=== PATIENT | female | born 1960 ===

== ENCOUNTER 2024-08-24 15:41 | Emergency (ER) | payer MEDICARE, SELFPAY ==
--- NOTE | ~2024-08-24 | CT_ITS ---
EXAMINATION: CTA chest PE protocol DATE: 08/24/2024 20:34 CDT INDICATION: Elevated d-dimer. TECHNIQUE: Computed tomographic angiography (CTA) of the chest was performed with 100 mL Omnipaque-35 0 intravenous contrast. The dose-length product was 287.93 mGy-cm. Maximum intensity projection 3D-re constructions of the aorta and other arteries were constructed by the technologist on a separate work station. COMPARISON: None. FINDINGS/OBSERVATIONS: PULMONARY ARTERIES: No filling defect is identified within the main or proximal pulmonary artery. The main pulmonary artery is not enlarged. THORACIC AORTA: No aneurysmal dilatation or dissection is present. The great vessels are intact LUNGS: The lungs are clear MEDIASTINUM: No morphologically suspicious or pathologically enlarged lymph nodes are identified with in the mediastinum or bilateral axilla. BONES OF THE CHEST: No acute fracture. No significant degenerative disease. No lytic or blastic lesions. HEART: The heart is enlarged, without pericardial effusion. IMPRESSION: No pulmonary embolus. No thoracic aortic dissection. The lungs are clear. Reviewed, dictated and finalized at location A.
--- NOTE | ~2024-08-24 | XR_ITS ---
CHEST RADIOGRAPH, PA AND LATERAL CLINICAL HISTORY: weakness, chest tightness . COMPARISON: None available TECHNIQUE: PA and lateral views of the chest. FINDINGS The cardiomediastinal silhouette is unremarkable. The lungs are clear. IMPRESSION: No focal infiltrate or effusion. Reviewed, dictated and finalized at location A.
--- NOTE | ~2024-08-24 | CT_ITS ---
History: Headache with facial paresthesias PROCEDURE: CT head without contrast. COMPARISON: None TECHNIQUE: Axial imaging of the head performed from the skull base to the vertex without IV contrast. Sagittal a nd coronal reformations obtained. DLP: 681 mGy-cm FINDINGS: The ventricles are enlarged. The dilatation of the ventricles is proportional to the degree of sulcal prominence, not uncommon in the senescent brain. Decreased attenuation is identified within the periventricular white matter, likely secondary to micr ovascular ischemic disease, far advanced for a patient of this age. There is no mass, mass effect or midline shift. There is no abnormal extra-axial fluid collection or intracranial hemorrhage. Visualized paranasal sinuses are clear. The mastoid air cells are well aerated. No acute displaced fractures within the overlying cranium. Impression: No acute intracranial hemorrhage or suspicious mass effect. 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 Reviewed, dictated and finalized at location A. Impression: No acute intracranial hemorrhage or suspicious mass effect. 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
--- OUTSIDE RECORDS SUMMARY | 2024-08-24 15:44 | XMS_ITS | Encounter Summary ---
Author Organization [facility] Address [address] [place] [address] Phone Care Team Providers Care Financial Aid Officer Name Role Phone Jing Baird Primary Care Provider + Kvng Mendoza MD Unavailable Encounter Details Date Type Department Care Team (Late st Contact Info) Description 11/23/2020 Lab Requisition [facility] Laboratory Services [address] [place] [address] Jing Baird PAC [address] [place] [address] Hypothyroidism, unspecified; Abnormal level of blood mineral; Hypokalemia Social History Tobacco Use Types Packs/Day Years Used Date Smoking Tobacco: Every Day Cigarettes 1 48.8 Started: 11/03/1975 Smokeless Tobacco: Never Alcohol Use Standard Drinks/Week Comments Not Currently 0 (1 standard drink = 0.6 oz pur e alcohol) PHQ-2 Answer Date Recorded Total Score - Questions 1-9 1 07/06 Sexually Active Control Partners Comments Not Currently Male Comments No Sex and Gender Information Value Date Recorded Sex Assigned at Female 10/03/2023 6:07 AM CDT Legal Sex Female 8:03 PM CDT Gender Identity Female 10/03/2023 6:07 AM CDT Sexual Orientation Not on file COVID-19 Exposure Response Date Recorded In the last month, have you been in contact with someone who was confirmed or suspected to have Coronavirus / COVID-19? No / Unsure 11/16/2020 3:47 PM CDT documented as of this encounter Plan of Treatment Not on file documented as of this encounter Goals Goal Patient Goal Type Associated Problems Recent Progress Patient-Stated? Author Patient to report a decrease in intensity and frequency of anxious and depressive symptoms Behavioral Health No Mini Larios, RUBEN Note: 1. Patient to learn and utilize three coping skills. 2. Patient to practice self care. 3. Patient to identify negative thoughts and actively reframe. I would like to feel better then I do today. Behavioral Health Yes Mini Larios, RUBEN documented as of this encounter Procedures Procedure Name Priority Date/Time Associated Diagnosis Comments THYROID SCREEN WITH REFLEX Routine 11/23/2020 10:30 AM CDT Hypothyroidism, unspecified Abnormal level of blood mineral Hypokalemia THYROID SCREEN WITH REFLEX Routine 11/23/2020 10:30 AM CDT Hypothyroidism, unspecified Abnormal level of blood mineral Hypokalemia THYROXINE (T4) FREE Routine 11/23/2020 1 0:30 AM CDT Hypothyroidism, unspecified Abnormal level of blood mineral Hypokalemia MAGNESIUM (MG) Routine 11/23/2020 10:30 AM CDT Hypothyroidism, unspecified Abnormal level of blood mineral Hypokalemia BASIC METABOLIC PANEL W/ CALCIUM TOTAL Routine 11/23/2020 10:30 AM CDT Hypothyroidism, unspecified Abnormal level of blood mineral Hypokalemia documented in this encounter Results * THYROXINE (T4) FREE (11/23/2020 10:30 AM CDT) T4 FREE 1.2 0.9 - 1.7 ng/dL 11/23/2020 12:54 PM CDT [facility] Blood Venipuncture / Unknown 11/23/2020 10:30 AM CDT 11/23/2020 11:03 AM CDT us Jing Baird PAC CHEMISTRY ORDERABLES Fin al Result [email or web address] LAB #[address] [place] [address] * (ABNORMAL) THYROID SCREEN WITH REFLEX (11/23/2020 10:30 AM CDT) TSH 0.114(L) 0.270 - 4.200 mIU/L 11/23/2020 11:35 AM CDT [facility] [[email or web address] Blood Venipuncture / Unknown 11/23/2020 10:30 AM CDT 11/23/2020 11:03 AM CDT us Jing Baird PAC CHEMISTRY ORDERABLES Fin al Result Performing Organization Address City[facility] Co de Phone Number [email or web address] LAB #[address] [place] [address] * MAGNESIUM (MG) (11/23/2020 10:30 AM CDT) MAGNESIUM 1.8 1.8 - 2.5 mg/dL 11/23/2020 11:21 AM CDT [facility] [[email or web address] Blood Venipuncture / Unknown 11/23/2020 10:30 AM CDT 11/23/2020 11:03 AM CDT us Jing Baird PAC CHEMISTRY ORDERABLES Fin al Result [facility] [[email or web address] LAB #[address] [place] [address] * (ABNORMAL) BASIC METABOLIC PANEL W/ CALCIUM TOTAL (11/23/2020 10:30 AM CDT) SODIUM 142 136 - 144 mmol/L 11/23/2020 11:21 AM CDT [facility] POTASSIUM 3.5 3.5 - 5.1 mmol/L 11/23/2020 11:21 AM CDT [facility] CHLORIDE 108 100 - 110 mmol/L 11/23/2020 11:21 AM CDT [facility] CO2, VENOUS 21(L) 22 - 32 mmol/L 11/23/2020 11:21 AM CDT [facility] ANION GAP 16.5 8.0 - 20.0 mmol/L 11/23/2020 11:21 AM CDT [facility] GLUCOSE 205(H) 70 - 99 mg/dL 11/23/2020 11:21 AM CDT [facility] BUN 16 8 - 23 mg/dL 11/23/2020 11:21 AM CDT [facility] CREATININE, BLOOD 0.80 0.60 - 1.10 mg/dL 11/23/2020 11:21 AM CDT [facility] BUN/CREATININE RATIO 20 12 - 20 ratio 11/23/2020 11:21 AM CDT [facility] CALCIUM 9.0 8.9 - 10.3 mg/dL 11/23/2020 11:21 AM CDT [facility] GFR, EST. NONAFRICAN >60 >=60 11/23/2020 11:21 AM CDT [facility] GFR, EST. >60 >=60 11/23/2020 11:21 AM CDT [facility] Comment: Creatinine Clearance is the preferred criteria for selecting drug dose adjustments in renally impaired patients. The GFR is provided as additional pertinent clinical information. GFR is reported in mL/min/1.73 sq m. Blood Venipuncture / Unknown 11/23/2020 10:30 AM CDT 11/23/2020 11:03 AM CDT us Jing Baird PAC CHEMISTRY ORDERABLES Fin al Result [facility] [address] [place] [address] documented in this encounter Visit Diagnoses Diagnosis Hypothyroidism, unspecified Abnormal level of blood mineral Other abnormal blood chemistry Hypokalemia Hypopotassemia documented in this encounter Additional Health Concerns Infection Onset Date Last Indicated Resolved Time COVID - 19 03/24/2023 03/24/2023 03/25/2023 8:22 AM MIXED LIVESTOCK FARMER C. difficile Rule-Out 03/24/2023 03/24/20232022 4:16 PM MIXED LIVESTOCK FARMER COVID - 19 04/27/2023 04/27/2023 04/28/2023 8:53 AM MIXED LIVESTOCK FARMER COVID - 19 01/08/2024 01/08/2024 01/08/2024 1:48 PM CDT COVID - 19 01/13/2024 01/13/2024 01/13/2024 3:44 PM CDT Respiratory Rule-Out 01/13/2024 01/13/2024 024 12:16 AM CDT COVID - 19 02/22/2024 02/22/2024 03/03/2024 12:1 6 AM MIXED LIVESTOCK FARMER COVID - 19 05/17/2024 05/17/2024 05/17/2024 10:4 5 AM MIXED LIVESTOCK FARMER Influenza 05/17/2024 05/17/2024 05/24/2024 12:1 6 AM MIXED LIVESTOCK FARMER COVID - 19 06/11/2024 06/11/2024 06/11/2024 8:06 PM MIXED LIVESTOCK FARMER Assessment Noted Time PHQ-9 Depression Total Score: 1 08/03/19 21 10:00 AM CDT documented as of this encounter Care Teams Financial Aid Officer Relationship Specialty Start Date End Date Jing Baird PAC [address] [facility] [place] [address] PCP - General Physician Plant Technician 12/29/18 07/31/24 Kvng Mendoza MD [address] [phone] Consulting Physician Endocrinology 10/10/21 documented as of this encounter
--- OUTSIDE RECORDS SUMMARY | 2024-08-24 15:44 | XMS_ITS | Encounter Summary ---
Author Organization [facility] Address [address] [place] [address] Phone Care Team Providers Care Fish Hatchery Man Name Role Phone Jing Baird Primary Care Provider + Kvng Mendoza MD Unavailable Reason for Visit * Reason Comments Medication Refill Encounter Details Date Type Department Care Team (Late st Contact Info) Description 02/01/2020 Refill [facility] - Family Medicine [facility] [address] [place] [address] Jing Baird PAC [address] [place] [address] Medication Refill Social History Tobacco Use Types Packs/Day Years Used Date Smoking Tobacco: Every Day Cigarettes Smokeless Tobacco: Never Alcohol Use Standard Drinks/Week Comments Not Currently 0 (1 standard drink = 0.6 oz pur e alcohol) PHQ-2 Answer Date Recorded Total Score - Questions 1-9 3 08/05 Comments No Sex and Gender Information Value [...] have Coronavirus / COVID-19? No / Unsure 01/30/2020 3:32 PM CDT documented as of this encounter Miscellaneous Notes * Telephone Encounter - Sirisha Bell RN - 02/02/2020 9:48 AM CDT Requested Prescriptions Pending Prescriptions Disp Refills tiZANidine (ZANAFLEX) 4 MG Tablet [Pharmacy Med Name: TIZANIDINE HYDROCHLORIDE 4 MG Tablet] 270 Tab0 Sig: TAKE 1 TABLET THREE TIMES DAILY Not Delegated - Analgesics: Muscle Relaxants Failed - 02/01/2020 5:07 PM Failed - This refill cannot be delegated Passed - Valid encounter within last 6 months Past Office Visits Recent Outpatient Visits 2 months ago Type 2 diabetes mellitus with other specified complication, with long-term current useof insulin ([facility]) [facility] Jing Gleason PAC 5 months ago [facility] 6 [facility] Type 2 diabetes mellitus with other specified complication, with long-term current useof insulin ([facility]) [facility] Jing Gleason PAC 7 months ago Type 2 diabetes mellitus with other specified complication, with long-term current useof insulin ([facility]) [facility] Jing Gleason PAC 8 months ago [facility] Upcoming Appointments Future Appointments In 1 week Kvng Mendoza MD [facility] In 3 weeks [facility]ing Baird PAC [facility] AUTOMATIC PRINT DEVELOPER - Recent and Past Visits Recent Visits Date Type Provider Dept 11/30/19 Office Visit Jing Baird PAC [facility] 08/25/19 Office Visit Jing Baird PAC [facility] 07/19/19 Telemedicine Jing Baird PAC [facility] 07/05/19 Telemedicine Jing Baird PAC [facility] 05/18/19 Office Visit Oli Cony, PAC [facility] 05/11/19 Office Visit Oli Cony, PAC [facility] 03/14/19 Office Visit Oli Cony, PAC [facility] 03/02/19 Office Visit Oli Jing Barnes, PAC [facility] 02/01/19 Office Visit Oli Jing Barnes, PAC [facility] 01/26/19 Office Visit Jing Bairde, PAC [facility] Showing recent visits within past 460 days with a meds authorizing provider and meeting all other requirements Future Appointments Date Type Provider Dept 02/28/20 Appointment Oli Jing Barnes PAC [facility] Showing future appointments within next 90 days with a meds authorizing provider and meeting all other requirements busPIRone (BUSPAR) 10 MG Tablet [Pharmacy Med Name: BUSPIRONE HYDROCHLORIDE 10 MG Tablet] 180 Tab 0 Sig: TAKE 1 TABLET TWICE DAILY Not Delegated - Psychiatry: Anxiolytics/Hypnotics Failed - 02/01/2020 5:07 PM Failed - This refill cannot be delegated Passed - Valid encounter within last 6 months Past Office Visits Recent Outpatient Visits 2 months ago Type 2 diabetes mellitus with other specified complication, with long-term current useof insulin ([facility]) [facility] 5 months [facility] Essential [facility] 6 months ago Type 2 diabetes mellitus with other specified complication, with long-term current useof insulin ([facility]) [facility] B[facility] Cony, PAC 7 months ago Type 2 diabetes mellitus with other specified complication, with long-term current useof insulin ([facility]) [facility] B[facility] Cony, PAC 8 months ago Polyarthralgia [facility] Jing Bairde, PAC Upcoming Appointments Future Appointments In 1 week Kvng Mendoza MD [facility] Endocrinology [facility] In 3 weeks Jing Baird, PAC [facility], [facility] AUTOMATIC PRINT DEVELOPER - Recent and Past Visits Recent Visits Date Type Provider Dept 11/30/19 Office Visit Jing Baird, PAC [facility] 08/25/19 Office Visit Jing Baird, PAC [facility] 07/19/19 Telemedicine OliJing, PAC [facility] 07/05/19 Telemedicine OliJing, PAC [facility] 05/18/19 Office Visit Jing Baird, PAC [facility] 05/11/19 Office Visit OliJing, PAC [facility] 03/14/19 Office Visit OliJing, PAC [facility] 03/02/19 Office Visit OliJing, PAC [facility] 02/01/19 Office Visit Oli Jing Barnes, PAC [facility] 01/26/19 Office Visit Jing Baird, PAC [facility] Showing recent visits within past 460 days with a meds authorizing provider and meeting all other requirements Future Appointments Date Type Provider Dept 02/28/20 Appointment OliJing, PAC [facility] Showing future appointments within next 90 days with a meds authorizing provider and meeting all other requirements documented in this encounter Plan of Treatment Not on file documented as of this encounter Goals Goal Patient Goal Type Associated Problems Recent Progress Patient-Stated? Author Patient to report a decrease in intensity and frequency of anxious and depressive symptoms Behavioral Health No Mini Larios LCSW Note: 1. Patient to learn and utilize three coping skills. 2. Patient to practice self care. 3. Patient to identify negative thoughts and actively reframe. I would like to feel better then I do today. Behavioral Health Yes Mini Larios LCSW documented as of this encounter Visit Diagnoses Not on filedocumented in this encounter Additional Health Concerns Infection Onset Date Last Indicated Resolved Time MRSA 07/01/2020 07/01/2020 08/27/2020 6:22 AM CDT COVID - 19 08/26/2020 08/26/2020 08/27/2020 6:22 AM CDT C. difficile Rule-Out 08/26/2020 08/26/20202020 11:25 AM CDT C. difficile Rule-Out 11/11/2020 11/11/20202020 12:16 AM CDT COVID - 19 03/24/2023 03/24/2023 03/25/2023 8:22 AM MOLD COOLER C. difficile Rule-Out 03/24/2023 03/24/20232022 4:16 PM MOLD COOLER COVID - 19 04/27/2023 04/27/2023 04/28/2023 8:53 AM MOLD COOLER COVID - 19 01/08/2024 01/08/2024 01/08/2024 1:48 PM CDT COVID - 19 01/13/2024 01/13/2024 01/13/2024 3:44 PM CDT Respiratory Rule-Out 01/13/2024 01/13/2024 024 12:16 AM CDT COVID - 19 02/22/2024 02/22/2024 03/03/2024 12:1 6 AM MOLD COOLER COVID - 19 05/17/2024 05/17/2024 05/17/2024 10:4 5 AM MOLD COOLER Influenza 05/17/2024 05/17/2024 05/24/2024 12:1 6 AM MOLD COOLER COVID - 19 06/11/2024 06/11/2024 06/11/2024 8:06 PM MOLD COOLER Assessment Noted Time PHQ-9 Depression Total Score: 3 08/25/19 11:40 AM CDT documented as of this encounter Care Teams Fish Hatchery Man Relationship Specialty Start Date End Date Jing Baird PAC [address] [place] [address] PCP - General Physician Pin Game Machine Inspector 12/29/18 07/31/24 Kvng Mendoza MD [address] [address] Consulting Physician Endocrinology 10/10/21 documented as of this encounter
--- OUTSIDE RECORDS SUMMARY | 2024-08-24 15:44 | XMS_ITS | Encounter Summary ---
Author Organization [facility] Address [address] [place] [address] Phone Care Team Providers Care Electronic Engraver Name Role Phone Jing Baird Primary Care Provider + Kvng Mendoza MD Unavailable Reason for Visit * Reason Comments Medication Refill Encounter Details Date Type Department Care Team (Late st Contact Info) Description 02/13/2021 Refill [facility] - Family Medicine [facility] [place] [address] [place] [address] Jing Baird PAC [address] [place] [address] Medication Refill Social History Tobacco Use Types [...] AM CDT Sexual Orientation Not on file documented as of this encounter Plan of [...] Larios, RUBEN documented as of this encounter Visit Diagnoses Not on filedocumented in this encounter Additional Health Concerns Infection Onset Date Last Indicated Resolved Time COVID - 19 03/24/2023 03/24/2023 03/25/2023 8:22 AM MANAGER INTERMEDIATE C. difficile Rule-Out 03/24/2023 03/24/20232022 4:16 PM MANAGER INTERMEDIATE COVID - 19 04/27/2023 04/27/2023 04/28/2023 8:53 AM MANAGER INTERMEDIATE COVID - 19 01/08/2024 01/08/2024 01/08/2024 1:48 PM CDT COVID - 19 01/13/2024 01/13/2024 01/13/2024 3:44 PM CDT Respiratory Rule-Out 01/13/2024 01/13/2024 024 12:16 AM CDT COVID - 19 02/22/2024 02/22/2024 03/03/2024 12:1 6 AM MANAGER INTERMEDIATE COVID - 19 05/17/2024 05/17/2024 05/17/2024 10:4 5 AM MANAGER INTERMEDIATE Influenza 05/17/2024 05/17/2024 05/24/2024 12:1 6 AM MANAGER INTERMEDIATE COVID - 19 06/11/2024 06/11/2024 06/11/2024 8:06 PM MANAGER INTERMEDIATE Assessment Noted Time PHQ-9 Depression Total Score: 1 08/03/19 10:00 AM CDT documented as of this encounter Care Teams Electronic Engraver Relationship Specialty Start Date End Date Jing Baird PAC [address] [place] [address] PCP - General Physician Classroom Instructor 12/29/18 07/31/24 Kvng Mendoza MD [address] [address] Consulting Physician Endocrinology 10/10/21 documented as of this encounter
--- OUTSIDE RECORDS SUMMARY | 2024-08-24 15:44 | XMS_ITS | Encounter Summary ---
Author Organization [facility] Address [address] [place] [address] Phone Care Team Providers Care It Application Architect Name Role Phone Jing Baird Primary Care Provider + Kvng Mendoza MD Unavailable Reason for Visit * Reason Comments Medication Refill Encounter Details Date Type Department Care Team (Late st Contact Info) Description 04/10/2020 Refill [facility] Medical Group - Family Medicine [facility] [address] [place] [address] Jing Baird PAC [address] [place] [address] Medication Refill Social History Tobacco Use Types [...] have Coronavirus / COVID-19? No / Unsure 03/23/2020 2:50 PM MUTUAL FUND ANALYST documented as of this encounter Miscellaneous Notes * Telephone Encounter - Natali Zamudio RN - 04/11/2020 9:03 AM CST Sent to PCP AL FUND ANALYST * Telephone Encounter - Natali Zamudio RN - 04/11/2020 9:02 AM CST Per nursing clinical judgement, provider to review and approve the medication(s) order(s) if appropriate. Famotidine not on current med list, dc'ed 02/10/20, Levothyroxine 08/24/19, Venlafaxine 08/24/19. LastOV 03/26/20, F/U None Natali BETANCOURT Requested Prescriptions Pending Prescriptions Disp Refills famotidine (PEPCID) 40 MG Tablet [Pharmacy Med Name: FAMOTIDINE 40 MG Tablet] 90 Tab Sig: TAKE 1/2 TABLET TWICE DAILY Gastroenterology: Antiulcer - H2 Antagonists Passed - 04/10/2020 7:23 PM Passed - Valid encounter within last 12 months Past Office Visits Recent Outpatient Visits 2 weeks ago Chronic sinusitis, unspecified location [facility] - Jing Gleason PAC 2 months ago Chronic gastroesophageal reflux disease [facility] - Jing Gleason PAC 4 months ago Type 2 diabetes mellitus with other specified complication, with long-term current useof insulin (HCC) [facility] 7 months ago Essential hypertension [facility] - Jing Gleason PAC 8 months ago Type 2 diabetes mellitus with other specified complication, with long-term current useof insulin (HCC) [facility] Upcoming Appointments Future Appointments In 1 week Sima Hensley September, PAC [facility] Medical [facility] month Kvng Mendoza MD [facility] Endocrinology [facility] DIRECTOR LIFE SCIENCES - Recent and Past Visits Recent Visits Date Type Provider Dept 03/26/20 Telemedicine Jing Baird, PAC [facility] 02/10/20 Office Visit ElpidioJing paul, PAC [facility] 11/30/19 Office Visit ElpidioJing paul, PAC [facility] 08/25/19 Office Visit LollyJing reid, PAC [facility] 07/19/19 Telemedicine ElpidioJing paul, PAC [facility] 07/05/19 Telemedicine ElpidioJing paul, PAC [facility] 05/18/19 Office Visit ElpidioJing paul, PAC [facility] 05/11/19 Office Visit ElpidioJing paul, PAC [facility] 03/14/19 Office Visit ElpidiocharlesjeanetteJing, PAC [facility] 03/02/19 Office Visit OliiJng, PAC [facility] Showing recent visits within past 460 days with a meds authorizing provider and meeting all other requirements Future Appointments No visits were found meeting these conditions. Showing future appointments within next 90 days with a meds authorizing provider and meeting all other requirements levothyroxine (SYNTHROID) 125 MCG Tablet [Pharmacy Med Name: LEVOTHYROXINE SODIUM 125 MCG Tablet] 90 Tab 2 Sig: TAKE 1 TABLET EVERY DAY Endocrinology: Hypothyroid Agents Failed - 04/10/2020 7:23 PM Failed - TSH in normal range and within 360 days TSH Date Value Ref Range Status 12/01/2019 0.063 (L) 0.270 - 4.200 mIU/L Final Passed - Valid encounter within last 12 months Past Office Visits Recent Outpatient Visits 2 weeks ago Chronic sinusitis, unspecified location [facility] Jing Gleason PAC 2 months ago [facility] Type 2 diabetes mellitus with other specified complication, with long-term current useof insulin (HCC[facility] Essential hypertension [facility] - Jing Gleasno PAC 8 months ago Type 2 diabetes mellitus with other specified complication, with long-term current useof insulin (HCC) [facility] - Jing Gleason PAC Upcoming Appointments Future Appointments In 1 week Sima Hensley September, LYLY [facility] Gastroenterology - [place], [facility] In 1 month Kvng Mendoza MD [facility] Endocrinology - [facility] DIRECTOR LIFE SCIENCES - Recent and Past Visits Recent Visits Date Type Provider Dept 03/26/20 Telemedicine Jing Baird, PAC [facility] 02/10/20 Office Visit Jing Baird, PAC [facility] 11/30/19 Office Visit Jing Baird, PAC [facility] 08/25/19 Office Visit Jing Baird, PAC [facility] 07/19/19 Telemedicine Jing Baird, PAC [facility] 07/05/19 Telemedicine Jing Baird, PAC [facility] 05/18/19 Office Visit Jing Baird, PAC [facility] 05/11/19 Office Visit Jing Baird, PAC [facility] 03/14/19 Office Visit Jing Baird, PAC [facility] 03/02/19 Office Visit Jing Baird, PAC [facility] Showing recent visits within past 460 days with a meds authorizing provider and meeting all other requirements Future Appointments No visits were found meeting these conditions. Showing future appointments within next 90 days with a meds authorizing provider and meeting all other requirements venlafaxine (EFFEXOR-XR) 150 MG CAPSULE SR 24 HR [Pharmacy Med Name: VENLAFAXINE HCL ER 150 MG Capsule Extended Release 24 Hour] 180 Cap 2 Sig: TAKE 1 CAPSULE TWICE DAILY Not Delegated - Psychiatry: Antidepressants: Other Failed - 04/10/2020 7:23 PM Failed - Last BP in normal range BP Readings from Last 1 Encounters: 02/10/20 148/74 Failed - This refill cannot be delegated Passed - Valid encounter within last 12 months Past Office Visits Recent Outpatient Visits 2 weeks ago Chronic [facility], unspecified [facility] 2 months [facility]ophageal reflux disease [facility] 4 months ago Type 2 diabetes mellitus with other specified complication, with long-term current useof insulin ([facility] 7 months [address] [facility] 8 months ago Type 2 diabetes mellitus with other specified complication, with long-term current useof insulin ([facility] Upcoming Appointments Future Appointments In 1 week Sima Hensley September, LYLY [facility] Gastroenterology [facility] In 1 month Kvng Mendoza MD [facility] Endocrinology [facility] DIRECTOR LIFE SCIENCES - Recent and Past Visits Recent Visits Date Type Provider Dept 03/26/20 Telemedicine Jing Baird, PAC [facility] 02/10/20 Office Visit Jing Baird, PAC [facility] 11/30/19 Office Visit Jing Baird, PAC [facility] 08/25/19 Office Visit Jing Baird, PAC [facility] 07/19/19 Telemedicine Jing Baird, PAC [facility] 07/05/19 Telemedicine Jing Baird, PAC [facility] 05/18/19 Office Visit Jing Baird, PAC [facility] 05/11/19 Office Visit Jing Baird, PAC [facility] 03/14/19 Office Visit Jing Baird, PAC [facility] 03/02/19 Office Visit Jing Baird, PAC [facility] Showing recent visits within past 460 days with a meds authorizing provider and meeting all other requirements Future Appointments No visits were found meeting these conditions. Showing future appointments within next 90 days with a meds authorizing provider and meeting all other requirements AL FUND ANALYST documented in this encounter Plan of Treatment [...] documented as of this encounter Visit Diagnoses Diagnosis Hypothyroidism, unspecified type documented in this encounter Additional Health Concerns Infection Onset Date Last Indicated Resolved Time MRSA 07/01/2020 07/01/2020 08/27/2020 6:22 AM CDT COVID - 19 08/26/2020 08/26/2020 08/27/2020 6:22 AM CDT C. difficile Rule-Out 08/26/2020 08/26/20202020 11:25 AM CDT C. difficile Rule-Out 11/11/2020 11/11/20202020 12:16 AM CDT COVID - 19 03/24/2023 03/24/2023 03/25/2023 8:22 AM MUTUAL FUND ANALYST C. difficile Rule-Out 03/24/2023 03/24/20232022 4:16 PM MUTUAL FUND ANALYST COVID - 19 04/27/2023 04/27/2023 04/28/2023 8:53 AM MUTUAL FUND ANALYST COVID - 19 01/08/2024 01/08/2024 01/08/2024 1:48 PM CDT COVID - 19 01/13/2024 01/13/2024 01/13/2024 3:44 PM CDT Respiratory Rule-Out 01/13/2024 01/13/2024 024 12:16 AM CDT COVID - 19 02/22/2024 02/22/2024 03/03/2024 12:1 6 AM MUTUAL FUND ANALYST COVID - 19 05/17/2024 05/17/2024 05/17/2024 10:4 5 AM MUTUAL FUND ANALYST Influenza 05/17/2024 05/17/2024 05/24/2024 12:1 6 AM MUTUAL FUND ANALYST COVID - 19 06/11/2024 06/11/2024 06/11/2024 8:06 PM MUTUAL FUND ANALYST Assessment Noted Time PHQ-9 Depression Total Score: 3 08/25/19 20 11:40 AM CDT documented as of this encounter Care Teams It Application Architect Relationship Specialty Start Date End Date Jing Baird PAC [address] [place] [address] PCP - General Physician Campaign Marketing Manager 12/29/18 07/31/24 Kvng Mendoza MD [address] [phone] Consulting Physician Endocrinology 10/10/21 documented as of this encounter
--- OUTSIDE RECORDS SUMMARY | 2024-08-24 15:45 | XMS_ITS | Encounter Summary ---
Author Organization [facility] Address [address] [place] [address] Phone Care Team Providers Care Airplane Gas Tank Liner Assembler Name Role Phone Jing Baird Primary Care Provider + Kvng Mendoza MD Unavailable Reason for Visit * Reason Comments Medication Refill Encounter Details Date Type Department Care Team (Late st Contact Info) Description 05/26/2022 Refill [facility] Medical Group - Family Medicine [facility] [address] [place] [address] Jing Baird PAC [address] [place] [address] Medication Refill Social History Tobacco Use Types Packs/Day Years Used Date Smoking Tobacco: Every Day Cigarettes 1 48.8 Started: 11/03/1975 Smokeless Tobacco: Never Alcohol Use Standard Drinks/Week Comments Not Currently 0 (1 standard drink = 0.6 oz pur e alcohol) PHQ-2 Answer Date Recorded Total Score - Questions 1-9 0 10/04 Education Answer Date Recorded What is the highest level of school you have completed or the highest degree you have received? 12th grade 06/19/2021 Sexually Active Control Partners Comments Not Currently Male Comments No Sex and Gender Information Value Date Recorded Sex Assigned at Female 10/03/2023 6:07 AM CDT Legal Sex Female 8:03 PM CDT Gender Identity Female 10/03/2023 6:07 AM CDT Sexual Orientation Not on file documented as of this encounter Miscellaneous Notes * Telephone Encounter - Michelle Liao RN - 05/27/2022 8:32 AM CST Images from the original note were not included. Montelukast Sodium Dispensed Days Supply Quantity Provider Pharmacy MONTELUKAST SOD 10 MG TABLET 04/23/2022 90 [id number] Omeprazole Dispensed Days Supply Quantity Provider Pharmacy OMEPRAZOLE DR 40 MG CAPSULE 04/23/2022 90 90 [id number]... Potassium Chloride Dispensed Days Supply Quantity Provider Pharmacy POTASSIUM CL ER 10 MEQ TABLET 04/23/2022 90 180 Each Jing Baird [facility]/pharmacy #[id number] -G... Simvastatin Dispensed Days Supply Quantity Provider Pharmacy SIMVASTATIN 40 MG TABLET 04/23/2022 90 90 Each Jing Baird [facility]/pharmacy #[id number] - G... Venlafaxine HCl Dispensed Days Supply Quantity Provider Pharmacy VENLAFAXINE HCL ER 150 MG CAP 05/12/2022 90 180 Each Jing Baird [facility]/pharmacy #[id number] -G... VENLAFAXINE HCL ER 150 MG CAP 02/08/2022 90 180 Each Jing Baird [facility]/pharmacy #[id number] -G... tiZANidine HCl Dispensed Days Supply Quantity Provider Pharmacy TIZANIDINE HCL 4 MG TABLET 05/12/2022 90 270 Each Jing Baird [facility]/pharmacy #[id number] - G... TIZANIDINE HCL 4 MG TABLET 02/08/2022 90 270 Each Jing Baird [facility]/pharmacy #[id number] - G... S documented in this encounter Plan of Treatment Not on file documented as of this encounter Goals Goal Patient Goal Type Associated Problems Recent Progress Patient-Stated? Author Patient to report a decrease in intensity and frequency of anxious and depressive symptoms Behavioral Health No Mnii Larios LCSW Note: 1. Patient to learn [...] - 19 03/24/2023 03/24/2023 03/25/2023 8:22 AM CRTTS C. difficile Rule-Out 03/24/2023 03/24/20232022 4:16 PM CRTTS COVID - 19 04/27/2023 04/27/2023 04/28/2023 8:53 AM CRTTS COVID - 19 01/08/2024 01/08/2024 01/08/2024 1:48 PM CDT COVID - 19 01/13/2024 01/13/2024 01/13/2024 3:44 PM CDT Respiratory Rule-Out 01/13/2024 01/13/2024 024 12:16 AM CDT COVID - 19 02/22/2024 02/22/2024 03/03/2024 12:1 6 AM CRTTS COVID - 19 05/17/2024 05/17/2024 05/17/2024 10:4 5 AM CRTTS Influenza 05/17/2024 05/17/2024 05/24/2024 12:1 6 AM CRTTS COVID - 19 06/11/2024 06/11/2024 06/11/2024 8:06 PM CRTTS Assessment Noted Time PHQ-9 Depression Total Score: 1 08/03/19 21 10:00 AM CDT documented as of this encounter Care Teams Airplane Gas Tank Liner Assembler Relationship Specialty Start Date End Date Jing Baird PAC [address] [place] [address] PCP - General Physician Financial Recruiter 12/29/18 07/31/24 Kvng Mendoza MD [address] [address] Consulting Physician Endocrinology 10/10/21 documented as of this encounter
--- OUTSIDE RECORDS SUMMARY | 2024-08-24 15:45 | XMS_ITS | Encounter Summary ---
Author Organization [facility] Address [address] [place] [address] Phone Care Team Providers Care Assistant Store Director Name Role Phone Jing Baird Primary Care Provider + Kvng Mendoza MD Unavailable Encounter Details Date Type Department Care Team (Late st Contact Info) Description 12/23/2023 Lab Requisition [facility] Laboratory Services [address] [place] [address] Jing Baird PAC [address] [place] [address] Urinary tract infection, site not specified Social History Tobacco Use Types Packs/Day Years Used Date Smoking Tobacco: Every Day Cigarettes Smokeless Tobacco: Never Alcohol Use Standard Drinks/Week Comments Not Currently 0 (1 standard drink = 0.6 oz pur e alcohol) [facility] Utilities Answer Date Recorded In the past 12 months has [employer] electric, gas, oil, or water company threatened to shut off services in your home? No 04/27/2023 Social Connection and Isolation Panel [NHANES] A nswer Date Recorded In a typical week, how many times do you talk on the phone with family, friends, or neighbors? Never 04/27/2023 How often do you get together with friends or re latives? Never 04/27/2023 How often do you attend cheondoism or evangelical serv ices? Never 04/27/2023 Do you belong to any clubs o r organizations such as cheondoism groups, unions, fraternal or athletic groups, or school groups? No 04/27/2023 How often do you attend meet ings of the clubs or organizations you belong to? Never 04/27/2023 Are you , , di vorced, , never , or living with a partner? 04/27/2023 AUDIT-C Answer Date Recorded Q1: How often do you have a drink containing alcohol? Never 04/27/2023 Q2: How many drinks containi ng alcohol do you have on a typical day when you are drinking? Patient does not drink Q3: How often do you have si x or more drinks on one occasion? Never 04/27/2023 Overall Financial Resource Strain (CARDIA) Answe r Date Recorded How hard is it for you to pa y for the very basics like food, housing, medical care, and heating? Not very hard 04/27/2023 PHQ-2 Answer Date Recorded Total Score - Questions 1-9 0 02/05 [facility] - Occupational Stress Questionnaire Answer Date Recorded Do you feel stress - tense, restless, nervous, or anxious, or unable to sleep at night because your mind is troubled all the time - these days? Not at all 04/27/2023 Exercise Vital Sign Answer Date Recorde d On average, how many days pe r week do you engage in moderate to strenuous exercise (like a brisk walk)? 0 days 04/27/2023 On average, how many minutes do you engage in exercise at this level? 0 min 04/27/2023 Hunger Vital Sign Answer Date Recorded Within the past 12 months, y ou worried that your food would run out before you got the money to buy more. Never true 04/27/19 24 Within the past 12 months, t he food you bought just didn't last and you didn't have money to get more. Never true 04/27/2023 PRAPARE - Transportation Answer Date Re corded In the past 12 months, has l ack of transportation kept you from medical appointments or from getting medications? Yes 04/07 In the past 12 months, has l ack of transportation kept you from meetings, work, or from getting things needed for daily living? Yes 04/27/2023 Housing Stability Vital Sign Answer Deven e Recorded In the last 12 months, was t here a time when you were not able to pay the mortgage or rent on time? No 04/27/2023 In the last 12 months, how many places have you lived? 1 04/27/2023 In the last 12 months, was t here a time when you did not have a steady place to sleep or slept in a [place] (including now)? No 04/27/2023 Education Answer Date Recorded What is the [...] today. Behavioral Health Yes Mini Larios LCSW Help patient manage hypertension Care Plan [facility]P HYPERTENSION CONCERN (PATIENT ON HIGH BLOOD PRESSURE MEDICATIONS) No Camelia White, NURSING EDUCATOR, OUTBOARD MOTOR ASSEMBLER Help patient manage nicotine dependency Care Plan [facility]CCP NICOTINE DEPENDENCY CONCERN No Camelia White, NURSING EDUCATOR, OUTBOARD MOTOR ASSEMBLER Help patients manage type 2 diabetes Care Plan [facility] TYPE 2 DIABETES CONCERN No Camelia White, NURSING EDUCATOR, OUTBOARD MOTOR ASSEMBLER Help patient manage blood glucose Care Plan [facility] TYPE 2 DIABETES INSULIN - ANALOG PATTERN CONCERN No Camelia White, NURSING EDUCATOR, OUTBOARD MOTOR ASSEMBLER Help patient manage nicotine dependency Care Plan MCCP NICOTINE DEPENDENCY CONCERN No Camelia White, NURSING EDUCATOR, OUTBOARD MOTOR ASSEMBLER documented as of this encounter Procedures Procedure Name Priority Date/Time Associated Diagnosis Comments URINALYSIS REFLEX IF INDICATED BY ABNORMAL RESULTS Routine 12/23/2023 2:00 PM CDT Urinary tract infection, site not specified CULTURE, URINE Routine 12/23/2023 2:00 PM CDT Urinary tract infection, site not specified documented in this encounter Results * CULTURE, URINE (12/23/2023 2:00 PM CDT) [facility] CULTURE RESULTS MIXED GROWTH OF 3 OR MORE ORGANISMS, PROBABLE COLLECTION CONTAMINATION, SUGGEST REPEAT URINE CULTURE. 12/24/2023 8:10 PM CDT [facility] Culture URINE / Unknown No Phlebotomy Charged / Unknown 12/23/2023 2:00 PM CDT 12/23/2023 4:20 PM CDT us Jing Baird PAC MICROBIOLOGY - GENERAL O RDERABLES Final Result Performing Organization Address City/State/[facility] Co de Phone Number [facility] [address] [place] [address], * (ABNORMAL) URINALYSIS REFLEX IF INDICATED BY ABNORMAL RESULTS (12/23/2023 2:00 PM CDT) [facility] SPECIFIC GRAVITY 1.015 1.003 - 1.030 12/23/2023 4:42 PM CDT [facility] URINE PH 6.0 5.0 - 9.0 12/23/2023 4:42 PM CDT [facility] WBC ESTERASE Negative Negative 12/23/2023 4:42 PM CDT [facility] NITRITE Negative Negative 12/23/2023 4:42 PM CDT [facility] PROTEIN, RANDOM URINE 30 mg/dL(A) Negative 12/23/2023 4:42 PM CDT [facility] URINE GLUCOSE, QUAL Negative Negative 12/23/2023 4:42 PM CDT [facility] URINE KETONES Negative Negative 12/23/2023 4:42 PM CDT [facility] UROBILINOGEN Normal Normal mg/dL 12/23/2023 4:42 PM CDT [facility] URINE BLOOD Negative Negative fely/ul 12/23/2023 4:42 PM CDT [facility] URINALYSIS COLOR Yellow 12/23/19 4:42 PM CDT [facility] URINALYSIS CLARITY Slightly Cloudy 12/23/2023 4:42 PM CDT [facility] WBC (Urine) 0-5 Negative, 0-5 /hpf 12/23/2023 4:42 PM CDT [facility] URINE RBC'S 0-2 Negative, 0-2 /hpf 12/23/2023 4:42 PM CDT [facility] EPITHELIAL CELLS Large amount squamous /lpf 12/23/2023 4:42 PM CDT [facility] BACTERIA, URINE Moderate(A) Negative /hpf 12/23/2023 4:42 PM CDT [facility] Urine URINE / Unknown Non-Phlebotomy Collection / Unknown 12/23/2023 2:00 PM CDT 12/23/2023 4:20 PM CDT Narrative [facility] - 12/23/2023 4:42 PM CDT Rare Budding Yeast Present us Jing Baird PAC URINE ORDERABLES Final R esult [facility] [address] [place] [address] documented in this encounter Visit Diagnoses Diagnosis Urinary tract infection, site not specified documented in this encounter Additional Health Concerns Active Problems Noted Date Diagnosed Date MCCP HYPERTENSION CONCERN (P ATIENT ON HIGH BLOOD PRESSURE MEDICATIONS) 04/10/2023 MCCP NICOTINE DEPENDENCY CONCERN 04/10/2023 MCCP TYPE 2 DIABETES CONCERN 04/10/2023 M[facility]P TYPE 2 DIABETES INSULIN - ANALOG PATTERN CO NCERN 04/10/2023 MCCP NICOTINE DEPENDENCY CONCERN 04/10/2023 Infection Onset Date Last Indicated Resolved Time COVID - 19 01/08/2024 01/08/202401/08/2024 1:48 PM CDT COVID - 19 01/13/2024 01/13/2024 01/13/2024 3:44 PM CDT Respiratory Rule-Out 01/13/2024 01/13/2024 024 12:16 AM CDT COVID - 19 02/22/2024 02/22/2024 03/03/2024 12:1 6 AM COFFEE ROASTER HELPER COVID - 19 05/17/2024 05/17/2024 05/17/2024 10:4 5 AM COFFEE ROASTER HELPER Influenza 05/17/2024 05/17/2024 05/24/2024 12:1 6 AM COFFEE ROASTER HELPER COVID - 19 06/11/2024 06/11/2024 06/11/2024 8:06 PM COFFEE ROASTER HELPER Assessment Noted Time PHQ-9 Depression Total Score: 0 02/25/20 23 2:41 PM COFFEE ROASTER HELPER documented as of this encounter Care Teams Assistant Store Director Relationship Specialty Start Date End Date Jing Baird PAC [address] [place] [address] PCP - General Physician Foster Care Therapist 12/29/18 07/31/24 Kvng Mendoza MD [address] [address] Consulting Physician Endocrinology 10/10/21 documented as of this encounter
--- OUTSIDE RECORDS SUMMARY | 2024-08-24 15:45 | XMS_ITS | Encounter Summary ---
Author Organization [facility] Address [address] [place] [address] Phone Care Team Providers Care Pig Caster Name Role Phone Jing Baird Primary Care Provider + Kvng Mendoza MD Unavailable Encounter Details Date Type Department Care Team (Late st Contact Info) Description 07/11/2020 Lab Requisition [facility] Services [address] [place] [address] [place] [address] [place] [address] Bacteremia Social History Tobacco Use Types Packs/Day Years [...] have Coronavirus / COVID-19? No / Unsure 07/06/2020 3:22 AM CDT documented as of this encounter Plan [...] Procedure Name Priority Date/Time Associated Diagnosis Comments VANCOMYCIN TROUGH Routine 07/11/2020 1:5 3 PM CDT Bacteremia documented in this encounter Results * (ABNORMAL) VANCOMYCIN TROUGH (07/11/2020 1:53 PM CDT) Pathologist [facility] [place] VANCOMYCIN, TROUGH 20(H) 5 - 10 mcg/mL 07/11/2020 4:15 PM CDT [facility] Blood Venipuncture / Unknown 07/11/2020 1:53 PM CDT 07/11/2020 4:03 PM CDT Harriet Dixon MD CHEMISTRY ORDERABLES Fin al Result Performing Organization Address City/State/[facility] Co de Phone Number [facility] [address] [place] [address] documented in this encounter Visit Diagnoses Diagnosis Bacteremia documented in this encounter Additional Health Concerns Infection Onset Date Last Indicated Resolved Time MRSA 07/01/2020 07/01/2020 08/27/2020 6:22 AM CDT COVID - 19 08/26/2020 08/26/2020 08/27/2020 6:22 AM CDT C. difficile Rule-Out 08/26/2020 08/26/20202020 11:25 AM CDT C. difficile Rule-Out 11/11/2020 11/11/20202020 12:16 AM CDT COVID - 19 03/24/2023 03/24/2023 03/25/2023 8:22 AM CINNAMON GRINDER C. difficile Rule-Out 03/24/2023 03/24/20232022 4:16 PM CINNAMON GRINDER COVID - 19 04/27/2023 04/27/2023 04/28/2023 8:53 AM CINNAMON GRINDER COVID - 19 01/08/2024 01/08/2024 01/08/2024 1:48 PM CDT COVID - 19 01/13/2024 01/13/2024 01/13/2024 3:44 PM CDT Respiratory Rule-Out 01/13/2024 01/13/2024 024 12:16 AM CDT COVID - 19 02/22/2024 02/22/2024 03/03/2024 12:1 6 AM CINNAMON GRINDER COVID - 19 05/17/2024 05/17/2024 05/17/2024 10:4 5 AM CINNAMON GRINDER Influenza 05/17/2024 05/17/2024 05/24/2024 12:1 6 AM CINNAMON GRINDER COVID - 19 06/11/2024 06/11/2024 06/11/2024 8:06 PM CINNAMON GRINDER Assessment Noted Time PHQ-9 Depression Total Score: 3 08/25/19 20 11:40 AM CDT documented as of this encounter Care Teams Pig Caster Relationship Specialty Start Date End Date Jing Baird PAC [address] [place] [address] PCP - General Physician Lab Nurse 12/29/18 07/31/24 Kvng Mendoza MD [address] [id number] Consulting Physician Endocrinology 10/10/21 documented as of this encounter
--- OUTSIDE RECORDS SUMMARY | 2024-08-24 15:45 | XMS_ITS | Encounter Summary ---
Author Organization [facility] Address [address] [place] [address] Phone Care Team Providers Care Engineering Specialist Technician Name Role Phone Jing Baird PAC Primary Care Provider + Kvng Mendoza MD Unavailable Reason for Visit * Reason Comments Medication Refill Encounter Details Date Type Department Care Team (Late st Contact Info) Description 06/18/2020 Refill [facility] [address] [place] [address] Jing Baird, PAC [address] [place] [address] Medication Refill Social History Tobacco Use Types [...] Telephone Encounter - Natali Zamudio RN - 06/18/2020 2:55 PM CDT Medication failed the protocol, provider to review and approve the medication order if appropriate. Last OV 05/02/20, F/U None, Last Rx Flonase 08/24/19, Furosemide 08/24/19, Atenolol 08/24/19 Natali RN Requested Prescriptions Pending Prescriptions Disp Refills fluticasone (FLONASE) 50 MCG/ACT Suspension [Pharmacy Med Name: FLUTICASONE PROPIONATE 50 MCG/ACT Suspension] 48 g 2 Sig: USE 2 SPRAYS IN EACH NOSTRIL EVERY DAY DIRECTED Ear, Nose, and Throat: Nasal Preparations - Corticosteroids Passed - 06/18/2020 1:10 PM Passed - Valid encounter within last 12 months Past Office Visits Recent Outpatient Visits 1 month ago Chronic sinusitis, unspecified location [facility] Jing Gleason PAC 2 months ago Chronic sinusitis, unspecified location [facility] Jing Gleason PAC 4 months ago Chronic gastroesophageal reflux disease [facility] Jing Gleason PAC 6 months ago Type 2 diabetes mellitus with other specified complication, with long-term current useof insulin (HCC) [facility] Jing Gleason PAC 9 months ago Essential hypertension [facility] Jing Gleason PAC Upcoming Appointments Future Appointments In 3 weeks Kvng Mendoza MD [facility] TRIMMING CUTTER MACHINE - Recent and Past Visits Recent Visits Date Type Provider Dept 05/02/20 Telemedicine Jing aBird PAC [facility] 03/26/20 Telemedicine Jing Baird PAC [facility] 02/10/20 Office Visit Jing Baird PAC [facility] 11/30/19 Office Visit Jing Baird PAC [facility] 08/25/19 Office Visit Jing Baird PAC [facility] 07/19/19 Telemedicine Jing Baird PAC [facility] 07/05/19 Telemedicine Jing Baird PAC [facility] 05/18/19 Office Visit Jing Baird PAC [facility] 05/11/19 Office Visit Jing Baird PAC [facility] Showing recent visits within past 460 days with a meds authorizing provider and meeting all other requirements Future Appointments No visits were found meeting these conditions. Showing future appointments within next 90 days with a meds authorizing provider and meeting all other requirements furosemide (LASIX) 40 MG Tablet [Pharmacy Med Name: FUROSEMIDE 40 MG Tablet] 90 Tablet 2 Sig: TAKE 1 TABLET EVERY DAY Cardiovascular: Diuretics Failed - 06/18/2020 1:10 PM Failed - Last BP in normal range BP Readings from Last 1 Encounters: 02/10/20 148/74 Passed - Valid encounter within last 12 months Past Office Visits Recent Outpatient Visits 1 month ago Chronic sinusitis, unspecified location [facility] Jing Gleason PAC 2 months ago Chronic sinusitis, unspecified location [facility] Jing Gleason PAC 4 months ago Chronic gastroesophageal reflux disease [facility] Jing Gleason PAC 6 months ago Type 2 diabetes mellitus with other specified complication, with long-term current useof insulin (HCC) [facility] Jing Gleason PAC 9 months ago Essential hypertension [facility] Jing Gleason PAC Upcoming Appointments Future Appointments In 3 weeks Kvng Mendoza MD [facility]INE - Recent and Past Visits Recent Visits Date Type Provider Dept 05/02/20 Jing Gonzalez PAC [facility] 03/26/20 Telemedicine Jing Baird PAC [facility] 02/10/20 Office Visit Jing Baird PAC [facility] 11/30/19 Office Visit Jing Baird PAC [facility] 08/25/19 Office Visit Jing Baird PAC [facility] 07/19/19 Telemedicine Jing Baird PAC [facility] 07/05/19 Telemedicine Jing Baird PAC [facility] 05/18/19 Office Visit Jing Baird PAC [facility] 05/11/19 Office Visit Jing Baird, PAC [facility] Showing recent visits within past 460 days with a meds authorizing provider and meeting all other requirements Future Appointments No visits were found meeting these conditions. Showing future appointments within next 90 days with a meds authorizing provider and meeting all other requirements atenolol (TENORMIN) 25 MG Tablet [Pharmacy Med Name: ATENOLOL 25 MG Tablet] 90 Tablet 2 Sig: TAKE 1 TABLET EVERY DAY Cardiovascular: Beta Blockers Failed - 06/18/2020 1:10 PM Failed - Last BP in normal range BP Readings from Last 1 Encounters: 02/10/20 148/74 Passed - Valid encounter within last 12 months Past Office Visits Recent Outpatient Visits 1 month ago Chronic sinusitis, unspecified location [facility] Jing Gleason PAC 2 months ago Chronic sinusitis, unspecified location [facility] Jing Gleason PAC 4 months ago Chronic gastroesophageal reflux disease [facility] Jing Gleason PAC 6 months ago Type 2 diabetes mellitus with other specified complication, with long-term current useof insulin (HCC) [facility] Jing Gleason PAC 9 months ago [facility] Upcoming Appointments Future Appointments In 3 weeks Kvng Mendoza MD [facility] Endocrinology - [place], [facility] TRIMMING CUTTER MACHINE - Recent and Past Visits Recent Visits Date Type Provider Dept 05/02/20 Jing Gonzalez PAC [facility] 03/26/20 Telemedicine Jing Baird PAC [facility] 02/10/20 Office Visit Jing Baird PAC [facility] 11/30/19 Office Visit Jing Baird PAC [facility] 08/25/19 Office Visit Jing Baird, PAC [facility] 07/19/19 Telemedicine Jing Baird PAC [facility] 07/05/19 Telemedicine Jing Baird, PAC [facility] 05/18/19 Office Visit Jing Baird, PAC [facility] 05/11/19 Office Visit Jing Baird, PAC [facility] Showing recent visits within past 460 days with a meds authorizing provider and meeting all other requirements Future Appointments No visits were found meeting these conditions. Showing future appointments within next 90 days with a meds authorizing provider and meeting all other requirements Topiramate 50 MG Tablet [Pharmacy Med Name: TOPIRAMATE 50 MG Tablet] 180 Tablet 2 Sig: TAKE 1 TABLET TWICE DAILY Neurology: Anticonvulsants Passed - 06/18/2020 1:10 PM Passed - Valid encounter within last 12 months Past Office Visits Recent Outpatient Visits 1 month ago Chronic sinusitis, unspecified location [facility] Jing Gleason PAC 2 months ago Chronic sinusitis, unspecified location [facility] Jing Gleason PAC 4 months ago Chronic gastroesophageal reflux disease [facility] Jing Gleason PAC 6 months ago Type 2 diabetes mellitus with other specified complication, with long-term current useof insulin (HCC) [facility] Jing Gleason PAC 9 months ago Essential [facility] Upcoming Appointments Future Appointments In 3 weeks Kvng Mendoza MD [facility] Endocrinology - [place] [facility] TRIMMING CUTTER MACHINE - Recent and Past Visits Recent Visits Date Type Provider Dept 05/02/20 Jing Gonzalez PAC [facility] 03/26/20 Telemedicine Jing Baird PAC [facility] 02/10/20 Office Visit Jing Baird PAC [facility] 11/30/19 Office Visit Jing Baird, PAC [facility] 08/25/19 Office Visit Jing Baird, PAC [facility] 07/19/19 Telemedicine Jing Baird, PAC [facility] 07/05/19 Telemedicine Jing Baird, PAC [facility] 05/18/19 Office Visit Jing Baird, PAC [facility] 05/11/19 Office Visit Jing Baird, PAC [facility] [...] as of this encounter Visit Diagnoses Diagnosis Edema, unspecified type documented in this encounter Additional Health Concerns Infection Onset Date Last Indicated Resolved Time MRSA 07/01/2020 07/01/2020 08/27/2020 6:22 AM CDT COVID - 19 08/26/2020 08/26/2020 08/27/2020 6:22 AM CDT C. difficile Rule-Out 08/26/2020 08/26/20202020 11:25 AM CDT C. difficile Rule-Out 11/11/2020 11/11/20202020 12:16 AM CDT COVID - 19 03/24/2023 03/24/2023 03/25/2023 8:22 AM EDI MANAGER C. difficile Rule-Out 03/24/2023 03/24/20232022 4:16 PM EDI MANAGER COVID - 19 04/27/2023 04/27/2023 04/28/2023 8:53 AM EDI MANAGER COVID - 19 01/08/2024 01/08/2024 01/08/2024 1:48 PM CDT COVID - 19 01/13/2024 01/13/2024 01/13/2024 3:44 PM CDT Respiratory Rule-Out 01/13/2024 01/13/2024 024 12:16 AM CDT COVID - 19 02/22/2024 02/22/2024 03/03/2024 12:1 6 AM EDI MANAGER COVID - 19 05/17/2024 05/17/2024 05/17/2024 10:4 5 AM EDI MANAGER Influenza 05/17/2024 05/17/2024 05/24/2024 12:1 6 AM EDI MANAGER COVID - 19 06/11/2024 06/11/2024 06/11/2024 8:06 PM EDI MANAGER Assessment Noted Time PHQ-9 Depression Total Score: 3 08/25/19 20 11:40 AM CDT documented as of this encounter Care Teams Engineering Specialist Technician Relationship Specialty Start Date End Date Jing Baird PAC [address] [place] [address] PCP - General Physician Property Inspector 12/29/18 07/31/24 Kvng Mendoza MD [address] [phone] Consulting Physician Endocrinology 10/10/21 documented as of this encounter
--- OUTSIDE RECORDS SUMMARY | 2024-08-24 15:45 | XMS_ITS | Encounter Summary ---
Author Organization [facility] Address [address] [place] [address] Phone Care Team Providers Care Environmental Monitoring Technician Name Role Phone Jing Baird Primary Care Provider + Kvng Mendoza MD Unavailable Reason for Visit * Reason Comments Medication Refill Encounter Details Date Type Department Care Team (Late st Contact Info) Description 04/10/2020 Refill [facility] [address] [place] [address] Ciara Sun, PAC [address] [place] [address] Medication Refill Social History Tobacco Use Types [...] COVID-19? No / Unsure 03/23/2020 2:50 PM BELT CLEANER documented as of this encounter Miscellaneous Notes * Telephone Encounter - Natali Zamudio RN - 04/11/2020 10:03 AM CST Sent to PCP CLEANER * Telephone Encounter - Natali Zamudio RN - 04/11/2020 10:02 AM CST Medication failed the protocol, provider to review and approve the medication order if appropriate. Last OV 03/26/20, F/U None, Last Rx 02/02/20 Natali BETANCOURT Requested Prescriptions Pending Prescriptions Disp Refills tiZANidine (ZANAFLEX) 4 MG Tablet [Pharmacy Med Name: TIZANIDINE HYDROCHLORIDE 4 MG Tablet] 270 Tab0 Sig: TAKE 1 TABLET THREE TIMES DAILY Not Delegated - Analgesics: Muscle Relaxants Failed - 04/10/2020 7:23 PM Failed - This refill cannot be delegated Passed - Valid encounter within last 6 months Past Office Visits Recent Outpatient Visits 2 weeks ago Chronic sinusitis, unspecified location [facility] - Jing Gleason, PAC 2 months ago Chronic gastroesophageal reflux disease [facility] Jing Gleason, PAC 4 months ago Type 2 diabetes mellitus with other specified complication, with long-term current useof insulin (HCC) [facility], [facility] 7 months ago [facility] Jing Gleason, PAC 8 months ago Type 2 diabetes mellitus with other specified complication, with long-term current useof insulin (HCC) [facility] Jing Gleason, PAC Upcoming Appointments Future Appointments In 1 week Sima Hensley September, PAC [facility] In 1 month Kvng Mendoza MD [facility] - [place] [facility] 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 - Recent and Past Visits Recent Visits Date Type Provider Dept 03/26/20 Telemedicine Jing Baird, PAC [facility] 02/10/20 Office Visit Jing Baird, PAC [facility] 11/30/19 Office Visit Jing Baird, PAC [facility] 08/25/19 Office Visit Jing Baird, PAC [facility] 07/19/19 Telemedicine Jing Baird, PAC [facility] 07/05/19 Telemedicine Jing Baird, PAC [facility] 05/18/19 Office Visit Jing Baird, PAC [facility] 05/11/19 Office Visit Jing Baird, PAC [facility] 03/14/19 Office Visit Jing Baird, PAC [facility] 03/02/19 Office Visit Jing Baird, PAC [facility] Showing recent visits within past 460 days with a meds authorizing provider and meeting all other requirements Future Appointments No visits were found meeting these conditions. Showing future appointments within next 90 days with a meds authorizing provider and meeting all other requirements CLEANER documented in this encounter Plan of Treatment [...] - 19 03/24/2023 03/24/2023 03/25/2023 8:22 AM BELT CLEANER C. difficile Rule-Out 03/24/2023 03/24/20232022 4:16 PM BELT CLEANER COVID - 19 04/27/2023 04/27/2023 04/28/2023 8:53 AM BELT CLEANER COVID - 19 01/08/2024 01/08/2024 01/08/2024 1:48 PM CDT COVID - 19 01/13/2024 01/13/2024 01/13/2024 3:44 PM CDT Respiratory Rule-Out 01/13/2024 01/13/2024 024 12:16 AM CDT COVID - 19 02/22/2024 02/22/2024 03/03/2024 12:1 6 AM BELT CLEANER COVID - 19 05/17/2024 05/17/2024 05/17/2024 10:4 5 AM BELT CLEANER Influenza 05/17/2024 05/17/2024 05/24/2024 12:1 6 AM BELT CLEANER COVID - 19 06/11/2024 06/11/2024 06/11/2024 8:06 PM BELT CLEANER Assessment Noted Time PHQ-9 Depression Total Score: 3 08/25/19 20 11:40 AM CDT documented as of this encounter Care Teams Environmental Monitoring Technician Relationship Specialty Start Date End Date Jing Baird PAC [address] [place] [address] PCP - General Physician Marking Machine Operator 12/29/18 07/31/24 Kvng Mendoza MD [address] [id number] Consulting Physician Endocrinology 10/10/21 documented as of this encounter
--- OUTSIDE RECORDS SUMMARY | 2024-08-24 15:45 | XMS_ITS | Clinical Summary ---
Author Organization [facility] Address [address] [place] [address] Care Team Providers Care Pickle Processor Name Role Phone Jing Baird Primary Care Provider [phone] Allergies Active Allergy Reactions Criticality Noted Date Comments Ciprofloxacin Anaphylaxis,Swelling High 01/26/2024 Metformin Diarrhea Low 01/26/2024 Penicillins Rash Medium 01/26/2024 Sulfa Anaphylaxis High 01/26/2024 Medications acetaminophen (TYLENOL) 325 mg tablet Take 2 tablets (650 mg total) by mouth every 6 (six) hours as needed 024 Active atenoloL (TENORMIN) 25 mg tablet Take 1 tablet (25 mg total) by mouth daily Active busPIRone (BUSPAR) 10 mg tablet Take 1 tablet (10 mg total) by mouth 2 (two) times a day 024 Active famotidine (PEPCID) 40 mg tablet TAKE 1 TABLET BY MOUTH 2 TIMES DAILY. FOR GASTROESOPHAGEAL REFLUX DISEASE WITH CURRENT SYMPTOMS 024 Active gabapentin (NEURONTIN) 300 mg capsule Take 1 capsule (300 mg total) by mouth 3 (three) times a day 024 Active hydrOXYzine (ATARAX) 25 mg tablet Take 1 tablet (25 mg total) by mouth every 6 (six) hours as needed 024 Active insulin aspart (NovoLOG) 100 unit/mL vial for injection Take before each meal: 71 - 150 +0 UNIT 151 - 175 +1 UNIT 176 - 200 +2 UNITS 201 - 225 +3 UNITS 226 - 250 +4 UNITS 251 - 275 +5 UNITS 276 - 300 +6 UNITS 301 - 325 +7 UNITS 326 - 350 +8 UNITS 351 - 375 +9 UNITS 375 - 400 +10 UNITS > 400 +11 UNITS Active levothyroxine (SYNTHROID) 125 mcg tablet Take 1 tablet (125 mcg total) by mouth daily Active losartan (COZAAR) 25 mg tablet Take 1 tablet (25 mg total) by mouth 2 (two) times a day Active naloxone (NARCAN) 4 mg/actuation spray,non-aerosol Administer 1 spray (4 mg total) into affected nostril(s) as needed Active ondansetron ODT (ZOFRAN-ODT) 4 mg disintegrating tablet Take 1 tablet (4 mg total) by mouth every 8 (eight) hours as needed Active polyethylene glycol (MIRALAX) 17 gram packet Take 1 packet (17 g total) by mouth 2 (two) times a day as needed Active senna-docusate (PERICOLACE) 8.6-50 mg Take 1 tablet by mouth 2 (two) times a day 024 Active simvastatin (ZOCOR) 40 mg tablet Take 1 tablet (40 mg total) by mouth daily 024 Active tiZANidine (ZANAFLEX) 4 mg tablet Take 1 tablet (4 mg total) by mouth 3 (three) times a day Active traZODone (DESYREL) 100 mg tablet Take 1 tablet (100 mg total) by mouth nightly Active venlafaxine XR (EFFEXOR-XR) 150 mg 24 hr capsule Take 1 capsule (150 mg total) by mouth 2 (two) times a day Active ergocalciferol (VITAMIN D) 50,000 unit capsule Take 1.25 mg by mouth once a week 023 Active folic acid (FOLVITE) 1 mg tablet Take 1 tablet (1,000 mcg total) by mouth daily Active QUEtiapine 150 mg tablet Take 1 tablet by mouth every evening Active pantoprazole DR (PROTONIX) 40 mg EC tablet Take 1 tablet (40 mg total) by mouth daily Active dicyclomine (BENTYL) 20 mg tablet TAKE 1 TABLET BY MOUTH EVERY 6 HOURS NEEDED FOR OTHER (ABDOMINAL PAIN) FOR UP TO 10 DAYS. Active topiramate (TOPAMAX) 25 mg tablet TAKE 2 TABLETS BY MOUTH EVERY DAY AT NIGHT Active amLODIPine (NORVASC) 2.5 mg tablet Take 1 tablet (2.5 mg total) by mouth daily Active insulin glargine 100 unit/mL vial for injection Inject 30 Units under the skin nightly Active insulin glargine 100 unit/mL vial for injection Inject 30 Units under the skin nightly Active BD Ultra-Fine Mini Pen Needle 31 gauge x 3/16 needle 4 (four) times a day Active Accu-Chek Debbie Plus test strp strip USE TO TEST BLOOD SUGAR 4 TIMES A DAY Active cholecalciferol (VITAMIN D-3) 2000 unit capsule Take 1 capsule (2,000 Units total) by mouth daily 2024 Active aspirin 81 mg chewable tablet Take 1 tablet (81 mg total) by mouth daily for 14 days 14 tablet 2024 Active oxyCODONE (ROXICODONE) 5 mg immediate release tabletIndications :Pain Take 1 tablet (5 mg total) by mouth every 4 (four) hours as needed for pain 20 tablet Active amLODIPine (NORVASC) 5 mg tabletIndications :hypertension Take 1 tablet (5 mg total) by mouth daily 2024 Disconti nued(Alt ernate therapy) apixaban (ELIQUIS) 2.5 mg tabletIndications :VTE Prophylaxis Take 1 tablet by mouth 2 (two) times a day 2024 Disconti nued(The rapy complete d) ibuprofen (ADVIL,MOTRIN) 800 mg tablet Take 1 tablet (800 mg total) by mouth every 6 (six) hours as needed 2024 Disconti nued(Alt ernate therapy) insulin detemir (LEVEMIR) 100 unit/mL vial for injectionIndicati ons:type 2 diabetes mellitus Inject 40 Units under the skin nightly 024 2024 Disconti nued(Alt ernate therapy) magnesium oxide (MAG-OX) 400 mg (241.3 mg elemental magnesium) tabletIndications :hypomagnesemia Take 1 tablet (400 mg total) by mouth daily 024 2024 Disconti nued(Alt ernate therapy) montelukast (SINGULAIR) 10 mg tabletIndications :Seasonal Allergic Rhinitis Take 1 tablet (10 mg total) by mouth daily 024 2024 Disconti nued(Alt ernate therapy) omeprazole (PriLOSEC) 40 mg capsuleIndication s:Treatment of Non-Bleeding Gastric Disorder Take 1 capsule (40 mg total) by mouth daily 024 2024 Disconti nued(The rapy complete d) potassium chloride ER 20 mEq CR tabletIndications :hypokalemia prevention Take 1 tablet (20 mEq total) by mouth daily 024 2024 Disconti nued(Alt ernate therapy) QUEtiapine (SEROquel) 25 mg tabletIndications :Generalized Anxiety Disorder Take 3 tablets (75 mg total) by mouth nightly 024 2024 Disconti nued(Alt ernate therapy) topiramate (TOPAMAX) 50 mg tabletIndications :Migraine Prevention Per the patient, she only takes as needed for headaches and rarely uses it 023 2024 Disconti nued(Alt ernate therapy) valACYclovir (VALTREX) 1 gram tablet Take 2 pills by oral route at onset of symptoms, then repeat 2 pills in 12 hours 024 2024 Disconti nued(The rapy complete d) traMADoL (ULTRAM) 50 mg tabletIndications :Pain Take 50 mg by mouth every 6 (six) hours as needed for pain. Indications: pain 2024 Disconti nued(The rapy complete d) Active Problems Problem Noted Date Diagnosed Date ABLA (acute blood loss anemia) 08/18/2024 Assessment & Plan (08/19/2024 9:37 AM CDT): - Hgb 12.1 on admission - EBL 150 cc - 08/18: Hgb 9.1 - Transfuse for Hgb <7.0 or symptomatic -stable - Monitor CBC RIVERA (acute kidney injury) 08/18/2024 Assessment & Plan (08/19/2024 9:38 AM CDT): - Baseline Cr approx 0.9-1.0 per chart review - Cr 1.95 on admission - 08/18: Cr improving 1.56 - Renally dose medications, avoid nephrotoxins - Improved - Monitor BMP as indicated Fall, initial encounter 08/17/2024 Assessment & Plan (08/17/2024 9:54 AM CDT): stepping down out of her bathroom and her ankle gave out. She has severe pain to the right ankle Arthritis 08/17/2024 Asthma 08/17/2024 Tobacco dependence syndrome 08/17/2024 HTN (hypertension) 08/17/2024 Assessment & Plan (08/19/2024 9:52 AM CDT): Home med Atenolol 25 mg daily, amlodipine 2.5 mg daily 08/19 resumed amlodipine for elevated blood pressure control Acute on chronic back pain 08/17/2024 Assessment & Plan (08/17/2024 10:26 AM CDT): S/p right extremity injury from fall Chronic pain regimen : Lidocaine patch, Ibuprofen 800 Q6 hrs prn, Tramadol 50 mg prn, dicyclomine 20 mg Acute pain multimodal pain management while hosp APAP 1 gram Q6h Oxycodone 5 mg Q4hr Bowel regimen Senna and miralax Vitamin deficiency 08/17/2024 Assessment & Plan (08/19/2024 9:53 AM CDT): Home folic acid Add Vitamin D3 Migraine headache 08/17/2024 Assessment & Plan (08/19/2024 9:53 AM CDT): Home Topiramate 50 mg per pt she takes prn though prescribed for daily dosing. Hold during admission 08/19 no compliant of headache or migraine to necessitate dosing at this time. Discharge planning issues 08/17/2024 Assessment & Plan (08/19/2024 9:46 AM CDT): 08/16 admitted pending OR, PT/OT 08/18 POD1, PT/OT, monitor labs and blood glucose 08/19 Patient is medically stable for discharge, SW/CM updated. Discharge pending facility acceptance Treatment plan note completed [x] Closed fracture of shaft of right tibia 08/17/19 Assessment & Plan (08/19/2024 9:40 AM CDT): # R periprosthetic tibia fx # R proximal Fibula fx - ortho c/s > splinted in ED - 08/17/24: ORIF, TOMÁS R sariah-implant distal tibia fx [Terrell, Ortho Trauma] - NWB RLE - Maintain splint, suture/staple removal at follow up with Ortho Trauma - PT/OT, pain control Discharge on ASA bid x 14 days Diabetes 06/15/2024 Assessment & Plan (08/19/2024 9:45 AM CDT): Home Lantus 30 units daily + slide SSI POCT Glucose monitor Consistent carb diet - 08/18: patient reports not eating all of breakfast because she is worried about her blood glucose. Continue to trend BG and increase lantus to 25 units nightly. - 08/19 not well controlled at baseline, most recent A1C 9.1, plan increase Lantus to home dose of 30 units. Will need to follow up with Endocrine out patient for continue management. 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 08/19 Resume Pantoprazole Class 1 obesity due to exces s calories with serious comorbidity and body mass index (BMI) of 30.0 to 30.9 in adult 05/13/2019 Anxiety 05/11/2019 Hyperlipidemia 02/07/2019 Acquired hypothyroidism 12/30/2018 Depression 12/30/2018 Assessment & Plan (08/17/2024 10:23 AM CDT): Home Buspar, Venlafaxine 150 mg daily, Quetiapine 150 mg daily, Hydroxyzine 25 mg prn Encounters Date Type Department Care Team Description 08/19/2024 Documentation [facility] Orthopaedic Surgery [address] [place] [address] 6th [place] [address] [place] [address] Chantale Austin RN 08/17/2024 12:21 PM CDT Anesthesia Event [facility] Operating Room [address] [place] [address] Jann Durbin MD PhD Achilly, Nathan Patrick, MD 08/17/2024 12:20 PM CDT - 08/17/2024 6:55 PM CDT Surgery [facility] Operating Room [address] [place] [address] Geovanny Tejada MD OPEN REDUCTION INTERNAL FIXATION - TIBIA 08/17/2024 Orders Only [facility] Orthopaedic Surgery [address] [place] [address] 6th [place] [address] [place] [address] Geovanny Tejada MD Closed fracture of shaft of right tibia, unspecified fracture morphology, initial encounter (Primary Dx) 08/16/2024 11:27 PM CDT - 08/20/2024 11:28 AM CDT Hospital Encounter [facility] 1 [facility] [place] [address] Don Dunn MD Entriken, Catherine Anne, MD Fall, initial encounter (Primary Dx); Closed fracture of shaft of right tibia, unspecified fracture morphology, initial encounter Discharge Disposition: Discharge to [facility] 08/16/2024 10:46 PM CDT Hospital Encounter [facility] 08/16/2024 5:02 PM CDT - 08/16/2024 10:44 PM CDT Emergency [facility] Emergency Department [address] [place] [address] Neymar Hui MD Closed fracture of distal end of right tibia, unspecified fracture morphology, initial encounter (Primary Dx) Discharge Disposition: Discharge to a short term hospital for IP 06/22/2024 Telephone [facility] Home Care Services [address] [place] [address] [address] [place] [id number] Gaby Mcbride 06/21/2024 Home Care Visit [address] [address] [address] [place] [address] Lola Meza, PT PT VIRTUAL NON OASIS DISCHARGE 06/20/2024 Telephone [facility] Home [facility] Services [address] [place] [address] [address] [place] [address] Gaby Mcbride 06/14/2024 Home Care Visit [address] [place] [address] Lola Meza, PT CARE CONFERENCE 06/13/2024 Home Care Visit [address] [place] [address] Neelam Delgado, PT PT OASIS TRANSFER W/OUT DC 06/13/2024 Telephone [facility] Home Care Services [address] [place] [address] [address] [place] [address] Gaby Mcbride 06/13/2024 Home Care Visit [address] [place] [address] Lola Meza, PT CASE COMMUNICATION 06/11/2024 Home Care Visit [address] [place] [address] Maribell Valenzuela, RN NURSE MED RECON FOR THERAPY 06/10/2024 Home Care Visit [address] [place] [address] Daisha Norman RN NURSE MED RECON FOR THERAPY 06/09/2024 Home Care Visit [address] [place] [address] Daisha Norman RN NURSE MED RECON FOR THERAPY 06/08/2024 12:00 PM GAS DISPATCHER Home Care Visit [address] [place] [address] Val Coles, PT PT OASIS START OF CARE 06/08/2024 Plan of Care Documentation [address] [place] [address] 06/06/2024 Travel from Last 3 Months Medical History Medical History Date Comments Diabetes mellitus (HCC) Asthma Hypertension Anxiety Social History Tobacco Use Types Packs/Day Years Used Date Smoking Tobacco: Every Day Cigarettes 1 40 Tobacco Cessation:Ready to Q uit: Not Asked; Counseling Given: Not Answered OASIS D0700: Social Isolation Answer Da te Recorded Frequency of experiencing loneliness or isolatio n Sometimes 06/08/2024 OASIS A1250: Transportation Answer Date Recorded Lack of Transportation (Medical) No 06/08/2024 Lack of Transportation (Non-Medical) No 06/08/2024 Patient Unable or Declines to Respond No 06/08/2024 OASIS B1300: Health Literacy Answer Deven e Recorded Frequency of needing help to read materials from doctor or pharmacy Sometimes 06/08/2024 AUDIT-C Answer Date Recorded Q1: How often do you have a drink containing alcohol? Never 08/17/2024 Q2: How many drinks containi ng alcohol do you have on a typical day when you are drinking? Patient does not drink Q3: How often do you have si x or more drinks on one occasion? Never 08/17/2024 PHQ-2 Answer Date Recorded PHQ-2 Total Score (If total score is 3 or more points, staff should administer the PHQ-9) 1 01/26/2024 PHQ-9 Answer Date Recorded PHQ-9 Total Score 10 01/26/2024 Personal Safety Answer Date Recorded Have you ever been in or are you currently in a harmful physical or emotional relationship or is someone making you feel afraid or unsafe? Denies 08/17/2024 Comments No Sex and Gender Information Value Date Recorded Sex Assigned at Not on file Legal Sex Female 2:39 PM GAS DISPATCHER Gender Identity Not on file Sexual Orientation Not on file Obstetrics History Last Filed Vital Signs Vital Sign Reading Time Taken Comments Blood Pressure 146/66 08/20/2024 7:27 AM CDT Pulse 73 08/20/2024 7:27 AM CDT Temperature 36.9 C (98.4 F) 08/20/2024 7:27 AM CDT Respiratory Rate 20 08/20/2024 7:27 AM CDT Oxygen Saturation 98% 08/20/2024 7:27 AM CDT Inhaled Oxygen Concentration - - Weight 87.4 kg (192 lb 11.2 oz) 08/17/2024 5:05 AM CDT Height 175.3 cm (5' 9 ) 08/17/2024 5:05 AM CDT Body Mass Index 28.46 08/17/2024 5:05 AM CDT Plan of Treatment Health Maintenance Due Date Last Done Comments Albumin Creatinine Ratio, Urine 1958 Breast Cancer Screening-Mammogram 1958 Colon Cancer Screening-Colonoscopy 1958 Hepatitis C Screening 1958 Osteoporosis Screening-Bone Density Scan 1958 Dilated Eye Exam 1958 Foot Exam 1958 DTaP/Tdap/Td Vaccine (1 - Tdap) 1969 Hepatitis B Screening 1976 Pneumococcal vaccine 65+ (1 of 2 - PCV) 1977 Lung Cancer Screening 2008 Zoster Vaccine (1 of 2) 2008 Well Visit 65+ 2023 Influenza Vaccine (Season Ended) 2024 Depression Screening 01/25/2025 01/26/2024, 01/26/20 24 Hemoglobin A1C 02/17/2025 08/17/2024, 08/04, 10/04/2023 Lipid Panel 08/17/2025 08/17/2024, 07/19/2024 eGFR 08/19/2025 08/19/2024, 08/04, 08/17/2024 Fall Risk Assessment 08/20/2025 08/20/2024 Medical Devices Implanted Type Area Tube Mounter Device Identifier Shelf Expiration Date Model / Serial / Lot Synthes Lcp 12mm [id number] .7mm 10 Hole Collar 1/3 Tubular Plate Bone 241.401 - [id number] Implanted:Qty: 1 on 08/17/2024 by Wlimer Villavicencio MD at [facility] Plate Right: Tibia Synthes 241.401 / / Synthes Lcp Combi 132mm 8 Hole 4 Lock Tibia Distal Posterior T Plate Bone 02.112.208 - [id number] Implanted:Qty: 1 on 08/17/2024 by Wilmer Villavicencio MD at [facility] Plate Right: Tibia Synthes 02.112.208 / / Synthes Screw Bone Cortical St Full Thread Lcp 3.5x24mm Ss 204.824 - [id number] Implanted:Qty: 1 on 08/17/2024 by Wilmer Villavicencio MD at [facility] Screw Right: Tibia Synthes 204.824 / / Synthes 3.5mm 2.9mm 36mm Self Tap Lock Stardrive Conical Head T15 Full 212.115 - [id number] Implanted:Qty: 1 on 08/17/2024 by Geovanny Tejada MD at [facility] Screw Right: Tibia Synthes 212.115 / / Synthes 3.5mm 2.9mm 42mm Self Tap Lock Stardrive Conical Head Full Thread 212.118 - [id number] Implanted:Qty: 1 on 08/17/2024 by Geovanny Tejada MD at [facility] Screw Right: Tibia Synthes 212.118 / / Synthes 3.5mm 2.9mm 38mm Self Tap Lock [employer]rive Conical Head T15 Full 212.116 - [id number] Implanted:Qty: 1 on 08/17/2024 by Geovanny Tejada MD at [facility] Screw Right: Tibia Synthes 212.116 / / Synthes 3.5mm 6mm 20mm 2.5mm Self Tap Small Hexagonal Socket Low Profile 204.820 - S0 - [id number] Implanted:Qty: 1 on 08/17/2024 by Geovanny Tejada MD at [facility] Screw Right: Tibia Synthes 204.820 / 0 / Synthes 3.5mm 6mm 36mm 2.5mm Self Tap Small Hexagonal Socket Low Profile 204.836 - [id number] Implanted:Qty: 1 on 08/17/2024 by Geovanny Tejada MD at [facility] Screw Right: Leg Synthes 204.836 / / Synthes 3.5mm 6mm 45mm 2.5mm Self Tap Small Hexagonal Socket Low Profile 204.845 - [id number] Implanted:Qty: 1 on 08/17/2024 by Wilmer Villavicencio MD at [facility] Screw Right: Tibia Synthes 204.845 / / Synthes 3.5mm 6mm 22mm 2.5mm Self Tap Small Hexagonal Socket Low Profile 204.822 - [id number] Implanted:Qty: 3 on 08/17/2024 by Wilmer Villavicencio MD at [facility] Screw Right: Tibia Synthes 204.822 / / Synthes 3.5mm 6mm 46mm 2.5mm Self Tap Small Hexagonal Socket Low Profile 204.846 - [id number] Implanted:Qty: 1 on 08/17/2024 by Wilmer Villavicencio MD at [facility] Screw Right: Tibia Synthes 204.846 / / Synthes 3.5mm 6mm 40mm 2.5mm Self Tap Small Hexagonal Socket Low Profile 204.840 - [id number] Implanted:Qty: 1 on 08/17/2024 by Wilmer Villavicencio MD at [facility] Screw Right: Tibia Synthes 204.840 / / Synthes 3.5mm 6mm 40mm 2.5mm Self Tap Small Hexagonal Socket Low Profile 204.840 - [id number] Implanted:Qty: 1 on 08/17/2024 by Wilmer Villavicencio MD at [facility] Screw Right: Tibia Synthes 204.840 / / Explanted Type Area Tube Mounter Device Identifier Shelf Expiration Date Model / Serial / Lot [employer] K Wire Fix Trocar Point Smooth Sgl End Ss [id number] - [id number] Explanted:Qty: 2 on 08/17/2024 at [facility] Other - see comments Right: Tibia [employer] [id number] / / Description:Provisional fixa tion Synthes 4mm 6mm 40mm Small Hexagonal Socket Cancellous Full Thread Screw 206.040 - [id number] Explanted:Qty: 1 on 08/17/2024 by Wilmer Villavicencio MD at [facility] Screw Right: Tibia Synthes 206.040 / / Procedures Procedure Name Priority Date/Time Associated Diagnosis Comments POCT GLUCOSE DEVICE Routine 08/20/2024 8 :07 AM CDT POCT GLUCOSE DEVICE Routine 08/20/2024 1 2:12 AM CDT CBC WITHOUT DIFFERENTIAL Routine 08/19/2024 10:30 PM CDT PHOSPHORUS Routine 08/19/2024 10:30 PM CDT POCT GLUCOSE DEVICE Routine 08/19/2024 8 :26 PM CDT POCT GLUCOSE DEVICE Routine 08/19/2024 4 :48 PM CDT POCT GLUCOSE DEVICE Routine 08/19/2024 1 1:47 AM CDT POCT GLUCOSE DEVICE Routine 08/19/2024 7 :20 AM CDT EGFR Routine 08/19/2024 12:54 AM CDT CBC WITHOUT DIFFERENTIAL Routine 08/19/2024 12:54 AM CDT BASIC METABOLIC PANEL Routine 08/19/2024 12:54 AM CDT MAGNESIUM Routine 08/19/2024 12:54 AM CDT PHOSPHORUS Routine 08/19/2024 12:54 AM CDT POCT GLUCOSE DEVICE Routine 08/19/2024 1 2:19 AM CDT POCT GLUCOSE DEVICE Routine 08/18/2024 8 :53 PM CDT POCT GLUCOSE DEVICE Routine 08/18/2024 5 :03 PM CDT POCT GLUCOSE DEVICE Routine 08/18/2024 1 2:50 PM CDT POCT GLUCOSE DEVICE Routine 08/18/2024 7 :48 AM CDT POCT GLUCOSE DEVICE Routine 08/18/2024 4 :01 AM CDT POCT GLUCOSE DEVICE Routine 08/17/2024 1 1:54 PM CDT LIPID PANEL Routine 08/17/2024 8:16 PM CDT EGFR Routine 08/17/2024 8:16 PM CDT HEMOGLOBIN A1C Routine 08/17/2024 8:16 PM CDT PHOSPHORUS Routine 08/17/2024 8:16 PM CDT MAGNESIUM Routine 08/17/2024 8:16 PM CDT BASIC METABOLIC PANEL Routine 08/17/2024 8:16 PM CDT CBC WITHOUT DIFFERENTIAL Routine 08/17/2024 8:16 PM CDT POCT GLUCOSE DEVICE Routine 08/17/2024 7 :50 PM CDT POCT GLUCOSE DEVICE Routine 08/17/2024 5 :08 PM CDT POCT GLUCOSE DEVICE Routine 08/17/2024 4 :13 PM CDT HEMOGLOBIN AND HEMATOCRIT STAT 08/17/2024 4:11 PM CDT POCT GLUCOSE DEVICE Routine 08/17/2024 3 :43 PM CDT FL FLUOROSCOPY < 1 HOUR IP Routine 08/17/2024 3:25 PM CDT POC BLOOD GAS AND CHEMISTRIES, VENOUS Routine 08/17/2024 1:35 PM CDT MS AN PROCEDURE PLACEHOLDER Routine 08/17/2024 1:21 PM CDT MS AN ELECTIVE ENDOTRACHEAL AIRWAY Routine 08/17/2024 1:21 PM CDT MS AN PROCEDURE PLACEHOLDER Routine 08/17/2024 1:20 PM CDT POCT GLUCOSE DEVICE Routine 08/17/2024 1 :16 PM CDT OPEN REDUCTION INTERNAL FIXATION - ANKLE 08/17/2024 12:23 PM CDT Closed fracture of shaft of right tibia, unspecified fracture morphology, initial encounter OPEN REDUCTION INTERNAL FIXATION FOOT FRACTURE/HARDWARE REMOVAL/EXCHANGE 08/17/2024 12:23 PM CDT Closed fracture of shaft of right tibia, unspecified fracture morphology, initial encounter OPEN REDUCTION INTERNAL FIXATION - TIBIA 08/17/2024 12:23 PM CDT Closed fracture of shaft of right tibia, unspecified fracture morphology, initial encounter MS AN PROCEDURE PLACEHOLDER Routine 08/17/2024 11:19 AM CDT MS AN PROCEDURE PLACEHOLDER Routine 08/17/2024 11:18 AM CDT POCT GLUCOSE DEVICE Routine 08/17/2024 1 0:44 AM CDT URINALYSIS, MICROSCOPIC ONLY STAT 08/17/2024 10:14 AM CDT URINALYSIS AND REFLEX TO MICROSCOPIC AND CULTURE STAT 08/17/2024 10:14 AM CDT POCT GLUCOSE DEVICE Routine 08/17/2024 7 :54 AM CDT ECG 12-LEAD STAT 08/17/2024 5:05 AM CDT POCT GLUCOSE DEVICE Routine 08/17/2024 4 :05 AM CDT XR PELVIS 1 OR 2 VIEWS ED Urgent/IP Urgent 08/17/2024 2:53 AM CDT XR CHEST 1 VIEW ED 08/17/2024 2:[address] ANKLE RIGHT WO CONTRAST ED Urgent/IP Urgent 08/17/2024 2:46 AM CDT ECG 12-LEAD Routine 08/17/2024 2:30 AM CDT POCT GLUCOSE DEVICE Routine 08/17/2024 1 :28 AM CDT XR KNEE RIGHT 4 OR MORE VIEWS ED Urgent/IP Urgent 08/17/2024 1:12 AM CDT XR TIBIA FIBULA RIGHT2 VIEWS ED Urgent/IP Urgent 08/17/2024 1:12 AM CDT XR FOOT RIGHT 3 OR MORE VIEWS ED Urgent/IP Urgent 08/17/2024 1:12 AM CDT HEMOGLOBIN A1C STAT 08/17/2024 12:29 AM CDT EGFR STAT 08/17/2024 12:29 AM CDT DIFFERENTIAL AUTO STAT 08/17/2024 12: 29 AM CDT TYPE AND SCREEN STAT 08/17/2024 12:29 AM CDT APTT STAT 08/17/2024 12:29 AM CDT PROTIME-INR STAT 08/17/2024 12:29 AM CDT CBC WITH AUTO DIFFERENTIAL STAT 08/17/2024 12:29 AM CDT COMPREHENSIVE METABOLIC PANEL STAT 08/17/2024 12:29 AM CDT XR ANKLE RIGHT 3 OR MORE VIEWS ED 08/16/2024 5:30 PM CDT from Last 3 Months Results * (ABNORMAL) POCT glucose (08/20/2024 8:07 AM CDT) Glucose, POC 237(H) 70 - 199 mg/dL Comment:Glu2: RN/ Notified Glucose comment 1 Glu2: SERAFIN/ Notified [facility] Blood 08/20/2024 8:07 AM CDT 08/20/2024 8:07 AM CDT us Janie Welch MD LAB POCT ORDERABLES - DEVICE Final Result Performing Organization Address [facility] de Phone Number [facility] Department [place] [address] * (ABNORMAL) POCT glucose (08/20/2024 12:12 AM CDT) Glucose, POC 268(H) 70 - 199 mg/dL Comment:Glu2: SERAFIN/ Notified Glucose comment 1 Glu2: SERAFIN/ Notified [facility] Blood 08/20/2024 12:1 2 AM CDT 08/20/2024 12:12 AM CDT us Janie Welch MD LAB POCT ORDERABLES - DEVICE Final Result Performing Organization Address [facility] Co de Phone Number [facility] Department [place] [address] * (ABNORMAL) CBC without differential (08/19/2024 10:30 PM CDT) Pathologist [facility] WBC 13.27(H) 3.80 - 9.90 K/cumm Hgb 9.3(L) 11.9 - 15.5 g/dL [facility] Hct 28.6(L) 35.6 - 45.5 % [facility] Plt 243 150 - 400 K/cumm [facility] MPV 12.0 9.1 - 12.3 fL [facility] RBC 3.15(L) 3.90 - 5.20 M/cumm [facility] MCV 90.8 81.3 - 96.4 fL [facility] MCH 29.5 27.1 - 33.3 pg [facility] MCHC 32.5 32.3 - 35.7 g/dL [facility] RDW CV 14.3 11.1 - 14.9 % [facility] RDW SD 46.3 35.7 - 48.1 fL [facility] NRBC abs 0.00 0.00 - 0.01 K/cumm [facility] Blood 08/19/2024 10:3 0 PM CDT 08/19/2024 11:27 PM CDT Flavia Diaz NP LAB BLOOD ORDERABLES Lucero l Result Performing Organization Address City/[facility]/ZIP Co de Phone Number [facility] Department [place] [address] * Phosphorus (08/19/2024 10:30 PM CDT) Pathologist [facility] Phosphorus, pl 2.6 2.3 - 4.5 mg/dL Blood 08/19/2024 10:3 0 PM CDT 08/19/2024 11:27 PM CDT Flavia Diaz LEATHER SOFTENER LAB BLOOD ORDERABLES Lucero l Result [facility] [place] [address] * (ABNORMAL) POCT glucose (08/19/2024 8:26 PM CDT) Glucose, POC 218(H) 70 - 199 mg/dL Comment:Glu2: RN/MD Notified Glucose comment 1 Glu2: RN/MD Notified [facility] Blood 08/19/2024 8:26 PM CDT 08/19/2024 8:26 PM CDT us Janie Welch MD LAB POCT ORDERABLES - DEVICE Final Result Performing Organization Address [facility] Co de Phone Number [facility] [place] [address] * (ABNORMAL) POCT glucose (08/19/2024 4:48 PM CDT) Glucose, POC 213(H) 70 - 199 mg/dL Blood 08/19/2024 4:48 PM CDT 08/19/2024 4:48 PM CDT us Janie Welch MD LAB POCT ORDERABLES - DEVICE Final Result Performing Organization Address City/[facility]/ZIP Co de Phone Number [facility] Department [place] [address] * (ABNORMAL) POCT glucose (08/19/2024 11:47 AM CDT) Glucose, POC 238(H) 70 - 199 mg/dL Blood 08/19/2024 11:4 7 AM CDT 08/19/2024 11:47 AM CDT us Janie Welch MD LAB POCT ORDERABLES - DEVICE Final Result Performing Organization Address City/[facility]/ZIP Co de Phone Number [facility] Department [place] [address] * POCT glucose (08/19/2024 7:20 AM CDT) Glucose, POC 143 70 - 199 mg/dL Blood 08/19/2024 7:20 AM CDT 08/19/2024 7:20 AM CDT Janie Welch MD LAB POCT ORDERABLES - DEVICE [place] [address] * eGFR (08/19/2024 12:54 AM CDT) eGFR 71 >=60 mL/min/1. 73 m2 Comment: Interpretive Data Reference Interval Normal >/= 90 mL/min/1.73m2 Mildly decreased* 60 - 89 mL/min/1.73m2 Mildly to moderately decreased 45 - 59 mL/min/1.73m2 Moderately to severely decreased 30 - 44 mL/min/1.73m2 Severely decreased 15 - 29 mL/min/1.73m2 Kidney Failure < 15 mL/min/1.73m2 *Relative to young adult level Estimated glomerular filtration rate is determined by the 2020 CKD-EPI equation recommended by the National Kidney Foundation (A Unifying Approach to GFR Estimation: Recommendations of the NKF-ASK Task Force on Reassessing the Inclusion of Race in Diagnosing Kidney Disease, JASN 2020). The CKD-EPI equation should not be used for patients with unstable renal function and has not been validated in children and those over 70. Current interpretive data was last reviewed 2021. Blood 08/19/2024 12:5 4 AM CDT 08/19/2024 1:40 AM CDT us Flavia Diaz NP LAB BLOOD ORDERABLES Lucero l Result [facility] [place] [address] * (ABNORMAL) CBC without differential (08/19/2024 12:54 AM CDT) WBC 13.25(H) 3.80 - 9.90 K/cumm Hgb 9.2(L) 11.9 - 15.5 g/dL [facility] Hct 29.0(L) 35.6 - 45.5 % [facility] Plt 215 150 - 400 K/cumm [facility] MPV 12.4(H) 9.1 - 12.3 fL [facility] RBC 3.18(L) 3.90 - 5.20 M/cumm [facility] MCV 91.2 81.3 - 96.4 fL [facility] MCH 28.9 27.1 - 33.3 pg [facility] MCHC 31.7(L) 32.3 - 35.7 g/dL [facility] RDW CV 13.9 11.1 - 14.9 % [facility] RDW SD 46.3 35.7 - 48.1 fL [facility] NRBC abs 0.00 0.00 - 0.01 K/cumm [facility] Blood 08/19/2024 12:5 4 AM CDT 08/19/2024 1:40 AM CDT Flavia Diaz NP LAB BLOOD ORDERABLES Lucero l Result Performing Organization Address City/[facility]/ZIP Co de Phone Number [facility] Department [place] [address] * (ABNORMAL) Phosphorus (08/19/2024 12:54 AM CDT) Pathologist [facility] Phosphorus, pl 2.0(L) 2.3 - 4.5 mg/dL Blood 08/19/2024 12:5 4 AM CDT 08/19/2024 1:40 AM CDT Flavia Diaz LEATHER SOFTENER LAB BLOOD ORDERABLES Lucero l Result [facility] Department [place] [address] * Magnesium (08/19/2024 12:54 AM CDT) Pathologist [facility] Magnesium 1.9 1.4 - 2.5 mg/dL Blood 08/19/2024 12:5 4 AM CDT 08/19/2024 1:40 AM CDT Flavia Diaz NP LAB BLOOD ORDERABLES Lucero l Result [facility] Department [place] [address] * (ABNORMAL) Basic metabolic panel (08/19/2024 12:54 AM CDT) [facility] Sodium 138 135 - 145 mmol/L Potassium, pl 3.6 3.3 - 4.9 mmol/L [facility] Chloride 102 97 - 110 mmol/L [facility] CO2 26 22 - 32 mmol/L [facility] Anion gap 10 2 - 15 mmol/L [facility] BUN 18 6 - 25 mg/dL [facility] Creatinine 0.90 0.60 - 1.10 mg/dL [facility] Glucose 249(H) 70 - 199 mg/dL [facility] Comment: Interpretive Data Fasting glucose >/= 126 mg/dl is diagnostic for diabetes. Fasting is defined as no caloric intake for at least 8 hours. Fasting glucose between 100 mg/dl to 125 mg/dl is diagnostic of prediabetes. In a patient with classic symptoms of hyperglycemia or hyperglycemic crisis, a random glucose >/= 200 mg/dl is diagnostic for diabetes. In the absence of unequivocal hyperglycemia, results should be confirmed by repeat testing. The classification and Diagnosis of Diabetes Diabetes Care 2021; 46: S19-S40. Current interpretive data was last revised 2022. Calcium 8.8 8.5 - 10.3 mg/dL [facility] Blood 08/19/2024 12:5 4 AM CDT 08/19/2024 1:40 AM CDT Flavia Diaz LEATHER SOFTENER LAB BLOOD ORDERABLES Lucreo l Result Performing Organization Address City/[facility]/ZIP Co de Phone Number [facility] [place] [address] * (ABNORMAL) POCT glucose (08/19/2024 12:19 AM CDT) Glucose, POC 262(H) 70 - 199 mg/dL Blood 08/19/2024 12:1 9 AM CDT 08/19/2024 12:19 AM CDT Janie Welch MD LAB POCT ORDERABLES - DEVICE Final Result Performing Organization Address [facility] Co de Phone Number [facility] [place] [address] * (ABNORMAL) POCT glucose (08/18/2024 8:53 PM CDT) Glucose, POC 363(H) 70 - 199 mg/dL Blood 08/18/2024 8:53 PM CDT 08/18/2024 8:53 PM CDT Janie Welch MD LAB POCT ORDERABLES - DEVICE Final Result Performing Organization Address City/[facility] Co de Phone Number [facility] Department [place] [address] * (ABNORMAL) POCT glucose (08/18/2024 5:03 PM CDT) Glucose, POC 240(H) 70 - 199 mg/dL Comment:Glu2: RN/MD Notified Glucose comment 1 Glu2: RN/MD Notified [facility] Blood 08/18/2024 5:03 PM CDT 08/18/2024 5:03 PM CDT aJnie Welch MD LAB POCT ORDERABLES - DEVICE Final Result Performing Organization Address [facility] Co de Phone Number [facility] [place] [address] * (ABNORMAL) POCT glucose (08/18/2024 12:50 PM CDT) Glucose, POC 209(H) 70 - 199 mg/dL Blood 08/18/2024 12:5 0 PM CDT 08/18/2024 12:50 PM CDT Janie Welch MD LAB POCT ORDERABLES - DEVICE Final Result Performing Organization Address [facility] Co de Phone Number [facility] [place] [address] * POCT glucose (08/18/2024 7:48 AM CDT) Glucose, POC 196 70 - 199 mg/dL Blood 08/18/2024 7:48 AM CDT 08/18/2024 7:48 AM CDT Janie Welch MD LAB POCT ORDERABLES - DEVICE Final Result Performing Organization Address [facility] Co de Phone Number [facility] [place] [address] * (ABNORMAL) POCT glucose (08/18/2024 4:01 AM CDT) Glucose, POC 216(H) 70 - 199 mg/dL Comment:Glu2: RN/MD Notified Glucose comment 1 Glu2: RN/MD Notified [facility] Blood 08/18/2024 4:01 AM CDT 08/18/2024 4:01 AM CDT us Janie Welch MD LAB POCT ORDERABLES - DEVICE Final Result Performing Organization Address [facility] Co de Phone Number [facility] [place] [address] * (ABNORMAL) POCT glucose (08/17/2024 11:54 PM CDT) [facility] Glucose, POC 251(H) 70 - 199 mg/dL Comment:Glu2: RN/MD Notified Glucose comment 1 Glu2: RN/MD Notified [facility] Blood 08/17/2024 11:5 4 PM CDT 08/17/2024 11:54 PM CDT Janie Welch MD LAB POCT ORDERABLES - DEVICE Final Result Performing Organization Address [facility] Co de Phone Number [facility] [place] [address] * (ABNORMAL) eGFR (08/17/2024 8:16 PM CDT) [facility] eGFR 36(L) >=60 mL/min/1. 73 m2 Comment: Interpretive Data Reference Interval Normal >/= 90 mL/min/1.73m2 Mildly decreased* 60 - 89 mL/min/1.73m2 Mildly to moderately decreased 45 - 59 mL/min/1.73m2 Moderately to severely decreased 30 - 44 mL/min/1.73m2 Severely decreased 15 - 29 mL/min/1.73m2 Kidney Failure < 15 mL/min/1.73m2 *Relative to young adult level Estimated glomerular filtration rate is determined by the 2020 CKD-EPI equation recommended by the National Kidney Foundation (A Unifying Approach to GFR Estimation: Recommendations of the NKF-ASK Task Force on Reassessing the Inclusion of Race in Diagnosing Kidney Disease, JASN 2020). The CKD-EPI equation should not be used for patients with unstable renal function and has not been validated in children and those over 70. Current interpretive data was last reviewed 2021. Blood 08/17/2024 8:16 PM CDT 08/17/2024 9:30 PM CDT Janie Welch MD LAB BLOOD ORDERABLES Final Result Performing Organization Address [facility]/ZIP Co de Phone Number [facility] Department [place] [address] * (ABNORMAL) CBC without differential (08/17/2024 8:16 PM CDT) Pathologist [facility] WBC 16.16(H) 3.80 - 9.90 K/cumm Hgb 9.1(L) 11.9 - 15.5 g/dL [facility] Hct 27.7(L) 35.6 - 45.5 % [facility] Plt 244 150 - 400 K/cumm [facility] MPV 11.7 9.1 - 12.3 fL [facility] RBC 3.04(L) 3.90 - 5.20 M/cumm [facility] MCV 91.1 81.3 - 96.4 fL [facility] MCH 29.9 27.1 - 33.3 pg [facility] MCHC 32.9 32.3 - 35.7 g/dL [facility] RDW CV 13.7 11.1 - 14.9 % [facility] RDW SD 45.5 35.7 - 48.1 fL [facility] NRBC abs 0.00 0.00 - 0.01 K/cumm [facility] Blood 08/17/2024 8:16 PM CDT 08/17/2024 8:51 PM CDT Janie Welch MD LAB BLOOD ORDERABLES Final Result [facility] Department [place] [address] * (ABNORMAL) Phosphorus (08/17/2024 8:16 PM CDT) Phosphorus, pl 4.6(H) 2.3 - 4.5 mg/dL Blood 08/17/2024 8:16 PM CDT 08/17/2024 9:30 PM CDT Janie Welch MD LAB BLOOD ORDERABLES Final Result Performing Organization Address City/[facility] Co de Phone Number [facility] Department [place] [address] * Magnesium (08/17/2024 8:16 PM CDT) [facility] Magnesium 1.9 1.4 - 2.5 mg/dL Blood 08/17/2024 8:16 PM CDT 08/17/2024 9:30 PM CDT Janie Welch MD LAB BLOOD ORDERABLES Final Result Performing Organization Address [facility] Phone Number [facility] [place] [address] * (ABNORMAL) Hemoglobin A1c (08/17/2024 8:16 PM CDT) [facility] Hgb A1C 9.2(H) 4.0 - 5.6 % Estimated Average Glucose 217 mg/dL [facility] Comment: The ADA recommends reporting an estimated Average Glucose (eAG) with all Hemoglobin A1c results using the equation derived from a study of 507 normal and diabetic adults. Minority populations were underrepresented and children were not included. (Diabetes Care 2020; 43(S1): S66-S76). The eAG is not equivalent to a fasting glucose. Blood 08/17/2024 8:16 PM CDT 08/17/2024 9:30 PM CDT Karlee Waller NP LAB BLOOD ORDERABLES Final Result Performing Organization Address [facility] Co de Phone Number [facility] [place] [address] * Lipid panel (08/17/2024 8:16 PM CDT) Cholesterol 139 30 - 199 mg/dL Comment: Interpretive Data Ages < or = 19 years Acceptable: <170 mg/dL Borderline high: 170-199 mg/dL High: >or= 200 mg/dL Ages > or = 20 years Desirable: <200 mg/dL Borderline high: 200-239 mg/dL High: >or= 240 mg/dL Literature References: 1. Expert Panel on Integrated Guidelines for Cardiovascular Health and Risk Reduction in Children and Adolescents. Pediatrics 2011;128:S213 2. NCEP Expert Panel. Circulation 2004;110:227 Current Interpretive Data was last revised on 2017. Triglycerides 115 <=149 mg/dL [facility] Comment: Interpretive Data Ages < or = 9 years Acceptable: <75 mg/dL Borderline high: 75-99 mg/dL High: >or= 100 mg/dL Ages 10 to 20 years Acceptable: <90 mg/dL Borderline high: 90-129 mg/dL High: >or= 130 mg/dL Ages > or = 20 years Desirable: <150 mg/dL Borderline high: 150-199 mg/dL High: 200-499 mg/dL Very high: >or= 499 mg/dL Literature References: 1. Expert Panel on Integrated Guidelines for Cardiovascular Health and Risk Reduction in Children and Adolescents. Pediatrics 2011;128:S213 2. NCEP Expert Panel. Circulation 2004;110:227 Current Interpretive Data was last revised on 2017. HDL 54 >=40 mg/dL [facility] Comment: Interpretive Data Ages < or = 19 years Acceptable: >45 mg/dL Borderline low: 40-45 mg/dL Low: <40 mg/dL Ages > or = 20 years Desirable: >or= 60 mg/dL Low: <40 mg/dL Literature References: 1. Expert Panel on Integrated Guidelines for Cardiovascular Health and Risk Reduction in Children and Adolescents. Pediatrics 2011;128:S213 2. NCEP Expert Panel. Circulation 2004;110:227 Current Interpretive Data was last revised on 2017. LDL, calculated 64 <=129 mg/dL [facility] Comment: Interpretive Data Ages < or = 19 years Acceptable: <110 mg/dL Borderline high: 110-129 mg/dL High: >or= 130 mg/dL Ages > or = 20 years Optimal: <100 mg/dL Near optimal: 100-129 mg/dL Borderline high: 130-159 mg/dL High: >160 mg/dL Calculated using the Josh LDL-C estimating equation. This equation was implemented on 2023. Prior to this date LDL-C was estimated using the Friedewald equation. Literature References: 1. Expert Panel on Integrated Guidelines for Cardiovascular Health and Risk Reduction in Children and Adolescents. Pediatrics 2011;128:S213 2. NCEP Expert Panel. Circulation 2004;110:227 3. Josh Holcomb et al. TERRIE Cardiol. 2020 August 04;5(5):540-548. doi: 10.1001/[email or web address].2020.0013 Current Interpretive Data was last revised on 2023. Non-HDL Cholesterol 85 mg/dL [facility] Comment: Interpretive Data Ages < or = 19 years Acceptable: <120 mg/dL Borderline high: 120-144 mg/dL High: >145 mg/dL Ages > or = 20 years When triglycerides are >200 mg/dL, Non-HDL cholesterol is a secondary target of therapy with treatment goals that are 30 mg/dL greater than the LDL cholesterol target. Literature References: 1. Expert Panel on Integrated Guidelines for Cardiovascular Health and Risk Reduction in Children and Adolescents. Pediatrics 2011;128:S213 2. NCEP Expert Panel. Circulation 2004;110:227 Current Interpretive Data was last revised on 2017. Chol/HDL ratio 3 [facility] Blood 08/17/2024 8:16 PM CDT 08/17/2024 9:30 PM CDT Janie Welch MD LAB BLOOD ORDERABLES Final Result [facility] Department of Laboratories [place], [place] [id number] * (ABNORMAL) Basic metabolic panel (08/17/2024 8:16 PM CDT) Sodium 137 135 - 145 mmol/L Potassium, pl 3.8 3.3 - 4.9 mmol/L [facility] Chloride 104 97 - 110 mmol/L [facility] CO2 22 22 - 32 mmol/L [facility] Anion gap 11 2 - 15 mmol/L [facility] BUN 29(H) 6 - 25 mg/dL [facility] Creatinine 1.56(H) 0.60 - 1.10 mg/dL [facility] Glucose 259(H) 70 - 199 mg/dL [facility] Comment: Interpretive Data Fasting glucose >/= 126 mg/dl is diagnostic for diabetes. Fasting is defined as no caloric intake for at least 8 hours. Fasting glucose between 100 mg/dl to 125 mg/dl is diagnostic of prediabetes. In a patient with classic symptoms of hyperglycemia or hyperglycemic crisis, a random glucose >/= 200 mg/dl is diagnostic for diabetes. In the absence of unequivocal hyperglycemia, results should be confirmed by repeat testing. The classification and Diagnosis of Diabetes Diabetes Care 2021; 46: S19-S40. Current interpretive data was last revised 2022. Calcium 8.9 8.5 - 10.3 mg/dL [facility] Blood 08/17/2024 8:16 PM CDT 08/17/2024 9:30 PM CDT Janie Welch MD LAB BLOOD ORDERABLES Final Result [facility] [place] [address] * (ABNORMAL) POCT glucose (08/17/2024 7:50 PM CDT) Glucose, POC 256(H) 70 - 199 mg/dL Blood 08/17/2024 7:50 PM CDT 08/17/2024 7:50 PM CDT Janie Welch MD LAB POCT ORDERABLES - DEVICE Final Result [facility] [place] [address] * POCT glucose (08/17/2024 5:08 PM CDT) Glucose, POC 192 70 - 199 mg/dL Blood 08/17/2024 5:08 PM CDT 08/17/2024 5:08 PM CDT Janie Welch MD LAB POCT ORDERABLES - DEVICE Final Result Performing Organization Address [facility] Co de Phone Number [facility] [place] [address] * POCT glucose (08/17/2024 4:13 PM CDT) Glucose, POC 193 70 - 199 mg/dL Blood 08/17/2024 4:13 PM CDT 08/17/2024 4:13 PM CDT Janie Welch MD LAB POCT ORDERABLES - DEVICE Final Result Performing Organization Address [facility] de Phone Number [facility] [place] [address] * (ABNORMAL) Hemoglobin and hematocrit (08/17/2024 4:11 PM CDT) Hgb 9.1(L) 11.9 - 15.5 g/dL Comment:Hemoglobin delta due to surgical procedure. Hct 28.6(L) 35.6 - 45.5 % [facility] Blood 08/17/2024 4:11 PM CDT 08/17/2024 4:40 PM CDT Jann Durbin MD PhD LAB BLOOD ORDERABLES F inal Result Performing Organization Address [facility] Co de Phone Number [place], [place] [phone] * (ABNORMAL) POCT glucose (08/17/2024 3:43 PM CDT) Glucose, POC 208(H) 70 - 199 mg/dL Blood 08/17/2024 3:43 PM CDT 08/17/2024 3:43 PM CDT us Janie Welch MD LAB POCT ORDERABLES - DEVICE Final Result [facility] Department [place] [address] * FL Fluoroscopy < 1 Hour (08/17/2024 3:25 PM CDT) Narrative [id number] - 08/17/2024 3:26 PM CDT The images from this study are not interpreted by Radiology. Please refer to the physician's procedure / OR operative note. us Geovanny Tejada MD IMG FLUOROSCOPY PROCEDURES Final Result Performing Organization Address City/[facility]/ZIP Co de Phone Number [email or web address] * (ABNORMAL) POC Blood Gas and Chemistries, Venous - (08/17/2024 1:35 PM CDT) pH, Rossy POC 7.26(L) 7.32 - 7.43 pCO2, rossy POC 56(H) 40 - 50 mmHg [facility] pO2, rossy POC 29 mmHg [facility] Na, POC 140 135 - 145 mmol/L [facility] K POC 3.7 3.3 - 4.9 mmol/L [facility] Comment: Interpretive Data Not all point of care methods assess for hemolysis. Confirm with instrument and retest K+ if not consistent with clinical signs and symptoms. Current Interpretive Data was last revised on 2023. Cl, POC 107 97 - 110 mmol/L [facility] Ionized Ca, POC 5.25(H) 4.50 - 5.10 mg/dL [facility] Glucose, POC 155 70 - 199 mg/dL [facility] Lactate, POC 2.5(H) 0.7 - 2.0 mmol/L [facility] O2 Sat, Rossy POC (Justin) 33 % [facility] Base excess, POC -2.4 mmol/L [facility] HCO3, Rossy POC 25 20 - 30 mmol/L [facility] Hct, POC 30.0(L) 36.3 - 45.3 % [facility] Total Hb, POC 10.0(L) 11.9 - 15.5 g/dL [facility] Blood 08/17/2024 1:35 PM CDT 08/17/2024 1:35 PM CDT Janie Welch MD LAB POCT ORDERABLES - DEVICE Final Result [facility] Department [place] [address] * MS AN ELECTIVE ENDOTRACHEAL AIRWAY, MS AN PROCEDURE PLACEHOLDER (08/17/2024 1:21 PM CDT) Narrative Mishel Montejo CRNA - 08/17/2024 1:21 PM CDT Mishel Montejo CRNA 08/17/2024 1:21 PM Airway Patient location: OR Urgency: elective Date/time: 08/17/2024 12:36 AM Indications for airway management: anesthesia Difficult airway: no Staff: Supervising provider: Jann Durbin MD PhD Placed by: BLADE GROOVER: Mishel Montejo CRNA Emergent airway documentation: Risks and benefits discussed: yes Consent obtained: yes Consent given by: patient Airway prep: Preoxygenated: yes Patient position: sniffing Mask difficulty assessment: 0 - not attempted Spontaneous ventilation during airway: absent Sedation level during airway: GA Final airway details: Final airway type: endotracheal airway Tube type: ETT ETT size: 7.0 mm Cuffed: yes Technique used for successful ETT placement: video laryngoscopy Devices/Methods used in placement: stylet Insertion site: oral Blade type: Makayla Video blade type: Geiger Blade size: 3 Cormack-Lehane (video): grade I - full view of glottis Initial cuff pressure: 29 cm H2O Cuff inflated with: air ETT to lips: 22 cm Placement verified by: auscultation and CO2 detection Airway secured with: silk tape Number of attempts: 1no us Jann Durbin MD PhD ANESTHESIA ORDERABLES Final Result * MS AN PROCEDURE PLACEHOLDER (08/17/2024 1:20 PM CDT) Narrative Mishel Montejo CRNA - 08/17/2024 1:20 PM CDT Mishel Montejo CRNA 08/17/2024 1:20 PM Peripheral IV Catheter Staff: Supervising provider: Jann Durbin MD PhD Placed by: BLADE GROOVER: Mishel Montejo CRNA Preprocedure prep: Prep solution: chlorhexadine PPE: gloves and provider hat/mask PIV line: Laterality: left Site: forearm Catheter size: 20 g Technique: direct visualization Procedure details: occlusive dressing applied and good blood return Number of attempts: 1 Assessment: Events: patient tolerated procedure well with no complications us Jann Durbin MD PhD ANESTHESIA ORDERABLES Final Result * POCT glucose (08/17/2024 1:16 PM CDT) Glucose, POC 126 70 - 199 mg/dL Blood 08/17/2024 1:16 PM CDT 08/17/2024 1:16 PM CDT us Janie Welch MD LAB POCT ORDERABLES - DEVICE Final Result [facility] Department [place] [address] * MS AN PROCEDURE PLACEHOLDER (08/17/2024 11:19 AM CDT) Narrative Franko Carranza MD - 08/17/2024 11:19 AM CDT Franko Carranza MD 08/17/2024 1:35 PM Peripheral Block Patient location during procedure: pre-op holding Reason for block: post-op pain management per surgeon request Ultrasound image in chart or stored: yes Block type: single shot Laterality: right Block type: saphenous nerve block - subsartorial approach Staff: Supervising provider: Franko Carranza MD Placed by: Fellow: Saundra Infante MD Procedure prep: Preprocedure checklist: patient identified, procedure contraindications assessed, site marked, procedure consent, surgical consent, IV checked, risks, benefits and alternatives discussed, monitors and equipment checked and timeout performed Patient position: supine Procedure performed while patient: sedate with meaningful contact Monitoring: ECG, oximetry and blood pressure Supplemental O2: nasal cannula Prep solution: chlorhexidine/alcohol PPE: provider hat/mask, sterile gloves and sterile probe cover and gel Peripheral nerve block: Technique: ultrasound guided Needle type: insulated and short-bevel Needle gauge: 22 G Needle length: 80 mm Injection assessment: injection made incrementally with constant monitoring, local visualized surrounding nerve on ultrasound, negative aspiration for heme, no paresthesias noted, normal resistance to injection and see flowsheet for medication details Assessment: Block success: full evaluation pending Events: patient tolerated procedure well with no complications Jann Durbin MD PhD ANESTHESIA ORDERABLES Final Result * MS AN PROCEDURE PLACEHOLDER (08/17/2024 11:18 AM CDT) Franko Sanchez MD - 08/17/2024 11:18 AM CDT Franko Carranza MD 08/17/2024 1:35 PM Peripheral Block Patient location during procedure: pre-op holding Reason for block: post-op pain management per surgeon request Ultrasound image in chart or stored: yes Block type: single shot Laterality: right Block type: sciatic nerve block - popliteal Staff: Supervising provider: Franko Carranza MD Placed by: Fellow: Saundra Infante MD Procedure prep: Preprocedure checklist: patient identified, procedure contraindications assessed, site marked, procedure consent, surgical consent, IV checked, risks, benefits and alternatives discussed, monitors and equipment checked and timeout performed Patient position: supine Procedure performed while patient: sedate with meaningful contact Monitoring: ECG, oximetry and blood pressure Supplemental O2: nasal cannula Prep solution: chlorhexidine/alcohol PPE: provider hat/mask, sterile gloves and sterile probe cover and gel Peripheral nerve block: Technique: ultrasound guided Needle type: insulated and short-bevel Needle gauge: 22 G Needle length: 80 mm Injection assessment: injection made incrementally with constant monitoring, local visualized surrounding nerve on ultrasound, negative aspiration for heme, no paresthesias noted, normal resistance to injection and see flowsheet for medication details Assessment: Block success: full evaluation pending Events: patient tolerated procedure well with no complications us Jann Durbin MD PhD ANESTHESIA ORDERABLES Final Result * POCT glucose (08/17/2024 10:44 AM CDT) Glucose, POC 153 70 - 199 mg/dL Blood 08/17/2024 10:4 4 AM CDT 08/17/2024 10:44 AM CDT Janie Welch MD LAB POCT ORDERABLES - DEVICE Final Result [facility] Department [place] [address] * (ABNORMAL) Urinalysis reflex to microscopic and culture Urine, clean voided (08/17/2024 10:14 AM CDT) Color, ur Yellow Yellow Clarity, ur Cloudy(A) Clear [facility] Specific gravity, ur 1.022 1.003 - 1.030 [facility] pH, urine 5.5 [facility] Comment: Interpretive Data U rine pH is affected by diet, medications, systemic acid-base disturbances, and renal tubular function. pH may affect urinary stone formation. For example, urine pH below 6.0 may help reduce the tendency for calcium phosphate stones and pH greater than 6.0 may reduce the tendency for uric acid stone formation. Source: [facility] Current Interpretive Data was last revised on 2017 Protein, ur ql 1+(A) Negative [facility] Glucose, ur ql 3+(A) Negative [facility] Ketones, ur Negative Negative [facility] Bilirubin, ur Negative Negative [facility] Blood, ur Negative Negative [facility] Urobilinogen, ur <2.0 <2.0 mg/dL [facility] Nitrite, ur Negative Negative [facility] Leukocyte esterase, ur 2+(A) Negative [facility] UA reflex comment Reflex to microscopic UA will be performed. [facility] Urine, clean voided 08/17/2024 10:14 AM CDT 08/17/2024 10:51 AM CDT Janie Welch MD LAB MICROBIOLOGY - GE NERAL ORDERABLES Final Result Performing Organization Address [facility] Co de Phone Number [facility] [place] [address] * (ABNORMAL) Urinalysis, microscopic only (08/17/2024 10:14 AM CDT) Pathologist [facility] WBC, ur 6-10(A) 0 - 5 /HPF RBC, ur 3-5(A) 0 - 2 /HPF [facility] Epithelial cells, squamous, ur 1-5 0 - 5 /HPF [facility] Bacteria, ur Trace(A) [facility] Mucous, ur Present(A) [facility] Hyaline casts, ur 6-10 0 - 10 /LPF [facility] Culture Reflex Comment Reflex conditions for urine culture (WBC >10) not met. [facility] Urine, clean voided 08/17/2024 10:14 AM CDT 08/17/2024 10:51 AM CDT Janie Welch MD LAB URINE ORDERABLES Final Result Performing Organization Address [facility] Co de Phone Number [facility] [place] [address] * POCT glucose (08/17/2024 7:54 AM CDT) Pathologist [facility] Glucose, POC 176 70 - 199 mg/dL Blood 08/17/2024 7:54 AM CDT 08/17/2024 7:54 AM CDT Janie Welch MD LAB POCT ORDERABLES - DEVICE Final Result Performing Organization Address [facility] Co de Phone Number [facility] [place] [address] * ECG 12 lead (08/17/2024 5:05 AM CDT) Pathologist [facility] Ventricular Rate EKG/Min 88 BPM [facility] Atrial Rate 88 BPM [facility] MS-Interval (MSEC) 122 ms [facility] QRS-Interval (MSEC) 82 ms [facility] QT-Interval (MSEC) 388 ms [facility] QTc 469 ms [facility] P [place] -8 degrees [facility] R [place] 20 degrees [facility] T [place] 67 degrees [facility] Diagnosis Normal sinus rhythm Nonspecific ST and T wave abnormality Abnormal ECG No previous ECGs available Confirmed by FAY WEISS M.D ([id number]) on 08/17/2024 11:13:20 AM [facility] 08/17/2024 5:05 AM CDT 08/17/2024 11:13 AM CDT Janie Welch MD ECG ORDERABLES Final Result [facility] * POCT glucose (08/17/2024 4:05 AM CDT) [facility] Glucose, POC 191 70 - 199 mg/dL Blood 08/17/2024 4:0 5 AM CDT 08/17/2024 4:05 AM CDT Janie Welch MD LAB POCT ORDERABLES - DEVICE Final Result [facility] Department [place] [address] * XR Pelvis 1 or 2 Views (08/17/2024 2:53 AM CDT) Anatomical Region Laterality Modality Body, Pelvis N/A Computed Radiogr aphy 08/17/2024 3:07 AM CDT Impressions 08/17/2024 11:54 AM CDT No acute traumatic finding within the chest or pelvis. Dictated by: Olimpia Tao MD, PhD The radiology attending physician has personally reviewed this study, and had reviewed and/or edited this written report and agrees with it. Electronically signed by: Rory Quevedo M.D. Narrative 08/17/2024 11:54 AM CDT EXAMINATION: XR CHEST 1 VIEW, XR PELVIS 1 OR 2 VIEWS HISTORY: 64-year-old status post fall CHEST: Cardiomediastinal silhouette is normal. No consolidation, pleural effusion, or pneumothorax. PELVIS: Joint spaces are normal. Alignment is intact. No acute fracture or dislocation in the pelvis. Procedure Note Rory Quevedo MD - 08/17/2024 EXAMINATION: XR CHEST 1 VIEW, XR PELVIS 1 OR 2 VIEWS HISTORY: 64-year-old status post fall CHEST: Cardiomediastinal silhouette is normal. No consolidation, pleural effusion, or pneumothorax. PELVIS: Joint spaces are normal. Alignment is intact. No acute fracture or dislocation in the pelvis. IMPRESSION: No acute traumatic finding within the chest or pelvis. Dictated by: Olimpia Tao MD, PhD The radiology attending physician has personally reviewed this study, and had reviewed and/or edited this written report and agrees with it. Electronically signed by: Rory Quevedo M.D. Taylor Rivas MD IMG XR PROCEDURES [facility] Result * XR Chest 1 View (08/17/2024 2:53 AM CDT) Anatomical Region Laterality Modality Body, Chest N/A Computed Radiogr aphy 08/17/2024 3:07 AM CDT Impressions 08/17/2024 11:54 AM CDT No acute traumatic finding within the chest or pelvis. Dictated by: Olimpia Tao MD, PhD The radiology attending physician has personally reviewed this study, and had reviewed and/or edited this written report and agrees with it. Electronically signed by: Rory Quevedo M.D. Narrative 08/17/2024 11:54 AM CDT EXAMINATION: XR CHEST 1 VIEW, XR PELVIS 1 OR 2 VIEWS HISTORY: 64-year-old status post fall CHEST: Cardiomediastinal silhouette is normal. No consolidation, pleural effusion, or pneumothorax. PELVIS: Joint spaces are normal. Alignment is intact. No acute fracture or dislocation in the pelvis. Procedure Note Rory Quevedo MD - 08/17/2024 EXAMINATION: XR CHEST 1 VIEW, XR PELVIS 1 OR 2 VIEWS HISTORY: 64-year-old status post fall CHEST: Cardiomediastinal silhouette is normal. No consolidation, pleural effusion, or pneumothorax. PELVIS: Joint spaces are normal. Alignment is intact. No acute fracture or dislocation in the pelvis. IMPRESSION: No acute traumatic finding within the chest or pelvis. Dictated by: Olimpia Tao MD, PhD The radiology attending physician has personally reviewed this study, and had reviewed and/or edited this written report and agrees with it. Electronically signed by: Rory Quevedo M.D. us Taylor Rivas MD IMG XR PROCEDURES [facility] Result * CT Ankle Right WO Contrast (08/17/2024 2:46 AM CDT) Anatomical Region Laterality Modality Ankle Right Computed Tomogra phy 08/17/2024 3:07 AM CDT Impressions 08/17/2024 6:29 AM CDT 1. There is interval reduction of the distal tibial comminuted fracture improved in alignment compared to 08/17/2024 at 12:58 AM. The previously placed intramedullary anita and screws are unchanged in position. 2. Chronic distal fibular fracture is internally fixated and healed in near-anatomic alignment. Dictated by: Vicky Fernandes MD The radiology attending physician has personally reviewed this study, and had reviewed and/or edited this written report and agrees with it. Electronically signed by: Santosh Sawyer M.D. Narrative 08/17/2024 6:29 AM CDT EXAMINATION: CT ANKLE RIGHT WO CONTRAST HISTORY: ANKLE FRACTURE STATUS POST SPLINTING TECHNIQUE: Transaxial computed tomographic images of the right ankle were obtained without contrast COMPARISON: Same day prior radiographs FINDINGS: Internal fixation hardware is noted within the distal tibia and fibula as well as medial and lateral malleoli. The distal fibular chronic fracture is healed in near anatomic alignment. There is remodeling along the anterior aspect of distal fibula. The fixation plate and screws are in unchanged position compared to 08/16/2024. There is a anteroposteriorly oriented screw not going through the plate. The intramedullary anita is noted within the distal tibia with one screw. 2 screws are again noted within the medial malleolus one of which mildly bent. Mildly displaced the comminuted distal tibial fracture surrounding the anita with improved alignment compared to 08/17/2024 at 12:58 AM. There remains a small residual subcentimeter gap between the 2 largest fragments. Some smaller fragments within the medial distal tibia is corticated. No drainable hematoma within soft tissue. Mildly prominent vessel along the lateral malleolus. Procedure Note Santosh Sawyer MD - 08/17/2024 EXAMINATION: CT ANKLE RIGHT WO CONTRAST HISTORY: ANKLE FRACTURE STATUS POST SPLINTING TECHNIQUE: Transaxial computed tomographic images of the right ankle were obtained without contrast COMPARISON: Same day prior radiographs FINDINGS: Internal fixation hardware is noted within the distal tibia and fibula as well as medial and lateral malleoli. The distal fibular chronic fracture is healed in near anatomic alignment. There is remodeling along the anterior aspect of distal fibula. The fixation plate and screws are in unchanged position compared to 08/16/2024. There is a anteroposteriorly oriented screw not going through the plate. The intramedullary anita is noted within the distal tibia with one screw. 2 screws are again noted within the medial malleolus one of which mildly bent. Mildly displaced the comminuted distal tibial fracture surrounding the anita with improved alignment compared to 08/17/2024 at 12:58 AM. There remains a small residual subcentimeter gap between the 2 largest fragments. Some smaller fragments within the medial distal tibia is corticated. No drainable hematoma within soft tissue. Mildly prominent vessel along the lateral malleolus. IMPRESSION: 1. There is interval reduction of the distal tibial comminuted fracture improved in alignment compared to 08/17/2024 at 12:58 AM. The previously placed intramedullary anita and screws are unchanged in position. 2. Chronic distal fibular fracture is internally fixated and healed in near-anatomic alignment. Dictated by: Vicky Fernandes MD The radiology attending physician has personally reviewed this study, and had reviewed and/or edited this written report and agrees with it. Electronically signed by: Santosh L. [place] Velde, M.D. us Taylor Jacque Rivas MD IMG CT PROCEDURES [facility] Result * ECG 12-LEAD (08/17/2024 2:30 AM CDT) Narrative [facility] - 08/17/2024 2:30 AM CDT Don Dunn MD 08/17/2024 2:30 AM ECG 12 lead Date/Time: 08/17/2024 2:30 AM Performed by: Don Dunn MD Authorized by: Taylor Rivas MD Rate: ECG rate: 92 ECG rate assessment: normal Rhythm: Rhythm: sinus rhythm Ectopy: Ectopy: none QRS: QRS axis: Normal QRS intervals: Normal Conduction: Conduction: normal ST segments: ST segments: Non-specific T waves: T waves: non-specific Previous ECG: Previous ECG: Unavailable Interpretation: Interpretation: non-specific Recommended Follow-up: Recommended follow up: further workup in the ED Taylor Rivas MD ECG ORDERABLES Final Result Performing Organization Address [facility] Co de Phone Number [facility] * (ABNORMAL) POCT glucose (08/17/2024 1:28 AM CDT) Glucose, POC 230(H) 70 - 199 mg/dL Blood 08/17/2024 1:28 AM CDT 08/17/2024 1:28 AM CDT Don Dunn MD LAB POCT ORDERABLES - [place]DE[place] CE Final Result Performing Organization Address [facility] Co de Phone Number [facility] Department [place] [address] * XR Knee Right 4 or More Views (08/17/2024 1:12 AM CDT) Anatomical Region Laterality Modality Lower Extremities, Knee Right Computed Radiography 08/17/2024 1:30 AM CDT Impressions 08/17/2024 11:54 AM CDT Periprosthetic fracture of the right proximal tibia associated with soft tissue swelling. Dictated by: Olimpia Tao MD, PhD The radiology attending physician has personally reviewed this study, and had reviewed and/or edited this written report and agrees with it. Electronically signed by: Rory Quevedo M.D. Narrative 08/17/2024 11:54 AM CDT EXAMINATION: XR FOOT RIGHT 3 OR MORE VIEWS, XR TIBIA FIBULA RIGHT2 VIEWS, XR KNEE RIGHT 4 OR MORE VIEWS HISTORY: 64-year-old status post fall FINDINGS: RIGHT FOOT: Diffuse osteopenia. Partially visualized internal fixation and reduction for the management of remote right tibia and fibula fractures. No acute fracture or dislocation is present within the right foot. RIGHT TIB/FIB: Post surgical changes following internal fixation and reduction of remote right tibia and fibula fractures. Periprosthetic fracture through the proximal right tibia associated with soft tissue swelling. RIGHT KNEE: Patellofemoral compartment predominant osteoarthritis. Small right knee effusion. No acute fracture within the right knee Procedure Note Rory Quevedo MD - 08/17/2024 EXAMINATION: XR FOOT RIGHT 3 OR MORE VIEWS, XR TIBIA FIBULA RIGHT2 VIEWS, XR KNEE RIGHT 4 OR MORE VIEWS HISTORY: 64-year-old status post fall FINDINGS: RIGHT FOOT: Diffuse osteopenia. Partially visualized internal fixation and reduction for the management of remote right tibia and fibula fractures. No acute fracture or dislocation is present within the right foot. RIGHT TIB/FIB: Post surgical changes following internal fixation and reduction of remote right tibia and fibula fractures. Periprosthetic fracture through the proximal right tibia associated with soft tissue swelling. RIGHT KNEE: Patellofemoral compartment predominant osteoarthritis. Small right knee effusion. No acute fracture within the right knee IMPRESSION: Periprosthetic fracture of the right proximal tibia associated with soft tissue swelling. Dictated by: Olimpia Tao MD, PhD The radiology attending physician has personally reviewed this study, and had reviewed and/or edited this written report and agrees with it. Electronically signed by: Rory Quevedo M.D. us Taylor Rivas MD IMG XR PROCEDURES [facility] Result * XR Tibia Fibula Right 2 Views (08/17/2024 1:12 AM CDT) Anatomical Region Laterality Modality Lower Extremities, Lower Leg Right Com puted Radiography 08/17/2024 1:30 AM CDT Impressions 08/17/2024 11:54 AM CDT Periprosthetic fracture of the right proximal tibia associated with soft tissue swelling. Dictated by: Olimpia Tao MD, PhD The radiology attending physician has personally reviewed this study, and had reviewed and/or edited this written report and agrees with it. Electronically signed by: Rory Quevedo M.D. Narrative 08/17/2024 11:54 AM CDT EXAMINATION: XR FOOT RIGHT 3 OR MORE VIEWS, XR TIBIA FIBULA RIGHT2 VIEWS, XR KNEE RIGHT 4 OR MORE VIEWS HISTORY: 64-year-old status post fall FINDINGS: RIGHT FOOT: Diffuse osteopenia. Partially visualized internal fixation and reduction for the management of remote right tibia and fibula fractures. No acute fracture or dislocation is present within the right foot. RIGHT TIB/FIB: Post surgical changes following internal fixation and reduction of remote right tibia and fibula fractures. Periprosthetic fracture through the proximal right tibia associated with soft tissue swelling. RIGHT KNEE: Patellofemoral compartment predominant osteoarthritis. Small right knee effusion. No acute fracture within the right knee Procedure Note Rory Quevedo MD - 08/17/2024 EXAMINATION: XR FOOT RIGHT 3 OR MORE VIEWS, XR TIBIA FIBULA RIGHT2 VIEWS, XR KNEE RIGHT 4 OR MORE VIEWS HISTORY: 64-year-old status post fall FINDINGS: RIGHT FOOT: Diffuse osteopenia. Partially visualized internal fixation and reduction for the management of remote right tibia and fibula fractures. No acute fracture or dislocation is present within the right foot. RIGHT TIB/FIB: Post surgical changes following internal fixation and reduction of remote right tibia and fibula fractures. Periprosthetic fracture through the proximal right tibia associated with soft tissue swelling. RIGHT KNEE: Patellofemoral compartment predominant osteoarthritis. Small right knee effusion. No acute fracture within the right knee IMPRESSION: Periprosthetic fracture of the right proximal tibia associated with soft tissue swelling. Dictated by: Olimpia Tao MD, PhD The radiology attending physician has personally reviewed this study, and had reviewed and/or edited this written report and agrees with it. Electronically signed by: Rory Quevedo M.D. us Taylor Rivas MD IMG XR PROCEDURES [facility] Result * XR Foot Right 3 or More Views (08/17/2024 1:12 AM CDT) Anatomical Region Laterality Modality Lower Extremities, Foot Right Computed Radiography 08/17/2024 1:30 AM CDT Impressions 08/17/2024 11:54 AM CDT Periprosthetic fracture of the right proximal tibia associated with soft tissue swelling. Dictated by: Olimpia Tao MD, PhD The radiology attending physician has personally reviewed this study, and had reviewed and/or edited this written report and agrees with it. Electronically signed by: Rory Quevedo M.D. Narrative 08/17/2024 11:54 AM CDT EXAMINATION: XR FOOT RIGHT 3 OR MORE VIEWS, XR TIBIA FIBULA RIGHT2 VIEWS, XR KNEE RIGHT 4 OR MORE VIEWS HISTORY: 64-year-old status post fall FINDINGS: RIGHT FOOT: Diffuse osteopenia. Partially visualized internal fixation and reduction for the management of remote right tibia and fibula fractures. No acute fracture or dislocation is present within the right foot. RIGHT TIB/FIB: Post surgical changes following internal fixation and reduction of remote right tibia and fibula fractures. Periprosthetic fracture through the proximal right tibia associated with soft tissue swelling. RIGHT KNEE: Patellofemoral compartment predominant osteoarthritis. Small right knee effusion. No acute fracture within the right knee Procedure Note Rory Quevedo MD - 08/17/2024 EXAMINATION: XR FOOT RIGHT 3 OR MORE VIEWS, XR TIBIA FIBULA RIGHT2 VIEWS, XR KNEE RIGHT 4 OR MORE VIEWS HISTORY: 64-year-old status post fall FINDINGS: RIGHT FOOT: Diffuse osteopenia. Partially visualized internal fixation and reduction for the management of remote right tibia and fibula fractures. No acute fracture or dislocation is present within the right foot. RIGHT TIB/FIB: Post surgical changes following internal fixation and reduction of remote right tibia and fibula fractures. Periprosthetic fracture through the proximal right tibia associated with soft tissue swelling. RIGHT KNEE: Patellofemoral compartment predominant osteoarthritis. Small right knee effusion. No acute fracture within the right knee IMPRESSION: Periprosthetic fracture of the right proximal tibia associated with soft tissue swelling. Dictated by: Olimpia Tao MD, PhD The radiology attending physician has personally reviewed this study, and had reviewed and/or edited this written report and agrees with it. Electronically signed by: Rory Quevedo M.D. us Taylor Rivas MD IMG XR PROCEDURES [facility] Result * (ABNORMAL) eGFR (08/17/2024 12:29 AM CDT) eGFR 28(L) >=60 mL/min/1. 73 m2 Comment: Interpretive Data Reference Interval Normal >/= 90 mL/min/1.73m2 Mildly decreased* 60 - 89 mL/min/1.73m2 Mildly to moderately decreased 45 - 59 mL/min/1.73m2 Moderately to severely decreased 30 - 44 mL/min/1.73m2 Severely decreased 15 - 29 mL/min/1.73m2 Kidney Failure < 15 mL/min/1.73m2 *Relative to young adult level Estimated glomerular filtration rate is determined by the 2020 CKD-EPI equation recommended by the [employer] (A Unifying Approach to GFR Estimation: Recommendations of the NKF-ASK Task Force on Reassessing the Inclusion of Race in Diagnosing Kidney Disease, YANNSRosmery 2020). The CKD-EPI equation should not be used for patients with unstable renal function and has not been validated in children and those over 70. Current interpretive data was last reviewed 2021. Blood 08/17/2024 12:2 9 AM CDT 08/17/2024 12:50 AM CDT us Taylor Rivas MD LAB BLOOD ORDERABLES F inal Result [facility] Department [place] [address] * (ABNORMAL) Differential, auto (08/17/2024 12:29 AM CDT) Neutrophil abs 10.69(H) 1.50 - 6.50 K/cumm Imm gran abs 0.13(H) 0.00 - 0.10 K/cumm [facility] Lymphocyte abs 4.33(H) 0.80 - 3.30 K/cumm [facility] Monocyte abs 1.62(H) 0.20 - 0.80 K/cumm [facility] Eosinophil abs 0.25 0.00 - 0.50 K/cumm [facility] Basophil abs 0.09 0.00 - 0.10 K/cumm [facility] Neutrophil pct 62.4 % [facility] Comment: Interpretive Data Percent cell count reference ranges are not reported, since discordance with absolute values may lead to misinterpretation of CBC data. Current Interpretive Data was last revised on 2017. Imm gran pct 0.8 % [facility] Comment: Interpretive Data Percent cell count reference ranges are not reported, since discordance with absolute values may lead to misinterpretation of CBC data. Current Interpretive Data was last revised on 2017. Lymphocyte pct 25.3 % [facility] Comment: Interpretive Data Percent cell count reference ranges are not reported, since discordance with absolute values may lead to misinterpretation of CBC data. Current Interpretive Data was last revised on 2017. Monocyte pct 9.5 % [facility] Comment: Interpretive Data Percent cell count reference ranges are not reported, since discordance with absolute values may lead to misinterpretation of CBC data. Current Interpretive Data was last revised on 2017. Eosinophil pct 1.5 % [facility] Comment: Interpretive Data Percent cell count reference ranges are not reported, since discordance with absolute values may lead to misinterpretation of CBC data. Current Interpretive Data was last revised on 2017. Basophil pct 0.5 % [facility] Comment: Interpretive Data Percent cell count reference ranges are not reported, since discordance with absolute values may lead to misinterpretation of CBC data. Current Interpretive Data was last revised on 2017. Blood 08/17/2024 12:2 9 AM CDT 08/17/2024 12:50 AM CDT us Taylor Rivas MD LAB BLOOD ORDERABLES F inal Result [facility] Department [place] [address] * (ABNORMAL) CBC with auto differential (08/17/2024 12:29 AM CDT) [facility] WBC 17.11(H) 3.80 - 9.90 K/cumm Hgb 12.1 11.9 - 15.5 g/dL [facility] Hct 36.7 35.6 - 45.5 % [facility] Plt 319 150 - 400 K/cumm [facility] MPV 11.5 9.1 - 12.3 fL [facility] RBC 4.05 3.90 - 5.20 M/cumm [facility] MCV 90.6 81.3 - 96.4 fL [facility] MCH 29.9 27.1 - 33.3 pg [facility] MCHC 33.0 32.3 - 35.7 g/dL [facility] RDW CV 13.7 11.1 - 14.9 % [facility] RDW SD 44.9 35.7 - 48.1 fL [facility] NRBC abs 0.00 0.00 - 0.01 K/cumm [facility] Blood 08/17/2024 12:2 9 AM CDT 08/17/2024 12:50 AM CDT us Taylor Rivas MD LAB BLOOD ORDERABLES F inal Result [facility] Department [place] [address] * (ABNORMAL) aPTT (08/17/2024 12:29 AM CDT) [facility] aPTT 23(L) 28 - 38 sec Comment: Interpretive Data Heparin therapeutic range: 66.0 - 100.0 seconds. Range based on correlation with therapeutic heparin activity range of 0.3 - 0.7 Units/mL. Current interpretive data was last revised on 2022. Blood 08/17/2024 12:2 9 AM CDT 08/17/2024 12:46 AM CDT Taylor Rivas MD LAB BLOOD ORDERABLES F inal Result Performing Organization Address [facility] Co de Phone Number [facility] Department [place] [address] * Protime-INR (08/17/2024 12:29 AM CDT) PT 10.2 9.7 - 13.0 sec INR 0.95 0.90 - 1.20 [facility] Comment: Interpretive data Oral anticoagulant therapeutic ranges: Venous thromboembolism prophylaxis or treatment: 2.0-3.0 CARDIOLOGY Standard range: 2.0-3.0 High-intensity range: 2.5-3.5 Refer to indication-specific guidelines for appropriate target ranges for prosthetic heart valve replacement. Current interpretive data was last revised on 2019. Blood 08/17/2024 12:2 9 AM CDT 08/17/2024 12:46 AM CDT Taylor Rivas MD LAB BLOOD ORDERABLES F inal Result Performing Organization Address [facility] de Phone Number [facility] Department [place] [address] * Type and screen (08/17/2024 12:29 AM CDT) Pathologist [facility] Yelena, indirect Negative ABO Rh A Negative [facility] Blood 08/17/2024 12:2 9 AM CDT 08/17/2024 12:42 AM CDT Narrative [facility] - 08/17/2024 1:36 AM CDT Has the patient had Daratumumab or Isatuximab in the past 6 months?->Unknown Taylor Rivas MD LAB BLOOD BANK TEST OR DERABLES Final Result Performing Organization Address [facility] Co de Phone Number [facility] Department [place] [address] * (ABNORMAL) Hemoglobin A1c (08/17/2024 12:29 AM CDT) [facility] Hgb A1C 10.1(H) 4.0 - 5.6 % Estimated Average Glucose 243 mg/dL [facility] Comment: The ADA recommends reporting an estimated Average Glucose (eAG) with all Hemoglobin A1c results using the equation derived from a study of 507 normal and diabetic adults. Minority populations were underrepresented and children were not included. (Diabetes Care 2020; 43(S1): S66-S76). The eAG is not equivalent to a fasting glucose. Blood 08/17/2024 12:2 9 AM CDT 08/17/2024 12:53 AM CDT Narrative [facility] - 08/17/2024 6:26 PM CDT Reflex Janie Welch MD LAB BLOOD ORDERABLES Final Result [facility] Department [place] [address] * (ABNORMAL) Comprehensive metabolic panel (08/17/2024 12:29 AM CDT) [facility] Sodium 140 135 - 145 mmol/L Potassium, pl 4.6 3.3 - 4.9 mmol/L [facility] Comment:Hemolyzed; Potassium value may be falsely elevated by as much as 0.6-1.0 mmol/L. Suggest redraw and reanalysis. Chloride 103 97 - 110 mmol/L [facility] CO2 23 22 - 32 mmol/L [facility] Anion gap 14 2 - 15 mmol/L [facility] BUN 26(H) 6 - 25 mg/dL [facility] Creatinine 1.95(H) 0.60 - 1.10 mg/dL [facility] Glucose 222(H) 70 - 199 mg/dL [facility] Comment: Interpretive Data Fasting glucose >/= 126 mg/dl is diagnostic for diabetes. Fasting is defined as no caloric intake for at least 8 hours. Fasting glucose between 100 mg/dl to 125 mg/dl is diagnostic of prediabetes. In a patient with classic symptoms of hyperglycemia or hyperglycemic crisis, a random glucose >/= 200 mg/dl is diagnostic for diabetes. In the absence of unequivocal hyperglycemia, results should be confirmed by repeat testing. The classification and Diagnosis of Diabetes Diabetes Care 2021; 46: S19-S40. Current interpretive data was last revised 2022. Calcium 10.0 8.5 - 10.3 mg/dL [facility] Bilirubin, total 0.3 0.1 - 1.2 mg/dL [facility] Protein, pl 8.0 6.5 - 8.5 g/dL [facility] Albumin 4.4 3.5 - 5.0 g/dL [facility] Alk phos 134(H) 40 - 130 Units/L [facility] ALT 13 7 - 45 Units/L [facility] AST 37 10 - 45 Units/L [facility] Comment:Hemolyzed; result ma y be falsely elevated Blood 08/17/2024 12:2 9 AM CDT 08/17/2024 12:50 AM CDT us Taylor Rivas MD LAB BLOOD ORDERABLES F inal Result [facility] Department [place] [address] * XR Ankle Right 3 or More Views (08/16/2024 5:30 PM CDT) Anatomical Region Laterality Modality Lower Extremities, Ankle Right Compute d Radiography 08/16/2024 6:54 PM CDT Narrative 08/16/2024 7:11 PM CDT EXAM DESCRIPTION: XR ANKLE RIGHT 3 OR MORE VIEWS REASON FOR STUDY: accidental fall Pt reported right leg pain with deformity to her right ankle after steping and her leg giving out. Pt reports a right leg fx 1 year ago. TECHNIQUE: 3 radiographic view(s) of the right ankle . COMPARISON: None FINDINGS: Evaluation is limited without comparison exams. Status post open reduction and internal fixation of distal fibula, medial malleolus fractures with intramedullary nailing. Displaced fracture of the distal tibia is presumably acute. Soft tissue swelling of the ankle is noted. Plantar calcaneal spur and Achilles enthesophyte. IMPRESSION: No prior studies are available for comparison at time of this dictation. Status post open reduction and internal fixation of distal fibular and tibia fractures. There is an acute appearing displaced fracture of the distal tibia. Correlation with prior imaging is recommended. THIS IS AN ELECTRONICALLY VERIFIED FINAL REPORT 08/16/2024 7:11 PM - Electronically signed by Henrik Henriquez M.D. MM: MM Report ID: [id number] Reading Location: [place] [address] Procedure Note Henrik Henriquez MD - 08/16/2024 EXAM DESCRIPTION: XR ANKLE RIGHT 3 OR MORE VIEWS REASON FOR STUDY: accidental fall Pt reported right leg pain with deformity to her right ankle after stepingand her leg giving out. Pt reports a right leg fx 1 year ago. TECHNIQUE: 3 radiographic view(s) of the right ankle . COMPARISON: None FINDINGS: Evaluation is limited without comparison exams. Status post open reduction and internal fixation of distal fibula, medial malleolus fractures with intramedullary nailing. Displaced fracture ofthe distal tibia is presumably acute. Soft tissue swelling of the ankle isnoted. Plantar calcaneal spur and Achilles enthesophyte. IMPRESSION: No prior studies are available for comparison at time of this dictation. Status post open reduction and internal fixation of distal fibular andtibia fractures. There is an acute appearing displaced fracture of the distal tibia. Correlation with prior imaging is recommended. THIS IS AN ELECTRONICALLY VERIFIED FINAL REPORT 08/16/2024 7:11 PM - Electronically signed by Henrik Henriquez M.D. MM: MM Report ID: [id number] Reading Location: [place] [address] Neymar Hui MD IMG XR PROCEDURES Final Resu lt from Last 3 Months Insurance Advance Directives For more information, please contact: [phone] * Full Code (Latest Code Status on File) Date Activated Date Inactivated Comments 08/17/2024 4:53 AM 08/20/2024 3:33 PM Care Teams Pickle Processor Relationship Specialty Start Date End Date Jing Baird PA [address] [place] [address] PCP - General Shovel Engineer 08/17/24
--- OUTSIDE RECORDS SUMMARY | 2024-08-24 15:45 | XMS_ITS | Encounter Summary ---
Author Organization [facility] Address [address] [place] [address] Phone Care Team Providers Care Surveillance Analyst Name Role Phone Jing Baird Primary Care Provider + Kvng Mendoza MD Unavailable Encounter Details Date Type Department Care Team (Late st Contact Info) Description 07/11/2020 Home Health Resumpti on of Care Planning [facility] [address] [place] [address] Social History Tobacco Use Types Packs/Day Years [...] - 19 03/24/2023 03/24/2023 03/25/2023 8:22 AM LOAD DISPATCHER LOCAL C. difficile Rule-Out 03/24/2023 03/24/20232022 4:16 PM LOAD DISPATCHER LOCAL COVID - 19 04/27/2023 04/27/2023 04/28/2023 8:53 AM LOAD DISPATCHER LOCAL COVID - 19 01/08/2024 01/08/2024 01/08/2024 1:48 PM CDT COVID - 19 01/13/2024 01/13/2024 01/13/2024 3:44 PM CDT Respiratory Rule-Out 01/13/2024 01/13/2024 024 12:16 AM CDT COVID - 19 02/22/2024 02/22/2024 03/03/2024 12:1 6 AM LOAD DISPATCHER LOCAL COVID - 19 05/17/2024 05/17/2024 05/17/2024 10:4 5 AM LOAD DISPATCHER LOCAL Influenza 05/17/2024 05/17/2024 05/24/2024 12:1 6 AM LOAD DISPATCHER LOCAL COVID - 19 06/11/2024 06/11/2024 06/11/2024 8:06 PM LOAD DISPATCHER LOCAL Assessment Noted Time PHQ-9 Depression Total Score: 3 08/25/19 20 11:40 AM CDT documented as of this encounter Care Teams Surveillance Analyst Relationship Specialty Start Date End Date Jing Baird PAC [address] [place] [address] PCP - General Physician Braided Rug Maker 12/29/18 07/31/24 Kvng Mendoza MD [address] [id number] Consulting Physician Endocrinology 10/10/21 documented as of this encounter
--- OUTSIDE RECORDS SUMMARY | 2024-08-24 15:45 | XMS_ITS | Encounter Summary ---
Author Organization [facility] Address [address] [place] [address] Phone Care Team Providers Care Records Analysis Manager Name Role Phone Jing Baird Primary Care Provider + Kvng Mendoza MD Unavailable Reason for Visit * Reason Comments Medication Refill Encounter Details Date Type Department Care Team (Late st Contact Info) Description 06/18/2020 Refill [facility] - Family [facility] [address] [place] [address] Ciara Sun, PAC [address] [place] [address] Medication Refill Social History Tobacco Use Types [...] Encounter - Natali Zamudio RN - 06/18/2020 3:00 PM CDT Medication failed the protocol, provider to review and approve the medication order if appropriate. Last OV 05/02/20, F/U None, Last Rx Tizanidine 02/02/20, Buspar 02/02/20 Natali RN Requested Prescriptions Pending Prescriptions Disp Refills tiZANidine (ZANAFLEX) 4 MG Tablet [Pharmacy Med Name: TIZANIDINE HYDROCHLORIDE 4 MG Tablet] 270 Tablet 0 Sig: TAKE 1 TABLET THREE TIMES DAILY Not Delegated - Analgesics: Muscle Relaxants Failed - 06/18/2020 2:59 PM Failed - This refill cannot be delegated Passed - Valid encounter within last 6 months Past Office Visits Recent Outpatient Visits 1 month ago Chronic sinusitis, unspecified location [facility] Jing Gleason PAC 2 months ago Chronic sinusitis, unspecified location [facility] Jing Gleason PAC 4 months ago Chronic gastroesophageal reflux disease [facility] Jing Gleason PAC 6 months ago Type 2 diabetes mellitus with other specified complication, with long-term current useof insulin (HCC) [facility] Jing Gleason PAC 9 months [facility]ointments Future Appointments In 3 weeks Kvng Mendoza MD [facility] Endocrinology [facility] BULLDOZER MECHANIC - Recent and Past Visits Recent Visits Date Type Provider Dept 05/02/20 Telemedicine Jing Baird PAC [facility] 03/26/20 Telemedicine Jing Baird PAC [facility] 02/10/20 Office Visit Jing Baird PAC [facility] 11/30/19 Office Visit Jing Baird PAC [facility] 08/25/19 Office Visit Jing Baird PAC [facility] 07/19/19 Telemedicine Jing Baird PAC [facility] 07/05/19 Telemedicine Jing Baird PAC [facility] 05/18/19 Office Visit Jing Baird PAC [facility] 05/11/19 Office Visit Jing Baird PAC [facility] Showing recent visits within past 460 days with a meds authorizing provider and meeting all other requirements Future Appointments No visits were found meeting these conditions. Showing future appointments within next 90 days with a meds authorizing provider and meeting all other requirements busPIRone (BUSPAR) 10 MG Tablet [Pharmacy Med Name: BUSPIRONE HYDROCHLORIDE 10 MG Tablet] 180 Tablet 0 Sig: TAKE 1 TABLET TWICE DAILY Not Delegated - Psychiatry: Anxiolytics/Hypnotics Failed - 06/18/2020 2:59 PM Failed - This refill cannot be delegated Passed - Valid encounter within last 6 months Past Office Visits Recent Outpatient Visits 1 month ago Chronic sinusitis, unspecified location [facility] Jing Gleason PAC 2 months ago Chronic sinusitis, unspecified location [facility] Jing Gleason PAC 4 months ago Chronic gastroesophageal reflux disease [facility] Jing Gleason PAC 6 months ago Type 2 diabetes mellitus with other specified complication, with long-term current useof insulin (HCC) [facility] Jing Gleason PAC 9 months [facility] Upcoming Appointments Future Appointments In 3 weeks Kvng Mendoza MD [facility] BULLDO[facility]ER MECHANIC - Recent and Past Visits Recent Visits Date Type Provider Dept 05/02/20 Jing Gonzalez PAC [facility] 03/26/20 Telemedicine Jing Baird PAC [facility] 02/10/20 Office Visit Jing Baird PAC [facility] 11/30/19 Office Visit Jing Baird PAC [facility] 08/25/19 Office Visit Jing Baird PAC [facility] 07/19/19 Telemedicine Jing Baird, PAC [facility] 07/05/19 Telemedicine Jing Baird, PAC [facility] 05/18/19 Office Visit Jing Baird, PAC [facility] 05/11/19 Office Visit Jing Baird, PAC [facility] Showing recent visits within past 460 days [...] - 19 03/24/2023 03/24/2023 03/25/2023 8:22 AM RUSH SEATER C. difficile Rule-Out 03/24/2023 03/24/20232022 4:16 PM RUSH SEATER COVID - 19 04/27/2023 04/27/2023 04/28/2023 8:53 AM RUSH SEATER COVID - 19 01/08/2024 01/08/2024 01/08/2024 1:48 PM CDT COVID - 19 01/13/2024 01/13/2024 01/13/2024 3:44 PM CDT Respiratory Rule-Out 01/13/2024 01/13/2024 024 12:16 AM CDT COVID - 19 02/22/2024 02/22/2024 03/03/2024 12:1 6 AM RUSH SEATER COVID - 19 05/17/2024 05/17/2024 05/17/2024 10:4 5 AM RUSH SEATER Influenza 05/17/2024 05/17/2024 05/24/2024 12:1 6 AM RUSH SEATER COVID - 19 06/11/2024 06/11/2024 06/11/2024 8:06 PM RUSH SEATER Assessment Noted Time PHQ-9 Depression Total Score: 3 08/25/19 20 11:40 AM CDT documented as of this encounter Care Teams Records Analysis Manager Relationship Specialty Start Date End Date Jing Baird PAC [address] [place] [address] PCP - General Physician Compliance Quality Performance Analyst 12/29/18 07/31/24 Kvng Mendoza MD [address] [phone] Consulting Physician Endocrinology 10/10/21 documented as of this encounter
--- OUTSIDE RECORDS SUMMARY | 2024-08-24 15:45 | XMS_ITS | Encounter Summary ---
Author Organization [facility] Address [address] [place] [address] Phone Care Team Providers Care Mineral Technologist Name Role Phone Jing Baird Primary Care Provider + Kvng Mendoza MD Unavailable Reason for Visit * Reason Onset Date Comments Advice Only 03/25/2022 Encounter Details Date Type Department Care Team (Late st Contact Info) Description 03/25/2022 Telephone [facility] [address] [place] [address] Jing Baird, PAC [address] [place] [address] Advice Only Social History Tobacco Use Types Packs/Day Years [...] encounter Miscellaneous Notes * Telephone Encounter - Miranda Antonio RN - 03/26/2022 8:20 AM JIG WORKER Attempted to return patients call, unable to leave message due to full voicemail. WORKER WORKER * Telephone Encounter - Dora Andrews RN - 03/25/2022 3:05 PM CST Patient calling requesting a callback from Dr. Becerra office today. Rn attempted to warm transfer call to the office twice. No answer. Please contact patient today at Thanks. WORKER documented in this encounter Plan of Treatment [...] - 19 03/24/2023 03/24/2023 03/25/2023 8:22 AM JIG WORKER C. difficile Rule-Out 03/24/2023 03/24/20232022 4:16 PM JIG WORKER COVID - 19 04/27/2023 04/27/2023 04/28/2023 8:53 AM JIG WORKER COVID - 19 01/08/2024 01/08/2024 01/08/2024 1:48 PM CDT COVID - 19 01/13/2024 01/13/2024 01/13/2024 3:44 PM CDT Respiratory Rule-Out 01/13/2024 01/13/2024 024 12:16 AM CDT COVID - 19 02/22/2024 02/22/2024 03/03/2024 12:1 6 AM JIG WORKER COVID - 19 05/17/2024 05/17/2024 05/17/2024 10:4 5 AM JIG WORKER Influenza 05/17/2024 05/17/2024 05/24/2024 12:1 6 AM JIG WORKER COVID - 19 06/11/2024 06/11/2024 06/11/2024 8:06 PM JIG WORKER Assessment Noted Time PHQ-9 Depression Total Score: 1 08/03/19 21 10:00 AM CDT documented as of this encounter Care Teams Mineral Technologist Relationship Specialty Start Date End Date Jing Baird PAC [address] [place] [address] PCP - General Physician Ferry Terminal Supervisor 12/29/18 07/31/24 Kvng Mendoza MD [address] [address] Consulting Physician Endocrinology 10/10/21 documented as of this encounter
--- OUTSIDE RECORDS SUMMARY | 2024-08-24 15:45 | XMS_ITS | Encounter Summary ---
Author Organization [facility] Address [address] [place] [place] [address] Phone Care Team Providers Care Mine Promotor Name Role Phone Jing Baird Primary Care Provider + Kvng Mendoza MD Unavailable Reason for Visit * Reason Comments Medication Refill Encounter Details Date Type Department Care Team (Late st Contact Info) Description 12/01/2023 Refill [facility] - Family Medicine [facility] [address] [place] [address] Jing Baird PAC [address] [place] [address] Medication Refill Social History Tobacco Use Types Packs/Day Years Used Date Smoking Tobacco: Every Day Cigarettes Smokeless Tobacco: Never Alcohol Use Standard Drinks/Week Comments Not Currently 0 (1 standard drink = 0.6 oz pur e alcohol) [facility] Utilities Answer Date Recorded In the past 12 months has [employer], gas, oil, or water company threatened to shut off services in your home? No 04/27/2023 Social Connection and Isolation Panel [NHANES] A nswer Date Recorded In a typical week, how many times do you talk on the phone with family, friends, or neighbors? Never 04/27/2023 How often do you get together with friends or re latives? Never 04/27/2023 How often do you attend alevism or taoism serv ices? Never 04/27/2023 Do you belong to any clubs o r organizations such as alevism groups, unions, fraternal or athletic groups, or [...] Total Score - Questions 1-9 0 02/05 [facility] [place] of Occupat ional Health - Occupational Stress Questionnaire Answer Date Recorded [...] place to sleep or slept in a nursing home (including now)? No 04/27/2023 Education Answer Date [...] Telephone Encounter - Michelle Liao RN - 12/01/2023 12:03 PM CDT Images from the original note were not included. Montelukast Sodium Dispensed Days Supply Quantity Provider Pharmacy MONTELUKAST SODIUM 10 MG TABS 11/30/2023 90 90 Tablet Jing Baird [facility]/pharmacy #[id number] - G... MONTELUKAST SOD 10 MG TABLET 08/18/2023 90 90 Each Jing Baird [facility]/pharmacy #[id number] - G... documented in this encounter Plan of Treatment Not on file documented as of this encounter Goals Goal Patient Goal Type Associated Problems Recent Progress Patient-Stated? Author Patient to report a decrease in intensity and frequency of anxious and depressive symptoms Behavioral Health No Mini Larios, ENVIRONMENTAL SCIENCE PROFESSOR Note: 1. Patient to learn and utilize three coping skills. 2. Patient to practice self care. 3. Patient to identify negative thoughts and actively reframe. I would like to feel better then I do today. Behavioral Health Yes Mini Larios M, ENVIRONMENTAL SCIENCE PROFESSOR Help patient manage hypertension Care Plan [facility] HYPERTENSION CONCERN (PATIENT ON HIGH BLOOD PRESSURE MEDICATIONS) No Camelia White, REINSTATEMENT CLERK, CORPORATE STRATEGY ASSOCIATE Help patient manage nicotine dependency Care Plan [facility] NICOTINE DEPENDENCY CONCERN No Camelia White M, REINSTATEMENT CLERK, CORPORATE STRATEGY ASSOCIATE Help patients manage type 2 diabetes Care Plan [facility] TYPE 2 DIABETES CONCERN No Camelia White, REINSTATEMENT CLERK, CORPORATE STRATEGY ASSOCIATE Help patient manage blood glucose Care Plan [facility] TYPE 2 DIABETES INSULIN - ANALOG PATTERN CONCERN No Camelia White, REINSTATEMENT CLERK, CORPORATE STRATEGY ASSOCIATE Help patient manage nicotine dependency Care Plan [facility] NICOTINE DEPENDENCY CONCERN No Camelia White, REINSTATEMENT CLERK, CORPORATE STRATEGY ASSOCIATE documented as of this encounter Visit Diagnoses Not on filedocumented in this encounter Additional Health Concerns Active Problems Noted Date Diagnosed Date [facility] (P ATIENT ON HIGH BLOOD PRESSURE MEDICATIONS) 04/10/2023 [facility] NICOTINE DEPENDENCY CONCERN 04/10/2023 [facility] TYPE 2 DIABETES CONCERN 04/10/2023 [facility] TYPE 2 DIABETES INSULIN - ANALOG PATTERN CO NCERN 04/10/2023 [facility] NICOTINE DEPENDENCY CONCERN 04/10/2023 Infection Onset Date Last Indicated Resolved Time COVID - 19 01/08/2024 01/08/2024 01/08/2024 1:48 PM CDT COVID - 19 01/13/2024 01/13/2024 01/13/2024 3:44 PM CDT Respiratory Rule-Out 01/13/2024 01/13/2024 024 12:16 AM CDT COVID - 19 02/22/2024 02/22/2024 03/03/2024 12:1 6 AM UNARMED SECURITY OFFICER COVID - 19 05/17/2024 05/17/2024 05/17/2024 10:4 5 AM UNARMED SECURITY OFFICER Influenza 05/17/2024 05/17/2024 05/24/2024 12:1 6 AM UNARMED SECURITY OFFICER COVID - 19 06/11/2024 06/11/2024 06/11/2024 8:06 PM UNARMED SECURITY OFFICER Assessment Noted Time PHQ-9 Depression Total Score: 0 02/25/20 23 2:41 PM UNARMED SECURITY OFFICER documented as of this encounter Care Teams Mine Promotor Relationship Specialty Start Date End Date Jing Baird PAC [address] [place] [address] PCP - General Physician Bindery Assistant 12/29/18 07/31/24 Kvng Mendoza MD #[address] [phone] Consulting Physician Endocrinology 10/10/21 documented as of this encounter
--- OUTSIDE RECORDS SUMMARY | 2024-08-24 15:45 | XMS_ITS | Encounter Summary ---
Author Organization [facility] Address [address] [place] [place] [address] Phone Care Team Providers Care Inspector And Adjuster Golf Club Head Name Role Phone Jing Baird Primary Care Provider + Kvng Mendoza MD Unavailable Reason for Visit * Reason Comments Medication Refill Encounter Details Date Type Department Care Team (Late st Contact Info) Description 05/15/2022 Refill [facility] Medical [facility] - Family Medicine [facility] [address] [place] [address] Jing Baird PAC [address] [place] [address] Medication Refill Social History Tobacco Use Types [...] Telephone Encounter - Michelle Liao RN - 05/15/2022 4:08 PM CST Images from the original note were not included. Montelukast Sodium Dispensed Days Supply Quantity Provider Pharmacy MONTELUKAST SOD 10 MG TABLET 04/23/2022 90 90 Each Jing Baird, [facility]/pharmacy #[id number] - G... Omeprazole Dispensed Days Supply Quantity Provider Pharmacy OMEPRAZOLE DR 40 MG CAPSULE 04/23/2022 90 90 Each Jing Baird, [facility]/pharmacy #[id number] - G... Potassium Chloride Dispensed Days Supply Quantity Provider Pharmacy POTASSIUM CL ER 10 MEQ TABLET 04/23/2022 90 180 Each Jing Baird, [facility]/pharmacy #[id number] -G... Simvastatin Dispensed Days Supply Quantity Provider Pharmacy SIMVASTATIN 40 MG TABLET 04/23/2022 90 90 Each Jing Baird, [facility]/pharmacy #[id number] - G... ERNMAKER PLASTER documented in this encounter Plan of Treatment [...] - 19 03/24/2023 03/24/2023 03/25/2023 8:22 AM PATTERNMAKER PLASTER C. difficile Rule-Out 03/24/2023 03/24/20232022 4:16 PM PATTERNMAKER PLASTER COVID - 19 04/27/2023 04/27/2023 04/28/2023 8:53 AM PATTERNMAKER PLASTER COVID - 19 01/08/2024 01/08/2024 01/08/2024 1:48 PM CDT COVID - 19 01/13/2024 01/13/2024 01/13/2024 3:44 PM CDT Respiratory Rule-Out 01/13/2024 01/13/2024 024 12:16 AM CDT COVID - 19 02/22/2024 02/22/2024 03/03/2024 12:1 6 AM PATTERNMAKER PLASTER COVID - 19 05/17/2024 05/17/2024 05/17/2024 10:4 5 AM PATTERNMAKER PLASTER Influenza 05/17/2024 05/17/2024 05/24/2024 12:1 6 AM PATTERNMAKER PLASTER COVID - 19 06/11/2024 06/11/2024 06/11/2024 8:06 PM PATTERNMAKER PLASTER Assessment Noted Time PHQ-9 Depression Total Score: 1 08/03/19 21 10:00 AM CDT documented as of this encounter Care Teams Inspector And Adjuster Golf Club Head Relationship Specialty Start Date End Date Jing Baird PAC [address] [place] [address] PCP - General Physician Journeyman Wireman 12/29/18 07/31/24 Kvng Mendoza MD [address] [phone] Consulting Physician Endocrinology 10/10/21 documented as of this encounter
--- OUTSIDE RECORDS SUMMARY | 2024-08-24 15:46 | XMS_ITS | Encounter Summary ---
Author Organization [facility] Address [address] [place] [address] Phone Care Team Providers Care Furnace Checker Name Role Phone Jing Baird Primary Care Provider + Kvng Mendoza MD Unavailable Reason for Visit * Reason Comments Medication Refill Encounter Details Date Type Department Care Team (Late st Contact Info) Description 09/05/2020 Refill [facility] Medical Group - Family [facility] [address] [place] [address] Jing Baird PAC [address] [place] [address] Medication Refill Social History Tobacco Use Types Packs/Day Years Used Date Smoking Tobacco: Every Day Cigarettes Smokeless Tobacco: Never Alcohol Use Standard Drinks/Week Comments Not Currently 0 (1 standard drink = 0.6 oz pur e alcohol) PHQ-2 Answer Date Recorded Total Score - Questions 1-9 1 07/06 Comments No Sex and Gender Information Value [...] have Coronavirus / COVID-19? No / Unsure 09/05/2020 2:52 PM CDT documented as of this encounter Miscellaneous Notes * Telephone Encounter - Michelle Liao RN - 09/06/2020 3:38 PM CDT ergocalciferol (VITAMIN D) 67600 UNIT Capsule 12 Capsule 3 06/19/2020 Sig - Route: Take 1 Capsule by mouth once a week. - Oral Patient taking differently: Take 1 Capsule by mouth Every Thursday. Sent to pharmacy as: Vitamin D (Ergocalciferol) 1.25 MG (92761 UT) Oral Capsule (VITAMIN D) Class: E Prescribe E-Prescribing Status: Receipt confirmed by pharmacy (06/19/2020 ??3:11 PM CDT) ergocalciferol (VITAMIN D) 41794 UNIT Capsule [[id number]] 10 Status: Active Ordering user: Nai Almaguer APN, CNP 06/19/201510 Authorized by: Nai Almaguer APN, CNP Frequency: Weekly 06/19/20 - Until Discontinued Released by: Nai Almaguer APN, CNP 06/19/[address] Last fill came from [facility] documented in this encounter Plan of Treatment [...] Infection Onset Date Last Indicated Resolved Time C. difficile Rule-Out 11/11/2020 11/11/20202020 12:16 AM CDT COVID - 19 03/24/2023 03/24/2023 03/25/2023 8:22 AM SLEEVE BASTER C. difficile Rule-Out 03/24/2023 03/24/20232022 4:16 PM SLEEVE BASTER COVID - 19 04/27/2023 04/27/2023 04/28/2023 8:53 AM SLEEVE BASTER COVID - 19 01/08/2024 01/08/2024 01/08/2024 1:48 PM CDT COVID - 19 01/13/2024 01/13/2024 01/13/2024 3:44 PM CDT Respiratory Rule-Out 01/13/2024 01/13/2024 024 12:16 AM CDT COVID - 19 02/22/2024 02/22/2024 03/03/2024 12:1 6 AM SLEEVE BASTER COVID - 19 05/17/2024 05/17/2024 05/17/2024 10:4 5 AM SLEEVE BASTER Influenza 05/17/2024 05/17/2024 05/24/2024 12:1 6 AM SLEEVE BASTER COVID - 19 06/11/2024 06/11/2024 06/11/2024 8:06 PM SLEEVE BASTER Assessment Noted Time PHQ-9 Depression Total Score: 1 08/03/19 21 10:00 AM CDT documented as of this encounter Care Teams Furnace Checker Relationship Specialty Start Date End Date Jing Baird PAC [address] [place] [address] PCP - General Physician Police Investigator 12/29/18 07/31/24 Kvng Mednoza MD [address] [address] Consulting Physician Endocrinology 10/10/21 documented as of this encounter
--- OUTSIDE RECORDS SUMMARY | 2024-08-24 15:46 | XMS_ITS | Encounter Summary ---
Author Organization [facility] Address [address] [place] [address] [place] [address] Phone Care Team Providers Care Linen Room Attendant Name Role Phone Jing Baird Primary Care Provider + Kvng Mendoza MD Unavailable Reason for Visit * Reason Comments Medication Refill Encounter Details Date Type Department Care Team (Late st Contact Info) Description 03/05/2023 [facility]ill [facility] [address]2 [place] [address] Kvng Mendoza MD #[address] [address] Medication Refill Social History Tobacco Use Types Packs/Day Years Used Date Smoking Tobacco: Former Cigarettes 1 47.1 0 11/03/1975 - 11/28/2022 Smokeless Tobacco: Never Alcohol Use Standard Drinks/Week Comments Not Currently 0 (1 standard drink = 0.6 oz pur e alcohol) PHQ-2 Answer Date Recorded Total Score - Questions 1-9 0 02/05 Education Answer Date Recorded What is the [...] Exposure Response Date Recorded In the last 10 days, have yo u been in contact with someone who was confirmed or suspected to have Coronavirus/COVID-19? No / Unsure 02/03/2023 2:51 PM CDT documented as of this encounter Miscellaneous Notes * Telephone Encounter - Miranda Antonio RN - 03/05/2023 8:29 AM MODELING TEACHER Requested Prescriptions Pending Prescriptions Disp Refills ??? Alcohol Swabs ([facility] Alcohol Prep Pads) 70 % Pads [Pharmacy Med Name: Alcohol Prep Pads] 0 Sig: USE 1 PAD FOUR TIMES DAILY (BULK) Message sent to schedule follow up. LING TEACHER documented in this encounter Plan of Treatment [...] - 19 03/24/2023 03/24/2023 03/25/2023 8:22 AM MODELING TEACHER C. difficile Rule-Out 03/24/2023 03/24/20232022 4:16 PM MODELING TEACHER COVID - 19 04/27/2023 04/27/2023 04/28/2023 8:53 AM MODELING TEACHER COVID - 19 01/08/2024 01/08/2024 01/08/2024 1:48 PM CDT COVID - 19 01/13/2024 01/13/2024 01/13/2024 3:44 PM CDT Respiratory Rule-Out 01/13/2024 01/13/2024 024 12:16 AM CDT COVID - 19 02/22/2024 02/22/2024 03/03/2024 12:1 6 AM MODELING TEACHER COVID - 19 05/17/2024 05/17/2024 05/17/2024 10:4 5 AM MODELING TEACHER Influenza 05/17/2024 05/17/2024 05/24/2024 12:1 6 AM MODELING TEACHER COVID - 19 06/11/2024 06/11/2024 06/11/2024 8:06 PM MODELING TEACHER Assessment Noted Time PHQ-9 Depression Total Score: 0 02/25/20 2:41 PM MODELING TEACHER documented as of this encounter Care Teams Linen Room Attendant Relationship Specialty Start Date End Date Jing Baird PAC [address] [place] [address] PCP - General Physician Casing In Line Feeder 12/29/18 07/31/24 Kvng Mendoza MD #[address] [phone] Consulting Physician Endocrinology 10/10/21 documented as of this encounter
--- OUTSIDE RECORDS SUMMARY | 2024-08-24 15:46 | XMS_ITS | Encounter Summary ---
Author Organization [facility] Address [address] [place] [address] Phone Care Team Providers Care Tanker Truck Driver Name Role Phone Jing Baird Primary Care Provider + Kvng Mendoza MD Unavailable Encounter Details Date Type Department Care Team (Late st Contact Info) Description 09/17/2020 Lab Requisition [facility] [address] [place] [address] Jing Baird PAC [address] [place] [address] Anemia, unspecified Social History Tobacco Use Types Packs/Day Years [...] have Coronavirus / COVID-19? No / Unsure 09/10/2020 3:14 PM CDT documented as of this encounter [...] Procedure Name Priority Date/Time Associated Diagnosis Comments CBC WITH AUTO DIFFERENTIAL Routine 09/17/2020 1:55 PM CDT Anemia, unspecified CMP (COMPREHENSIVE METABOLIC PANEL) Routine 09/17/2020 1:55 PM CDT Anemia, unspecified COMPLETE BLOOD COUNT (CBC) WITH DIFF Routine 09/17/2020 1:55 PM CDT Anemia, unspecified documented in this encounter Results * (ABNORMAL) CBC WITH AUTO DIFFERENTIAL (09/17/2020 1:55 PM CDT) WBC 11.11 4.00 - 12.00 10(3)/mcL 09/17/2020 2:20 PM CDT [facility] RBC 4.53 3.80 - 5.30 10(6)/mcL 09/17/2020 2:20 PM CDT [facility] HEMOGLOBIN (HGB) 14.0 12.0 - 15.8 g/dL 09/17/2020 2:20 PM CDT [facility] HEMATOCRIT (HCT) 44.2 36.0 - 47.0 % 09/17/2020 2:20 PM CDT [facility] MCV 97.6(H) 82.0 - 96.0 fL 09/17/2020 2:20 PM CDT [facility] MCH 30.9 26.0 - 34.0 pg 09/17/2020 2:20 PM CDT [facility] MCHC 31.7 31.0 - 36.0 g/dL 09/17/2020 2:20 PM CDT [facility] PLATELET COUNT 200 140 - 440 10(3)/[facility] 09/17/2020 2:20 PM CDT [facility] RDW 12.8 11.8 - 15.5 % 09/17/2020 2:20 PM CDT [facility] MPV 11.9 9.7 - 12.4 fL 09/17/2020 2:20 PM CDT [facility] NEUTROPHILS 50.4 47.0 - 73.0 % 09/17/2020 2:20 PM CDT [facility] LYMPHOCYTES 34.3 18.0 - 42.0 % 09/17/2020 2:20 PM CDT [facility] MONOCYTES 9.5 4.0 - 12.0 % 09/17/2020 2:20 PM CDT [facility] EOSINOPHILS 5.1(H) 0.0 - 5.0 % 09/17/2020 2:20 PM CDT [facility] BASOPHILS 0.7 0.0 - 1.0 % 09/17/2020 2:20 PM CDT [facility] ABSOLUTE NEUTROPHILS 5.59 1.60 - 7.70 10(3)/[facility] 09/17/2020 2:20 PM CDT [facility] ABSOLUTE LYMPHOCYTES 3.81(H) 1.30 - 3.20 10(3)/[facility] 09/17/2020 2:20 PM CDT [facility] ABSOLUTE MONOCYTES 1.06(H) 0.20 - 1.00 10(3)/[facility] 09/17/2020 2:20 PM CDT [facility] ABSOLUTE EOSINOPHIL 0.57(H) 0.00 - 0.40 10(3)/[facility] 09/17/2020 2:20 PM CDT [facility] ABSOLUTE BASOPHILS 0.08 0.00 - 0.10 10(3)/mcL 09/17/2020 2:20 PM CDT [facility] NRBC PER 100 WBC 0 09/18/19 2:20 PM CDT [facility] Blood Venipuncture / Unknown 09/17/2020 1:55 PM CDT 09/17/2020 2:17 PM CDT us Jing Baird PAC HEMATOLOGY ORDERABLES Fi nal Result [facility] [address] [place] [address] * (ABNORMAL) CMP (COMPREHENSIVE METABOLIC PANEL) (09/17/2020 1:55 PM CDT) SODIUM 141 136 - 144 mmol/L 09/17/2020 4:01 PM CDT [facility] POTASSIUM 3.8 3.5 - 5.1 mmol/L 09/17/2020 4:01 PM CDT [facility] CHLORIDE 107 100 - 110 mmol/L 09/17/2020 4:01 PM CDT [facility] CO2, VENOUS 21(L) 22 - 32 mmol/L 09/17/2020 4:01 PM CDT [facility] ANION GAP 16.8 8.0 - 20.0 mmol/L 09/17/2020 4:01 PM CDT [facility] GLUCOSE 156(H) 70 - 99 mg/dL 09/17/2020 4:01 PM CDT [facility] BUN 16 8 - 23 mg/dL 09/17/2020 4:01 PM CDT [facility] CREATININE, BLOOD 0.85 0.60 - 1.10 mg/dL 09/17/2020 4:01 PM CDT [facility] BUN/CREATININE RATIO 19 12 - 20 ratio 09/17/2020 4:01 PM CDT [facility] TOTAL PROTEIN 7.0 6.0 - 8.3 g/dL 09/17/2020 4:01 PM CDT [facility] ALBUMIN 4.1 3.5 - 5.2 g/dL 09/17/2020 4:01 PM CDT [facility] Comment: The colormetric methods used for the determination of Albumin may lead to falsely elevated test results in patients suffering from renal failure or insufficiency due to interference with other proteins. A/G RATIO 1.4 1.0 - 2.0 09/17/2020 4:01 PM CDT [facility] CALCIUM 9.2 8.9 - 10.3 mg/dL 09/17/2020 4:01 PM CDT [facility] T BILI 0.3 <=1.2 mg/dL 09/17/2020 4:01 PM CDT [facility] SGOT (AST) 17 <=32 U/L 09/17/2020 4:01 PM CDT [facility] SGPT (ALT) 11 <=41 U/L 09/17/2020 4:01 PM CDT [facility] ALKALINE PHOSPHATASE 111(H) 35 - 105 U/L 09/17/2020 4:01 PM CDT [facility] GFR, EST. NONAFRICAN >60 >=60 09/17/2020 4:01 PM CDT [facility] GFR, EST. >60 >=60 021 4:01 PM CDT [facility] Comment: Creatinine Clearance is the preferred criteria for selecting drug dose adjustments in renally impaired patients. The GFR is provided as additional pertinent clinical information. GFR is reported in mL/min/1.73 sq m. Blood Venipuncture / Unknown 09/17/2020 1:55 PM CDT 09/17/2020 2:17 PM CDT us Jing Baird PAC CHEMISTRY ORDERABLES Fin al Result [facility] [address] [place] [address] documented in this encounter Visit Diagnoses Diagnosis Anemia, unspecified documented in this encounter Additional Health Concerns Infection Onset Date Last Indicated Resolved Time C. difficile Rule-Out 11/11/2020 11/11/20202020 12:16 AM CDT COVID - 19 03/24/2023 03/24/2023 03/25/2023 8:22 AM HEATING MECHANIC C. difficile Rule-Out 03/24/2023 03/24/20232022 4:16 PM HEATING MECHANIC COVID - 19 04/27/2023 04/27/2023 04/28/2023 8:53 AM HEATING MECHANIC COVID - 19 01/08/2024 01/08/2024 01/08/2024 1:48 PM CDT COVID - 19 01/13/2024 01/13/2024 01/13/2024 3:44 PM CDT Respiratory Rule-Out 01/13/2024 01/13/2024 024 12:16 AM CDT COVID - 19 02/22/2024 02/22/2024 03/03/2024 12:1 6 AM HEATING MECHANIC COVID - 19 05/17/2024 05/17/2024 05/17/2024 10:4 5 AM HEATING MECHANIC Influenza 05/17/2024 05/17/2024 05/24/2024 12:1 6 AM HEATING MECHANIC COVID - 19 06/11/2024 06/11/2024 06/11/2024 8:06 PM HEATING MECHANIC Assessment Noted Time PHQ-9 Depression Total Score: 1 08/03/19 21 10:00 AM CDT documented as of this encounter Care Teams Tanker Truck Driver Relationship Specialty Start Date End Date Jing Baird PAC [address] [place] [address] PCP - General Physician Molding Supervisor 12/29/18 07/31/24 Kvng Mendoza MD #[address] [phone] Consulting Physician Endocrinology 10/10/21 documented as of this encounter
--- OUTSIDE RECORDS SUMMARY | 2024-08-24 15:46 | XMS_ITS | Encounter Summary ---
Author Organization [facility] Address [address] [place] [address] Phone Care Team Providers Care Cover Marker Name Role Phone Jing Baird Primary Care Provider + Kvng Mendoza MD Unavailable Reason for Visit * Reason Comments Medication Refill Encounter Details Date Type Department Care Team (Late st Contact Info) Description 02/22/2024 Refill [facility] - Family Medicine [facility] [address] [place] [id number] Camelia White, PRICER, RIPENING ROOM OPERATOR [address] [place] [address] Medication Refill Social History Tobacco Use Types Packs/Day Years Used Date Smoking Tobacco: Every Day Cigarettes Smokeless Tobacco: Never Alcohol Use Standard Drinks/Week Comments Not Currently 0 (1 standard drink = 0.6 oz pur e alcohol) [facility] Utilities Answer Date Recorded In the past 12 months has [employer], gas, oil, or water company threatened to shut off services in your home? No 04/27/2023 Social Connection and Isolation Panel [NHANES] A nswer Date Recorded In a typical week, how many times do you talk on the phone with family, friends, or neighbors? Never 04/27/2023 How often do you get together with friends or re latives? Never 04/27/2023 How often do you attend evangelical or yarsani serv ices? Never 04/27/2023 Do you belong to any clubs o r organizations such as evangelical groups, unions, fraternal or athletic groups, or [...] Recorded Total Score - Questions 1-9 0 10/0 12/2023 [facility] of Occupat ional Health - Occupational Stress [...] place to sleep or slept in a snf (including now)? No 04/27/2023 Education Answer Date [...] Telephone Encounter - Michelle Liao RN - 02/23/2024 8:30 AM CST Images from the original note were not included. Folic Acid Dispensed Days Supply Quantity Provider Pharmacy FOLIC ACID 1 MG TABLET 02/05/2024 90 90 Each Camelia White APRN, RIPENING ROOM OPERATOR [id number] [place]... FOLIC ACID 1 MG TABLET 11/30/2023 90 90 Each Jing Baird, PAC [id number]... ILITY CLAIMS REPRESENTATIVE documented in this encounter Plan of Treatment Not on file documented as of this encounter Goals Goal Patient Goal Type Associated Problems Recent Progress Patient-Stated? Author Patient to report a decrease in intensity and frequency of anxious and depressive symptoms Behavioral Health No Mini Larios, CHANGE OVER Note: 1. Patient to learn and utilize three coping skills. 2. Patient to practice self care. 3. Patient to identify negative thoughts and actively reframe. I would like to feel better then I do today. Behavioral Health Yes Mini Larios M, CHANGE OVER Help patient manage hypertension Care Plan [facility] HYPERTENSION CONCERN (PATIENT ON HIGH BLOOD PRESSURE MEDICATIONS) No Camelia White M, PRICER, RIPENING ROOM OPERATOR Help patient manage nicotine dependency Care Plan [facility] NICOTINE DEPENDENCY CONCERN No Camelia White M, PRICER, RIPENING ROOM OPERATOR Help patients manage type 2 diabetes Care Plan [facility] TYPE 2 DIABETES CONCERN No Camelia White, PRICER, RIPENING ROOM OPERATOR Help patient manage blood glucose Care Plan [facility] TYPE 2 DIABETES INSULIN - ANALOG PATTERN CONCERN No Camelia White M, PRICER, RIPENING ROOM OPERATOR Help patient manage nicotine dependency Care Plan [facility] NICOTINE DEPENDENCY CONCERN No Camelia White M, PRICER, RIPENING ROOM OPERATOR documented as of this encounter Visit Diagnoses Not on filedocumented in this encounter Additional Health Concerns Active Problems Noted Date Diagnosed Date [facility] HYPERTENSION CONCERN (P ATIENT ON HIGH BLOOD PRESSURE MEDICATIONS) 04/10/2023 [facility] NICOTINE DEPENDENCY CONCERN 04/10/2023 [facility] TYPE 2 DIABETES CONCERN 04[facility]20[facility] 2 DIABETES INSULIN - ANALOG PATTERN CO NCERN 04/10/2023 [facility] NICOTINE DEPENDENCY CONCERN 04/10/2023 Infection Onset Date Last Indicated Resolved Time COVID - 19 02/22/2024 02/22/2024 03/03/2024 12:1 6 AM LIABILITY CLAIMS REPRESENTATIVE COVID - 19 05/17/2024 05/17/2024 05/17/2024 10:4 5 AM LIABILITY CLAIMS REPRESENTATIVE Influenza 05/17/2024 05/17/2024 05/24/2024 12:1 6 AM LIABILITY CLAIMS REPRESENTATIVE COVID - 19 06/11/2024 06/11/2024 06/11/2024 8:06 PM LIABILITY CLAIMS REPRESENTATIVE Assessment Noted Time PHQ-9 Depression Total Score: 0 01/13/20 24 3:15 PM CDT documented as of this encounter Care Teams Cover Marker Relationship Specialty Start Date End Date Jing Baird PAC [address] [place] [address] PCP - General Physician Clinical Support Manager 12/29/18 07/31/24 Kvng Mendoza MD [address] [phone] Consulting Physician Endocrinology 10/10/21 documented as of this encounter
--- OUTSIDE RECORDS SUMMARY | 2024-08-24 15:46 | XMS_ITS | Encounter Summary ---
Author Organization [facility] Address [address] [place] [address] Phone Care Team Providers Care Coffee Shop Aide Name Role Phone Jing Baird Primary Care Provider + Kvng Mendoza MD Unavailable Reason for Visit * Reason Comments Medication Refill Encounter Details Date Type Department Care Team (Late st Contact Info) Description 07/03/2023 Refill [facility] Medical Group - Family Medicine [facility] [address] [place] [address] Jing Baird PAC [address] [place] [address] Medication Refill Social History Tobacco Use Types Packs/Day Years Used Date Smoking Tobacco: Former Cigarettes 1 47.1 0 11/03/1975 - 11/28/2022 Smokeless Tobacco: Never Alcohol Use Standard Drinks/Week Comments Not Currently 0 (1 standard drink = 0.6 oz pur e alcohol) [facility] Utilities Answer Date Recorded In the past 12 months has e electric, gas, oil, or water company threatened [...] Never 04/27/2023 How often do you attend rastafarian or congregational serv ices? Never 04/27/2023 Do you belong to any clubs o r organizations such as rastafarian groups, unions, fraternal or athletic groups, or [...] Total Score - Questions 1-9 0 02/05 [facility] of Occupat ional [facility] - Occupational Stress Questionnaire Answer Date Recorded [...] Telephone Encounter - Michelle Liao RN - 07/03/2023 4:44 PM CDT Images from the original note were not included. Name from pharmacy: [facility] STARTING MONTH BOX Will file in chart as: [facility] Tartrate, Starter, 0.5 MG X 11 & 1 MG X 42 Tablet Therapy Pack The original prescription was discontinued on 12/25/2022 by Jing Baird PAC for the following reason: Dose adjustment. Patient should contact office regarding this request. documented in this encounter Plan of Treatment Not on file documented as of this encounter Goals Goal Patient Goal Type Associated Problems Recent Progress Patient-Stated? Author Patient to report a decrease in intensity and frequency of anxious and depressive symptoms Behavioral Health No Mini Larios, SOCIAL PROBLEMS SPECIALIST Note: 1. Patient to learn and utilize three coping skills. 2. Patient to practice self care. 3. Patient to identify negative thoughts and actively reframe. I would like to feel better then I do today. Behavioral Health Yes Mini Larios M, SOCIAL PROBLEMS SPECIALIST Help patient manage hypertension Care Plan [facility] HYPERTENSION CONCERN (PATIENT ON HIGH BLOOD PRESSURE MEDICATIONS) No Camelia White, SUPERVISOR PIPELINE, HOSE TURNER Help patient manage nicotine dependency Care Plan [facility] NICOTINE DEPENDENCY CONCERN No Camelia White, SUPERVISOR PIPELINE, HOSE TURNER Help patients manage type 2 diabetes Care Plan [facility] TYPE 2 DIABETES CONCERN No Camelia White, SUPERVISOR PIPELINE, HOSE TURNER Help patient manage blood glucose Care Plan [facility] TYPE 2 DIABETES INSULIN - ANALOG PATTERN CONCERN No Camelia White, SUPERVISOR PIPELINE, HOSE TURNER Help patient manage nicotine dependency Care Plan [facility] NICOTINE DEPENDENCY CONCERN No Camelia White, SUPERVISOR PIPELINE, HOSE TURNER documented as of this encounter Visit Diagnoses Diagnosis Encounter for smoking cessation counseling Counseling on substance use and abuse documented in this encounter Additional Health Concerns Active Problems Noted Date Diagnosed Date [facility] HYPERTENSION CONCERN (P ATIENT ON HIGH BLOOD PRESSURE MEDICATIONS) 04/10/2023 [facility] NICOTINE DEPENDENCY CONCERN 04/10/2023 [facility] TYPE 2 DIABETES CONCERN 04/10/2023 [facility] TYPE 2 DIABETES INSULIN - ANALOG PATTERN CO NCERN 04/10/2023 [facility] NICOTINE DEPENDENCY CONCERN 04/10/2023 Infection Onset Date Last Indicated Resolved Time COVID - 19 01/08/2024 01/08/2024 01/08/2024 1:48 PM CDT COVID - 19 01/13/2024 01/13/2024 01/13/2024 3:44 PM CDT Respiratory Rule-Out 01/13/2024 01/13/2024 024 12:16 AM CDT COVID - 19 02/22/2024 02/22/2024 03/03/2024 12:1 6 AM PROJECT SCIENTIST COVID - 19 05/17/2024 05/17/2024 05/17/2024 10:4 5 AM PROJECT SCIENTIST Influenza 05/17/2024 05/17/2024 05/24/2024 12:1 6 AM PROJECT SCIENTIST COVID - 19 06/11/2024 06/11/2024 06/11/2024 8:06 PM PROJECT SCIENTIST Assessment Noted Time PHQ-9 Depression Total Score: 0 02/25/20 23 2:41 PM PROJECT SCIENTIST documented as of this encounter Care Teams Coffee Shop Aide Relationship Specialty Start Date End Date Jing Baird PAC [address] [place] [address] PCP - General Physician Cleaning Porter 12/29/18 07/31/24 Kvng Mendoza MD [address] [phone] Consulting Physician Endocrinology 10/10/21 documented as of this encounter
--- OUTSIDE RECORDS SUMMARY | 2024-08-24 15:46 | XMS_ITS | Encounter Summary ---
Author Organization [facility] Address [address] [place] [address] Phone Care Team Providers Care Med Asst Name Role Phone Jing Baird Primary Care Provider + Kvng Mendoza MD Unavailable Encounter Details Date Type Department Care Team (Late st Contact Info) Description 07/19/2024 Lab Requisition [facility] [address] [place] [address] Jing Baird PAC [address] [place] [address] Essential (primary) hypertension Social History Tobacco Use Types Packs/Day Years Used Date Smoking Tobacco: Every Day Cigarettes Smokeless Tobacco: Never Alcohol Use Standard Drinks/Week Comments Not Currently 0 (1 standard drink = 0.6 oz pur e alcohol) [facility] Utilities Answer Date Recorded In the past 12 months has [employer], gas, oil, or water company threatened to shut off services in your home? No 06/12/2024 Social Connection and Isolation Panel [NHANES] A nswer Date Recorded In a typical week, how many times do you talk on the phone with family, friends, or neighbors? Patient declined 05/12/2024 How often do you get togethe r with friends or relatives? Patient declined 05/12/2024 How often do you attend yazidi or evangelical serv ices? Patient declined 05/12/2024 Do you belong to any clubs o r organizations such as yazidi groups, unions, fraternal or athletic groups, or school groups? Patient declined 05/12/2024 How often do you attend meet ings of the clubs or organizations you belong to? Patient declined 05/12/2024 Are you , , di vorced, , never , or living with a partner? Patient declined 05/12/2024 AUDIT-C Answer Date Recorded Q1: How often do you have a drink containing alc ohol? Patient declined 05/12/2024 Q2: How many drinks containi ng alcohol do you have on a typical day when you are drinking? Patient declined 05/12/2024 Q3: How often do you have si x or more drinks on one occasion? Patient declined 05/12/2024 Overall Financial Resource Strain (CARDIA) Answe r Date Recorded How hard is it for you to pa y for the very basics like food, housing, medical care, and heating? Patient declined 05/12/2024 PHQ-2 Answer Date Recorded Total Score - Questions 1-9 0 10/0 12/2023 [facility] of Occupat ional Health - Occupational Stress Questionnaire Answer Date Recorded Do you feel stress - tense, restless, nervous, or anxious, or unable to sleep at night because your mind is troubled all the time - these days? Patient declined 05/12/2024 Exercise Vital Sign Answer Date Recorde d On average, how many days pe r week do you engage in moderate to strenuous exercise (like a brisk walk)? Patient declined On average, how many minutes do you engage in exercise at this level? Patient declined 05/12/2024 Hunger Vital Sign Answer Date Recorded Within the past 12 months, y ou worried that your food would run out before you got the money to buy more. Never true 06/13/19 25 Within the past 12 months, t he food you bought just didn't last and you didn't have money to get more. Never true 06/12/2024 PRAPARE - Transportation Answer Date Re corded In the past 12 months, has l ack of transportation kept you from medical appointments or from getting medications? No 12/2024 In the past 12 months, has l ack of transportation kept you from meetings, work, or from getting things needed for daily living? No 06/12/2024 Housing Stability Vital Sign Answer Deven e [...] place to sleep or slept in a senior living (including now)? No 04/27/2023 Housing Stability Vital Sign Answer Deven e Recorded In the last 12 months, was t here a time when you were not able to pay the mortgage or rent on time? No 06/12/2024 In the past 12 months, how m any times have you moved where you were living? 0 06/12/2024 At any time in the [facility], were you homeless or living in a senior living (including now)? No 06/12/2024 Education Answer Date Recorded What is the [...] depressive symptoms Behavioral Health No Mini Larios, PEARL GLUE OPERATOR Note: 1. Patient to learn and utilize three coping skills. 2. Patient to practice self care. 3. Patient to identify negative thoughts and actively reframe. I would like to feel better then I do today. Behavioral Health Yes Mini Larios, PEARL GLUE OPERATOR Help patient manage hypertension Care Plan [facility] HYPERTENSION CONCERN (PATIENT ON HIGH BLOOD PRESSURE MEDICATIONS) No Camelia White, FOOD ANALYST, ADMISSIONS SUPERVISOR Help patient manage nicotine dependency Care Plan [facility] NICOTINE DEPENDENCY CONCERN No Camelia White FOOD ANALYST, ADMISSIONS SUPERVISOR Help patients manage type 2 diabetes Care Plan [facility] TYPE 2 DIABETES CONCERN No Camelia White FOOD ANALYST, ADMISSIONS SUPERVISOR Help patient manage blood glucose Care Plan [facility] TYPE 2 DIABETES INSULIN - ANALOG PATTERN CONCERN No Camelia White, FOOD ANALYST, ADMISSIONS SUPERVISOR Help patient manage nicotine dependency Care Plan [facility] NICOTINE DEPENDENCY CONCERN No Camelia White, FOOD ANALYST, ADMISSIONS SUPERVISOR documented as of this encounter Procedures Procedure Name Priority Date/Time Associated Diagnosis Comments IRON,TRANSFERN,CALC.T IBC,%SAT Routine 07/19/2024 2:32 PM CDT Essential (primary) hypertension CBC WITH AUTO DIFFERENTIAL Routine 07/19/2024 2:32 PM CDT Essential (primary) hypertension THYROID STIMULATING HORMONE (TSH) Routine 07/19/2024 2:32 PM CDT Essential (primary) hypertension MAGNESIUM (MG) Routine 07/19/2024 2:32 PM CDT Essential (primary) hypertension LIPID PANEL Routine 07/19/2024 2:32 PM CDT Essential (primary) hypertension FERRITIN Routine 07/19/2024 2:32 PM CDT Essential (primary) hypertension CMP (COMPREHENSIVE METABOLIC PANEL) Routine 07/19/2024 2:32 PM CDT Essential (primary) hypertension COMPLETE BLOOD COUNT (CBC) WITH DIFF Routine 07/19/2024 2:32 PM CDT Essential (primary) hypertension documented in this encounter Results * (ABNORMAL) CBC WITH AUTO DIFFERENTIAL (07/19/2024 2:32 PM CDT) [facility] WBC 13.60(H) 4.00 - 12.00 10(3)/mcL 07/19/2024 3:20 PM CDT [facility] RBC 3.92 3.80 - 5.30 10(6)/mcL 07/19/2024 3:20 PM CDT [facility] HEMOGLOBIN (HGB) 11.7(L) 12.0 - 15.8 g/dL 07/19/2024 3:20 PM CDT [facility] HEMATOCRIT (HCT) 36.5 36.0 - 47.0 % 07/19/2024 3:20 PM CDT [facility] MCV 93.1 82.0 - 96.0 fL 07/19/2024 3:20 PM CDT [facility] MCH 29.8 26.0 - 34.0 pg 07/19/2024 3:20 PM CDT [facility] MCHC 32.1 31.0 - 36.0 g/dL 07/19/2024 3:20 PM CDT [facility] PLATELET COUNT 260 140 - 440 10(3)/mcL 07/19/2024 3:20 PM CDT [facility] RDW 13.1 11.8 - 15.5 % 07/19/2024 3:20 PM CDT [facility] MPV 12.0 9.7 - 12.4 fL 07/19/2024 3:20 PM CDT [facility] NEUTROPHILS 70.0 47.0 - 73.0 % 07/19/2024 3:20 PM CDT [facility] LYMPHOCYTES 17.6(L) 18.0 - 42.0 % 07/19/2024 3:20 PM CDT [facility] MONOCYTES 6.7 4.0 - 12.0 % 07/19/2024 3:20 PM CDT [facility] EOSINOPHILS 5.3(H) 0.0 - 5.0 % 07/19/2024 3:20 PM CDT [facility] BASOPHILS 0.4 0.0 - 1.0 % 07/19/2024 3:20 PM CDT [facility] ABSOLUTE NEUTROPHILS 9.51(H) 1.60 - 7.70 10(3)/mcL 07/19/2024 3:20 PM CDT [facility] ABSOLUTE LYMPHOCYTES 2.40 1.30 - 3.20 10(3)/mcL 07/19/2024 3:20 PM CDT [facility] ABSOLUTE MONOCYTES 0.91 0.20 - 1.00 10(3)/mcL 07/19/2024 3:20 PM CDT [facility] ABSOLUTE EOSINOPHIL 0.72(H) 0.00 - 0.40 10(3)/mcL 07/19/2024 3:20 PM CDT [facility] ABSOLUTE BASOPHILS 0.06 0.00 - 0.10 10(3)/mcL 07/19/2024 3:20 PM CDT [facility] NRBC PER 100 WBC 0 07/20/19 3:20 PM CDT [facility] Blood No Phlebotomy Charged / Unknown 07/19/2024 2:32 PM CDT 07/19/2024 3:18 PM CDT Jing Baird PAC HEMATOLOGY ORDERABLES Fi nal Result Performing Organization Address City/[facility]/ZIP Co de Phone Number [facility] [address] [place] [address] * FERRITIN (07/19/2024 2:32 PM CDT) Pathologist [facility] FERRITIN 36 5 - 204 ng/mL 07/19/2024 4:17 PM CDT [facility] Blood No Phlebotomy Charged / Unknown 07/19/2024 2:32 PM CDT 07/19/2024 3:18 PM CDT Jing Baird PAC CHEMISTRY ORDERABLES Fin al Result [facility] [address] [place] [address] * IRON,TRANSFERN,CALC.TIBC,%SAT (07/19/2024 2:32 PM CDT) IRON 92 25 - 156 mcg/dL 07/19/2024 4:00 PM CDT [facility] TRANSFERRIN 257 173 - 360 mg/dL 07/19/2024 4:00 PM CDT [facility] TIBC, CALCULATED 321 265 - 497 mcg/dL 07/19/2024 4:00 PM CDT [facility] % SATURATION * 29 15 - 62 % 07/19/2024 4:00 PM CDT [facility] Blood No Phlebotomy Charged / Unknown 07/19/2024 2:32 PM CDT 07/19/2024 3:18 PM CDT Jing Baird PAC CHEMISTRY ORDERABLES Fin al Result Performing Organization Address City/[facility]/ZIP Co de Phone Number [facility] [address] [place] [address] * MAGNESIUM (MG) (07/19/2024 2:32 PM CDT) MAGNESIUM 1.8 1.6 - 2.6 mg/dL 07/19/2024 4:43 PM CDT [facility] Blood No Phlebotomy Charged / Unknown 07/19/2024 2:32 PM CDT 07/19/2024 3:18 PM CDT us Jing Baird PAC CHEMISTRY ORDERABLES Fin al Result Performing Organization Address City/[facility]/ZIP Co de Phone Number [facility] [address] [place] [address] * THYROID STIMULATING HORMONE (TSH) (07/19/2024 2:32 PM CDT) TSH 0.387 0.300 - 5.000 mIU/L 07/19/2024 4:17 PM CDT [facility] Blood No Phlebotomy Charged / Unknown 07/19/2024 2:32 PM CDT 07/19/2024 3:18 PM CDT Jing Baird PAC CHEMISTRY ORDERABLES Fin al Result Performing Organization Address City/[facility] Co de Phone Number [facility] [address] [place] [address] * (ABNORMAL) LIPID PANEL (07/19/2024 2:32 PM CDT) CHOLESTEROL 190 <200 mg/dL 07/19/2024 4:43 PM CDT [facility] TRIGLYCERIDES 153(H) <150 mg/dL 07/19/2024 4:43 PM CDT [facility] HDL CHOLESTEROL 57 >40 mg/dL 4:43 PM CDT [facility] LDL 102 <130 mg/dL 07/19/2024 4:43 PM CDT [facility] VLDL 31 10 - 50 mg/dL 07/19/2024 4:43 PM CDT [facility] CHOL/HDL RATIO 3.3 0.0 - 4.4 07/19/2024 4:43 PM CDT [facility] NON-HDL CHOLESTEROL 133(H) <130 mg/dL 07/19/2024 4:43 PM CDT [facility] Blood No Phlebotomy Charged / Unknown 07/19/2024 2:32 PM CDT 07/19/2024 3:18 PM CDT us Jing Baird PAC CHEMISTRY ORDERABLES Fin al Result Performing Organization Address City/[facility]/ZIP Co de Phone Number [facility] [address] [place] [address] * (ABNORMAL) CMP (COMPREHENSIVE METABOLIC PANEL) (07/19/2024 2:32 PM CDT) SODIUM 137 136 - 145 mmol/L 07/19/2024 4:43 PM CDT [facility] POTASSIUM 4.1 3.5 - 5.1 mmol/L 07/19/2024 4:43 PM CDT [facility] CHLORIDE 105 98 - 107 mmol/L 07/19/2024 4:43 PM CDT [facility] CO2, VENOUS 23 22 - 30 mmol/L 07/19/2024 4:43 PM CDT [facility] ANION GAP 13.1 <18.0 mmol/L 07/19/2024 4:43 PM CDT [facility] GLUCOSE 466(HH) 70 - 99 mg/dL 07/19/2024 4:43 PM CDT [facility] BUN 21(H) 10 - 20 mg/dL 07/19/2024 4:43 PM CDT [facility] CREATININE, BLOOD 1.29(H) 0.60 - 1.00 mg/dL 07/19/2024 4:43 PM CDT [facility] BUN/CREATININE RATIO 16 12 - 20 ratio 07/19/2024 4:43 PM CDT [facility] TOTAL PROTEIN 7.1 6.0 - 8.0 g/dL 07/19/2024 4:43 PM CDT [facility] ALBUMIN 3.8 3.5 - 5.0 g/dL 07/19/2024 4:43 PM CDT [facility] A/G RATIO 1.2 1.0 - 2.2 07/19/2024 4:43 PM CDT [facility] CALCIUM 9.4 8.7 - 10.5 mg/dL 07/19/2024 4:43 PM CDT [facility] T BILI 0.3 0.2 - 1.2 mg/dL 07/19/2024 4:43 PM CDT [facility] SGOT (AST) 18 <43 U/L 07/19/2024 4:43 PM CDT [facility] SGPT (ALT) 10 <56 U/L 07/19/2024 4:43 PM CDT [facility] ALKALINE PHOSPHATASE 103 40 - 150 U/L 07/19/2024 4:43 PM CDT [facility] GFR, ESTIMATED 46(L) >=60 07/19/2024 4:43 PM CDT [facility] Comment: Creatinine Clearance is the preferred criteria for selecting drug dose adjustments in renally impaired patients. The GFR is provided as additional pertinent clinical information. GFR is reported in mL/min/1.73 sq m. Calculation based on the Chronic Kidney Disease Epidemiology Collaboration (CKD- EPI) equation refit without adjustment for race. GFR, EST. 50(L) >=60 025 4:43 PM CDT [facility] GFR, EST. NONAFRICAN 41(L) >=60 07/19/2024 4:43 PM CDT [facility] Blood No Phlebotomy Charged / Unknown 07/19/2024 2:32 PM CDT 07/19/2024 3:18 PM CDT Jing Baird PAC CHEMISTRY ORDERABLES Fin al Result [facility] [address] [place] [address] documented in this encounter Visit Diagnoses Diagnosis Essential (primary) hypertension Unspecified essential hypertension documented in this encounter Additional Health Concerns Active Problems Noted Date Diagnosed Date [facility] HYPERTENSION CONCERN (P ATIENT ON HIGH BLOOD PRESSURE MEDICATIONS) 04/10/2023 [facility] NICOTINE DEPENDENCY CONCERN 04/10/2023 [facility] TYPE 2 DIABETES CONCERN 04/10/2023 [facility] TYPE 2 DIABETES INSULIN - ANALOG PATTERN CO NCERN 04/10/2023 [facility] NICOTINE DEPENDENCY CONCERN 04/10/2023 Assessment Noted Time PHQ-9 Depression Total Score: 0 01/13/20 24 3:15 PM CDT documented as of this encounter Care Teams Med Asst Relationship Specialty Start Date End Date Jing Baird PAC [address] [place] [address] PCP - General Physician Livestock Broker 12/29/18 07/31/24 Kvng Mendoza MD #2 [facility] [address] [address] Consulting Physician Endocrinology 10/10/21 documented as of this encounter
--- OUTSIDE RECORDS SUMMARY | 2024-08-24 15:46 | XMS_ITS | Encounter Summary ---
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 Never 08/17/2024 10:37 AM Cydney Beth RN Q2: How many drinks containing alcohol do you have on a typical day when you are drinking? Patient does not drink 08/17/2024 10:37 AM Cydney Beth RN Q3: How often do you have six or more drinks on one occasion? Never 08/17/2024 10:37 AM Cydney Beth RN documented as of this encounter Plan of Treatment Not on file documented as of this encounter Visit Diagnoses Not on filedocumented in this encounter Care Teams Extension Service Specialist Relationship Specialty Start Date End Date No, Physician PCP - General 08/16/24 08/16/24 documented as of this encounter
--- OUTSIDE RECORDS SUMMARY | 2024-08-24 15:46 | XMS_ITS | Encounter Summary ---
Author Organization [facility] Address [address] [place] [place] [address] Phone Care Team Providers Care Shooter Helper Name Role Phone Jing Baird Primary Care Provider + Kvng Mendoza MD Unavailable Reason for Visit * Reason Comments Medication Refill Encounter Details Date Type Department Care Team (Late st Contact Info) Description 07/18/2023 Refill [facility] Medical Group - Family Medicine [facility] [address] [place] [address] Jing Baird PAC [address] [place] [address] Medication Refill Social History Tobacco Use Types Packs/Day Years Used Date Smoking Tobacco: Former Cigarettes 1 47.1 0 11/03/1975 - 11/28/2022 Smokeless Tobacco: Never Alcohol Use Standard Drinks/Week Comments Not Currently 0 (1 standard drink = 0.6 oz pur e alcohol) [facility] Utilities Answer Date Recorded In the [...] Never 04/27/2023 How often do you attend anglican or latter-day serv ices? Never 04/27/2023 Do you belong to any clubs o r organizations such as anglican groups, unions, fraternal or athletic groups, or [...] Total Score - Questions 1-9 0 02/05 [facility] - Occupational Stress Questionnaire Answer Date Recorded [...] place to sleep or slept in a half-way (including now)? No 04/27/2023 Education Answer Date [...] encounter Miscellaneous Notes * Telephone Encounter - Sameera Casarez RN - 07/18/2023 2:46 PM CDT Medication(s) refilled and signed per [facility] Chronic Medication Refill Standing Order for Pediatricand Adult Patients. Requested Prescriptions Pending Prescriptions Disp Refills omeprazole (PriLOSEC) 40 MG CAPSULE DELAYED RELEASE [Pharmacy Med Name: OMEPRAZOLE DR 40 MG CAPSULE] 90 Capsule 1 Sig: Take 1 Capsule by mouth daily. Indications: Gastroesophageal Reflux Disease with Current Symptoms Proton Pump Inhibitors Protocol Passed - 07/18/2023 10:23 AM Passed - Visit with relevant provider in past 12 months or upcoming 90 days Recent Visits Date Type Provider Dept 05/01/23 Telemedicine Jing Baird, LYLY [facility] 04/10/23 Telemedicine Camelia White APRN, RUBBER PRESS TENDER [facility] 02/24/23 Office Visit Jing Baird, PAC [facility] 02/03/23 Office Visit Nai Almaguer APRN, RAC[facility] Showing recent visits within past 365 days and meeting all other requirements Future Appointments No visits were found meeting these conditions. Showing future appointments within next 90 days and meeting all other requirements documented in this encounter Plan of Treatment Not on file documented as of this encounter Goals Goal Patient Goal Type Associated Problems Recent Progress Patient-Stated? Author Patient to report a decrease in intensity and frequency of anxious and depressive symptoms Behavioral Health No Mini Larios, FARM OPERATIONS TECHNICAL DIRECTOR Note: 1. Patient to learn and utilize three coping skills. 2. Patient to practice self care. 3. Patient to identify negative thoughts and actively reframe. I would like to feel better then I do today. Behavioral Health Yes Mini Larios, FARM OPERATIONS TECHNICAL DIRECTOR Help patient manage hypertension Care Plan [facility] HYPERTENSION CONCERN (PATIENT ON HIGH BLOOD PRESSURE MEDICATIONS) No Camelia White APRN, RUBBER PRESS TENDER Help patient manage nicotine dependency Care Plan [facility] NICOTINE DEPENDENCY CONCERN No Camelia White, BREAD RACKER, RUBBER PRESS TENDER Help patients manage type 2 diabetes Care Plan [facility] TYPE 2 DIABETES CONCERN No Camelia White, BREAD RACKER, RUBBER PRESS TENDER Help patient manage blood glucose Care Plan [facility] TYPE 2 DIABETES INSULIN - ANALOG PATTERN CONCERN No Camelia White, BREAD RACKER, RUBBER PRESS TENDER Help patient manage nicotine dependency Care Plan [facility] NICOTINE DEPENDENCY CONCERN No Camelia White, BREAD RACKER, RUBBER PRESS TENDER documented as of this encounter Visit Diagnoses [...] 01/13/2024 3:44 PM CDT Respiratory Rule-Out 01/13/2024 01/13/20242 024 12:16 AM CDT COVID - 02/22/2024 02/22/2024 03/03/2024 12:1 6 AM PROFESSIONAL FIGHTER COVID - 19 05/17/2024 05/17/2024 05/17/2024 10:4 5 AM PROFESSIONAL FIGHTER Influenza 05/17/2024 05/17/2024 05/24/2024 12:1 6 AM PROFESSIONAL FIGHTER COVID - 19 06/11/2024 06/11/2024 06/11/2024 8:06 PM PROFESSIONAL FIGHTER Assessment Noted Time PHQ-9 Depression Total Score: 0 02/25/20 2:41 PM PROFESSIONAL FIGHTER documented as of this encounter Care Teams Shooter Helper Relationship Specialty Start Date End Date Jing Baird PAC [address] [place] [address] PCP - General Physician Fur Dry Cleaner 12/29/18 07/31/24 Kvng Mendoza MD [address] [address] Consulting Physician Endocrinology 10/10/21 documented as of this encounter
--- OUTSIDE RECORDS SUMMARY | 2024-08-24 15:46 | XMS_ITS | Encounter Summary ---
Author Organization [facility] Address [address] [place] [address] Phone Care Team Providers Care Cloud Systems Architect Name Role Phone Jing Baird Primary Care Provider + Kvng Mendoza MD Unavailable Reason for Visit * Reason Comments Medication Refill Encounter Details Date Type Department Care Team (Late st Contact Info) Description 08/22/2020 Refill [facility] Medical Group - Family [facility] [address] [place] [address] Jing Baird PAC [address] [place] [address] Medication Refill Social History Tobacco Use Types [...] have Coronavirus / COVID-19? No / Unsure 08/02/2020 9:26 AM CDT documented as of this encounter Miscellaneous Notes * Telephone Encounter - Michelle Liao RN - 08/23/2020 10:45 AM CDT Allergy warning Per nursing clinical judgement, provider to review and approve the medication(s) order(s) if appropriate. Requested Prescriptions Pending Prescriptions Disp Refills celecoxib (CeleBREX) 200 MG Capsule [Pharmacy Med Name: CELECOXIB 200 MG Capsule] 90 Capsule Sig: TAKE 1 CAPSULE EVERY DAY [facility]: COX2 Inhibitors Passed - 08/22/2020 7:52 PM Passed - Valid encounter within last 6 months Past Office Visits Recent Outpatient Visits 3 weeks ago Type 2 diabetes mellitus with other specified complication, with long-term current use of insulin (HCC) [facility] Jing Gleason PAC 3 months ago Chronic sinusitis, unspecified location [facility] Jing Gleason, PAC 5 months ago Chronic sinusitis, unspecified location [facility] - Jing Gleason, PAC 6 months ago Chronic gastroesophageal reflux disease [facility] - Jing Gleason, PAC 8 months ago Type 2 diabetes mellitus with other specified complication, with long-term current useof insulin (HCC) [facility] - [facility] Quijano, PAC Upcoming Appointments Future Appointments Today Diana Dawson RN [facility] In 4 days Diana Dawson RN [facility] In 1 week Diana Dawson RN [facility] AGENCY SERVICE COORDINATOR - Recent and Past Visits Recent Visits Date Type Provider Dept 08/02/20 Office Visit Jing Baird PAC [facility] 05/02/20 Telemedicine Jing Baird PAC [facility] 03/26/20 Telemedicine Jing Baird PAC [facility] 02/10/20 Office Visit Jing Baird PAC [facility] 11/30/19 Office Visit Jing Baird, PAC [facility] 08/25/19 Office Visit Jing Baird, PAC [facility] 07/19/19 Telemedicine Jing Baird, PAC [facility] 07/05/19 Telemedicine Jing Baird, PAC [facility] Showing recent visits within past 460 days [...] - 19 03/24/2023 03/24/2023 03/25/2023 8:22 AM CARDIOLOGY NURSE C. difficile Rule-Out 03/24/2023 03/24/20232022 4:16 PM CARDIOLOGY NURSE COVID - 19 04/27/2023 04/27/2023 04/28/2023 8:53 AM CARDIOLOGY NURSE COVID - 19 01/08/2024 01/08/2024 01/08/2024 1:48 PM CDT COVID - 19 01/13/2024 01/13/2024 01/13/2024 3:44 PM CDT Respiratory Rule-Out 01/13/2024 01/13/2024 024 12:16 AM CDT COVID - 19 02/22/2024 02/22/2024 03/03/2024 12:1 6 AM CARDIOLOGY NURSE COVID - 19 05/17/2024 05/17/2024 05/17/2024 10:4 5 AM CARDIOLOGY NURSE Influenza 05/17/2024 05/17/2024 05/24/2024 12:1 6 AM CARDIOLOGY NURSE COVID - 19 06/11/2024 06/11/2024 06/11/2024 8:06 PM CARDIOLOGY NURSE Assessment Noted Time PHQ-9 Depression Total Score: 1 08/03/19 21 10:00 AM CDT documented as of this encounter Care Teams Cloud Systems Architect Relationship Specialty Start Date End Date Jing Baird PAC [address] [place] [address] PCP - General Physician Tire And Lube Technician 12/29/18 07/31/24 Kvng Mendoza MD [address] [address] Consulting Physician Endocrinology 10/10/21 documented as of this encounter
--- OUTSIDE RECORDS SUMMARY | 2024-08-24 15:46 | XMS_ITS | Referral Summary ---
Author Organization [facility] Address [address] [place] [address] Care Team Providers Care Electrical Engineer Name Role Phone Jing Baird Primary Care Provider [phone] Encounters Date Type Department Care Team Description 08/16/2024 11:27 PM CDT - 08/20/2024 11:28 AM CDT Hospital Encounter [address] [address] Don Dunn MD Entriken, Catherine Anne, MD Fall, initial encounter (Primary Dx); Closed fracture of shaft of right tibia, unspecified fracture morphology, initial encounter Discharge Disposition: Discharge to [facility] 08/19/2024 Documentation [facility] Orthopaedic Surgery [facility] Advanced Medicine 6th [place] [address] [place] [address] Chantale Austin RN 08/17/2024 Orders Only [facility] Orthopaedic Surgery [address] [place] [address] Advanced Medicine 6th [place] [address] [place] [address] Geovanny Tejada MD Closed fracture of shaft of right tibia, unspecified fracture morphology, initial encounter (Primary Dx) 08/17/2024 12:21 PM CDT Anesthesia Event [facility] Operating Room [address] [place] [address] Jann Durbin MD PhD Achilly, Nathan Patrick, MD 08/17/2024 12:20 PM CDT - 08/17/2024 6:55 PM CDT Surgery [facility] Operating [facility] [place] [address] Geovanny Tejada MD OPEN REDUCTION INTERNAL FIXATION - TIBIA 08/16/2024 10:46 PM CDT Hospital Encounter [facility] 08/16/2024 5:02 PM CDT - 08/16/2024 10:44 PM CDT Emergency [facility] Emergency Department [address] [place] [address] Neymar Hui MD Closed fracture of distal end of right tibia, unspecified fracture morphology, initial encounter (Primary Dx) Discharge Disposition: Discharge to a short term hospital for IP 06/22/2024 Telephone [facility] Home Care Services [address] [place] [address] Gaby Mcbride 06/21/2024 Home Care Visit [address] [address] [address] [place] [address] Lola Meza, PT PT VIRTUAL NON OASIS DISCHARGE 06/20/2024 Telephone [facility] Home Care Services [address] [place] [address] [address] [place] [address] Gaby Mcbride 06/14/2024 Home Care Visit [address] [address] [place] [address] Lola Meza, PT CARE CONFERENCE 06/13/2024 Home Care Visit [address] [address] [place] [address] Neelam Delgado, PT PT OASIS TRANSFER W/OUT DC 06/13/2024 Telephone [facility] Care Services [address] [place] [address] [address] [place] [address] Gaby Mcbride 06/13/2024 Home Care Visit [address] [address] [place] [address] Lola Meza, PT CASE COMMUNICATION 06/11/2024 Home Care Visit [address] [place] [address] Maribell Valenzuela, RN NURSE MED RECON FOR THERAPY 06/10/2024 Home Care Visit [address] [place] [address] Daisha Norman RN NURSE MED RECON FOR THERAPY 06/09/2024 Home Care Visit [address] [place] [address] Daisha Norman RN NURSE MED RECON FOR THERAPY 06/08/2024 Plan of Care Documentation [address] [place] [address] 06/08/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 [address] [place] [address] Val Coles, PT PT OASIS START OF CARE 06/06/2024 Travel from Last 3 Months Allergies Active Allergy Reactions Criticality Noted Date Comments Ciprofloxacin Anaphylaxis,Swelling High 01/26/2024 Metformin Diarrhea Low 01/26/2024 Penicillins Rash Medium 01/26/2024 Sulfa Anaphylaxis High 01/26/2024 Medications acetaminophen (TYLENOL) 325 mg tablet Take 2 tablets (650 mg total) by mouth every 6 (six) hours as needed Active atenoloL (TENORMIN) 25 mg tablet Take 1 tablet (25 mg total) by mouth daily Active busPIRone (BUSPAR) 10 mg tablet Take 1 tablet (10 mg total) by mouth 2 (two) times a day Active famotidine (PEPCID) 40 mg tablet TAKE 1 TABLET BY MOUTH 2 TIMES DAILY. FOR GASTROESOPHAGEAL REFLUX DISEASE WITH CURRENT SYMPTOMS Active gabapentin (NEURONTIN) 300 mg capsule Take 1 capsule (300 mg total) by mouth 3 (three) times a day Active hydrOXYzine (ATARAX) 25 mg tablet Take 1 tablet (25 mg total) by mouth every 6 (six) hours as needed Active insulin aspart (NovoLOG) 100 unit/mL vial [...] mouth 2 (two) times a day Active simvastatin (ZOCOR) 40 mg tablet Take 1 tablet (40 mg total) by mouth daily Active tiZANidine (ZANAFLEX) 4 mg tablet Take [...] 1.25 mg by mouth once a week 11/16/2 023 Active folic acid (FOLVITE) 1 mg tablet Take 1 tablet (1,000 mcg total) by mouth daily 025 Active QUEtiapine 150 mg tablet Take 1 tablet by mouth every evening [address] (PROTONIX) 40 mg EC tablet Take 1 tablet (40 mg total) by mouth daily Active dicyclomine (BENTYL) 20 mg tablet TAKE 1 TABLET BY MOUTH EVERY 6 HOURS NEEDED FOR OTHER (ABDOMINAL PAIN) FOR UP TO 10 DAYS. 025 Active topiramate (TOPAMAX) 25 mg tablet TAKE 2 TABLETS BY MOUTH EVERY DAY AT NIGHT Active amLODIPine (NORVASC) 2.5 mg tablet Take 1 tablet (2.5 mg total) by mouth daily 025 Active insulin glargine 100 unit/mL vial for injection Inject 30 Units under the skin nightly Active insulin glargine 100 unit/mL vial for injection Inject 30 Units under the skin nightly 025 Active BD Ultra-Fine Mini Pen Needle 31 gauge x 3/16 needle 4 (four) times a day Active Accu-Chek Debbie Plus test strp strip USE TO TEST BLOOD SUGAR 4 TIMES A DAY Active cholecalciferol (VITAMIN D-3) 2000 unit capsule Take 1 capsule (2,000 Units total) by mouth daily 025 2024 Active aspirin 81 mg chewable tablet Take 1 tablet (81 mg total) by mouth daily for 14 days 14 tablet 025 2024 Active oxyCODONE (ROXICODONE) 5 mg immediate release tabletIndications :Pain Take 1 tablet (5 mg total) by mouth every 4 (four) hours as needed for pain 20 tablet Active amLODIPine (NORVASC) 5 mg tabletIndications :hypertension Take 1 tablet (5 mg total) by mouth daily 024 2024 Disconti nued(Alt ernate therapy) apixaban (ELIQUIS) [...] Inject 40 Units under the skin nightly 2024 Disconti nued(Alt ernate therapy) magnesium oxide (MAG-OX) 400 mg (241.3 mg elemental magnesium) tabletIndications :hypomagnesemia Take 1 tablet (400 mg total) by mouth daily 2024 Disconti nued(Alt ernate therapy) montelukast (SINGULAIR) 10 mg tabletIndications :Seasonal Allergic Rhinitis Take 1 tablet (10 mg total) by mouth daily 024 2024 Disconti nued(Alt ernate therapy) omeprazole (PriLOSEC) 40 mg capsuleIndication s:Treatment of Non-Bleeding Gastric Disorder Take 1 capsule (40 mg total) by mouth daily 2024 Disconti nued(The rapy complete d) potassium [...] needed for headaches and rarely uses it 2024 Disconti nued(Alt ernate therapy) valACYclovir (VALTREX) 1 gram tablet Take 2 pills by oral route at onset of symptoms, then repeat 2 pills in 12 hours 01/26/2 024 05/14/ 2025 Disconti nued(The rapy complete d) traMADoL (ULTRAM) [...] 150 mg daily, Hydroxyzine 25 mg prn Social History Tobacco Use Types Packs/Day Years [...] on file 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 241.401 / / Synthes Lcp Combi 132mm 8 Hole 4 Lock Tibia Distal Posterior T Plate Bone - [id number] Implanted:Qty: 1 on 08/17/2024 by Wilmer Villavicencio MD at [facility] Plate Right: Tibia Synthes / / Left of the [employer] Screw Bone Cortical St Full Thread Lcp 3.5x24mm Ss 204.824 - [id number] Implanted:Qty: 1 on 08/17/2024 by Wilmer Villavicencio MD at [facility] Screw Right: Tibia Synthes 204.824 / / Synthes 3.5mm 2.9mm 36mm Self Tap Lock Stardrive Conical Head T15 Full 212.115 - [id number] Implanted:Qty: 1 on 08/17/2024 by Geovanny Tejada MD at [facility] Screw Right: Tibia Synthes 212.115 / / Synthes 3.5mm 2.9mm 42mm Self Tap Lock [employer] Conical Head Full Thread 212.118 - [id number] Implanted:Qty: 1 on 08/17/2024 by Geovanny Tejada MD at [facility] Screw Right: Tibia Synthes 212.118 / / Synthes 3.5mm 2.9mm 38mm Self Tap Lock [employer] Conical Head T15 Full 212.116 - [id number] Implanted:Qty: 1 on 08/17/2024 by Geovanny Tejada MD at [facility] Screw Right: Tibia Synthes 212.116 / / Synthes 3.5mm 6mm 20mm 2.5mm Self Tap Small Hexagonal Socket Low Profile 204.820 - S0 - [id number] Implanted:Qty: 1 on 08/17/2024 by Geovanny Tejada MD at [facility] Screw Right: Tibia Synthes 204.820 / 0 / Synthes 3.5mm 6mm 36mm 2.5mm Self Tap Small Hexagonal Socket Low Profile 204.836 - [id number] Implanted:Qty: 1 on 08/17/2024 by Geovanny Tejada MD at [facility] Screw Right: Leg Synthes 204.836 / / Synthes 3.5mm 6mm 45mm 2.5mm Self Tap Small Hexagonal Socket Low Profile 204.845 - [id number] Implanted:Qty: 1 on 08/17/2024 by Wilmer Villavicencio MD at [facility] Screw Right: Tibia Synthes 204.845 / / Synthes 3.5mm 6mm 22mm 2.5mm Self Tap Small Hexagonal Socket Low Profile 204.822 - [id number] Implanted:Qty: 3 on 08/17/2024 by Wilmer Villavicencio MD at [facility] Screw Right: Tibia Synthes 204.822 / / Synthes 3.5mm 6mm 46mm 2.5mm Self Tap Small Hexagonal Socket Low Profile 204.846 - [id number] Implanted:Qty: 1 on 08/17/2024 by Wilmer Villavicencio MD at [facility] Screw Right: Tibia Synthes 204.846 / / Synthes 3.5mm 6mm 40mm 2.5mm Self Tap Small Hexagonal Socket Low Profile 204.840 - [id number] Implanted:Qty: 1 on 08/17/2024 by Wilmer Villavicencio MD at [facility] Screw Right: Tibia Synthes 204.840 / / Synthes 3.5mm 6mm 40mm 2.5mm Self Tap Small Hexagonal Socket Low Profile 204.840 - [id number] Implanted:Qty: 1 on 08/17/2024 by Wilmer Villavicencio MD at [facility] Screw Right: Tibia Synthes 204.840 / / Explanted Type Area Abattoir Supervisor Device Identifier Shelf Expiration Date Model / Serial / Lot [employer] K Wire Fix [place] Smooth Sgl End Ss [id number] - [id number] Explanted:Qty: 2 on 08/17/2024 at [facility] Other - see comments Right: Tibia [employer] [id number] NS / / Description:Provisional fixa tion Synthes 4mm 6mm 40mm Small Hexagonal Socket Cancellous Full Thread Screw 206.040 - [id number] Explanted:Qty: 1 on 08/17/2024 by Wilmer Villavicencio MD at [facility] Screw Right: Tibia Synthes 206.040 / / [...] CHEMISTRIES, VENOUS Routine 08/17/2024 1:35 PM CDT [place] AN PROCEDURE PLACEHOLDER Routine 08/17/2024 1:21 PM CDT NJ AN ELECTIVE ENDOTRACHEAL AIRWAY Routine 08/17/2024 1:21 PM CDT NJ AN PROCEDURE PLACEHOLDER Routine 08/17/2024 1:20 PM [...] right tibia, unspecified fracture morphology, initial encounter [place] AN PROCEDURE PLACEHOLDER Routine 08/17/2024 11:19 AM CDT NJ AN PROCEDURE PLACEHOLDER Routine 08/17/2024 11:18 AM [...] (ABNORMAL) POCT glucose (08/20/2024 8:07 AM CDT) [facility] Glucose, POC 237(H) 70 - 199 mg/dL Comment:Glu2: RN/MD Notified Glucose comment 1 Glu2: RN/MD Notified [facility] Blood 08/20/2024 8:07 AM CDT 08/20/2024 8:07 AM CDT Janie Welch MD LAB POCT ORDERABLES - DEVICE Final Result Performing Organization Address [facility] Co de Phone Number [facility] [place] [address] * (ABNORMAL) POCT glucose (08/20/2024 12:12 AM CDT) [facility] Glucose, POC 268(H) 70 - 199 mg/dL Comment:Glu2: RN/MD Notified Glucose comment 1 Glu2: RN/MD Notified [facility] Blood 08/20/2024 12:1 2 AM CDT 08/20/2024 12:12 AM CDT Janie Welch MD LAB POCT ORDERABLES - DEVICE Final Result Performing Organization Address [facility] Co de Phone Number [facility] [place] [address] * (ABNORMAL) CBC without differential (08/19/2024 10:30 PM CDT) [facility] WBC 13.27(H) 3.80 - 9.90 K/cumm Hgb 9.3(L) 11.9 - 15.5 g/dL [facility] Hct 28.6(L) 35.6 - 45.5 % [facility] Plt 243 150 - 400 K/cumm [facility] MPV 12.0 9.1 - 12.3 fL [facility] RBC 3.15(L) 3.90 - 5.20 M/cumm [facility] MCV 90.8 81.3 - 96.4 fL [facility] MCH 29.5 27.1 - 33.3 pg [facility] MCHC 32.5 32.3 - 35.7 g/dL [facility] RDW CV 14.3 11.1 - 14.9 % [facility] RDW SD 46.3 35.7 - 48.1 fL [facility] NRBC abs 0.00 0.00 - 0.01 K/cumm [facility] Blood 08/19/2024 10:3 0 PM CDT 08/19/2024 11:27 PM CDT Flavia Diaz ASSISTANCE SPECIALIST LAB BLOOD ORDERABLES Lucero l Result Performing Organization Address [facility] de Phone Number [facility] [place] [address] * Phosphorus (08/19/2024 10:30 PM CDT) Phosphorus, pl 2.6 2.3 - 4.5 mg/dL Blood 08/19/2024 10:3 0 PM CDT 08/19/2024 11:27 PM CDT Flavia Diaz ASSISTANCE SPECIALIST LAB BLOOD ORDERABLES Lucero l Result Performing Organization Address [facility] de Phone Number [facility] [place] [address] * (ABNORMAL) POCT glucose (08/19/2024 8:26 PM CDT) Glucose, POC 218(H) 70 - 199 mg/dL Comment:Glu2: RN/MD Notified Glucose comment 1 Glu2: RN/MD Notified [facility] Blood 08/19/2024 8:26 PM CDT 08/19/2024 8:26 PM CDT Janie Welch MD LAB POCT ORDERABLES - DEVICE Final Result Performing Organization Address [facility] Co de Phone Number [facility] [place] [address] * (ABNORMAL) POCT glucose (08/19/2024 4:48 PM CDT) Glucose, POC 213(H) 70 - 199 mg/dL Blood 08/19/2024 4:48 PM CDT 08/19/2024 4:48 PM CDT us Janie Welch MD LAB POCT ORDERABLES - DEVICE Final Result Performing Organization Address [facility] Co de Phone Number [facility] [place] [address] * (ABNORMAL) POCT glucose (08/19/2024 11:47 AM CDT) Glucose, POC 238(H) 70 - 199 mg/dL Blood 08/19/2024 11:4 7 AM CDT 08/19/2024 11:47 AM CDT us Janie Welch MD LAB POCT ORDERABLES - DEVICE Final Result Performing Organization Address [facility] Co de Phone Number [facility] [place] [address] * POCT glucose (08/19/2024 7:20 AM CDT) Glucose, POC 143 70 - 199 mg/dL Blood 08/19/2024 7:20 AM CDT 08/19/2024 7:20 AM CDT Janie Welch MD LAB POCT ORDERABLES - DEVICE Final Result Performing Organization Address [facility] Co de Phone Number [facility] Department [place] [address] * eGFR (08/19/2024 12:54 AM CDT) eGFR [...] Flavia Diaz NP LAB BLOOD ORDERABLES Lucero patel Result [facility] Department [place] [address] * (ABNORMAL) CBC without differential (08/19/2024 12:54 AM CDT) WBC 13.25(H) 3.80 - 9.90 K/cumm Hgb 9.2(L) 11.9 - 15.5 g/dL [facility] Hct 29.0(L) 35.6 - 45.5 % [facility] Plt 215 150 - 400 K/cumm [facility] MPV 12.4(H) 9.1 - 12.3 fL [facility] RBC 3.18(L) 3.90 - 5.20 M/cumm [facility] MCV 91.2 81.3 - 96.4 fL [facility] MCH 28.9 27.1 - 33.3 pg [facility] MCHC 31.7(L) 32.3 - 35.7 g/dL [facility] RDW CV 13.9 11.1 - 14.9 % [facility] RDW SD 46.3 35.7 - 48.1 fL [facility] NRBC abs 0.00 0.00 - 0.01 K/cumm [facility] Blood 08/19/2024 12:5 4 AM CDT 08/19/2024 1:40 AM CDT Flavia Diaz ASSISTANCE SPECIALIST LAB BLOOD ORDERABLES Lucero l Result Performing Organization Address City/[facility] Co de Phone Number [facility] [place] [address] * (ABNORMAL) Phosphorus (08/19/2024 12:54 AM CDT) Pathologist [facility] Phosphorus, pl 2.0(L) 2.3 - 4.5 mg/dL Blood 08/19/2024 12:5 4 AM CDT 08/19/2024 1:40 AM CDT Flavia Diaz ASSISTANCE SPECIALIST LAB BLOOD ORDERABLES Lucero l Result Performing Organization Address [facility] Co de Phone Number [facility] [place] [address] * Magnesium (08/19/2024 12:54 AM CDT) [facility] Magnesium 1.9 1.4 - 2.5 mg/dL Blood 08/19/2024 12:5 4 AM CDT 08/19/2024 1:40 AM CDT Flavia Diaz ASSISTANCE SPECIALIST LAB BLOOD ORDERABLES Lucero l Result Performing Organization Address [facility] Co de Phone Number [facility] [place] [address] * (ABNORMAL) Basic metabolic panel (08/19/2024 12:54 AM CDT) Pathologist [facility] Sodium 138 135 - 145 mmol/L Potassium, pl 3.6 3.3 - 4.9 mmol/L [facility] Chloride 102 97 - 110 mmol/L [facility] CO2 26 22 - 32 mmol/L [facility] Anion gap 10 2 - 15 mmol/L [facility] BUN 18 6 - 25 mg/dL [facility] Creatinine 0.90 0.60 - 1.10 mg/dL [facility] Glucose 249(H) 70 - 199 mg/dL [facility] Comment: Interpretive Data Fasting glucose >/= 126 [...] 2022. Calcium 8.8 8.5 - 10.3 mg/dL [facility] Blood 08/19/2024 12:5 4 AM CDT 08/19/2024 1:40 AM CDT Flavia Diaz NP LAB BLOOD ORDERABLES Lucero l Result Performing Organization Address City/[facility]/ZIP Co de Phone Number [facility] Department [place] [address] * (ABNORMAL) POCT glucose (08/19/2024 12:19 AM CDT) Glucose, POC 262(H) 70 - 199 mg/dL Blood 08/19/2024 12:1 9 AM CDT 08/19/2024 12:19 AM CDT Janie Welch MD LAB POCT ORDERABLES - DEVICE Final Result [facility] [place] [address] * (ABNORMAL) POCT glucose (08/18/2024 8:53 PM CDT) Glucose, POC 363(H) 70 - 199 mg/dL Blood 08/18/2024 8:53 PM CDT 08/18/2024 8:53 PM CDT us Janie Welch MD LAB POCT ORDERABLES - DEVICE Final Result Performing Organization Address [facility] Co de Phone Number [facility] Department [place] [address] * (ABNORMAL) POCT glucose (08/18/2024 5:03 PM CDT) Glucose, POC 240(H) 70 - 199 mg/dL Comment:Glu2: RN/MD Notified Glucose comment 1 Glu2: RN/MD Notified [facility] Blood 08/18/2024 5:03 PM CDT 08/18/2024 5:03 PM CDT Janie Welch MD LAB POCT ORDERABLES - DEVICE Final Result Performing Organization Address [facility] Co de Phone Number [facility] Department [place] [address] * (ABNORMAL) POCT glucose (08/18/2024 12:50 PM CDT) Glucose, POC 209(H) 70 - 199 mg/dL Blood 08/18/2024 12:5 0 PM CDT 08/18/2024 12:50 PM CDT Janie Welch MD LAB POCT ORDERABLES - DEVICE Final Result Performing Organization Address City/[facility] de Phone Number [facility] [place] [address] * POCT glucose (08/18/2024 7:48 AM CDT) Glucose, POC 196 70 - 199 mg/dL Blood 08/18/2024 7:48 AM CDT 08/18/2024 7:48 AM CDT Janie Welch MD LAB POCT ORDERABLES - DEVICE Final Result Performing Organization Address [facility] de Phone Number [facility] [place] [address] * (ABNORMAL) POCT glucose (08/18/2024 4:01 AM CDT) [facility] Glucose, POC 216(H) 70 - 199 mg/dL Comment:Glu2: RN/MD Notified Glucose comment 1 Glu2: RN/MD Notified [facility] Blood 08/18/2024 4:01 AM CDT 08/18/2024 4:01 AM CDT Janie Welch MD LAB POCT ORDERABLES - DEVICE Final Result Performing Organization Address [facility] de Phone Number [facility] [place] [address] * (ABNORMAL) POCT glucose (08/17/2024 11:54 PM CDT) [facility] Glucose, POC 251(H) 70 - 199 mg/dL Comment:Glu2: RN/MD Notified Glucose comment 1 Glu2: RN/MD Notified [facility] Blood 08/17/2024 11:5 4 PM CDT 08/17/2024 11:54 PM CDT Janie Welch MD LAB POCT ORDERABLES - DEVICE Final Result Performing Organization Address [facility] de Phone Number [facility] [place] [address] * (ABNORMAL) eGFR (08/17/2024 8:16 PM CDT) [facility] eGFR 36(L) >=60 mL/min/1. 73 m2 [...] Welch MD LAB BLOOD ORDERABLES Final Result [facility] Department [place] [address] * (ABNORMAL) CBC without differential (08/17/2024 8:16 PM CDT) WBC 16.16(H) 3.80 - 9.90 K/cumm Hgb 9.1(L) 11.9 - 15.5 g/dL [facility] Hct 27.7(L) 35.6 - 45.5 % [facility] Plt 244 150 - 400 K/cumm [facility] MPV 11.7 9.1 - 12.3 fL [facility] RBC 3.04(L) 3.90 - 5.20 M/cumm [facility] MCV 91.1 81.3 - 96.4 fL [facility] MCH 29.9 27.1 - 33.3 pg [facility] MCHC 32.9 32.3 - 35.7 g/dL [facility] RDW CV 13.7 11.1 - 14.9 % [facility] RDW SD 45.5 35.7 - 48.1 fL [facility] NRBC abs 0.00 0.00 - 0.01 K/cumm [facility] Blood 08/17/2024 8:16 PM CDT 08/17/2024 8:51 PM CDT Janie Welch MD LAB BLOOD ORDERABLES Final Result Performing Organization Address City/[facility] Co de Phone Number [facility] [place] [address] * (ABNORMAL) Phosphorus (08/17/2024 8:16 PM CDT) Pathologist [facility] Phosphorus, pl 4.6(H) 2.3 - 4.5 mg/dL Blood 08/17/2024 8:16 PM CDT 08/17/2024 9:30 PM CDT Janie Welch MD LAB BLOOD ORDERABLES Final Result Performing Organization Address [facility] [place] [address] * Magnesium (08/17/2024 8:16 PM CDT) Magnesium 1.9 1.4 - 2.5 mg/dL Blood 08/17/2024 8:16 PM CDT 08/17/2024 9:30 PM CDT aJnie Welch MD LAB BLOOD ORDERABLES Final Result Performing Organization Address [facility] [place] [address] * (ABNORMAL) Hemoglobin A1c (08/17/2024 8:16 PM CDT) Hgb A1C 9.2(H) 4.0 - 5.6 % Estimated Average Glucose 217 mg/dL [facility] Comment: The ADA recommends reporting an estimated Average Glucose (eAG) with all Hemoglobin A1c results using the equation derived from a study of 507 normal and diabetic adults. Minority populations were underrepresented and children were not included. (Diabetes Care 2020; 43(S1): S66-S76). The eAG is not equivalent to a fasting glucose. Blood 08/17/2024 8:16 PM CDT 08/17/2024 9:30 PM CDT us Karlee Waller NP LAB BLOOD ORDERABLES Final Result [facility] Department [place] [address] * Lipid panel (08/17/2024 8:16 PM CDT) [...] revised on 2017. Triglycerides 115 <=149 mg/dL [facility] Comment: Interpretive Data Ages < or [...] revised on 2017. HDL 54 >=40 mg/dL [facility] Comment: Interpretive Data Ages < or = [...] on 2017. LDL, calculated 64 <=129 mg/dL [facility] Comment: Interpretive Data Ages < or [...] revised on 2023. Non-HDL Cholesterol 85 mg/dL [facility] Comment: Interpretive Data Ages < or = [...] last revised on 2017. Chol/HDL ratio 3 [facility] Blood 08/17/2024 8:16 PM CDT 08/17/2024 9:30 PM CDT Janie Welch MD LAB BLOOD ORDERABLES Final Result Performing Organization Address City/[facility]/ZIP Co de Phone Number [facility] Department [place] [address] * (ABNORMAL) Basic metabolic panel (08/17/2024 8:16 PM CDT) [facility] Sodium 137 135 - 145 mmol/L Potassium, pl 3.8 3.3 - 4.9 mmol/L [facility] Chloride 104 97 - 110 mmol/L [facility] CO2 22 22 - 32 mmol/L [facility] Anion gap 11 2 - 15 mmol/L [facility] BUN 29(H) 6 - 25 mg/dL [facility] Creatinine 1.56(H) 0.60 - 1.10 mg/dL [facility] Glucose 259(H) 70 - 199 mg/dL [facility] Comment: Interpretive Data Fasting glucose >/= 126 [...] classification and Diagnosis of Diabetes Diabetes Care 202; 46: S19-S40. Current interpretive data was last revised 2022. Calcium 8.9 8.5 - 10.3 mg/dL [facility] Blood 08/17/2024 8:16 PM CDT 08/17/2024 9:30 PM CDT Janie Welch MD LAB BLOOD ORDERABLES Final Result Performing Organization Address City/[facility]/ZIP Co de Phone Number [facility] Department [place] [address] * (ABNORMAL) POCT glucose (08/17/2024 7:50 PM CDT) Glucose, POC 256(H) 70 - 199 mg/dL Blood 08/17/2024 7:50 PM CDT 08/17/2024 7:50 PM CDT us Janie Welch MD LAB POCT ORDERABLES - DEVICE Final Result Performing Organization Address City/[facility] [place] [address] * POCT glucose (08/17/2024 5:08 PM CDT) [facility] Signature Glucose, POC 192 70 - 199 mg/dL Blood 08/17/2024 5:08 PM CDT 08/17/2024 5:08 PM CDT Janie Welch MD LAB POCT ORDERABLES - DEVICE Final Result Performing Organization Address City/[facility] [place] [address] * POCT glucose (08/17/2024 4:13 PM CDT) [facility] Signature Glucose, POC 193 70 - 199 mg/dL Blood 08/17/2024 4:13 PM CDT 08/17/2024 4:13 PM CDT us Janie Welch MD LAB POCT ORDERABLES - DEVICE Final Result Performing Organization Address [facility] Co de Phone Number [facility] [place] [address] * (ABNORMAL) Hemoglobin and hematocrit (08/17/2024 4:11 PM CDT) Hgb 9.1(L) 11.9 - 15.5 g/dL Comment:Hemoglobin delta due to surgical procedure. Hct 28.6(L) 35.6 - 45.5 % [facility] Blood 08/17/2024 4:11 PM CDT 08/17/2024 4:40 PM CDT us Jann Durbin MD PhD LAB BLOOD ORDERABLES F inal Result Performing Organization Address [facility] Co de Phone Number [facility] Department [place] [address] * (ABNORMAL) POCT glucose (08/17/2024 3:43 PM CDT) Glucose, POC 208(H) 70 - 199 mg/dL Blood 08/17/2024 3:43 PM CDT 08/17/2024 3:43 PM CDT us Janie Welch MD LAB POCT ORDERABLES - DEVICE Final Result Performing Organization Address [facility] de Phone Number [facility] Department [place] [address] * [place] Fluoroscopy < 1 Hour (08/17/2024 3:25 PM CDT) Narrative [facility] - 08/17/2024 3:26 PM CDT The images from this study are not interpreted by Radiology. Please refer to the physician's procedure / OR operative note. us Geovanny Tejada MD IMG FLUOROSCOPY PROCEDURES Final Result Performing Organization Address [facility] Co de Phone Number [email or web address] * (ABNORMAL) POC Blood Gas and Chemistries, Venous - (08/17/2024 1:35 PM CDT) pH, Rossy POC 7.26(L) 7.32 - 7.43 pCO2, rossy POC 56(H) 40 - 50 mmHg [facility] pO2, rossy POC 29 mmHg [facility] Na, POC 140 135 - 145 mmol/L [facility] K POC 3.7 3.3 - 4.9 mmol/L [facility] Comment: Interpretive Data Not all point of care methods assess for hemolysis. Confirm with instrument and retest K+ if not consistent with clinical signs and symptoms. Current Interpretive Data was last revised on 2023. Cl, POC 107 97 - 110 mmol/L [facility] Ionized Ca, POC 5.25(H) 4.50 - 5.10 mg/dL [facility] Glucose, POC 155 70 - 199 mg/dL [facility] Lactate, POC 2.5(H) 0.7 - 2.0 mmol/L [facility] O2 Sat, Rossy POC (Justin) 33 % [facility] Base excess, POC -2.4 mmol/L [facility] HCO3, Rossy POC 25 20 - 30 mmol/L [facility] Hct, POC 30.0(L) 36.3 - 45.3 % [facility] Total Hb, POC 10.0(L) 11.9 - 15.5 g/dL [facility] Blood 08/17/2024 1:35 PM CDT 08/17/2024 1:35 PM CDT Janie Welch MD LAB POCT ORDERABLES - DEVICE Final Result [facility] Department [place] [address] * [place] AN ELECTIVE ENDOTRACHEAL AIRWAY, [place] AN PROCEDURE PLACEHOLDER (08/17/2024 1:21 PM CDT) Narrative Mishel Montejo CRNA - 08/17/2024 1:21 PM CDT Mishel Montejo CRNA 08/17/2024 1:21 PM Airway Patient location: OR Urgency: elective Date/time: 08/17/2024 12:36 AM Indications for airway management: anesthesia Difficult airway: no Staff: Supervising provider: Jann Durbin MD PhD Placed by: AD TRAFFICKER: Mishel Montejo CRNA Emergent airway documentation: Risks [...] MD PhD ANESTHESIA ORDERABLES Final Result * [place] AN PROCEDURE PLACEHOLDER (08/17/2024 1:20 PM CDT) Narrative Mishel Montejo CRNA - 08/17/2024 1:20 PM CDT Mishel Montejo CRNA 08/17/2024 1:20 PM Peripheral IV Catheter Staff: Supervising provider: Jann Durbin MD PhD Placed by: AD TRAFFICKER: Mishel Montejo CRNA Preprocedure prep: Prep solution: [...] LAB POCT ORDERABLES - DEVICE Final Result [facility] Department [place] [address] * [place] AN PROCEDURE PLACEHOLDER (08/17/2024 11:19 AM CDT) Frakno Sanchez MD - 08/17/2024 11:19 AM CDT Franko [...] MD PhD ANESTHESIA ORDERABLES Final Result * [place] AN PROCEDURE PLACEHOLDER (08/17/2024 11:18 AM CDT) [...] 4 AM CDT 08/17/2024 10:44 AM CDT us Janie Welch MD LAB POCT ORDERABLES - DEVICE Final Result [facility] Department [place] [address] * (ABNORMAL) Urinalysis reflex to microscopic and culture Urine, clean voided (08/17/2024 10:14 AM CDT) Color, ur Yellow Yellow Clarity, ur Cloudy(A) Clear [facility] Specific gravity, ur 1.022 1.003 - 1.030 [facility] pH, urine 5.5 [facility] Comment: Interpretive Data U rine pH is affected by diet, medications, systemic acid-base disturbances, and renal tubular function. pH may affect urinary stone formation. For example, urine pH below 6.0 may help reduce the tendency for calcium phosphate stones and pH greater than 6.0 may reduce the tendency for uric acid stone formation. Source: [facility] Current Interpretive Data was last revised on 2017 Protein, ur ql 1+(A) Negative [facility] Glucose, ur ql 3+(A) Negative [facility] Ketones, ur Negative Negative [facility] Bilirubin, ur Negative Negative [facility] Blood, ur Negative Negative [facility] Urobilinogen, ur <2.0 <2.0 mg/dL [facility] Nitrite, ur Negative Negative [facility] Leukocyte esterase, ur 2+(A) Negative [facility] UA reflex comment Reflex to microscopic UA will be performed. [facility] Urine, clean voided 08/17/2024 10:14 AM CDT 08/17/2024 10:51 AM CDT Janie Welch MD LAB MICROBIOLOGY - [facility] ORDERABLES Final Result Performing Organization Address City/[facility] Co de Phone Number [facility] Department [place] [address] * (ABNORMAL) Urinalysis, microscopic only (08/17/2024 10:14 AM CDT) WBC, ur 6-10(A) 0 - 5 /HPF RBC, ur 3-5(A) 0 - 2 /HPF [facility] Epithelial cells, squamous, ur 1-5 0 - 5 /HPF [facility] Bacteria, ur Trace(A) [facility] Mucous, ur Present(A) [facility] Hyaline casts, ur 6-10 0 - 10 /LPF [facility] Culture Reflex Comment Reflex conditions for urine culture (WBC >10) not met. [facility] Urine, clean voided 08/17/2024 10:14 AM CDT 08/17/2024 10:51 AM CDT Janie Welch MD LAB URINE ORDERABLES Final Result Performing Organization Address [facility]/State/[facility] Co de Phone Number [facility] Department [place] [address] * POCT glucose (08/17/2024 7:54 AM CDT) Glucose, POC 176 70 - 199 mg/dL Blood 08/17/2024 7:54 AM CDT 08/17/2024 7:54 AM CDT Janie Welch MD LAB POCT ORDERABLES - DEVICE Final Result Performing Organization Address [facility] Co de Phone Number [facility] [place] [address] * ECG 12 lead (08/17/2024 5:05 AM CDT) [facility] Ventricular Rate EKG/Min 88 BPM [facility] Atrial Rate 88 BPM [facility] [place]-Interval (MSEC) 122 ms [facility] QRS-Interval (MSEC) 82 ms [facility] QT-Interval (MSEC) 388 ms [facility] QTc 469 ms [facility] P [place] -8 degrees [facility] R [place] 20 degrees [facility] T [place] 67 degrees [facility] Diagnosis Normal sinus rhythm Nonspecific ST and T wave abnormality Abnormal ECG No previous ECGs available Confirmed by FAY WEISS M.D ([id number]) on 08/17/2024 11:13:20 AM [facility] 08/17/2024 5:05 AM CDT 08/17/2024 11:13 AM CDT Janie Welch MD ECG ORDERABLES Final Result Performing Organization Address City/[facility] Co de Phone Number [facility] * POCT glucose (08/17/2024 4:05 AM CDT) Glucose, POC 191 70 - 199 mg/dL Blood 08/17/2024 4:05 AM CDT 08/17/2024 4:05 AM CDT Janie Welch MD LAB POCT ORDERABLES - DEVICE Final Result [facility] Department [place] [address] * XR Pelvis 1 or 2 Views [...] and agrees with it. Electronically signed by: Rroy Quevedo M.D. Taylor Rivas MD IMG XR [...] it. Electronically signed by: Santosh Sawyer M.D. us Taylor Rivas MD IMG CT PROCEDURES Lucero l Result * ECG 12-LEAD (08/17/2024 2:30 AM CDT) Narrative [facility] - 08/17/2024 2:30 AM CDT Don Dunn [...] follow up: further workup in the ED us Taylor Rivas MD ECG ORDERABLES Final Result [facility] * (ABNORMAL) POCT glucose (08/17/2024 1:28 AM CDT) Glucose, POC 230(H) 70 - 199 mg/dL Blood 08/17/2024 1:2 8 AM CDT 08/17/2024 1:28 AM CDT Don Dunn MD LAB POCT ORDERABLES - VALDEMAR CE Final Result [facility] Department [place] [address] * XR Knee Right 4 or More [...] Inclusion of Race in Diagnosing Kidney Disease, BOZENA 2020). The CKD-EPI equation should not be used for patients with unstable renal function and has not been validated in children and those over 70. Current interpretive data was last reviewed 2021. Blood 08/17/2024 12:2 9 AM CDT 08/17/2024 12:50 AM CDT us Taylor Rivas MD LAB BLOOD ORDERABLES F inal Result [facility] Department [place] [address] * (ABNORMAL) Differential, auto (08/17/2024 12:29 AM CDT) Neutrophil abs 10.69(H) 1.50 - 6.50 K/cumm Imm gran abs 0.13(H) 0.00 - 0.10 K/cumm [facility] Lymphocyte abs 4.33(H) 0.80 - 3.30 K/cumm [facility] Monocyte abs 1.62(H) 0.20 - 0.80 K/cumm [facility] Eosinophil abs 0.25 0.00 - 0.50 K/cumm [facility] Basophil abs 0.09 0.00 - 0.10 K/cumm [facility] Neutrophil pct 62.4 % [facility] Comment: Interpretive Data Percent cell count reference ranges are not reported, since discordance with absolute values may lead to misinterpretation of CBC data. Current Interpretive Data was last revised on 2017. Imm gran pct 0.8 % [facility] Comment: Interpretive Data Percent cell count reference ranges are not reported, since discordance with absolute values may lead to misinterpretation of CBC data. Current Interpretive Data was last revised on 2017. Lymphocyte pct 25.3 % [facility] Comment: Interpretive Data Percent cell count reference ranges are not reported, since discordance with absolute values may lead to misinterpretation of CBC data. Current Interpretive Data was last revised on 2017. Monocyte pct 9.5 % [facility] Comment: Interpretive Data Percent cell count reference ranges are not reported, since discordance with absolute values may lead to misinterpretation of CBC data. Current Interpretive Data was last revised on 2017. Eosinophil pct 1.5 % [facility] Comment: Interpretive Data Percent cell count reference ranges are not reported, since discordance with absolute values may lead to misinterpretation of CBC data. Current Interpretive Data was last revised on 2017. Basophil pct 0.5 % [facility] Comment: Interpretive Data Percent cell count reference ranges are not reported, since discordance with absolute values may lead to misinterpretation of CBC data. Current Interpretive Data was last revised on 2017. Blood 08/17/2024 12:2 9 AM CDT 08/17/2024 12:50 AM CDT us Taylor Rivas MD LAB BLOOD ORDERABLES F inal Result [facility] Department [place] [address] * (ABNORMAL) CBC with auto differential (08/17/2024 12:29 AM CDT) WBC 17.11(H) 3.80 - 9.90 K/cumm Hgb 12.1 11.9 - 15.5 g/dL [facility] Hct 36.7 35.6 - 45.5 % [facility] Plt 319 150 - 400 K/cumm [facility] MPV 11.5 9.1 - 12.3 fL [facility] RBC 4.05 3.90 - 5.20 M/cumm [facility] MCV 90.6 81.3 - 96.4 fL [facility] MCH 29.9 27.1 - 33.3 pg [facility] MCHC 33.0 32.3 - 35.7 g/dL [facility] RDW CV 13.7 11.1 - 14.9 % [facility] RDW SD 44.9 35.7 - 48.1 fL [facility] NRBC abs 0.00 0.00 - 0.01 K/cumm [facility] Blood 08/17/2024 12:2 9 AM CDT 08/17/2024 12:50 AM CDT Taylor Rivas MD LAB BLOOD ORDERABLES F inal Result Performing Organization Address [facility] de Phone Number [facility] [place] [address] * (ABNORMAL) aPTT (08/17/2024 12:29 AM CDT) aPTT 23(L) 28 - 38 sec Comment: Interpretive Data Heparin therapeutic range: 66.0 - 100.0 seconds. Range based on correlation with therapeutic heparin activity range of 0.3 - 0.7 Units/mL. Current interpretive data was last revised on 2022. Blood 08/17/2024 12:2 9 AM CDT 08/17/2024 12:46 AM CDT Taylor Rivas MD LAB BLOOD ORDERABLES F inal Result Performing Organization Address [facility] de Phone Number [facility] Department [place] [address] * Protime-INR (08/17/2024 12:29 AM CDT) PT 10.2 9.7 - 13.0 sec INR 0.95 0.90 - 1.20 [facility] Comment: Interpretive data Oral anticoagulant therapeutic ranges: Venous thromboembolism prophylaxis or treatment: 2.0-3.0 CARDIOLOGY Standard range: 2.0-3.0 High-intensity range: 2.5-3.5 Refer to indication-specific guidelines for appropriate target ranges for prosthetic heart valve replacement. Current interpretive data was last revised on 2019. Blood 08/17/2024 12:2 9 AM CDT 08/17/2024 12:46 AM CDT Taylor Rivas MD LAB BLOOD ORDERABLES F inal Result Performing Organization Address [facility]/[place] [address] * Type and screen (08/17/2024 12:29 AM CDT) Yelena, indirect Negative ABO Rh A Negative [facility] Blood 08/17/2024 12:2 9 AM CDT 08/17/2024 12:42 AM CDT Narrative [facility] - 08/17/2024 1:36 AM CDT Has the patient had Daratumumab or Isatuximab in the past 6 months?->Unknown Taylor Rivas MD LAB BLOOD BANK TEST OR DERABLES Final Result Performing Organization Address [facility] [place] [address] * (ABNORMAL) Hemoglobin A1c (08/17/2024 12:29 AM CDT) Pathologist [facility] Hgb A1C 10.1(H) 4.0 - 5.6 % Estimated Average Glucose 243 mg/dL [facility] Comment: The ADA recommends reporting an estimated Average Glucose (eAG) with all Hemoglobin A1c results using the equation derived from a study of 507 normal and diabetic adults. Minority populations were underrepresented and children were not included. (Diabetes Care 2020; 43(S1): S66-S76). The eAG is not equivalent to a fasting glucose. Blood 08/17/2024 12:2 9 AM CDT 08/17/2024 12:53 AM CDT Narrative [facility] - 08/17/2024 6:26 PM CDT Reflex Janie Welch MD LAB BLOOD ORDERABLES Final Result Performing Organization Address [facility] [place] [address] * (ABNORMAL) Comprehensive metabolic panel (08/17/2024 12:29 AM CDT) Sodium 140 135 - 145 mmol/L Potassium, pl 4.6 3.3 - 4.9 mmol/L [facility] Comment:Hemolyzed; Potassium value may be falsely elevated by as much as 0.6-1.0 mmol/L. Suggest redraw and reanalysis. Chloride 103 97 - 110 mmol/L [facility] CO2 23 22 - 32 mmol/L [facility] Anion gap 14 2 - 15 mmol/L [facility] BUN 26(H) 6 - 25 mg/dL [facility] Creatinine 1.95(H) 0.60 - 1.10 mg/dL [facility] Glucose 222(H) 70 - 199 mg/dL [facility] Comment: Interpretive Data Fasting glucose >/= 126 [...] 2022. Calcium 10.0 8.5 - 10.3 mg/dL [facility] Bilirubin, total 0.3 0.1 - 1.2 mg/dL [facility] Protein, pl 8.0 6.5 - 8.5 g/dL [facility] Albumin 4.4 3.5 - 5.0 g/dL [facility] Alk phos 134(H) 40 - 130 Units/L [facility] ALT 13 7 - 45 Units/L [facility] AST 37 10 - 45 Units/L [facility] Comment:Hemolyzed; result ma y be falsely elevated Blood 08/17/2024 12:2 9 AM CDT 08/17/2024 12:50 AM CDT Taylor Rivas MD LAB BLOOD ORDERABLES F inal Result [facility] Department [place] [address] * XR Ankle Right 3 or More [...] Henrik Henriquez M.D. MM: MM Report ID: [id number] Reading Location: [id number] Procedure Note Henrik Henriquez MD - 08/16/2024 [...] Henrik Henriquez M.D. MM: MM Report ID: [id number] Reading Location: [place] [address] Neymar Hui MD IMG XR PROCEDURES Final Resu lt from Last 3 Months Insurance [employer] MEDICARE ADVANTAGE [employer] MEDICARE ADVANTAGE Advance Directives For more information, please contact: [phone] * Full Code (Latest Code Status on File) Date Activated Date Inactivated Comments 08/17/2024 4:53 AM 08/20/2024 3:33 PM Care Teams Electrical Engineer Relationship Specialty Start Date End Date Jing Baird PA [address] [place] [address] PCP - General Concrete Bucket Unloader 08/17/24
--- OUTSIDE RECORDS SUMMARY | 2024-08-24 15:46 | XMS_ITS | Encounter Summary ---
Author Organization [facility] Address [address] [place] [address] Phone Care Team Providers Care Health Underwriter Name Role Phone Jing Baird Primary Care Provider + Kvng Mendoza MD Unavailable Reason for Visit * Reason Comments Medication Refill Encounter Details Date Type Department Care Team (Late st Contact Info) Description 06/17/[address] [facility] Medical Group - Family Medicine [facility] [address] [place] [address] Jing Baird PAC [address] [place] [address] Medication Refill Social History Tobacco Use Types Packs/Day Years Used Date Smoking Tobacco: Former Cigarettes 1 47.1 0 11/03/1975 - 11/28/2022 Smokeless Tobacco: Never Alcohol Use Standard Drinks/Week Comments Not Currently 0 (1 standard drink = 0.6 oz pur e alcohol) [facility] Utilities Answer Date Recorded In the [...] Never 04/27/2023 How often do you attend quaker or faith serv ices? Never 04/27/2023 Do you belong to any clubs o r organizations such as quaker groups, unions, fraternal or athletic groups, or [...] Total Score - Questions 1-9 0 02/05 [facility] Occupat ional [facility] - Occupational Stress Questionnaire Answer [...] place to sleep or slept in a intermediate (including now)? No 04/27/2023 Education Answer Date [...] Telephone Encounter - Michelle Liao RN - 06/18/2023 8:03 AM CDT Rx Medication failed the protocol, provider to review and approve the medication order if appropriate. Requested Prescriptions Pending Prescriptions Disp Refills ondansetron (ZOFRAN) 4 MG Tablet [Pharmacy Med Name: ONDANSETRON HCL 4 MG TABLET] 10 Tablet 0 Sig: TAKE 1 TABLET BY MOUTH EVERY 8 HOURS NEEDED FOR NAUSEA- FIRST LINE UP TO 15 DAYS Not Delegated - 5-HT3 Antagonists Protocol Failed - 06/17/2023 12:15 PM Failed - This refill cannot be delegated Failed - Active on medication list Passed - Visit with relevant provider in past 12 months or upcoming 90 days Recent Visits Date Type Provider Dept 05/01/23 Telemedicine Jing Baird, PAC [facility] 04/10/23 Telemedicine Camelia White, NATURAL GAS SHOTHOLE DRILLER, EXPORT SPECIALIST [facility] 02/24/23 Office Visit Jing Bairde, LYLY [facility] 02/03/23 Office Visit Nai Almaguer APRN, CNP [facility] 06/19/22 Office Visit Oli Jing Barnes, LYLY [facility] Showing recent visits within past 365 days [...] do today. Behavioral Health Yes Mini Larios, PROFESSOR OF BIOSTATISTICS Help patient manage hypertension Care Plan [facility] HYPERTENSION CONCERN (PATIENT ON HIGH BLOOD PRESSURE MEDICATIONS) No Camelia White, NATURAL GAS SHOTHOLE DRILLER, EXPORT SPECIALIST Help patient manage nicotine dependency Care Plan M[facility]P NICOTINE DEPENDENCY CONCERN No Camelia White, NATURAL GAS SHOTHOLE DRILLER, EXPORT SPECIALIST Help patients manage type 2 diabetes Care Plan MCCP TYPE 2 DIABETES CONCERN No Camelia White, NATURAL GAS SHOTHOLE DRILLER, EXPORT SPECIALIST Help patient manage blood glucose Care Plan MCCP TYPE 2 DIABETES INSULIN - ANALOG PATTERN CONCERN No Camelia White, NATURAL GAS SHOTHOLE DRILLER, EXPORT SPECIALIST Help patient manage nicotine dependency Care Plan MCCP NICOTINE DEPENDENCY CONCERN No Camelia White, NATURAL GAS SHOTHOLE DRILLER, EXPORT SPECIALIST documented as of this encounter Visit Diagnoses [...] 19 02/22/2024 02/22/2024 03/03/2024 12:1 6 AM BUNCHER HAND COVID - 19 05/17/2024 05/17/2024 05/17/2024 10:4 5 AM BUNCHER HAND Influenza 05/17/2024 05/17/2024 05/24/2024 12:1 6 AM BUNCHER HAND COVID - 19 06/11/2024 06/11/2024 06/11/2024 8:06 PM BUNCHER HAND Assessment Noted Time PHQ-9 Depression Total Score: 0 02/25/20 2:41 PM BUNCHER HAND documented as of this encounter Care Teams Health Underwriter Relationship Specialty Start Date End Date Jing Baird PAC [address] [place] [address] PCP - General Physician Rubber Cutter And Shape Carver 12/29/18 07/31/24 Kvng Mendzoa MD [address] [address] Consulting Physician Endocrinology 10/10/21 documented as of this encounter
--- OUTSIDE RECORDS SUMMARY | 2024-08-24 15:46 | XMS_ITS | Encounter Summary ---
Author Organization [facility] Address [address] [place] [address] Phone Care Team Providers Care Tire Fixer Name Role Phone Jing Baird Primary Care Provider + Kvng Mendoza MD Unavailable Encounter Details Date Type Department Care Team (Late st Contact Info) Description 05/05/2023 Lab Requisition [facility] [address] [place] [address] Jing Baird PAC [address] [place] [address] Type 2 diabetes mellitus with hyperglycemia (HCC) Social History Tobacco Use Types Packs/Day Years Used Date Smoking Tobacco: Former Cigarettes 1 47.1 0 11/03/1975 - 11/28/2022 Smokeless Tobacco: Never Alcohol Use Standard Drinks/Week Comments Not Currently 0 (1 standard drink = 0.6 oz pur e alcohol) [facility] Utilities Answer Date Recorded In the past 12 months has th e electric, gas, oil, or water company [...] Never 04/27/2023 How often do you attend hindu or oriental orthodox serv ices? Never 04/27/2023 Do you belong to any clubs o r organizations such as hindu groups, unions, fraternal or athletic groups, or [...] Total Score - Questions 1-9 0 02/05 [facility] of Occupat ional Health - Occupational Stress [...] place to sleep or slept in a care home (including now)? No 04/27/2023 Education Answer [...] do today. Behavioral Health Yes Mini Larios, DEVOPS SOLUTIONS ARCHITECT Help patient manage hypertension Care Plan MCCP HYPERTENSION CONCERN (PATIENT ON HIGH BLOOD PRESSURE MEDICATIONS) No Camelia White, SENIOR PRODUCT DESIGNER, KILN BURNER HELPER Help patient manage nicotine dependency Care Plan MCCP NICOTINE DEPENDENCY CONCERN No Camelia White, SENIOR PRODUCT DESIGNER, KILN BURNER HELPER Help patients manage type 2 diabetes Care Plan MCCP TYPE 2 DIABETES CONCERN No Camelia White, SENIOR PRODUCT DESIGNER, KILN BURNER HELPER Help patient manage blood glucose Care Plan MCCP TYPE 2 DIABETES INSULIN - ANALOG PATTERN CONCERN No Camelia White, SENIOR PRODUCT DESIGNER, KILN BURNER HELPER Help patient manage nicotine dependency Care Plan MCCP NICOTINE DEPENDENCY CONCERN No Camelia White, SENIOR PRODUCT DESIGNER, KILN BURNER HELPER documented as of this encounter Procedures Procedure Name Priority Date/Time Associated Diagnosis Comments CBC WITH AUTO DIFFERENTIAL Routine 05/05/2023 4:20 PM PATIENT BILLER Type 2 diabetes mellitus with hyperglycemia (HCC) COMPLETE BLOOD COUNT (CBC) WITH DIFF Routine 05/05/2023 4:20 PM PATIENT BILLER Type 2 diabetes mellitus with hyperglycemia (HCC) BASIC METABOLIC PANEL W/ CALCIUM TOTAL Routine 05/05/2023 4:20 PM PATIENT BILLER Type 2 diabetes mellitus with hyperglycemia (HCC) documented in this encounter Results * (ABNORMAL) CBC WITH AUTO DIFFERENTIAL (05/05/2023 4:20 PM PATIENT BILLER) WBC 12.61(H) 4.00 - 12.00 10(3)/mcL 05/05/2023 5:34 PM PATIENT BILLER [facility] RBC 4.28 3.80 - 5.30 10(6)/mcL 05/05/2023 5:34 PM PATIENT BILLER [facility] HEMOGLOBIN (HGB) 14.1 12.0 - 15.8 g/dL 05/05/2023 5:34 PM PATIENT BILLER [facility] HEMATOCRIT (HCT) 44.1 36.0 - 47.0 % 05/05/2023 5:34 PM PATIENT BILLER [facility] MCV 103.0(H) 82.0 - 96.0 fL 05/05/2023 5:34 PM PATIENT BILLER [facility] MCH 32.9 26.0 - 34.0 pg 05/05/2023 5:34 PM PATIENT BILLER [facility] MCHC 32.0 31.0 - 36.0 g/dL 05/05/2023 5:34 PM PATIENT BILLER [facility] PLATELET COUNT 267 140 - 440 10(3)/mcL 05/05/2023 5:34 PM [facility] RDW 13.2 11.8 - 15.5 % 05/05/2023 5:34 PM [facility] MPV 12.5(H) 9.7 - 12.4 fL 05/05/2023 5:34 PM PATIENT BILLER [facility] NEUTROPHILS 49.1 47.0 - 73.0 % 05/05/2023 5:34 PM PATIENT BILLER [facility] LYMPHOCYTES 36.9 18.0 - 42.0 % 05/05/2023 5:34 PM PATIENT BILLER [facility] MONOCYTES 8.4 4.0 - 12.0 % 05/05/2023 5:34 PM PATIENT BILLER [facility] EOSINOPHILS 5.0 0.0 - 5.0 % 05/05/2023 5:34 PM PATIENT BILLER [facility] BASOPHILS 0.6 0.0 - 1.0 % 05/05/2023 5:34 PM [facility] ABSOLUTE NEUTROPHILS 6.19 1.60 - 7.70 10(3)/mcL 05/05/2023 5:34 PM [facility] ABSOLUTE LYMPHOCYTES 4.65(H) 1.30 - 3.20 10(3)/[facility] 05/05/2023 5:34 PM PATIENT BILLER [facility] ABSOLUTE MONOCYTES 1.06(H) 0.20 - 1.00 10(3)/[facility] 05/05/2023 5:34 PM [facility] ABSOLUTE EOSINOPHIL 0.63(H) 0.00 - 0.40 10(3)/mcL 05/05/2023 5:34 PM [facility] ABSOLUTE BASOPHILS 0.08 0.00 - 0.10 10(3)/[facility] 05/05/2023 5:34 PM [facility] NRBC PER 100 WBC 0 05/05/19 5:34 PM [facility] Blood No Phlebotomy Charged / Unknown 05/05/2023 4:20 PM PATIENT BILLER 05/05/2023 5:30 PM PATIENT BILLER us Jing Baird PAC HEMATOLOGY ORDERABLES Fi nal Result [facility] [address] [place] [address] * (ABNORMAL) BASIC METABOLIC PANEL W/ CALCIUM TOTAL (05/05/2023 4:20 PM PATIENT BILLER) SODIUM 140 136 - 145 mmol/L 05/05/2023 5:53 PM [facility] POTASSIUM 4.1 3.5 - 5.1 mmol/L 05/05/2023 5:53 PM [facility] CHLORIDE 106 98 - 107 mmol/L 05/05/2023 5:53 PM [facility] CO2, VENOUS 23 22 - 30 mmol/L 05/05/2023 5:53 PM [facility] ANION GAP 15.1 <18.0 mmol/L 05/05/2023 5:53 PM [facility] GLUCOSE 181(H) 70 - 99 mg/dL 05/05/2023 5:53 PM [facility] BUN 21(H) 10 - 20 mg/dL 05/05/2023 5:53 PM [facility] CREATININE, BLOOD 1.34(H) 0.60 - 1.00 mg/dL 05/05/2023 5:53 PM [facility] BUN/CREATININE RATIO 16 12 - 20 ratio 05/05/2023 5:53 PM [facility] CALCIUM 9.3 8.7 - 10.5 mg/dL 05/05/2023 5:53 PM [facility] GFR, ESTIMATED 44(L) >=60 05/05/2023 5:53 PM [facility] Comment: Creatinine Clearance is the preferred criteria for selecting drug dose adjustments in renally impaired patients. The GFR is provided as additional pertinent clinical information. GFR is reported in mL/min/1.73 sq m. Calculation based on the Chronic Kidney Disease Epidemiology Collaboration (CKD- EPI) equation refit without adjustment for race. GFR, EST. 48(L) >=60 024 5:53 PM [facility] GFR, EST. NONAFRICAN 40(L) >=60 05/05/2023 5:53 PM PATIENT BILLER [facility] Blood No Phlebotomy Charged / Unknown 05/05/2023 4:20 PM PATIENT BILLER 05/05/2023 5:30 PM PATIENT BILLER us Jing Baird PAC CHEMISTRY ORDERABLES Fin al Result [facility] [address] [place] [address] documented in this encounter Visit Diagnoses Diagnosis Type 2 diabetes mellitus with hyperglycemia (HCC) Type II or unspecified type diabetes mellitus without mention of complication, not stated as uncontrolled documented in this encounter Additional Health Concerns [...] 19 02/22/2024 02/22/2024 03/03/2024 12:1 6 AM PATIENT BILLER COVID - 19 05/17/2024 05/17/2024 05/17/2024 10:4 5 AM PATIENT BILLER Influenza 05/17/2024 05/17/2024 05/24/2024 12:1 6 AM PATIENT BILLER COVID - 19 06/11/2024 06/11/2024 06/11/2024 8:06 PM PATIENT BILLER Assessment Noted Time PHQ-9 Depression Total Score: 0 02/25/20 23 2:41 PM PATIENT BILLER documented as of this encounter Care Teams Tire Fixer Relationship Specialty Start Date End Date Jing Baird, PAC [address] [place] [address] PCP - General Physician Magazine Designer 12/29/18 07/31/24 Kvng Mendoza MD [address] [address] Consulting Physician Endocrinology 10/10/21 documented as of this encounter
--- OUTSIDE RECORDS SUMMARY | 2024-08-24 15:46 | XMS_ITS | Encounter Summary ---
Author Organization [facility] Address [address] [place] [address] Phone Care Team Providers Care Group Chief Operator Name Role Phone Jing Baird Primary Care Provider + Kvng Mendoza MD Unavailable Reason for Visit * Reason Comments Medication Refill Encounter Details Date Type Department Care Team (Late st Contact Info) Description 07/31/2020 Refill [facility] Medical Group - Family [facility] [address] [place] [address] Jing Baird PAC [address] [place] [address] Medication Refill Social History Tobacco Use Types [...] - 19 03/24/2023 03/24/2023 03/25/2023 8:22 AM CHIP UNLOADER C. difficile Rule-Out 03/24/2023 03/24/20232022 4:16 PM CHIP UNLOADER COVID - 19 04/27/2023 04/27/2023 04/28/2023 8:53 AM CHIP UNLOADER COVID - 19 01/08/2024 01/08/2024 01/08/2024 1:48 PM CDT COVID - 19 01/13/2024 01/13/2024 01/13/2024 3:44 PM CDT Respiratory Rule-Out 01/13/2024 01/13/2024 024 12:16 AM CDT COVID - 19 02/22/2024 02/22/2024 03/03/2024 12:1 6 AM CHIP UNLOADER COVID - 19 05/17/2024 05/17/2024 05/17/2024 10:4 5 AM CHIP UNLOADER Influenza 05/17/2024 05/17/2024 05/24/2024 12:1 6 AM CHIP UNLOADER COVID - 19 06/11/2024 06/11/2024 06/11/2024 8:06 PM CHIP UNLOADER Assessment Noted Time PHQ-9 Depression Total Score: 3 08/25/19 20 11:40 AM CDT documented as of this encounter Care Teams Group Chief Operator Relationship Specialty Start Date End Date Jign Baidr PAC [address] [place] [address] PCP - General Physician Corporate Technical Recruiter 12/29/18 07/31/24 Kvng Mendoza MD [address] [address] Consulting Physician Endocrinology 10/10/21 documented as of this encounter
--- OUTSIDE RECORDS SUMMARY | 2024-08-24 15:46 | XMS_ITS | Encounter Summary ---
Author Organization [facility] Address [address] [address] Phone Care Team Providers Care Accounting Support Specialist Name Role Phone Jing Baird Primary Care Provider + Kvng Mendoza MD Unavailable Reason for Visit * Reason Comments Medication Refill Encounter Details Date Type Department Care Team (Late st Contact Info) Description 07/31/2024 Refill [facility] Medical Group - Family Medicine [facility] [address] [place] [address] Jing Baird PAC [address] [place] [address] Medication Refill Social History Tobacco Use Types Packs/Day Years Used Date Smoking Tobacco: Every Day Cigarettes Smokeless Tobacco: Never Alcohol Use Standard Drinks/Week Comments Not Currently 0 (1 standard drink = 0.6 oz pur e alcohol) [facility] Utilities Answer Date Recorded In the past 12 months has [employer], gas, oil, or water [employer] threatened to shut off services in your home? No 06/12/2024 Social Connection and Isolation Panel [NHANES] A nswer Date Recorded In a typical week, how many times do you talk on the phone with family, friends, or neighbors? Patient declined 05/12/2024 How often do you get togethe r with friends or relatives? Patient declined 05/12/2024 How often do you attend orthodox or advent serv ices? Patient declined 05/12/2024 Do you belong to any clubs o r organizations such as orthodox groups, unions, fraternal or athletic groups, or [...] Score - Questions 1-9 0 10/0 12/2023 [facility] of Occupat ional Health - Occupational Stress [...] place to sleep or slept in a assisted (including now)? No 04/27/2023 Housing Stability Vital Sign Answer Deven e Recorded In the last 12 months, was t here a time when you were not able to pay the mortgage or rent on time? No 06/12/2024 In the past 12 months, how m any times have you moved where you were living? 0 06/12/2024 At any time in the past 12 m [facility], were you homeless or living in a assisted (including now)? No 06/12/2024 Education Answer Date [...] do today. Behavioral Health Yes Mini Larios, SAFETY AND HEALTH MANAGER Help patient manage hypertension Care Plan MCCP HYPERTENSION CONCERN (PATIENT ON HIGH BLOOD PRESSURE MEDICATIONS) No Camelia White, SHIPPING INSPECTOR, EYE PHYSICIAN Help patient manage nicotine dependency Care Plan MCCP NICOTINE DEPENDENCY CONCERN No Camelia White, SHIPPING INSPECTOR, EYE PHYSICIAN Help patients manage type 2 diabetes Care Plan MCCP TYPE 2 DIABETES CONCERN No Camelia White, SHIPPING INSPECTOR, EYE PHYSICIAN Help patient manage blood glucose Care Plan MCCP TYPE 2 DIABETES INSULIN - ANALOG PATTERN CONCERN No Camelia White, SHIPPING INSPECTOR, EYE PHYSICIAN Help patient manage nicotine dependency Care Plan MCCP NICOTINE DEPENDENCY CONCERN No Camelia White, SHIPPING INSPECTOR, EYE PHYSICIAN documented as of this encounter Visit Diagnoses Not on filedocumented in this encounter Additional Health Concerns Active Problems Noted Date Diagnosed Date [facility] HYPERTENSION CONCERN (P ATIENT ON HIGH BLOOD PRESSURE MEDICATIONS) 04/10/2023 MCCP NICOTINE DEPENDENCY CONCERN 04/10/2023 [facility] TYPE 2 DIABETES CONCERN 04/10/2023 [facility] TYPE 2 DIABETES INSULIN - ANALOG PATTERN CO NCERN 04/10/2023 [facility] NICOTINE DEPENDENCY CONCERN 04/10/2023 Assessment Noted Time PHQ-9 Depression Total Score: 0 01/13/20 24 3:15 PM CDT documented as of this encounter Care Teams Accounting Support Specialist Relationship Specialty Start Date End Date Jing Baird PAC [address] [place] [address] PCP - General Physician Aeronautical Design Engineer 12/29/18 07/31/24 Kvng Mendoza MD [address] [address] Consulting Physician Endocrinology 10/10/21 documented as of this encounter
--- OUTSIDE RECORDS SUMMARY | 2024-08-24 15:46 | XMS_ITS | Encounter Summary ---
Author Organization [facility] Address [address] [place] [address] Phone Care Team Providers Care Admissions Manager Rn Name Role Phone Jing Baird Primary Care Provider + Kvng Mendoza MD Unavailable Reason for Visit * Reason Comments Medication Refill Encounter Details Date Type Department Care Team (Late st Contact Info) Description 10/03/2022 Refill [facility] Medical Group - Family Medicine [facility] [address] [place] [address] Jing Baird PAC [address] [place] [address] Medication Refill Social History Tobacco Use Types [...] encounter Miscellaneous Notes * Telephone Encounter - Minda Shultz, RN - 10/03/2022 8:36 AM CDT PDMP for all 08/22/22 30 day supply. Pharmacy requested 11 refills? Medication failed the protocol, provider to review and approve the medication order if appropriate. Requested Prescriptions Pending Prescriptions Disp Refills gabapentin (NEURONTIN) 300 MG Capsule [Pharmacy Med Name: gabapentin 300 mg capsule] 360 Capsule Sig: TAKE ONE CAPSULE BY MOUTH THREE TIMES DAILY @ 9AM-1PM-5PM Not Delegated - Anticonvulsants Excluding Benzodiazepines Protocol Failed - 10/03/2022 6:50 AM Failed - This refill cannot be delegated Passed - Visit with relevant provider in past 12 months or upcoming 90 days Recent Visits Date Type Provider Dept 06/19/22 Office Visit Jing Baird PAC [facility] 12/19/21 Office Visit Jing Baird PAC [facility] 10/15/21 Office Visit Jing Baird [facility] Showing recent visits within past 365 days and meeting all other requirements Future Appointments No visits were found meeting these conditions. Showing future appointments within next 90 days and meeting all other requirements busPIRone (BUSPAR) 10 MG Tablet [Pharmacy Med Name: buspirone 10 mg tablet] 180 Tablet Sig: TAKE ONE TABLET BY MOUTH TWICE DAILY @ 9AM & 5PM Buspirone (6 Month Refill Only) Protocol Failed - 10/03/2022 6:50 AM Failed - Has an encounter in the past 6 months with a depression or anxiety visit diagnosis Passed - Visit with relevant provider in past 6 months or upcoming 90 days Recent Visits Date Type Provider Dept 06/19/22 Office Visit Jing Baird PAC [facility] Showing recent visits within past 182 days and meeting all other requirements Future Appointments No visits were found meeting these conditions. Showing future appointments within next 90 days and meeting all other requirements Passed - Patient has established therapy with Buspirone for at least 6 months celecoxib (CeleBREX) 200 MG Capsule [Pharmacy Med Name: celecoxib 200 mg capsule] 90 Capsule Sig: TAKE ONE CAPSULE BY MOUTH DAILY AT 9AM NSAIDs Protocol Passed - 10/03/2022 6:50 AM Passed - Normal serum creatinine in past 12 months CREATININE - POCT Date Value Ref Range Status 11/01/2020 1.0 0.6 - 1.3 mg/dL Final CREATININE, BLOOD Date Value Ref Range Status 06/19/2022 0.73 0.60 - 1.10 mg/dL Final Passed - Visit with relevant provider in past 12 months or upcoming 90 days Recent Visits Date Type Provider Dept 06/19/22 Office Visit Jing Baird PAC [facility] 12/19/21 Office Visit Jing Baird PAC [facility] 10/15/21 Office Visit Jing Baird PAC [facility] Showing recent visits within past 365 days and meeting all other requirements Future Appointments No visits were found meeting these conditions. Showing future appointments within next 90 days and meeting all other requirements Passed - No matching NSAID med order in past 45 days No matching medication orders between 08/19/2022 8:36 AM and 10/03/2022 8:36 AM Passed - AST less than 55 or ALT less than 90 in past 12 months SGOT (AST) Date Value Ref Range Status 06/19/2022 17 <=32 U/L Final SGPT (ALT) Date Value Ref Range Status 06/19/2022 13 <=41 U/L Final Passed - HGB greater than 10 or HCT greater than 30 in past 12 months HEMOGLOBIN (HGB) Date Value Ref Range Status 06/19/2022 14.0 12.0 - 15.8 g/dL Final HEMATOCRIT (HCT) Date Value Ref Range Status 06/19/2022 43.3 36.0 - 47.0 % Final levothyroxine (SYNTHROID) 125 MCG Tablet [Pharmacy Med Name: levothyroxine 125 mcg tablet] 90 Tablet Sig: TAKE ONE TABLET BY MOUTH DAILY AT 7AM Thyroid Hormones Protocol Passed - 10/03/2022 6:50 AM Passed - Visit with relevant provider in past 12 months or upcoming 90 days Recent Visits Date Type Provider Dept 06/19/22 Office Visit Jing Baird PAC [facility] 12/19/21 Office Visit Jing Baird, PAC [facility] 10/15/21 Office Visit Jing Baird, PAC [facility] Showing recent visits within past 365 days and meeting all other requirements Future Appointments No visits were found meeting these conditions. Showing future appointments within next 90 days and meeting all other requirements Passed - Normal TSH in past 12 months TSH Date Value Ref Range Status 06/19/2022 0.371 0.270 - 4.200 mIU/L Final documented in this encounter Plan of Treatment [...] - 19 03/24/2023 03/24/2023 03/25/2023 8:22 AM VISUAL DESIGN LEAD C. difficile Rule-Out 03/24/2023 03/24/20232022 4:16 PM VISUAL DESIGN LEAD COVID - 19 04/27/2023 04/27/2023 04/28/2023 8:53 AM VISUAL DESIGN LEAD COVID - 19 01/08/2024 01/08/2024 01/08/2024 1:48 PM CDT COVID - 19 01/13/2024 01/13/2024 01/13/2024 3:44 PM CDT Respiratory Rule-Out 01/13/2024 01/13/2024 024 12:16 AM CDT COVID - 19 02/22/2024 02/22/2024 03/03/2024 12:1 6 AM VISUAL DESIGN LEAD COVID - 19 05/17/2024 05/17/2024 05/17/2024 10:4 5 AM VISUAL DESIGN LEAD Influenza 05/17/2024 05/17/2024 05/24/2024 12:1 6 AM VISUAL DESIGN LEAD COVID - 19 06/11/2024 06/11/2024 06/11/2024 8:06 PM VISUAL DESIGN LEAD Assessment Noted Time PHQ-9 Depression Total Score: 1 08/03/19 21 10:00 AM CDT documented as of this encounter Care Teams Admissions Manager Rn Relationship Specialty Start Date End Date Jing Baird PAC [address] [place] [address] PCP - General Physician Graduate Recruiter 12/29/18 07/31/24 Kvng Mendoza MD [address] [address] Consulting Physician Endocrinology 10/10/21 documented as of this encounter
--- OUTSIDE RECORDS SUMMARY | 2024-08-24 15:46 | XMS_ITS | Encounter Summary ---
Author Organization [facility] Address [address] [place] [address] Phone Care Team Providers Care Grief Counsellor Name Role Phone Jing Baird Primary Care Provider + Kvng Mendoza MD Unavailable Reason for Visit * Reason Comments Medication Refill Encounter Details Date Type Department Care Team (Late st Contact Info) Description 01/29/2023 [facility]ill [facility] [address] [place] [address] Jing Baird PAC [address] [place] [address] Medication Refill Social History Tobacco Use Types [...] suspected to have Coronavirus/COVID-19? No / Unsure 01/09/2023 12:38 PM CDT documented as of this encounter [...] - 19 03/24/2023 03/24/2023 03/25/2023 8:22 AM RN OBSERVATION C. difficile Rule-Out 03/24/2023 03/24/20232022 4:16 PM RN OBSERVATION COVID - 19 04/27/2023 04/27/2023 04/28/2023 8:53 AM RN OBSERVATION COVID - 19 01/08/2024 01/08/2024 01/08/2024 1:48 PM CDT COVID - 19 01/13/2024 01/13/2024 01/13/2024 3:44 PM CDT Respiratory Rule-Out 01/13/2024 01/13/2024 024 12:16 AM CDT COVID - 19 02/22/2024 02/22/2024 03/03/2024 12:1 6 AM RN OBSERVATION COVID - 19 05/17/2024 05/17/2024 05/17/2024 10:4 5 AM RN OBSERVATION Influenza 05/17/2024 05/17/2024 05/24/2024 12:1 6 AM RN OBSERVATION COVID - 19 06/11/2024 06/11/2024 06/11/2024 8:06 PM RN OBSERVATION Assessment Noted Time PHQ-9 Depression Total Score: 1 08/03/19 21 10:00 AM CDT documented as of this encounter Care Teams Grief Counsellor Relationship Specialty Start Date End Date Jing Baird PAC [address] [place] [address] PCP - General Physician Political Cartoonist 12/29/18 07/31/24 Kvng Mendoza MD [address] [phone] Consulting Physician Endocrinology 10/10/21 documented as of this encounter
--- OUTSIDE RECORDS SUMMARY | 2024-08-24 15:46 | XMS_ITS | Encounter Summary ---
Author Organization [facility] Address [address] [place] [address] Phone Care Team Providers Care Furniture Repair Technician Name Role Phone Jing Baird Primary Care Provider + Kvng Mendoza MD Unavailable Reason for Visit * Reason Comments Medication Refill Encounter Details Date Type Department Care Team (Late st Contact Info) Description 07/18/2023 Refill [facility] - [facility]ocrinology [facility] [address] [place] [address] Kvng Mendoza MD [address] [phone] Medication Refill Social History Tobacco Use Types Packs/Day Years Used Date Smoking Tobacco: Former Cigarettes 1 47.1 0 11/03/1975 - 11/28/2022 Smokeless Tobacco: Never Alcohol Use Standard Drinks/Week Comments Not Currently 0 (1 standard drink = 0.6 oz pur e alcohol) [facility] Utilities Answer Date Recorded In the past [...] Never 04/27/2023 How often do you attend holiness or jain serv ices? Never 04/27/2023 Do you belong to any clubs o r organizations such as holiness groups, unions, fraternal or athletic groups, or [...] Total Score - Questions 1-9 0 02/05 [facility] of Occupat ional [facility] - Occupational Stress Questionnaire Answer [...] place to sleep or slept in a residential (including now)? No 04/27/2023 Education Answer Date [...] Telephone Encounter - Miranda Antonio RN - 07/20/2023 8:46 AM CDT Medication(s) refilled and signed per [facility] Chronic Medication Refill Standing Order for Pediatric and Adult Patients. documented in this encounter Plan of Treatment [...] HIGH BLOOD PRESSURE MEDICATIONS) No Camelia White, POLICE ACADEMY INSTRUCTOR, INVERFORM MACHINE OPERATOR Help patient manage nicotine dependency Care Plan [facility] NICOTINE DEPENDENCY CONCERN No Camelia White, POLICE ACADEMY INSTRUCTOR, INVERFORM MACHINE OPERATOR Help patients manage type 2 diabetes Care Plan [facility] TYPE 2 DIABETES CONCERN No Camelia White, POLICE ACADEMY INSTRUCTOR, INVERFORM MACHINE OPERATOR Help patient manage blood glucose Care Plan [facility] TYPE 2 DIABETES INSULIN - ANALOG PATTERN CONCERN No Camelia White, POLICE ACADEMY INSTRUCTOR, INVERFORM MACHINE OPERATOR Help patient manage nicotine dependency Care Plan [facility] [place]PENDENCY [place]CERN No Camelia White, POLICE ACADEMY INSTRUCTOR, INVERFORM MACHINE OPERATOR documented as of this encounter Visit Diagnoses Not on filedocumented in this encounter Additional Health Concerns Active Problems Noted Date Diagnosed Date [facility] HYPERTENSION CONCERN (P ATIENT ON HIGH BLOOD PRESSURE MEDICATIONS) 04/10/2023 [facility] NICOTINE DEPENDENCY CONCERN 04/10/2023 [facility] TYPE 2 DIABETES CONCERN 04/10/2023 [facility] TYPE 2 DIABETES INSULIN - ANALOG PATTERN CO NCERN 04/10/2023 [facility] NICOTINE DEPENDENCY CONCERN 04/10/2023 Infection Onset Date Last Indicated Resolved Time COVID - 19 01/08/2024 01/08/2024 01/08/2024 1:48 PM CDT COVID - 19 01/13/2024 01/13/2024 01/13/2024 3:44 PM CDT Respiratory Rule-Out 01/13/2024 01/13/2024 024 12:16 AM CDT COVID - 19 02/22/2024 02/22/2024 03/03/2024 12:1 6 AM OXIDIZED FINISH PLATER COVID - 19 05/17/2024 05/17/2024 05/17/2024 10:4 5 AM OXIDIZED FINISH PLATER Influenza 05/17/2024 05/17/2024 05/24/2024 12:1 6 AM OXIDIZED FINISH PLATER COVID - 19 06/11/2024 06/11/2024 06/11/2024 8:06 PM OXIDIZED FINISH PLATER Assessment Noted Time PHQ-9 Depression Total Score: 0 02/25/20 23 2:41 PM OXIDIZED FINISH PLATER documented as of this encounter Care Teams Furniture Repair Technician Relationship Specialty Start Date End Date Jing Baird PAC [address] [place] [address] PCP - General Physician Splicer Helper 12/29/18 07/31/24 Kvng Mendoza MD [address] [phone] Consulting Physician Endocrinology 10/10/21 documented as of this encounter
--- OUTSIDE RECORDS SUMMARY | 2024-08-24 15:46 | XMS_ITS | Encounter Summary ---
Author Organization [facility] Address [address] [place] [address] Phone Care Team Providers Care Steaming Machine Operator Name Role Phone Jing Baird Primary Care Provider + Kvng Mendoza MD Unavailable Reason for Visit * Reason Comments Medication Refill Encounter Details Date Type Department Care Team (Late st Contact Info) Description 02/10/2024 Refill [facility] [address] [place] [id number] Jing Baird PAC [address] [place] [address] Medication Refill Social History Tobacco Use Types Packs/Day Years Used Date Smoking Tobacco: Every Day Cigarettes Smokeless Tobacco: Never Alcohol Use Standard Drinks/Week Comments Not Currently 0 (1 standard drink = 0.6 oz pur e alcohol) [facility] Utilities Answer Date Recorded In the past 12 months has [employer], gas, oil, or water company threatened to shut off services in your home? No 04/27/2023 Social Connection and Isolation Panel [NHANES] A nswer Date Recorded In a typical week, how many times do you talk on the phone with family, friends, or neighbors? Never 04/27/2023 How often do you get together with friends or re latives? Never 04/27/2023 How often do you attend roman catholic or pentecostalism serv ices? Never 04/27/2023 Do you belong to any clubs o r organizations such as roman catholic groups, unions, fraternal or athletic groups, or [...] Score - Questions 1-9 0 10/0 12/2023 [facility] of Occupat ional [facility] - Occupational Stress Questionnaire Answer Date Recorded [...] to sleep or slept in a senior care (including now)? No 04/27/2023 Education Answer Date [...] encounter Miscellaneous Notes * Telephone Encounter - Connie Cagle RN - 02/10/2024 4:00 PM EMPLOYEE BENEFITS SPECIALIST The original prescription was reordered on 02/10/2024 by Jing Baird PAC. Renewing this prescription may not be appropriate. OYEE BENEFITS SPECIALIST documented in this encounter Plan of Treatment [...] HIGH BLOOD PRESSURE MEDICATIONS) No Camelia White, GENERAL SCIENCE TEACHER, ACCOUNT MANAGER FOREST SERVICE Help patient manage nicotine dependency Care Plan [facility] NICOTINE DEPENDENCY CONCERN No Camelia White, GENERAL SCIENCE TEACHER, ACCOUNT MANAGER FOREST SERVICE Help patients manage type 2 diabetes Care Plan [facility] TYPE 2 DIABETES CONCERN No Camelia White, GENERAL SCIENCE TEACHER, ACCOUNT MANAGER FOREST SERVICE Help patient manage blood glucose Care Plan [facility] TYPE 2 DIABETES INSULIN - ANALOG PATTERN CONCERN No Camelia White, GENERAL SCIENCE TEACHER, ACCOUNT MANAGER FOREST SERVICE Help patient manage nicotine dependency Care Plan [facility] NICOTINE DEPENDENCY CONCERN No Camelia White, GENERAL SCIENCE TEACHER, ACCOUNT MANAGER FOREST SERVICE documented as of this encounter Visit Diagnoses Not on filedocumented in this encounter Additional Health Concerns Active Problems Noted Date Diagnosed Date [facility] HYPERTENSION CONCERN (P ATIENT ON HIGH BLOOD PRESSURE MEDICATIONS) 04/10/2023 [facility] NICOTINE DEPENDENCY CONCERN 04/10/2023 [facility] TYPE 2 DIABETES CONCERN 04/10/2023 [facility] TYPE 2 DIABETES INSULIN - ANALOG PATTERN CO NCERN 04/10/2023 [facility] NICOTINE DEPENDENCY CONCERN 04/10/2023 Infection Onset Date Last Indicated Resolved Time COVID - 19 02/22/2024 02/22/2024 03/03/2024 12:1 6 AM EMPLOYEE BENEFITS SPECIALIST COVID - 19 05/17/2024 05/17/2024 05/17/2024 10:4 5 AM EMPLOYEE BENEFITS SPECIALIST Influenza 05/17/2024 05/17/2024 05/24/2024 12:1 6 AM EMPLOYEE BENEFITS SPECIALIST COVID - 19 06/11/2024 06/11/2024 06/11/2024 8:06 PM EMPLOYEE BENEFITS SPECIALIST Assessment Noted Time PHQ-9 Depression Total Score: 0 01/13/20 24 3:15 PM CDT documented as of this encounter Care Teams Steaming Machine Operator Relationship Specialty Start Date End Date Jing Baird PAC [address] [place] [address] PCP - General Physician Special Forces Engineer Sergeant 12/29/18 07/31/24 Kvng Mendoza MD [address] [phone] Consulting Physician Endocrinology 10/10/21 documented as of this encounter
--- OUTSIDE RECORDS SUMMARY | 2024-08-24 15:46 | XMS_ITS | Encounter Summary ---
Author Organization [facility] Address [address] [place] [address] Phone Care Team Providers Care Finance Executive Name Role Phone Jing Baird Primary Care Provider + Kvng Mendoza MD Unavailable Reason for Visit * Reason Comments Medication Refill Encounter Details Date Type Department Care Team (Late st Contact Info) Description 06/15/2023 Refill [facility] - Family Medicine [facility] [address] [place] [address] Jing Baird PAC [address] [place] [address] Medication Refill Social History Tobacco Use Types Packs/Day Years Used Date Smoking Tobacco: Former Cigarettes 1 47.1 0 11/03/1975 - 11/28/2022 Smokeless Tobacco: Never Alcohol Use Standard Drinks/Week Comments Not Currently 0 (1 standard drink = 0.6 oz pur e alcohol) [facility] Utilities Answer Date Recorded In the [...] Never 04/27/2023 How often do you attend taoism or muslim serv ices? Never 04/27/2023 Do you belong to any clubs o r organizations such as taoism groups, unions, fraternal or athletic groups, or [...] Total Score - Questions 1-9 0 02/05 [facility] of Occupat ional [facility] - Occupational Stress Questionnaire Answer Date [...] Telephone Encounter - Michelle Liao RN - 06/16/2023 9:04 AM CDT Medication(s) refilled and signed per [facility] Chronic Medication Refill Standing Order for Pediatricand Adult Patients. Requested Prescriptions Pending Prescriptions Disp Refills montelukast (SINGULAIR) 10 MG Tablet [Pharmacy Med Name: MONTELUKAST SOD 10 MG TABLET] 90 Tablet 1 Sig: TAKE 1 TABLET BY MOUTH EVERY DAY Leukotriene Inhibitors Protocol Passed - 06/15/2023 6:47 PM Passed - Visit with relevant provider in past 12 months or upcoming 90 days Recent Visits Date Type Provider Dept 05/01/23 Telemedicine Jing Baird PAC [facility] [place] 04/10/23 Telemedicine Camelia White APRN, INTERNET SYSTEMS ADMINISTRATOR [facility] [place] 02/24/23 Office Visit Jing Baird PAC [facility] [place] 02/03/23 Office Visit Nai Almaguer APRN, INTERNET SYSTEMS ADMINISTRATOR [facility] [place] 06/19/22 Office Visit Jing Baird PAC [facility] [place] Showing recent visits within past 365 days and meeting all other requirements Future Appointments No visits were found meeting these conditions. Showing future appointments within next 90 days and meeting all other requirements Refused Prescriptions Disp Refills Varenicline Tartrate, Starter, 0.5 MG X 11 & 1 MG X 42 Tablet Therapy Pack [Pharmacy Med Name: VARENICLINE STARTING MONTH BOX] 53 Each 0 Sig: TAKE DIRECTED PER PACKAGE Not Delegated - Smoking Deterrents Protocol Failed - 06/15/2023 6:47 PM Failed - This refill cannot be delegated Failed - Active on medication list Passed - Visit with relevant provider in past 6 months or upcoming 90 days Recent Visits Date Type Provider Dept 05/01/23 Telemedicine Jing Baird PAC [facility] [place] 04/10/23 Telemedicine Camelia White APRN, CNP [facility] 02/24/23 Office Visit Jing Baird PAC [facility] 02/03/23 Office Visit Nai Almaguer APRN, [facility] Showing recent visits within past 182 days and meeting all other requirements Future Appointments No visits were found meeting these conditions. Showing future appointments within next 90 days and meeting all other requirements * Telephone Encounter - Michelle Liao RN - 06/16/2023 9:02 AM CDT Images from the original note were not included. Name from pharmacy: VARENICLINE STARTING MONTH BOX Will file in chart as: Varenicline Tartrate, Starter, 0.5 MG X 11 & 1 MG X 42 Tablet Therapy Pack The original prescription was discontinued on 12/25/2022 by Jing Baird PAC for the following reason: Dose adjustment. documented in this encounter Plan of Treatment Not on file documented as of this encounter Goals Goal Patient Goal Type Associated Problems Recent Progress Patient-Stated? Author Patient to report a decrease in intensity and frequency of anxious and depressive symptoms Behavioral Health No Mini Larios, ACCOUNT PROCESSOR Note: 1. Patient to learn and utilize three coping skills. 2. Patient to practice self care. 3. Patient to identify negative thoughts and actively reframe. I would like to feel better then I do today. Behavioral Health Yes Mini Larios, ACCOUNT PROCESSOR Help patient manage hypertension Care Plan [facility] HYPERTENSION CONCERN (PATIENT ON HIGH BLOOD PRESSURE MEDICATIONS) No Camelia White, SOLAR PANEL INSTALLATION SUPERVISOR, INTERNET SYSTEMS ADMINISTRATOR Help patient manage nicotine dependency Care Plan [facility] NICOTINE DEPENDENCY CONCERN No Camelia White, SOLAR PANEL INSTALLATION SUPERVISOR, INTERNET SYSTEMS ADMINISTRATOR Help patients manage type 2 diabetes Care Plan [facility] TYPE 2 DIABETES CONCERN No Camelia White, SOLAR PANEL INSTALLATION SUPERVISOR, INTERNET SYSTEMS ADMINISTRATOR Help patient manage blood glucose Care Plan [facility] TYPE 2 DIABETES INSULIN - ANALOG PATTERN CONCERN No Camelia White, SOLAR PANEL INSTALLATION SUPERVISOR, INTERNET SYSTEMS ADMINISTRATOR Help patient manage nicotine dependency Care Plan [facility] NICOTINE DEPENDENCY CONCERN No Camelia White, SOLAR PANEL INSTALLATION SUPERVISOR, INTERNET SYSTEMS ADMINISTRATOR documented as of this encounter Visit Diagnoses Diagnosis Encounter for smoking cessation counseling Counseling on substance use and abuse documented in this encounter Additional Health Concerns Active Problems Noted Date Diagnosed Date [facility] HYPERTENSION CONCERN (P ATIENT ON HIGH BLOOD PRESSURE MEDICATIONS) 04/10/2023 [facility] NICOTINE DEPENDENCY CONCERN 04/10/2023 [facility] TYPE 2 DIABETES CONCERN 04/10/2023 [facility] TYPE 2 DIABETES INSULIN - ANALOG PATTERN CO NCERN 04/10/2023 [facility] NICOTINE DEPENDENCY CONCERN 04/10/2023 Infection Onset Date Last Indicated Resolved Time COVID - 19 01/08/2024 01/08/2024 01/08/2024 1:48 PM CDT COVID - 19 01/13/2024 01/13/2024 01/13/2024 3:44 PM CDT Respiratory Rule-Out 01/13/2024 01/13/2024 024 12:16 AM CDT COVID - 19 02/22/2024 02/22/2024 03/03/2024 12:1 6 AM CLIENT LIAISON COVID - 19 05/17/2024 05/17/2024 05/17/2024 10:4 5 AM CLIENT LIAISON Influenza 05/17/2024 05/17/2024 05/24/2024 12:1 6 AM CLIENT LIAISON COVID - 19 06/11/2024 06/11/2024 06/11/2024 8:06 PM CLIENT LIAISON Assessment Noted Time PHQ-9 Depression Total Score: 0 02/25/20 23 2:41 PM CLIENT LIAISON documented as of this encounter Care Teams Finance Executive Relationship Specialty Start Date End Date Jing Baird PAC [address] [place] [address] PCP - General Physician Calender Roll Press Operator 12/29/18 07/31/24 Kvng Mendoza MD [address] [phone] Consulting Physician Endocrinology 10/10/21 documented as of this encounter
--- OUTSIDE RECORDS SUMMARY | 2024-08-24 15:46 | XMS_ITS | Clinical Summary ---
Author Organization [facility] Address [facility] [place] [address] Care Team Providers Care Chief Business Officer Name Role Phone Jing Baird Primary Care Provider [phone] Source Comments [facility],non-owned Affiliates and Associated Physician Practices is amultiple site organization consisting of ambulatory clinics and hospital sitesin [place], [place], [place] and [place]. This disclosure is being madepursuant to the Care Everywhere program and may not contain all information available regarding this patient. Last updated 17.[facility] [employer] Allergies Active Allergy Reactions Criticality Noted Date Comments Metformin Unknown 10/04/2023 Penicillins Unknown 10/04/2023 Sulfamethoxazole W-Trimethoprim Unknown 09/06 Medications * Be aware that medications may not be up to date on this document. Alwaysverify current medications with the patient. atenolol (Tenormin) 25 MG tablet Take 1 (one) tablet by mouth once daily 4 Active busPIRone (Buspar) 10 MG tablet Take 1 (one) tablet by mouth 2 times daily 4 Active vitamin D, ergocalciferol , (Drisdol) 1.25 MG (51193 UT) capsule TAKE 1 CAPSULE BY MOUTH EVERY THURSDAY AT 9AM 3 Active famotidine (Pepcid) 40 MG tablet Take 1 (one) tablet by mouth 2 times daily 4 Active gabapentin (Neurontin) 300 MG capsule Take 1 (one) capsule by mouth 3 times daily 4 Active blood glucose (Accu-Chek Debbie Plus) test strip Test four times daily 4 Active hydrOXYzine HCl (Atarax) 25 MG tablet Take 1 (one) tablet by mouth every 6 hours as needed (anxiety) 4 Active insulin aspart (NovoLOG) vial Take before each meal: 71 - 150 +0 UNIT 151 - 175 +1 UNIT 176 - 200 +2 UNITS 201 - 225 +3 UNITS 226 - 250 +4 UNITS 251 - 275 +5 UNITS 276 - 300 +6 UNITS 301 - 325 +7 UNITS 326 - 350 +8 UNITS 351 - 375 +9 UNITS 375 - 400 +10 UNITS > 400 +11 UNITS 4 Active insulin detemir (Levemir) vial Inject 40 (forty) Units subcutaneously at bedtime 4 Active losartan (Cozaar) 25 MG tablet Take 1 (one) tablet by mouth once daily 4 Active levothyroxine (Synthroid) 125 MCG tablet Take 1 (one) tablet by mouth once daily 4 Active Magnesium Oxide -Mg Supplement 400 (240 Mg) MG Take 1 (one) tablet by mouth once daily 4 Active montelukast (Singulair) 10 MG tablet Take 1 (one) tablet by mouth once daily 4 Active naloxone HCl (Narcan) 4 MG/0.1ML nasal spray [place] 1 (one) spray into the nose as needed 4 Active omeprazole (PriLOSEC) 40 MG capsule Take 1 (one) capsule by mouth once daily 4 Active ondansetron (Zofran) 4 MG tablet TAKE 1 TABLET BY MOUTH EVERY 8 HOURS NEEDED FOR NAUSEA- FIRST LINE UP TO 15 DAYS 4 Active polyethylene glycol 3350 (Miralax) 17 g packet Take 17 (seventeen) g by mouth 2 times daily as needed 4 Active simvastatin (Zocor) 40 MG tablet Take 1 (one) tablet by mouth once daily 4 Active tiZANidine (Zanaflex) 4 MG tablet Take 1 (one) tablet by mouth 3 times daily 4 Active traZODone (Desyrel) 100 MG tablet Take 1 (one) tablet by mouth every evening 4 Active topiramate (Topamax) 50 MG tablet Per the patient, she only takes as needed for headaches and rarely uses it 3 Active triamcinolone acetonide (Kenalog) 0.1 % cream Application Site: apply 2 times daily to area on back 4 Active valACYclovir (Valtrex) 1 GM tablet Take 2 pills by oral route at onset of symptoms, then repeat 2 pills in 12 hours 4 Active venlafaxine XR 24hr (Effexor XR) 150 MG capsule Take 1 (one) capsule by mouth 2 times daily 4 Active oxyCODONE CR 12hr (OxyCONTIN) 10 MG tabletIndicati ons:Closed fracture of right tibial plateau, initial encounter Take 1 (one) tablet by mouth 2 times daily 10 tablet 4 Active Additional Information Patient not taking.Reported on 12/16/2023 oxyCODONE, immediate release, (Roxicodone) 5 MG tabletIndicati ons:Closed fracture of right tibial plateau, initial encounter Take 1 (one) tablet by mouth every 4 hours as needed 12 tablet 4 Active Additional Information Patient not taking.Reported on 12/16/2023 acetaminophen (Tylenol) 325 MG tablet Take 2 (two) tablets by mouth every 6 hours as needed Maximum allowable Acetaminophen amount = 4 Grams (4000 mg) / 24 hours. 4 Active apixaban (Eliquis) 2.5 MG tablet Take 1 (one) tablet by mouth 2 times daily 60 tablet 1 4 Active Additional Information Patient not taking.Reported on 12/16/2023 QUEtiapine (SEROquel) 25 MG tablet Take 3 (three) tablets by mouth at bedtime 4 Active amLODIPine (Norvasc) 5 MG tablet Take 1 (one) tablet by mouth once daily 4 Active senna-docusate (Senokot-S) 8.6-50 MG tablet Take 1 (one) tablet by mouth 2 times daily 4 Active potassium chloride ER (Klor-Con M) 20 MEQ tablet Take 1 (one) tablet by mouth daily with breakfast 4 Active oxyCODONE-acet aminophen (Percocet) 5-325 MG tabletIndicati ons:Closed fracture of right tibial plateau with routine healing, subsequent encounter Take 1 (one) tablet by mouth every 8 hours as needed for Pain 30 tablet 4 Active ibuprofen (Motrin) 800 MG tablet TAKE 1 TABLET BY MOUTH EVERY 6 HOURS NEEDED FOR PAIN 90 tablet 1 4 Active Active Problems Problem Noted Date Diagnosed Date Injury of head, initial encounter 10/03/2023 Fall, initial encounter 10/03/2023 Closed fracture of right tibial plateau, initial encounter 10/03/2023 Social History Tobacco Use Types Packs/Day Years Used Date Smoking Tobacco: Never Smokeless Tobacco: Never Tobacco Cessation:Counseling Given: Not Answered Alcohol Use Standard Drinks/Week Comments Never 0 (1 standard drink = 0.6 oz pur e alcohol) AUDIT-C Answer Date Recorded Q1: How often do you have a drink containing alc ohol? Patient declined 10/03/2023 Q2: How many drinks containi ng alcohol do you have on a typical day when you are drinking? Patient declined 10/03/2023 Q3: How often do you have si x or more drinks on one occasion? Patient declined 10/03/2023 Overall Financial Resource Strain (CARDIA) Answe r Date Recorded How hard is it for you to pa y for the very basics like food, housing, medical care, and heating? Not hard at all 10/03/2023 PHQ-2 Answer Date Recorded Patient Health Questionnaire-2 Score 0 12/16/2023 [facility] - Occupational Stress Questionnaire Answer Date Recorded Do you feel stress - tense, restless, nervous, or anxious, or unable to sleep at night because your mind is troubled all the time - these days? Not at all 10/03/2023 Hunger Vital Sign Answer Date Recorded Within the past 12 months, y ou worried that your food would run out before you got the money to buy more. Never true 10/03/19 24 Within the past 12 months, t he food you bought just didn't last and you didn't have money to get more. Never true 10/03/2023 PRAPARE - Transportation Answer Date Re corded In the past 12 months, has l ack of transportation kept you from medical appointments or from getting medications? No 09/05 In the past 12 months, has l ack of transportation kept you from meetings, work, or from getting things needed for daily living? No 10/03/2023 Housing Stability Vital Sign Answer Deven e Recorded In the last 12 months, was t here a time when you were not able to pay the mortgage or rent on time? No 10/03/2023 In the last 12 months, how many places have you lived? 1 10/03/2023 In the last 12 months, was t here a time when you did not have a steady place to sleep or slept in a fpc (including now)? No 10/03/2023 Comments No Sex and Gender Information Value Date Recorded Sex Assigned at Not on file Legal Sex Female 2:31 PM CDT Gender Identity Not on file Sexual Orientation Not on file Last Filed Vital Signs Vital Sign Reading Time Taken Comments Blood Pressure 149/63 10/22/2023 4:34 PM CDT Pulse 76 10/22/2023 4:35 PM CDT Temperature 36.9 C (98.4 F) 10/22/2023 4:35 PM CDT Respiratory Rate 18 10/22/2023 4:34 PM CDT Oxygen Saturation 90% 10/22/2023 4:35 PM CDT Inhaled Oxygen Concentration - - Weight 131.5 kg (290 lb) 12/16/2023 10:18 AM CDT Height 175.3 cm (5' 9 ) 11/11/2023 11:03 AM CDT Body Mass Index 42.83 11/11/2023 11:03 AM CDT Plan of Treatment Health Maintenance Due Date Last Done Comments BONE DENSITY TESTING 1960 COLOGUARD (AGES 45-75) - COLON CA SCREENING 1958 COLON MONITORING 1958 COLONOSCOPY - COLON CA SCREENING 1958 CT COLONOGRAPHY - COLON CA SCREENING 1960 Colorectal Cancer Screening 1958 FIT - COLON CA SCREENING 1958 FLEX SIG - COLON CA SCREENING 1958 MAMMOGRAM 1958 DTAP/TDAP/TD VACCINES (1 - Tdap) 1977 PNEUMOCOCCAL VACCINE 50+ (1 of 2 - PCV) 1977 ZOSTER VACCINE (1 of 2) 2008 Respiratory Syncytial Virus (RSV) Vaccine Pt: or over 60 yrs (1 - Risk 60-74 years 1-dose series) 2018 COVID-19 VACCINE ( season) 2023 DEPRESSION SCREENING 04/06/2024 12/16/2023 MEDICARE AWV CALENDAR YEAR 2024 INFLUENZA VACCINE (Season Ended) 2024 SCREENING FOR DIABETES 10/21/2026 , 10/22/2023, 10/22/2023, Additional history exists HEPATITIS C SCREENING Completed 02/24/2023 HEPATITIS B VACCINE Aged Out No longe r eligible based on patient's age to complete this topic HIB VACCINE Aged Out No longer eligi ble based on patient's age to complete this topic HPV VACCINE Aged Out No longer eligi ble based on patient's age to complete this topic MENINGOCOCCAL (Group B) VACCINE SHARED DECISION-MAKING Aged Out No longer eligible based on patient's age to complete this topic MENINGOCOCCAL GROUPS A/C/Y/W VACCINE Aged Out No longer eligible based on patient's age to complete this topic Medical Devices Implanted Type Area Meter Shop Supervisor Device Identifier Shelf Expiration Date Model / Serial / Lot 10mm/345mm Tibial Nail- Advanced Implanted:Qty: 1 on 10/11/2023 by Kingston Billy MD at [facility] Right: Leg [employer] Trauma 03/05/2033 [id number] / / [id number] 5.0mm Locking Screw For Im Nail Implanted:Qty: 1 on 10/11/2023 by Kingston Billy MD at [facility] Right: Leg [employer] Trauma 04.045.044S / / 5.0mm Locking Screws For Im Nails Implanted:Qty: 1 on 10/11/2023 by Kingston Billy MD at [facility] Right: Leg [employer] Trauma 04.045.068S / / 5.0mm Locking Screw For Im Nails Implanted:Qty: 1 on 10/11/2023 by Kingston Billy MD at [facility] Right: Leg [employer] Trauma 04.045.060S / / Screw 3.5mm 6mm 44mm 2.5mm Ft Slf-Tap Implanted:Qty: 1 on 10/11/2023 by Kingston Billy MD at [facility] Right: Leg [employer] Usa 204.844 / / Screw 3.5mm 6mm 70mm Ft Seamus Slf-Tap Sm Implanted:Qty: 1 on 10/11/2023 by Kingston Billy MD at [facility] Right: Leg [employer]sa 204.870 / / Screw 3.5mm 6mm 75mm Slf-Tap Sm Hex Sckt Implanted:Qty: 1 on 10/11/2023 by Kingston Billy MD at [facility] Right: Leg [employer]sa 204.875 / / 5mm Locking Screw For Im Nails Implanted:Qty: 1 on 10/11/2023 by Kingston Billy MD at [facility] Right: Leg 04.045.036S / / Plate 8 Hl Lopro Cut To Lgth 76mm Lcp Implanted:Qty: 1 on 10/11/2023 by Kingston Billy MD at [facility] Right: Leg [employer]sa 247.372 / / Screw 2.7mm 5mm 12mm T8 Slf-Tap Cortx Ss Implanted:Qty: 2 on 10/11/2023 by Kingston Billy MD at [facility] Right: Leg [employer]sa 202.872 / / Screw 2.7mm 5mm 10mm T8 Cortx Slf-Tap Implanted:Qty: 2 on 10/11/2023 by Kingston Billy MD at [facility] Right: Leg [employer] Usa 202.870 / / Explanted Type Area Meter Shop Supervisor Device Identifier Shelf Expiration Date Model / Serial / Lot Clamp Extfix Jtx 10.5mm Bar To Bar Mr Sf - Sna Explanted:Qty: 3 on 10/04/2023 at [facility] Right: Leg [employer] [id number] / NA / NA Slv Prtc 12mm Suprapatellar Strl Explanted:Qty: 1 on 10/11/2023 by Kingston Billy MD at [facility] Right: Leg [employer]sa 03.010.437S / / Tibial Nail-Advanced 10mm 360mm Explanted:Qty: 1 on 10/11/2023 at [facility] Right: Leg 04.043.240S / / Pin Hlf 17.5cm 5mm Jtx Ss 30mm Extfix - Sna Implanted:Qty: 2 on 10/04/2023 by Julio Coronel MD at [facility] Explanted:Qty: 2 on 10/11/2023 by Kingston Billy MD at [facility] Right: Leg [employer] [id number] / NA / NA Pin Hlf 255mm 5mm Jtx Lng Ss 35mm Extfix - Sna Implanted:Qty: 2 on 10/04/2023 by Julio Coronel MD at [facility] Explanted:Qty: 2 on 10/11/2023 by Kingston Billy MD at [facility] Right: Leg [employer] [id number] / NA / NA Pin Hlf 225mm 5mm Jtx Lng Orth Ss 40mm - Sna Implanted:Qty: 1 on 10/04/2023 by Julio Coronel MD at [facility] Explanted:Qty: 1 on 10/11/2023 by Kingston Billy MD at [facility] Right: Leg [employer] [id number] / NA / NA Wire K 1.6mm 150mm Troc Pnt Ss Fx Explanted:Qty: 1 on 10/11/2023 by Kingston Billy MD at [facility] Right: Leg [employer]sa 292.16 / / Screw 2.7mm 5mm 10mm T8 Cortx Slf-Tap Explanted:Qty: 3 on 10/11/2023 by Kingston Billy MD at [facility] Right: Leg [employer] Usa 202.870 / / Procedures Procedure Name Priority Date/Time Associated Diagnosis Comments BASIC METABOLIC PANEL (CALCIUM TOTAL) Routine 10/22/2023 1:35 AM CDT from Last 3 Months or Most Recently Relevant to Health Maintenance Results * (ABNORMAL) BASIC METABOLIC PANEL (CALCIUM TOTAL) (10/22/2023 1:35 AM CDT) BUN 17 7 - 26 mg/dL 10/22/2023 3:17 AM CDT [facility] Creatinine 0.86 0.56 - 0.96 mg/dL 10/22/2023 3:17 AM CDT [facility] Sodium 138 136 - 145 mmol/L 10/22/2023 3:17 AM [facility] Potassium 4.3 3.5 - 4.5 mmol/L 10/22/2023 3:17 AM [facility] Chloride 104 98 - 107 mmol/L 10/22/2023 3:17 AM [facility] CO2 22 22 - 29 mmol/L 10/22/2023 3:17 AM [facility] Glucose 127(H) 70 - 115 mg/dL 10/22/2023 3:17 AM [facility] Calcium 8.8 8.4 - 10.2 mg/dL 10/22/2023 3:17 AM [facility] Anion Gap 12 6 - 16 10/22/2023 3:17 AM [facility] BUN/Creatinine Ratio 20 7 - 23 10/22/2023 3:17 AM [facility] Osmolality Calculated 289 275 - 295 mOsm/kg 10/22/2023 3:17 AM [facility] eGFR by CKD-EPI 75(L) >=90 mL/min/1.7 3 m2 10/22/2023 3:17 AM [facility] Blood BLOOD SPECIMEN / Unknown Lab Venipuncture / Unknown 10/22/2023 1:35 AM CDT 10/22/2023 2:45 AM CDT Edith Chase MD LAB - CHEMISTRY ORDERABLES Lucero patel Result Performing Organization Address [facility]/State/ZIP Co de Phone Number [facility] [address] [place] [address], [facility] [phone] from Last 3 Months or Most Recently Relevant to Health Maintenance Insurance [facility] [place] [address] [facility] MANAGED MEDICARE ADV Advance Directives * Full Code (Latest Code Status on File) Date Activated Date Inactivated Comments 10/03/2023 5:17 PM 10/22/2023 7:36 PM Care Teams Chief Business Officer Relationship Specialty Start Date End Date Jing Baird PA [address] [place] [address] PCP - General Physician Software Development Project Manager 10/05/23
--- OUTSIDE RECORDS SUMMARY | 2024-08-24 15:46 | XMS_ITS | Encounter Summary ---
Author Organization [facility] Address [address] [place] [address] Phone Care Team Providers Care Clinical Resource Director Name Role Phone Jing Baird Primary Care Provider + Kvng Mendoza MD Unavailable Reason for Visit * Reason Comments Medication Refill Encounter Details Date Type Department Care Team (Late st Contact Info) Description 09/14/2020 Refill [facility] [address] [place] [address] Nai Almaguer APRN, WEIGHT YARDAGE CHECKER [address] [address] Medication Refill Social History Tobacco [...] Telephone Encounter - Michelle Liao RN - 09/17/2020 9:18 AM CDT Medication failed the protocol, provider to review and approve the medication order if appropriate. Requested Prescriptions Pending Prescriptions Disp Refills busPIRone (BUSPAR) 10 MG Tablet [Pharmacy Med Name: BUSPIRONE HYDROCHLORIDE 10 MG Tablet] 180 Tablet 1 Sig: TAKE 1 TABLET TWICE DAILY Buspirone (6 Month Refill Only) Protocol Failed - 09/14/2020 8:29 PM Failed - Has an encounter in the past 6 months with a depression or anxiety visit diagnosis Passed - Visit with relevant provider in past 6 months or upcoming 90 days Recent Visits Date Type Provider Dept 09/10/20 Office Visit Jing Baird PAC [facility] 08/02/20 Office Visit Jing Baird PAC [facility] 05/02/20 Telemedicine Jing Baird PAC [facility] 03/26/20 Telemedicine Jing Baird PAC [facility] Showing recent visits within past 182 days and meeting all other requirements Future Appointments No visits were found meeting these conditions. Showing future appointments within next 90 days and meeting all other requirements Passed - Patient has established therapy with Buspirone for at least 6 months [facility] Not Delegated - Psychiatry: Anxiolytics/Hypnotics Failed - 09/14/2020 8:29 PM Failed - This refill cannot be delegated Passed - Valid encounter within last 6 months Past Office Visits Recent Outpatient Visits 1 week ago Neuropathy [facility] Medical [facility] - Family [facility] - Jing Gleason PAC 1 month ago Type 2 diabetes mellitus with other specified complication, with long-term current use of insulin (HCC) [facility] Medical [facility] Family [facility] - Jing Gleason PAC 4 months ago Chronic sinusitis, unspecified location [facility] - Jing Gleason PAC 5 months ago [facility] 7 months [facility] Chronic gastroesophageal reflux disease [facility] - Jing Gleason PAC Upcoming Appointments Future Appointments Today Diana Dawson RN [facility] In 4 days Diana Dawson RN [facility] In 1 week Diana Dawson RN [facility] In 1 week Mishel Kent, STACKER STRAIGHTENER [facility] 1 week Diana Dawson RN [facility] In 2 weeks Diana Dawson RN [facility] In 2 weeks Diana Dawson RN [facility] 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 Recent Visits Date Type Provider Dept 09/10/20 Office Visit Jing Baird, PAC [facility] 08/02/20 Office Visit Jing Baird, PAC [facility] 05/02/20 Telemedicine Jing Baird, PAC [facility] 03/26/20 Telemedicine Jing Baird, PAC [facility] 02/10/20 Office Visit Jing Baird, PAC [facility] 11/30/19 Office Visit Jing Baird, PAC [facility] 08/25/19 Office Visit Jing Baird, PAC [facility] 07/19/19 Telemedicine Jing Baird, PAC [facility] 07/05/19 Telemedicine Jing Baird, PAC [facility] Showing recent visits within past 460 days with a meds authorizing provider and meeting all other requirements Future Appointments No visits were found meeting these conditions. Showing future appointments within next 90 days with a meds authorizing provider and meeting all other requirements tiZANidine (ZANAFLEX) 4 MG Tablet [Pharmacy Med Name: TIZANIDINE HYDROCHLORIDE 4 MG Tablet] 270 Tablet 1 Sig: TAKE 1 TABLET THREE TIMES DAILY [facility] Not Delegated - Analgesics: Muscle Relaxants Failed - 09/14/2020 8:29 PM Failed - This refill cannot be delegated Passed - Valid encounter within last 6 months Past Office Visits Recent Outpatient Visits 1 week [facility] 1 month ago Type 2 diabetes mellitus with other specified complication, with long-term current use of insulin (HCC) [facility] 4 months [facility], [facility] 5 [facility]es[facility] Upcoming Appointments Future Appointments Today Diana Dawson RN [facility] In 4 days Diana Dawson RN [facility] 1 week Diana Dawson RN [facility] In 1 week Mishel Kent MSW [facility] 1 week Diana Dawson RN [facility] 2 weeks Diana Dawson RN [facility] In 2 weeks Diana Dawson RN [facility] 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 difficile Rule-Out 03/24/2023 03/24/20232022 4:16 PM INDUSTRIAL PSYCHOLOGY PROFESSOR COVID - 19 04/27/2023 04/27/2023 04/28/2023 8:53 AM INDUSTRIAL PSYCHOLOGY PROFESSOR COVID - 19 01/08/2024 01/08/2024 01/08/2024 1:48 PM CDT COVID - 19 01/13/2024 01/13/2024 01/13/2024 3:44 PM CDT Respiratory Rule-Out 01/13/2024 01/13/2024 024 12:16 AM CDT COVID - 19 02/22/2024 02/22/2024 03/03/2024 12:1 6 AM INDUSTRIAL PSYCHOLOGY PROFESSOR COVID - 19 05/17/2024 05/17/2024 05/17/2024 10:4 5 AM INDUSTRIAL PSYCHOLOGY PROFESSOR Influenza 05/17/2024 05/17/2024 05/24/2024 12:1 6 AM INDUSTRIAL PSYCHOLOGY PROFESSOR COVID - 19 06/11/2024 06/11/2024 06/11/2024 8:06 PM INDUSTRIAL PSYCHOLOGY PROFESSOR Assessment Noted Time PHQ-9 Depression Total Score: 1 08/03/19 21 10:00 AM CDT documented as of this encounter Care Teams Clinical Resource Director Relationship Specialty Start Date End Date Jing Baird PAC [address] [place] [address] PCP - General Physician Die Barber 12/29/18 07/31/24 [facility] [facility] [address] [address] Consulting Physician Endocrinology 10/10/21 documented as of this encounter
--- OUTSIDE RECORDS SUMMARY | 2024-08-24 15:46 | XMS_ITS | Clinical Summary ---
Author Organization [facility] Address [address] [place] [address] Phone Care Team Providers Care Hazardous Substances Engineer Name Role Phone Kvng Mendoza MD Unavailable Allergies Active Allergy Reactions Criticality Noted Date Comments Cifenline Rash 09/25/2023 Ciprofloxacin Anaphylaxis,Swelling High 01/26/2024 Metformin Diarrhea,Other (see Comments) Low 03/28/2019 Causes severe stomach cramps Other-Environmental Allergen (Not Found In Search) Anaphylaxis High 11/01/2020 Jalapenos Penicillins Unknown,Rash Medium 12/29/2018 Sulfa Antibiotics Unknown,Anaphylaxis High 9 Medications Misc. Devices MiscIndications:Fr equent falls,Spinal stenosis, unspecified spinal region,Dizziness Supply and instructions: 1 Each 2020 Active OneTouch Delica Lancets 33G Misc 1 Lancet by Does not apply route 3 times daily. Test blood glucose 3x daily. E11.9 Insulin dependent 300 Lancet 3 2021 Active Alcohol Swabs (Advocate Alcohol Prep Pads) 70 % Pads USE 1 PAD FOUR TIMES DAILY (BULK) 1240 Each 2022 Active Insulin Aspart (NovoLOG) 100 UNIT/ML Solution Take before each meal: 71 - 150 +0 UNIT 151 - 175 +1 UNIT 176 - 200 +2 UNITS 201 - 225 +3 UNITS 226 - 250 +4 UNITS 251 - 275 +5 UNITS 276 - 300 +6 UNITS 301 - 325 +7 UNITS 326 - 350 +8 UNITS 351 - 375 +9 UNITS 375 - 400 +10 UNITS > 400 +11 UNITS 10 mL 2 2023 Active Insulin Syringes, Disposable, U-100 0.5 ML MiscIndications:Ty pe 2 diabetes mellitus with hyperglycemia, with long-term current use of insulin (HCC) Syringes for levemir insulin, 40 Units nightly for Type 2 diabetes mellitus with hyperglycemia, with long-term use of insulin E11.65, Z79.4 100 Each 1 2023 Active traZODone (DESYREL) 100 MG Tablet Take 1 Tablet by mouth every evening. 90 Tablet 1 2023 Active naloxone HCl (Narcan) 4 MG/0.1ML Liquid 1 [place] by Nasal route as needed for Opioid Reversal. Administer in one nostril for symptoms of overdose (severe sleepiness, breathing problems, not responsive). Call 911. May repeat 1 spray in alternate nostril in 2-3 minutes if needed. 2 Each 2023 Active busPIRone (BUSPAR) 10 MG TabletIndications: Anxiety Disorder TAKE 1 TABLET BY MOUTH 2 TIMES DAILY. INDICATIONS: ANXIETY DISORDER 180 Tablet 1 2023 Active famotidine (PEPCID) 40 MG Tablet TAKE 1 TABLET BY MOUTH 2 TIMES DAILY. FOR GASTROESOPHAGEAL REFLUX DISEASE WITH CURRENT SYMPTOMS 180 Tablet 1 2023 Active magnesium oxide (MAG-OX) 400 (240 Mg) MG TabletIndications: Hypomagnesemia TAKE 1 TABLET BY MOUTH DAILY. INDICATIONS: DISORDER WITH LOW MAGNESIUM LEVELS 90 Tablet 1 2023 Active levothyroxine (SYNTHROID) 125 MCG TabletIndications: Hypothyroidism Take 1 Tablet by mouth daily. Indications: Underactive Thyroid 90 Tablet 1 2023 Active venlafaxine (EFFEXOR-XR) 150 MG CAPSULE SR 24 HRIndications:Muna r Depressive Disorder Take 1 Capsule by mouth in the morning and at bedtime. Indications: Major Depressive Disorder 180 Capsule 1 2023 Active Continuous Glucose Sensor (Dexcom G6 Sensor) Misc USE 1 SENSOR WEEKLY DIRECTED 2023 Active Continuous Glucose Fireworks Assembly Supervisor (Dexcom G6 Fireworks Assembly Supervisor) Device EVERY DAY 2023 Active simvastatin (ZOCOR) 40 MG TabletIndications: Hyperlipidemia TAKE 1 TABLET BY MOUTH DAILY. INDICATIONS: HIGH AMOUNT OF FATS IN THE BLOOD 90 Tablet 1 2023 Active QUEtiapine Fumarate 150 MG TabletIndications: Depression, unspecified depression type,Anxiety TAKE 1 TABLET BY MOUTH EVERY DAY IN THE EVENING 90 Tablet 1 2023 Active montelukast (SINGULAIR) 10 MG Tablet TAKE 1 TABLET BY MOUTH EVERY DAY 90 Tablet 1 2023 Active tiZANidine (ZANAFLEX) 4 MG TabletIndications: Muscle Spasticity TAKE 1 TABLET BY MOUTH 3 TIMES DAILY. 9AM, 1PM, & 5PM INDICATIONS: MUSCLE SPASTICITY 270 Tablet 2023 Active potassium chloride CR (KLORCON) 10 MEQ Tablet Controlled ReleaseIndications :Hypokalemia Take 1 Tablet by mouth 2 times daily. 180 Tablet 1 2023 Active levalbuterol (XOPENEX HFA) 45 MCG/ACT AerosolIndications :wheeze, cough take 2 Puffs by inhalation every 4 hours as needed for Wheezing or Cough. Indications: wheeze, cough 45 g 3 2023 Active Glucose Blood (Accu-Chek Debbie Plus) StripIndications:T ype 2 diabetes mellitus with hyperglycemia, with long-term current use of insulin (HCC) Test four times daily 400 Strip 3 2023 Active triamcinolone (KENALOG) 0.1 % Cream Application Site: apply 2 times daily to area on back 45 g 2023 Active ergocalciferol (VITAMIN D) 59760 UNIT CapsuleIndications :Vitamin D Deficiency Take 1 Capsule by mouth once a week. Indications: Vitamin D Deficiency 12 Capsule 2023 Active losartan (COZAAR) 25 MG TabletIndications: Hypertension, unspecified type TAKE 1 TABLET BY MOUTH TWICE A DAY 180 Tablet 1 2024 Active sucralfate (CARAFATE) 1 GM Tablet TAKE 1 TABLET BY MOUTH 3 TIMES A DAY 1 HOUR PRIOR TO MEALS AND AT BEDTIME 360 Tablet 2024 Active Insulin Lispro, 1 Unit Dial, 100 UNIT/ML Solution Pen-injector 5 Units by Subcutaneous route 3 times daily (before meals). 15 mL 2 2024 Active ondansetron (ZOFRAN-ODT) 4 MG TABLET DISPERSIBLE Take 1 Tablet by mouth every 6 hours as needed for Nausea - 1st line. 10 Tablet 2024 Active polyethylene glycol (GLYCOLAX, MIRALAX) 17 g PackIndications:Co nstipation Take 1 Packet by mouth 2 times daily as needed for Constipation - 1st line. Dissolve in 4-8 oz of liquid. Indications: Constipation 90 Packet 2024 Active gabapentin (NEURONTIN) 100 MG Capsule Take 1 Capsule by mouth 3 times daily. 90 Capsule 2 2024 Active pantoprazole (PROTONIX) 40 MG Tablet Delayed ResponseIndication s:Symptomatic Gastroesophageal Reflux Disease (Inactive) TAKE 1 TABLET BY MOUTH DAILY. INDICATIONS: GASTROESOPHAGEAL REFLUX DISEASE WITH CURRENT SYMPTOMS 90 Tablet 1 2024 Active atenolol (TENORMIN) 25 MG Tablet Take 1 Tablet by mouth daily. 2023 Active hydrOXYzine (ATARAX) 25 MG Tablet Take 1 Tablet by mouth. 2023 Active ibuprofen (MOTRIN) 800 MG Tablet Take 800 mg by mouth every 6 hours as needed. 2023 Active lidocaine (LIDODERM) 5 % Patch 99 2024 Active traMADol (ULTRAM) 50 MG Tablet Take 50 mg by mouth. Active amLODIPine (NORVASC) 2.5 MG TabletIndications: Hypertension, unspecified type Take 1 Tablet by mouth daily. 90 Tablet 2024 Active folic acid (FOLVITE) 1 MG Tablet TAKE 1 TABLET BY MOUTH EVERY DAY 90 Tablet 2024 Active Insulin Pen Needle (Pen [place]) 32G X 5 MM Misc 1 Pen Needle by Does not apply route 4 times daily. 400 Each 2024 Active topiramate (TOPAMAX) 25 MG TabletIndications: Frequent headaches Take 2 Tablets by mouth nightly. 180 Tablet 2024 Active insulin glargine (Lantus) 100 UNIT/ML SolutionIndication s:Type 2 Diabetes Mellitus 30 Units by Subcutaneous route nightly. Indications: Type 2 Diabetes 10 mL 2024 Active Insulin Pen Needle (Pen [place]) 32G X 5 MM Misc 1 Pen Needle by Does not apply route 4 times daily. 400 Each 07/27 Discontinued( Reorder) folic acid (FOLVITE) 1 MG Tablet TAKE 1 TABLET BY MOUTH EVERY DAY 90 Tablet 07/26 Discontinued topiramate (TOPAMAX) 25 MG TabletIndications: Frequent headaches Start 1 tablet by oral route at bedtime, after 1 week increase to 2 tablets at bedtime 60 Tablet 2 07/28 Discontinued insulin detemir (Levemir) 100 UNIT/ML SolutionIndication s:Type 2 Diabetes Mellitus 30 Units by Subcutaneous route nightly. Indications: Type 2 Diabetes 30 mL 07/27 Discontinued( Reorder) dicyclomine (BENTYL) 20 MG Tablet Take 1 Tablet by mouth every 6 hours as needed for Other (abd pain) for up to 10 days. 30 Tablet 07/29 insulin detemir (Levemir) 100 UNIT/ML SolutionIndication s:Type 2 Diabetes Mellitus 30 Units by Subcutaneous route nightly. Indications: Type 2 Diabetes 30 mL 07/28 Discontinued( Reorder) Active Problems Problem Noted Date Diagnosed Date DM (diabetes mellitus), type 2 06/15/2024 Hyperglycemia 06/12/2024 Tibial fracture 05/17/2024 Influenza A 05/17/2024 Hypotension 05/12/2024 Closed fracture of proximal tibia 05/12/2024 Closed fracture of distal tibia 05/12/2024 Generalized weakness 04/28/2023 Rib pain on right side 04/28/2023 Fall 04/28/2023 Hypertensive urgency 04/28/2023 Acute kidney injury 03/25/2023 Dehydration 03/25/2023 Leukocytosis 03/25/2023 Cellulitis of right breast 08/28/2020 MRSA (methicillin resistant staph aureus) cultur e positive 07/10/2020 Bacteremia 07/06/2020 GERD (gastroesophageal reflux disease) Hypokalemia 07/01/2020 Hypophosphatemia 07/01/2020 Hypomagnesemia 07/01/2020 Acute cystitis 07/01/2020 Abscess of scapular region 07/01/2020 Cellulitis of scapular region 07/01/2020 Diabetic ketoacidosis withou t coma associated with type 2 diabetes mellitus 07/01/2020 Sepsis 07/01/2020 Class 1 obesity due to exces s calories with serious comorbidity and body mass index (BMI) of 30.0 to 30.9 in adult 05/13/2019 Spinal stenosis 05/11/2019 Anxiety 05/11/2019 High blood pressure 02/07/2019 Hyperlipidemia 02/07/2019 Tobacco use 02/07/2019 Overweight 02/07/2019 Noncompliance 02/07/2019 Type 2 diabetes mellitus wit h hyperglycemia, with long-term current use of insulin 12/30/2018 Hypothyroidism 12/30/2018 History of fracture of right ankle 12/30/2018 Chronic, continuous use of opioids 12/30/2018 Depression 12/30/2018 PTSD (post-traumatic stress disorder) 12/30/2018 Acquired hypothyroidism Arthritis Asthma Chronic pain disorder Fibromyalgia Hyperlipemia Hypertension Tobacco dependence syndrome Insomnia Resolved Problems Problem Noted Date Diagnosed Date Resolved Date Diarrhea 03/25/2023 03/26/2023 Rectal abscess 11/01/2020 11/03/2020 Hypoglycemia 02/07/2019 03/26/2023 Encounters Date Type Department Care Team Description 08/17/2024 Home Care Visit [address] [address] Miranda Wall OT OT - DISCHARGE SUMMARY 08/15/2024 1:30 PM CDT Home Care Visit [address] [address] Sheela Briggs RN SN - OASIS DISCHARGE 08/08/2024 1:00 PM CDT Home Care Visit [address] [address] Sheela Briggs, RN SN - PRIORITY VISIT 08/01/2024 2:00 PM CDT Home Care Visit [address] [address] Sheela Briggs, RN SN - PRIORITY VISIT 08/01/2024 12:00 PM CDT Home Care Visit [address] [address] Sharlene Sykes, Student PT - DISCIPLINE DISCHARGE 07/31/2024 Refill [facility] - Family [facility] [address] [place] [address] Jing Baird, PAC Medication Refill 07/28/2024 [facility] [place] [address] Jing Bairde, PAC Medication Refill 07/27/2024 12:00 PM CDT Home Care Visit [address] [address] Aide Alonzo, RAMBO OT - DISCIPLINE DISCHARGE 07/27/2024 10:00 AM CDT Home Care Visit [address] [address] Gila Watson, MINDY PT - HOME VISIT 07/27/2024 [facility] [place] [address] Jing Baird, PAC Medication Refill 07/27/2024 Home Care Visit [address] [address] Aide Alonzo, RAMBO CASE COMMUNICATION 07/27/2024 Travel 07/27/2024 [facility] [place] [address] Sol Bairda Marie, PAC Medication Refill 07/26/2024 [facility] [place] [address] Oli Cony, PAC 07/26/[facility] [address] [place] [address] Kvng Mendoza MD Medication Refill 07/25/2024 3:00 PM CDT Home Care Visit [address] [address] Sheela Briggs, RN SN - PRIORITY VISIT 07/25/2024 1:30 PM CDT Home Care Visit [address] [address] Aide Alonzo OTA OT - HOME VISIT 07/25/2024 11:00 AM CDT Home Care Visit [address] [address] Gila Watson, PAVER OPERATOR PT - HOME VISIT 07/25/2024 [facility] [place] [address] Camelia White APRN, PHOTOSTAT OPERATOR HELPER Medication Refill 07/25/2024 [facility] [place] [address] Jing Baird, PAC Medication Refill 07/25/2024 Travel 07/21/2024 2:00 PM CDT Home Care Visit [address] [address] Gila Watson, PAVER OPERATOR PT - HOME VISIT 07/19/2024 7:31 PM CDT - 07/19/2024 10:55 PM CDT Emergency [facility] Emergency [address] [place] [address] Manjeet Estes MD Epigastric abdominal pain Discharge Disposition: Discharged to home or Selfcare 07/19/2024 6:45 PM CDT Urgent Care Visit [facility] [address] [place] [phone] Franko Ochoa, PAC Abdominal pain, unspecified abdominal location (Primary Dx); Rib pain Discharge Disposition: Discharged to home or Selfcare 07/19/2024 1:00 PM CDT Home Care Visit [address] [address] Martha Garcia, PAVER OPERATOR PT - HOME VISIT 07/19/2024 11:00 AM CDT Home Care Visit [address] [address] Kendra Evans, RN SN - LAB 07/19/2024 [facility] [place] [phone] Jing Baird, PAC Results 07/19/[address] [address] Vilma Clark, RN Labs Only 07/19/2024 Lab Requisition [facility] [address] [place] [phone] Jing Baird, PAC Essential (primary) hypertension 07/19/2024 Home Care Visit [address] [address] Sheela Briggs, RN CARE CONFERENCE 07/19/2024 Home Care Visit [address] [address] Sheela Briggs, RN CASE COMMUNICATION 07/18/2024 2:00 PM CDT Home Care Visit [address] [address] Aide Alonzo OTA OT - HOME VISIT 07/18/2024 12:30 PM CDT Home Care Visit [address] [address] Mishel Kent, WIRING MECHANIC WIRING MECHANIC - INITIAL EVALUATION 07/18/2024 Travel 07/14/2024 10:00 AM CDT Home Care Visit [address] [address] Miranda Wall OT OT - INITIAL EVALUATION 07/14/2024 10:00 AM CDT Home Care Visit [address] [address] Martha Garcia, PAVER OPERATOR PT - HOME VISIT 07/14/2024 Travel 07/13/2024 2:00 PM CDT Home Care Visit [address] [address] Naomi Ch, PT PT - INITIAL EVALUATION 07/13/2024 1:30 PM CDT Home Care Visit [address] [address] Sheela Briggs, RN SN - OASIS START OF CARE 07/13/2024 Plan of Care Documentation [address] [address] 07/13/2024 Home Care Visit [address] [address] Naomi Ch, PT TELEPHONE ENCOUNTER 07/13/2024 Telephone [facility] [address] [place] [address] Jing Baird, LYLY Need Order 07/07/2024 Home Care Visit [address] [address] Neelam Neumann, RN TELEPHONE ENCOUNTER 07/05/2024 1:00 PM CDT Office Visit [facility] [address] [place] [address] Jing Baird, LYLY Hypertension, unspecified type (Primary Dx); Type 2 diabetes mellitus with hyperglycemia, with long-term current use of insulin (HCC); Anemia, unspecified type; Vitamin D deficiency; Hypothyroidism, unspecified type; Coronary artery disease due to calcified coronary lesion; Intermittent chest pain; Closed nondisplaced fracture of right tibial tuberosity with routine healing, subsequent encounter; Syncope, unspecified syncope type Discharge Disposition: Discharged to home or Selfcare 07/05/2024 Telephone [facility] [address] [place] [address] Jing Baird, PAC 07/05/2024 Travel 06/28/2024 Telephone [facility] [place] [address] Jing Baird, PAC Discharge 06/27/2024 [facility] [place] [address] Jing Baird, PAC Medication Refill 06/17/2024 [facility] [place] [address] Jing Baird, PAC Form Completion 06/11/2024 6:53 PM PLATE STACKER - 06/20/2024 5:52 PM CDT Hospital Encounter [facility] [address] [address] Paxton Cannon MD Patel, MD Jaylon Neff Behfar, MD Krishna, Owen Chase MD DM (diabetes mellitus), type 2 (HCC) Discharge Disposition: Discharged/Transfer red to SNF 06/11/2024 Travel 06/10/2024 [facility] [address] [place] [phone] Jing Baird PAC Erroneous Encounter - Disregard 06/08/2024 [facility]phone [facility] [address] [place] [phone] Jing Baird, PAC Advice Only 06/06/2024 [facility]phone [facility] [address] [place] [phone] Jing Baird, PAC Advice Only from Last 3 Months Family History Medical History Relation Name Comments No Known Problems Daughter No Known Problems Father Lung Cancer Maternal Grandfather Dementia Mother Heart Disease Mother No Known Problems Son Relation Name Status Comments Daughter Alive Father Half-Brother Alive Half-Sister 1 Alive Half-Sister 2 Alive Half-Sister 3 Alive Maternal Grandfather Mother Alive Son Alive Social History Tobacco Use Types Packs/Day Years Used Date Smoking Tobacco: Every Day Cigarettes Smokeless Tobacco: Never Tobacco Cessation:Ready to Q uit: No; Counseling Given: Yes Alcohol Use Standard Drinks/Week Comments Not Currently 0 (1 standard drink = 0.6 oz pur e alcohol) [facility] Utilities Answer Date Recorded [...] declined 05/12/2024 How often do you attend methodist or episcopal serv ices? Patient declined 05/12/2024 Do you belong to any clubs o r organizations such as methodist groups, unions, fraternal or athletic groups, or [...] Score - Questions 1-9 0 10/0 12/2023 [facility] [place] [facility] - Occupational Stress [...] in a intermediate (including now)? No 04/27/2023 Housing Stability Vital Sign Answer Deven e Recorded In the last 12 months, was t here a time when you were not able to pay the mortgage or rent on time? No 06/12/2024 In the past 12 months, how m any times have you moved where you were living? 0 06/12/2024 At any time in the past 12 m [facility], were you homeless or living in a intermediate (including now)? No 06/12/2024 Education Answer Date [...] AM CDT Sexual Orientation Not on file Last Filed Vital Signs Vital Sign Reading Time Taken Comments Blood Pressure 148/80 08/15/2024 10:32 AM CDT Pulse 89 08/15/2024 10:32 AM CDT Temperature 37.1 C (98.7 F) 08/15/2024 10:32 AM CDT Respiratory Rate 16 08/15/2024 10:32 AM CDT Oxygen Saturation 99% 08/15/2024 10:32 AM CDT Inhaled Oxygen Concentration - - Weight 80.7 kg (178 lb) 07/19/2024 7:28 PM CDT Height 175.3 cm (5' 9 ) 07/19/2024 7:28 PM CDT Body Mass Index 26.29 07/19/2024 7:28 PM CDT Plan of Treatment Health Maintenance Due Date Last Done Comments DEXA Bone Density 1958 Diabetes: Foot Exam 1958 Mammogram 1958 TdaP Immunization 1958 Pneumococcal Immunization (50+ years) (1 of 2 - PCV) 1977 Colonoscopy 2003 Cologuard 2008 Zoster Immunization (1 of 2) 2008 Respiratory Syncytial Virus (RSV) Immunization (Adult) (1 - Risk 60-74 years 1-dose series) 2018 Colorectal Cancer Screening 06/16/2019 Immunochemical Fecal Occult Blood 06/14/2020 06/15/2019 SARS-COV-2 Immunization ( season) 2023 Diabetes: Eye Exam 09/22/2024 09/23/2023, 01/18/2018 Influenza Immunization (Season Ended) 2024 Diabetes: Hemoglobin A1c 12/13/2024 025, 01/13/2024, 10/04/2023, Additional history exists Diabetes: Nephropathy Screening 07/19/2025 07/19/2024, 07/19/2024, 06/11/2024, Additional history exists Hepatitis C Virus (HCV) Screening Completed 02/24/2023 Lung Cancer Screening Discontinued 05/12/2024, 024 Hepatitis B Immunization Aged Out No longer eligible based on patient's age to complete this topic Human Papillomavirus (HPV) Immunization Aged Out No longer eligible based on patient's age to complete this topic Meningococcal Immunization (ACWY) Aged Out No longer eligible based on patient's age to complete this topic Rotavirus Immunization Aged Out No lo nger eligible based on patient's age to complete this topic Goals Goal Patient Goal Type Associated Problems [...] do today. Behavioral Health Yes Mini Larios, COMMUNITY ACTION WORKER Help patient manage hypertension Care Plan [facility] HYPERTENSION CONCERN (PATIENT ON HIGH BLOOD PRESSURE MEDICATIONS) No Camelia White, NUCLEAR REACTOR ENGINEER, PHOTOSTAT OPERATOR HELPER Help patient manage nicotine dependency Care Plan [facility] NICOTINE DEPENDENCY CONCERN No Camelia White, NUCLEAR REACTOR ENGINEER, PHOTOSTAT OPERATOR HELPER Help patients manage type 2 diabetes Care Plan [facility] TYPE 2 DIABETES CONCERN No Camelia White, NUCLEAR REACTOR ENGINEER, PHOTOSTAT OPERATOR HELPER Help patient manage blood glucose Care Plan [facility] TYPE 2 DIABETES INSULIN - ANALOG PATTERN CONCERN No Camelia White, NUCLEAR REACTOR ENGINEER, PHOTOSTAT OPERATOR HELPER Help patient manage nicotine dependency Care Plan [facility]CCP NICOTINE DEPENDENCY CONCERN No Camelia White, NUCLEAR REACTOR ENGINEER, PHOTOSTAT OPERATOR HELPER Procedures Procedure Name Priority Date/Time Associated Diagnosis Comments POCT GLUCOSE STAT 07/19/2024 10:[address] CHEST ABDOMEN AND PELVIS W CONTRAST Stat with Interpretation 07/19/2024 9:13 PM CDT URINALYSIS REFLEX IF INDICATED BY ABNORMAL RESULTS STAT 07/19/2024 9:06 PM CDT GOLD TOP TUBE STAT 07/19/2024 8:33 PM CDT BLUE TOP TUBE STAT 07/19/2024 8:33 PM CDT CBC WITH AUTO DIFFERENTIAL STAT 07/19/2024 8:33 PM CDT EXTRA TUBES STAT 07/19/2024 8:33 PM CDT TROPONIN I, HIGH SENSITIVITY (HSTRP) STAT 07/19/2024 8:33 PM CDT LIPASE STAT 07/19/2024 8:33 PM CDT MAGNESIUM (MG) STAT 07/19/2024 8:33 PM CDT CMP (COMPREHENSIVE METABOLIC PANEL) STAT 07/19/2024 8:33 PM CDT COMPLETE BLOOD COUNT (CBC) WITH DIFF STAT 07/19/2024 8:33 PM CDT EKG 12 LEAD STAT 07/19/2024 8:13 PM CDT CBC WITH AUTO DIFFERENTIAL Routine 07/19/2024 2:32 PM CDT Essential (primary) hypertension COMPLETE BLOOD COUNT (CBC) WITH DIFF Routine 07/19/2024 2:32 PM CDT Essential (primary) hypertension FERRITIN Routine 07/19/2024 2:32 PM CDT Essential (primary) hypertension IRON,TRANSFERN,NATHALIE C.TIBC,%SAT Routine 07/19/2024 2:32 PM CDT Essential (primary) hypertension MAGNESIUM (MG) Routine 07/19/2024 2:32 PM CDT Essential (primary) hypertension THYROID STIMULATING HORMONE (TSH) Routine 07/19/2024 2:32 PM CDT Essential (primary) hypertension LIPID PANEL Routine 07/19/2024 2:32 PM CDT Essential (primary) hypertension CMP (COMPREHENSIVE METABOLIC PANEL) Routine 07/19/2024 2:32 PM CDT Essential (primary) hypertension EKG SCAN 07/19/2024 12:00 AM CDT POCT GLUCOSE Routine 06/20/2024 5:03 PM CDT POCT GLUCOSE Routine 06/20/2024 11:06 AM CDT CBC WITH AUTO DIFFERENTIAL Routine 06/20/2024 5:30 AM CDT COMPLETE BLOOD COUNT (CBC) WITH DIFF Routine 06/20/2024 5:30 AM CDT BASIC METABOLIC PANEL W/ CALCIUM TOTAL Routine 06/20/2024 5:30 AM CDT POCT GLUCOSE Routine 06/19/2024 8:29 PM CDT POCT GLUCOSE Routine 06/19/2024 4:20 PM CDT POCT GLUCOSE Routine 06/19/2024 11:19 AM CDT POCT GLUCOSE Routine 06/19/2024 6:56 AM CDT CBC WITH AUTO DIFFERENTIAL Routine 06/19/2024 4:31 AM CDT COMPLETE BLOOD COUNT (CBC) WITH DIFF Routine 06/19/2024 4:31 AM CDT BASIC METABOLIC PANEL W/ CALCIUM TOTAL Routine 06/19/2024 4:31 AM CDT POCT GLUCOSE Routine 06/18/2024 9:44 PM CDT POCT GLUCOSE Routine 06/18/2024 4:03 PM CDT POCT GLUCOSE Routine 06/18/2024 12:18 PM CDT POCT GLUCOSE Routine 06/18/2024 7:22 AM CDT CBC WITH AUTO DIFFERENTIAL Routine 06/18/2024 6:07 AM CDT COMPLETE BLOOD COUNT (CBC) WITH DIFF Routine 06/18/2024 6:07 AM CDT BASIC METABOLIC PANEL W/ CALCIUM TOTAL Routine 06/18/2024 6:07 AM CDT POCT GLUCOSE Routine 06/17/2024 7:01 PM CDT POCT GLUCOSE Routine 06/17/2024 4:22 PM CDT POCT GLUCOSE Routine 06/17/2024 11:15 AM CDT POCT GLUCOSE Routine 06/17/2024 7:28 AM CDT CBC WITH AUTO DIFFERENTIAL Routine 06/17/2024 4:23 AM CDT COMPLETE BLOOD COUNT (CBC) WITH DIFF Routine 06/17/2024 4:23 AM CDT BASIC METABOLIC PANEL W/ CALCIUM TOTAL Routine 06/17/2024 4:23 AM CDT POCT GLUCOSE Routine 06/16/2024 7:41 PM CDT POCT GLUCOSE Routine 06/16/2024 4:03 PM CDT POCT GLUCOSE Routine 06/16/2024 12:16 PM CDT XR TIBIA & FIBULA RIGHT Routine 06/16/2024 10:42 AM CDT POCT GLUCOSE Routine 06/16/2024 7:42 AM CDT CBC WITH AUTO DIFFERENTIAL Routine 06/16/2024 4:35 AM CDT BASIC METABOLIC PANEL W/ CALCIUM TOTAL Routine 06/16/2024 4:35 AM CDT COMPLETE BLOOD COUNT (CBC) WITH DIFF Routine 06/16/2024 4:35 AM CDT POCT GLUCOSE Routine 06/15/2024 9:33 PM CDT POCT GLUCOSE Routine 06/15/2024 5:09 PM CDT POCT GLUCOSE Routine 06/15/2024 11:33 AM CDT POCT GLUCOSE Routine 06/15/2024 7:20 AM CDT CBC WITH AUTO DIFFERENTIAL Routine 06/15/2024 5:06 AM CDT COMPLETE BLOOD COUNT (CBC) WITH DIFF Routine 06/15/2024 5:06 AM CDT BASIC METABOLIC PANEL W/ CALCIUM TOTAL Routine 06/15/2024 5:06 AM CDT POCT GLUCOSE Routine 06/14/2024 8:14 PM CDT POCT GLUCOSE Routine 06/14/2024 3:58 PM CDT POCT GLUCOSE Routine 06/14/2024 11:38 AM CDT POCT GLUCOSE Routine 06/14/2024 7:18 AM CDT CBC WITH AUTO DIFFERENTIAL Routine 06/14/2024 4:39 AM CDT COMPLETE BLOOD COUNT (CBC) WITH DIFF Routine 06/14/2024 4:39 AM CDT BASIC METABOLIC PANEL W/ CALCIUM TOTAL Routine 06/14/2024 4:39 AM CDT RHYTHM STRIP 06/14/2024 12:00 AM CDT RHYTHM STRIP 06/14/2024 12:00 AM CDT RHYTHM STRIP 06/14/2024 12:00 AM CDT RHYTHM STRIP 06/14/2024 12:00 AM CDT POCT GLUCOSE Routine 06/13/2024 8:43 PM CDT POCT GLUCOSE Routine 06/13/2024 4:24 PM CDT POCT GLUCOSE Routine 06/13/2024 1:27 PM CDT POCT GLUCOSE Routine 06/13/2024 11:23 AM CDT POCT GLUCOSE Routine 06/13/2024 7:26 AM CDT CBC WITH AUTO DIFFERENTIAL Routine 06/13/2024 4:51 AM CDT C-REACTIVE PROTEIN (CRP) QUANT STAT 06/13/2024 4:51 AM CDT COMPLETE BLOOD COUNT (CBC) WITH DIFF Routine 06/13/2024 4:51 AM CDT BASIC METABOLIC PANEL W/ CALCIUM TOTAL Routine 06/13/2024 4:51 AM CDT BLOOD GASES, ARTERIAL W/ O2 SATURATION STAT 06/13/2024 12:43 AM CDT POCT GLUCOSE Routine 06/13/2024 12:12 AM CDT RHYTHM STRIP 06/13/2024 12:00 AM CDT RHYTHM STRIP 06/13/2024 12:00 AM CDT RHYTHM STRIP 06/13/2024 12:00 AM CDT POCT GLUCOSE Routine 06/12/2024 9:12 PM CDT POCT GLUCOSE Routine 06/12/2024 4:09 PM CDT LACTIC ACID (LACTATE) STAT 06/12/2024 1:23 PM CDT CULTURE, BLOOD STAT 06/12/2024 1:23 PM CDT CULTURE, BLOOD STAT 06/12/2024 1:23 PM CDT POCT GLUCOSE Routine 06/12/2024 12:22 PM CDT POCT GLUCOSE Routine 06/12/2024 9:27 AM CDT CBC WITH AUTO DIFFERENTIAL STAT 06/12/2024 7:31 AM CDT C-REACTIVE PROTEIN (CRP) QUANT STAT 06/12/2024 7:31 AM CDT CREATINE KINASE (CK) TOTAL STAT 06/12/2024 7:31 AM CDT HEMOGLOBIN A1C W/ ESTIMATED GLUCOSE Routine 06/12/2024 7:31 AM CDT COMPLETE BLOOD COUNT (CBC) WITH DIFF STAT 06/12/2024 7:31 AM CDT BASIC METABOLIC PANEL W/ CALCIUM TOTAL STAT 06/12/2024 7:31 AM CDT POCT GLUCOSE Routine 06/12/2024 5:25 AM CDT TEST FOR ACETONE/KETONES STAT 06/12/2024 4:21 AM CDT BLOOD GASES, VENOUS W/ O2 SATURATION STAT 06/12/2024 3:31 AM CDT BASIC METABOLIC PANEL W/ CALCIUM TOTAL STAT 06/12/2024 3:[address] CHEST, ABDOMEN, PELVIS WITHOUT CONTRAST Stat with Interpretation 06/12/2024 3:23 AM CDT URINALYSIS REFLEX IF INDICATED BY ABNORMAL RESULTS STAT 06/12/2024 1:09 AM PLATE STACKER POCT GLUCOSE STAT 06/12/2024 12:35 AM PLATE STACKER RHYTHM STRIP 06/12/2024 12:00 AM PLATE STACKER RHYTHM STRIP 06/12/2024 12:00 AM PLATE STACKER POCT GLUCOSE STAT 06/11/2024 10:11 PM PLATE STACKER TROPONIN I, HIGH SENSITIVITY (HSTRP) STAT 06/11/2024 9:02 PM PLATE STACKER GLUCOSE STAT 06/11/2024 9:02 PM PLATE STACKER POCT GLUCOSE STAT 06/11/2024 8:42 PM PLATE STACKER XR CHEST SINGLE VIEW PORTABLE STAT 06/11/2024 8:36 PM PLATE STACKER CRITICAL CARE Routine 06/11/2024 8:33 PM PLATE STACKER GOLD TOP TUBE STAT 06/11/2024 8:20 PM PLATE STACKER BLUE TOP TUBE STAT 06/11/2024 8:20 PM PLATE STACKER CBC WITH AUTO DIFFERENTIAL STAT 06/11/2024 8:20 PM PLATE STACKER EXTRA TUBES STAT 06/11/2024 8:20 PM PLATE STACKER TROPONIN I, HIGH SENSITIVITY (HSTRP) STAT 06/11/2024 8:20 PM PLATE STACKER MAGNESIUM (MG) STAT 06/11/2024 8:20 PM PLATE STACKER COMPLETE BLOOD COUNT (CBC) WITH DIFF STAT 06/11/2024 8:20 PM PLATE STACKER CMP (COMPREHENSIVE METABOLIC PANEL) STAT 06/11/2024 8:20 PM PLATE STACKER B-TYPE NATRIURETIC PEPTIDE (BNP) STAT 06/11/2024 8:20 PM PLATE STACKER RSV,SARS-COV-2,INF LUENZA A&B BY PCR STAT 06/11/2024 7:08 PM PLATE STACKER EKG 12 LEAD STAT 06/11/2024 7:02 PM PLATE STACKER POCT GLUCOSE STAT 06/11/2024 6:58 PM PLATE STACKER EKG SCAN 06/11/2024 12:00 AM PLATE STACKER IN-HOME CONSULT 06/06/2024 12:[address] CHEST W/O CONTRAST Stat with Interpretation 05/12/2024 12:45 PM PLATE STACKER HM DILATED EYE EXAM 09/23/2023 12:00 AM CDT HEPATITIS C ANTIBODY Routine 02/24/2023 4:07 PM PLATE STACKER Encounter for hepatitis C screening test for low risk patient STOOL, OCCULT BLOOD, DIAGNOSTIC, VIA GUAIAC STAT 06/15/2019 5:39 PM CDT from Last 3 Months or Most Recently Relevant to Health Maintenance Results * (ABNORMAL) POCT Glucose (07/19/2024 10:00 PM CDT) Only the most recent of42 resultswithin the time period is included. GLUCOSE,BEDSIDE POCT 65(L) 70 - 99 mg/dL 07/19/2024 10:06 PM CDT [facility] Comment:Patient RN Performed Blood 07/19/2024 10:0 0 PM CDT 07/19/2024 10:06 PM CDT us None Provider POINT OF CARE TESTING Final Resu lt [facility] [address] [place] [address] * CT CHEST ABDOMEN AND PELVIS W CONTRAST (07/19/2024 9:13 PM CDT) Anatomical Region Laterality Modality Chest, Abdomen, Pelvis N/A Computed Tomography 07/19/2024 10:1 6 PM CDT Impressions 07/19/2024 10:19 PM CDT IMPRESSION: 1. No discrete CT findings to explain patient's pain/symptoms. Narrative 07/19/2024 10:19 PM CDT EXAM DESCRIPTION: CT CHEST ABDOMEN AND PELVIS W CONTRAST REASON FOR STUDY: pt c/o upper abdominal, cough, and bilateral rib pain starting a week ago. hx of IBS, HTN, asthma, DM, and current smoker TECHNIQUE: CT scan of the chest, abdomen, and pelvis performed with intravenous and without oral contrast using helical scanning technique with dynamic intravenous contrast injection. Reconstructed coronal and sagittal MPR images reviewed. All images stored on PACS. Automated exposure control was used as a dose optimization technique for this examination. CONTRAST TYPE/DOSE: 100mL of IOPAMIDOL 76 % IV SOLN injected COMPARISON: 06/12/2024 , 01/08/2024 FINDINGS: CHEST LUNGS: Mild scattered subsegmental atelectasis in both lungs. No pulmonary parenchymal consolidation or pulmonary edema. Mild bilateral bronchial wall thickening. PLEURA: No pleural effusion. No pneumothorax. MEDIASTINUM/CRUZ: No identified masses or lymphadenopathy. No supraclavicular lymphadenopathy. The esophagus is within normal limits. HEART: Borderline cardiomegaly with no pericardial effusion. VASCULATURE CHEST: No thoracic aortic aneurysm or dissection. No CT evidence of pulmonary embolism. AXILLA: No adenopathy. CHEST WALL: No masses. No subcutaneous air. There is an unchanged hypoattenuating lesion within the super facial subcutaneous adipose tissues of the left anterolateral chest wall measuring 14 mm which could reflect a sebaceous/infundibular cyst or epidermal inclusion cyst. HARDWARE/LINES/TUBES: None. MUSCULOSKELETAL CHEST: No acute fractures or aggressive osseous lesions. ABDOMEN/PELVIS LIVER: Normal size. No identified cystic or solid masses. Mild hepatic steatosis. The hepatic and portal veins are patent. GALLBLADDER: Prior cholecystectomy. BILE DUCTS: No intrahepatic or extrahepatic ductal dilatation. SPLEEN: Normal size. No focal lesions. Geographic region of hypoattenuation at the periphery of the upper spleen may reflect sequela of prior splenic infarct, unchanged compared to 01/08/2024. PANCREAS: No identified cystic or solid masses. No significant calcifications. No adjacent inflammation or peripancreatic fluid collections. Pancreatic duct not dilated. ADRENALS: Normal. KIDNEYS/URINARY TRACT: Bilateral renal cysts are unchanged measuring up to 25 mm in the right kidney.. No visualized stones. No hydronephrosis or hydroureter. Symmetric enhancement. Urinary bladder is decompressed but unremarkable. GI: The stomach is normal. The small bowel and colon are normal in course and caliber with no evidence of obstruction or inflammation. The appendix is normal. PERITONEUM: No ascites or free air. No lymphadenopathy. RETROPERITONEUM: No mass or adenopathy. REPRODUCTIVE: Prior hysterectomy. No adnexal masses. VASCULATURE ABDOMEN: No abdominal aortic aneurysm. The abdominal aorta and its branches are patent. MUSCULOSKELETAL ABDOMEN PELVIS: No acute fractures or aggressive osseous lesions. THIS IS AN ELECTRONICALLY VERIFIED FINAL REPORT 07/19/2024 10:16 PM - Electronically signed by Titus Valente M.D. AT: AT Report ID: [id number] Reading Location: [id number] Procedure Note Titus Valente MD - 07/19/2024 EXAM DESCRIPTION: CT CHEST ABDOMEN AND PELVIS W CONTRAST REASON FOR STUDY: pt c/o upper abdominal, cough, and bilateral rib pain starting a week ago. hx of IBS, HTN, asthma, DM, and current smoker TECHNIQUE: CT scan of the chest, abdomen, and pelvis performed with intravenous and without oral contrast using helical scanning technique with dynamic intravenous contrast injection. Reconstructed coronal and sagittal MPR images reviewed. All images stored on PACS. Automated exposure control was used as a dose optimization technique for this examination. CONTRAST TYPE/DOSE: 100mL of IOPAMIDOL 76 % IV SOLN injected COMPARISON: 06/12/2024 , 01/08/2024 FINDINGS: CHEST LUNGS: Mild scattered subsegmental atelectasis in both lungs. No pulmonary parenchymal consolidation or pulmonary edema. Mild bilateral bronchial wall thickening. PLEURA: No pleural effusion. No pneumothorax. MEDIASTINUM/CRUZ: No identified masses or lymphadenopathy. No supraclavicular lymphadenopathy. The esophagus is within normal limits. HEART: Borderline cardiomegaly with no pericardial effusion. VASCULATURE CHEST: No thoracic aortic aneurysm or dissection. No CT evidence of pulmonary embolism. AXILLA: No adenopathy. CHEST WALL: No masses. No subcutaneous air. There is an unchanged hypoattenuating lesion within the super facial subcutaneous adipose tissues of the left anterolateral chest wall measuring 14 mm which could reflect a sebaceous/infundibular cyst or epidermal inclusion cyst. HARDWARE/LINES/TUBES: None. MUSCULOSKELETAL CHEST: No acute fractures or aggressive osseous lesions. ABDOMEN/PELVIS LIVER: Normal size. No identified cystic or solid masses. Mild hepatic steatosis. The hepatic and portal veins are patent. GALLBLADDER: Prior cholecystectomy. BILE DUCTS: No intrahepatic or extrahepatic ductal dilatation. SPLEEN: Normal size. No focal lesions. Geographic region of hypoattenuation at the periphery of the upper spleen may reflect sequela of prior splenic infarct, unchanged compared to 01/08/2024. PANCREAS: No identified cystic or solid masses. No significant calcifications. No adjacent inflammation or peripancreatic fluid collections. Pancreatic duct not dilated. ADRENALS: Normal. KIDNEYS/URINARY TRACT: Bilateral renal cysts are unchanged measuring up to 25 mm in the right kidney.. No visualized stones. No hydronephrosis or hydroureter. Symmetric enhancement. Urinary bladder is decompressed but unremarkable. GI: The stomach is normal. The small bowel and colon are normal in course and caliber with no evidence of obstruction or inflammation. The appendix is normal. PERITONEUM: No ascites or free air. No lymphadenopathy. RETROPERITONEUM: No mass or adenopathy. REPRODUCTIVE: Prior hysterectomy. No adnexal masses. VASCULATURE ABDOMEN: No abdominal aortic aneurysm. The abdominal aorta and its branches are patent. MUSCULOSKELETAL ABDOMEN PELVIS: No acute fractures or aggressive osseous lesions. THIS IS AN ELECTRONICALLY VERIFIED FINAL REPORT 07/19/2024 10:16 PM - Electronically signed by Titus Valente M.D. AT: AT Report ID: [id number] Reading Location: [id number] IMPRESSION: 1. No discrete CT findings to explain patient's pain/symptoms. Manjeet Estes MD IM CT ORDERABLES Lucero amanda Result * (ABNORMAL) Urinalysis w/ Reflex (07/19/2024 9:06 PM CDT) Only the most recent of2 resultswithin the time period is included. SPECIFIC GRAVITY 1.015 1.003 - 1.030 07/19/2024 9:41 PM CDT [facility] URINE PH 6.5 5.0 - 9.0 07/19/2024 9:41 PM CDT [facility] WBC ESTERASE Negative Negative 07/19/2024 9:41 PM CDT [facility] NITRITE Negative Negative 07/19/2024 9:41 PM CDT [facility] PROTEIN, RANDOM URINE 30 mg/dL(A) Negative 07/19/2024 9:41 PM CDT [facility] URINE GLUCOSE, QUAL 250 mg/dL(A) Negative 07/19/2024 9:41 PM CDT [facility] URINE KETONES Negative Negative 07/19/2024 9:41 PM CDT [facility] UROBILINOGEN Normal Normal mg/dL 07/19/2024 9:41 PM CDT [facility] URINE BLOOD 10 /uL(A) Negative fely/ul 07/19/2024 9:41 PM CDT [facility] URINALYSIS COLOR Yellow 07/20/19 9:41 PM CDT [facility] URINALYSIS CLARITY Clear 07/19/2024 9:41 PM CDT [facility] WBC (Urine) 0-5 Negative, 0-5 /hpf 07/19/2024 9:41 PM CDT [facility] URINE RBC'S 0-2 Negative, 0-2 /hpf 07/19/2024 9:41 PM CDT [facility] EPITHELIAL CELLS Moderate amount /lpf 07/19/2024 9:41 PM CDT [facility] BACTERIA, URINE Few(A) Negative /hpf 07/19/2024 9:41 PM CDT [facility] Urine URINE SPECIMEN / Unknown Non-Phlebotomy Collection / Unknown 07/19/2024 9:06 PM CDT 07/19/2024 9:14 PM CDT us Manjeet Estes MD URINE ORDERABLES Final Result [facility] [address] [place] [address] * TROPONIN I, HIGH SENSITIVITY (HSTRP) (07/19/2024 8:33 PM CDT) Only the most recent of3 resultswithin the time period is included. TROPONIN I, HIGH SENSITIVITY- GALAN 7 <=14 ng/L 07/19/2024 9:12 PM CDT [facility] Comment: High-sensitivity troponin I results are reported in ng/L making the result appear to be 1,000 times higher than the contemporary troponin I value which is reported in ng/ml. Results from [facility]. Blood Venipuncture / Unknown 07/19/2024 8:33 PM CDT 07/19/2024 8:47 PM CDT Manjeet Estes MD CHEMISTRY ORDERABLES F inal Result Performing Organization Address [facility] de Phone Number [facility] [address] [place] [address] * Gold Top Tube (07/19/2024 8:33 PM CDT) Only the most recent of2 resultswithin the time period is included. Blood No Phlebotomy Charged / Unknown 07/19/2024 8:33 PM CDT 07/19/2024 8:47 PM CDT Manjeet Estes MD CHEMISTRY ORDERABLES F inal Result Performing Organization Address [facility] de Phone Number [facility] [address] [place] [address] * Blue Top Tube (07/19/2024 8:33 PM CDT) Only the most recent of2 resultswithin the time period is included. Blood No Phlebotomy Charged / Unknown 07/19/2024 8:33 PM CDT 07/19/2024 8:47 PM CDT Manjeet Estes MD HEMATOLOGY ORDERABLES Final Result Performing Organization Address [facility] de Phone Number [facility] [address] [place] [address] * (ABNORMAL) CBC with Auto Differential (07/19/2024 8:33 PM CDT) Only the most recent of12 resultswithin the time period is included. WBC 12.79(H) 4.00 - 12.00 10(3)/mcL 07/19/2024 8:51 PM CDT [facility] RBC 4.29 3.80 - 5.30 10(6)/mcL 07/19/2024 8:51 PM CDT [facility] HEMOGLOBIN (HGB) 12.6 12.0 - 15.8 g/dL 07/19/2024 8:51 PM CDT [facility] HEMATOCRIT (HCT) 39.4 36.0 - 47.0 % 07/19/2024 8:51 PM CDT [facility] MCV 91.8 82.0 - 96.0 fL 07/19/2024 8:51 PM CDT [facility] MCH 29.4 26.0 - 34.0 pg 07/19/2024 8:51 PM CDT [facility] MCHC 32.0 31.0 - 36.0 g/dL 07/19/2024 8:51 PM CDT [facility] PLATELET COUNT 297 140 - 440 10(3)/mcL 07/19/2024 8:51 PM CDT [facility] RDW 13.1 11.8 - 15.5 % 07/19/2024 8:51 PM CDT [facility] MPV 11.4 9.7 - 12.4 fL 07/19/2024 8:51 PM CDT [facility] NEUTROPHILS 58.4 47.0 - 73.0 % 07/19/2024 8:51 PM CDT [facility] LYMPHOCYTES 27.4 18.0 - 42.0 % 07/19/2024 8:51 PM CDT [facility] MONOCYTES 7.3 4.0 - 12.0 % 07/19/2024 8:51 PM CDT [facility] EOSINOPHILS 6.3(H) 0.0 - 5.0 % 07/19/2024 8:51 PM CDT [facility] BASOPHILS 0.6 0.0 - 1.0 % 07/19/2024 8:51 PM CDT [facility] ABSOLUTE NEUTROPHILS 7.47 1.60 - 7.70 10(3)/mcL 07/19/2024 8:51 PM CDT [facility] ABSOLUTE LYMPHOCYTES 3.50(H) 1.30 - 3.20 10(3)/[facility] 07/19/2024 8:51 PM CDT [facility] ABSOLUTE MONOCYTES 0.93 0.20 - 1.00 10(3)/[facility] 07/19/2024 8:51 PM CDT [facility] ABSOLUTE EOSINOPHIL 0.81(H) 0.00 - 0.40 10(3)/[facility] 07/19/2024 8:51 PM CDT [facility] ABSOLUTE BASOPHILS 0.08 0.00 - 0.10 10(3)/[facility] 07/19/2024 8:51 PM CDT [facility] NRBC PER 100 WBC 0 07/20/19 8:51 PM CDT [facility] Blood Venipuncture / Unknown 07/19/2024 8:33 PM CDT 07/19/2024 8:47 PM CDT us Manjeet Estes MD HEMATOLOGY ORDERABLES Final Result Performing Organization Address City/[facility]/ZIP Co de Phone Number [facility] [address] [place] [address] * Magnesium (07/19/2024 8:33 PM CDT) Only the most recent of3 resultswithin the time period is included. MAGNESIUM 1.8 1.6 - 2.6 mg/dL 07/19/2024 9:16 PM CDT [facility] Blood Venipuncture / Unknown 07/19/2024 8:33 PM CDT 07/19/2024 8:47 PM CDT us Manjeet Estes MD CHEMISTRY ORDERABLES F inal Result Performing Organization Address City/[facility]/ZIP Co de Phone Number [facility] [address] [place] [address] * Lipase (07/19/2024 8:33 PM CDT) LIPASE 18 8 - 78 U/L 07/19/2024 9:08 PM CDT [facility] Blood Venipuncture / Unknown 07/19/2024 8:33 PM CDT 07/19/2024 8:47 PM CDT us Manjeet Estes MD CHEMISTRY ORDERABLES F inal Result [facility] [address] [place] [address] * (ABNORMAL) CMP (07/19/2024 8:33 PM CDT) Only the most recent of3 resultswithin the time period is included. Pathologist [facility] SODIUM 143 136 - 145 mmol/L 07/19/2024 9:16 PM CDT [facility] POTASSIUM 3.5 3.5 - 5.1 mmol/L 07/19/2024 9:16 PM CDT [facility] CHLORIDE 107 98 - 107 mmol/L 07/19/2024 9:16 PM CDT [facility] CO2, VENOUS 26 22 - 30 mmol/L 07/19/2024 9:16 PM CDT [facility] ANION GAP 13.5 <18.0 mmol/L 07/19/2024 9:16 PM CDT [facility] GLUCOSE 58(L) 70 - 99 mg/dL 07/19/2024 9:16 PM CDT [facility] BUN 21(H) 10 - 20 mg/dL 07/19/2024 9:16 PM CDT [facility] CREATININE, BLOOD 1.03(H) 0.60 - 1.00 mg/dL 07/19/2024 9:16 PM CDT [facility] BUN/CREATININE RATIO 20 12 - 20 ratio 07/19/2024 9:16 PM CDT [facility] TOTAL PROTEIN 8.3(H) 6.0 - 8.0 g/dL 07/19/2024 9:16 PM CDT [facility] ALBUMIN 4.4 3.5 - 5.0 g/dL 07/19/2024 9:16 PM CDT [facility] A/G RATIO 1.1 1.0 - 2.2 07/19/2024 9:16 PM CDT [facility] CALCIUM 10.2 8.7 - 10.5 mg/dL 07/19/2024 9:16 PM CDT [facility] T BILI 0.2 0.2 - 1.2 mg/dL 07/19/2024 9:16 PM CDT [facility] SGOT (AST) 16 <43 U/L 07/19/2024 9:16 PM CDT [facility] SGPT (ALT) 9 <56 U/L 07/19/2024 9:16 PM CDT [facility] ALKALINE PHOSPHATASE 120 40 - 150 U/L 07/19/2024 9:16 PM CDT [facility] GFR, ESTIMATED 60 >=60 07/19/2024 9:16 PM CDT [facility] Comment: Creatinine Clearance is the preferred criteria for selecting drug dose adjustments in renally impaired patients. The GFR is provided as additional pertinent clinical information. GFR is reported in mL/min/1.73 sq m. Calculation based on the Chronic Kidney Disease Epidemiology Collaboration (CKD- EPI) equation refit without adjustment for race. GFR, EST. >60 >=60 025 9:16 PM CDT [facility] GFR, EST. NONAFRICAN 54(L) >=60 07/19/2024 9:16 PM CDT [facility] Blood Venipuncture / Unknown 07/19/2024 8:33 PM CDT 07/19/2024 8:47 PM CDT Manjeet Estes MD CHEMISTRY ORDERABLES F inal Result Performing Organization Address City/[facility]/ZIP Co de Phone Number [facility] [address] [place] [address] * EKG 12 LEAD (07/19/2024 8:13 PM CDT) Only the most recent of2 resultswithin the time period is included. Ventricular Rate 84 BPM EXTERNAL EKG Atrial Rate 84 BPM EXTERNAL EKG P-R Interval 116 ms EXTERNAL EKG QRS Duration 78 ms EXTERNAL EKG Q-T Duration 370 ms EXTERNAL EKG QTC CALCULATION 437 ms EXTERNAL EKG P [place] 13 degrees EXTERNAL EKG R [place] 29 degrees EXTERNAL EKG T [place] 63 degrees EXTERNAL EKG 07/19/2024 8:13 PM CDT Impressions EXTERNAL EKG - 07/23/2024 3:46 PM CDT Normal sinus rhythm Nonspecific ST and T wave abnormality Abnormal ECG When compared with ECG of 11-JUN-2024 19:02, Nonspecific T wave abnormality now evident in Anterolateral leads Confirmed by Marya Beltran ([id number]) on 07/23/2024 3:46:25 PM Narrative Procedure Note Marya Beltran MD - 07/23/2024 IMPRESSION: Normal sinus rhythm Nonspecific ST and T wave abnormality Abnormal ECG When compared with ECG of 11-JUN-2024 19:02, Nonspecific T wave abnormality now evident in Anterolateral leads Confirmed by Marya Beltran ([id number]) on 07/23/2024 3:46:25 PM us Manjeet Estes MD IMG ECG ORDERABLES Fin al Result EXTERNAL EKG * IRON,TRANSFERN,CALC.TIBC,%SAT (07/19/2024 2:32 PM CDT) IRON 92 25 - 156 mcg/dL 07/19/2024 4:00 PM CDT [facility] TRANSFERRIN 257 173 - 360 mg/dL 07/19/2024 4:00 PM CDT [facility] TIBC, CALCULATED 321 265 - 497 mcg/dL 07/19/2024 4:00 PM CDT [facility] % SATURATION * 29 15 - 62 % 07/19/2024 4:00 PM CDT [facility] Blood No Phlebotomy Charged / Unknown 07/19/2024 2:32 PM CDT 07/19/2024 3:18 PM CDT Jing Baird PAC CHEMISTRY ORDERABLES Fin al Result [facility] [address] [place] [address] * THYROID STIMULATING HORMONE (TSH) (07/19/2024 2:32 PM CDT) TSH 0.387 0.300 - 5.000 mIU/L 07/19/2024 4:17 PM CDT [facility] Blood No Phlebotomy Charged / Unknown 07/19/2024 2:32 PM CDT 07/19/2024 3:18 PM CDT Jing Baird PAC CHEMISTRY ORDERABLES Fin al Result Performing Organization Address City/[facility]/ZIP Co de Phone Number [facility] [address] [place] [address] * (ABNORMAL) LIPID PANEL (07/19/2024 2:32 PM CDT) CHOLESTEROL 190 <200 mg/dL 07/19/2024 4:43 PM CDT [facility] TRIGLYCERIDES 153(H) <150 mg/dL 07/19/2024 4:43 PM CDT [facility] HDL CHOLESTEROL 57 >40 mg/dL 4:43 PM CDT [facility] LDL 102 <130 mg/dL 07/19/2024 4:43 PM CDT [facility] VLDL 31 10 - 50 mg/dL 07/19/2024 4:43 PM CDT [facility] CHOL/HDL RATIO 3.3 0.0 - 4.4 07/19/2024 4:43 PM CDT [facility] NON-HDL CHOLESTEROL 133(H) <130 mg/dL 07/19/2024 4:43 PM CDT [facility] Blood No Phlebotomy Charged / Unknown 07/19/2024 2:32 PM CDT 07/19/2024 3:18 PM CDT Jing Baird PAC CHEMISTRY ORDERABLES Fin al Result Performing Organization Address [facility] de Phone Number [facility] [address] [place] [address] * FERRITIN (07/19/2024 2:32 PM CDT) FERRITIN 36 5 - 204 ng/mL 07/19/2024 4:17 PM CDT [facility] Blood No Phlebotomy Charged / Unknown 07/19/2024 2:32 PM CDT 07/19/2024 3:18 PM CDT Jing Baird PAC CHEMISTRY ORDERABLES Fin al Result Performing Organization Address [facility] de Phone Number [facility] [address] [place] [address] * EKG SCAN (07/19/2024 12:00 AM CDT) Only the most recent of2 resultswithin the time period is included. 07/19/2024 us Provider Scan IMG ECG ORDERABLES Final Result Performing Organization Address [facility] Co de Phone Number RESULTING AGENCY * (ABNORMAL) BMP with Ca, Total (06/20/2024 5:30 AM CDT) Only the most recent of10 resultswithin the time period is included. SODIUM 138 136 - 145 mmol/L 06/20/2024 6:26 AM [facility] POTASSIUM 3.7 3.5 - 5.1 mmol/L 06/20/2024 6:26 AM [facility] CHLORIDE 107 98 - 107 mmol/L 06/20/2024 6:26 AM [facility] CO2, VENOUS 24 22 - 30 mmol/L 06/20/2024 6:26 AM [facility] ANION GAP 10.7 <18.0 mmol/L 06/20/2024 6:26 AM [facility] GLUCOSE 108(H) 70 - 99 mg/dL 06/20/2024 6:26 AM [facility] BUN 22(H) 10 - 20 mg/dL 06/20/2024 6:26 AM [facility] CREATININE, BLOOD 0.90 0.60 - 1.00 mg/dL 06/20/2024 6:26 AM [facility] BUN/CREATININE RATIO 24(H) 12 - 20 ratio 06/20/2024 6:26 AM [facility] CALCIUM 8.9 8.7 - 10.5 mg/dL 06/20/2024 6:26 AM [facility] GFR, ESTIMATED >60 >=60 06/20/2024 6:26 AM [facility] Comment: Creatinine Clearance is the preferred criteria for selecting drug dose adjustments in renally impaired patients. The GFR is provided as additional pertinent clinical information. GFR is reported in mL/min/1.73 sq m. Calculation based on the Chronic Kidney Disease Epidemiology Collaboration (CKD- EPI) equation refit without adjustment for race. GFR, EST. >60 >=60 025 6:26 AM [facility] GFR, EST. NONAFRICAN >60 >=60 06/20/2024 6:26 AM [facility] Blood Venipuncture / Unknown 06/20/2024 5:30 AM CDT 06/20/2024 5:44 AM CDT us Cami Holcomb Que WALKER, RACHEL CHEMISTRY ORDERABLES Final Result [facility] [place] [address] * XR TIBIA & FIBULA RIGHT (06/16/2024 10:42 AM CDT) Anatomical Region Laterality Modality LOWER EXTREMITY, leg Right Digital Rad iography 06/16/2024 11:3 5 AM CDT Impressions 06/16/2024 11:37 AM CDT IMPRESSION: Healing reduced, nailed and internally fixated proximal right tibia fracture. Healing minimally displaced right proximal fibular shaft fracture. Healing nondisplaced distal medial malleolus fracture with bending of the distal most fixation screw related to nail placement. Old healed distal fibular shaft fracture. Narrative 06/16/2024 11:37 AM CDT EXAM DESCRIPTION: XR TIBIA and FIBULA RIGHT REASON FOR STUDY: admitted 06/11/24 due to generalized weakness, assisted fall. Cast change for right ankle Fx. Hx of right tibial and right fibular Fx x 1 month ago. FINDINGS: Three views of the right leg are submitted for interpretation. Comparison 05/12/2024. Fiberglass cast is present. Reduced, nailed and internally fixated proximal right tibia fracture from the tibial plateau to the proximal tibial shaft is healing. Healing nondisplaced medial malleolus fracture is present with bending of the distal most medial malleolus fixation screw related to nail placement. Healed reduced and internally fixated distal fibular shaft fracture is unchanged. Healing mildly displaced proximal fibular shaft fracture is present. THIS IS AN ELECTRONICALLY VERIFIED FINAL REPORT 06/16/2024 11:35 AM - Electronically signed by Ethan Ptety M.D. TH: TH Report ID: [id number] Reading Location: [id number] Procedure Note Ethan Petty MD - 06/16/2024 EXAM DESCRIPTION: XR TIBIA and FIBULA RIGHT REASON FOR STUDY: admitted 06/11/24 due to generalized weakness, assisted fall. Cast change for right ankle Fx. Hx of right tibial and right fibular Fx x 1 month ago. FINDINGS: Three views of the right leg are submitted for interpretation. Comparison 05/12/2024. Fiberglass cast is present. Reduced, nailed and internally fixated proximal right tibia fracture from the tibial plateau to the proximal tibial shaft is healing. Healing nondisplaced medial malleolus fracture is present with bending of the distal most medial malleolus fixation screw related to nail placement. Healed reduced and internally fixated distal fibular shaft fracture is unchanged. Healing mildly displaced proximal fibular shaft fracture is present. THIS IS AN ELECTRONICALLY VERIFIED FINAL REPORT 06/16/2024 11:35 AM - Electronically signed by Ethan Petty M.D. TH: TH Report ID: [id number] Reading Location: [id number] IMPRESSION: Healing reduced, nailed and internally fixated proximal right tibia fracture. Healing minimally displaced right proximal fibular shaft fracture. Healing nondisplaced distal medial malleolus fracture with bending of the distal most fixation screw related to nail placement. Old healed distal fibular shaft fracture. Anais Silva PAC IMG DIAGNOSTIC ORDERABLES Lucero l Result * RHYTHM STRIP (06/14/2024 12:00 AM CDT) Only the most recent of9 resultswithin the time period is included. 06/14/2024 us Provider Scan IMG ECG ORDERABLES Final Result RESULTING AGENCY * (ABNORMAL) C-Reactive Protein (CRP) Quant (06/13/2024 4:51 AM CDT) Only the most recent of2 resultswithin the time period is included. C-REACTIVE PROTEIN 1.56(H) <0.50 mg/dL 06/13/2024 8:41 AM CDT [facility] Blood Venipuncture / Unknown 06/13/2024 4:51 AM CDT 06/13/2024 5:49 AM CDT us Perry Mendez MD CHEMISTRY ORDERABLES Final Re sult [facility] [place] [address] * (ABNORMAL) Blood Gases, Arterial w/ O2 Saturation (06/13/2024 12:43 AM CDT) O2 STATUS room air 06/13/2024 12:47 AM CDT [facility] PH ARTERIAL 7.43 7.35 - 7.45 06/13/2024 12:47 AM CDT [facility] PC02 (ARTERIAL) 28(L) 35 - 45 mmHg 06/13/2024 12:47 AM CDT [facility] PO2 (ARTERIAL) 89 75 - 100 mmHg 06/13/2024 12:47 AM CDT [facility] O2 SAT ART, MEASURED 98 94 - 100 % 06/13/2024 12:47 AM CDT [facility] BASE ARTERIAL -3.6(L) -2.0 - 2.0 mmol/L 06/13/2024 12:47 AM CDT [facility] BICARBONATE 18.9(L) 22.0 - 26.0 mmol/L 06/13/2024 12:47 AM CDT [facility] BENTLEY'S TEST RESULTS Positive - Right Radial 06/13/2024 12:47 AM CDT [facility] CARBOXYHEMOGLOBIN 2.4 0.0 - 5.0 % 06/13/2024 12:47 AM CDT [facility] METHEMOGLOBIN 0.3 0.0 - 1.5 % 06/13/2024 12:47 AM CDT [facility] ART Blood Gas Arterial Punctur e / Unknown 06/13/2024 12:43 AM CDT 06/13/2024 12:43 AM CDT Cami Grey APRN, CNP CHEMISTRY ORDERABLES Final Result Performing Organization Address City/[facility] Co de Phone Number [facility] [place] [address] * Lactic Acid (Lactate) (06/12/2024 1:23 PM CDT) Pathologist [facility] LACTIC ACID 1.5 0.7 - 2.0 mmol/L 06/12/2024 1:42 PM CDT [facility] Blood Venipuncture / Unknown 06/12/2024 1:23 PM CDT 06/12/2024 1:23 PM CDT Perry Mendez MD CHEMISTRY ORDERABLES Final Re sult Performing Organization Address [facility] Co de Phone Number [facility] [place] [address] * Culture, Blood (06/12/2024 1:23 PM CDT) Only the most recent of2 resultswithin the time period is included. [facility] CULTURE RESULTS NO GROWTH WITHIN 5 DAYS, FINAL RESULT 06/17/2024 2:01 PM CDT [facility] Culture (Peripheral Vein) Venipuncture / Unknown 06/12/2024 1:23 PM CDT 06/12/2024 1:23 PM CDT Perry Mendez MD MICROBIOLOGY - GENERAL ORDERA BLES Final Result Performing Organization Address City/[facility] Co de Phone Number [facility] [address] [place] [address], * (ABNORMAL) Hemoglobin A1C (if indicated) (06/12/2024 7:31 AM CDT) Pathologist [facility] HGB-A1C 9.4(H) 4.0 - 6.0 % 06/12/2024 10:24 AM CDT [facility] Est Average Glucose 223.1 mg/dL 06/12/2024 10:24 AM CDT [facility] Blood Venipuncture / Unknown 06/12/2024 7:31 AM CDT 06/12/2024 7:41 AM CDT Narrative [facility] - 06/12/2024 10:24 AM CDT HEMOGLOBIN A1C: DIABETIC PATIENTS: WELL-CONTROLLED: 6.2 - 7.0 INTERMEDIATE WELL-CONTROLLED: 7.0 - 9.0 POORLY-CONTROLLED: >9.0 Specimens containing greater than 5% of Hemoglobin F may result in lower than expected % HbA1C results. Cami Grey APRN, CNP CHEMISTRY ORDERABLES Final Result Performing Organization Address City/[facility]/ZIP Co de Phone Number [facility] [place] [address] * (ABNORMAL) Creatine Kinase (CK) Total (06/12/2024 7:31 AM CDT) CK (CPK) 27(L) 29 - 168 U/L 06/12/2024 10:27 AM CDT [facility] Blood Venipuncture / Unknown 06/12/2024 7:31 AM CDT 06/12/2024 7:41 AM CDT us Perry Mendez MD HEMATOLOGY ORDERABLES Final R esult Performing Organization Address City/[facility]/ZIP Co de Phone Number [facility] [address] [place] [address] * (ABNORMAL) ACETONE QUAL (06/12/2024 4:21 AM CDT) ACETONE Small amount(A) Negative 06/12/2024 4:46 AM CDT [facility] Blood Venipuncture / Unknown 06/12/2024 4:21 AM CDT 06/12/2024 4:34 AM CDT us Paxton Cannon MD CHEMISTRY ORDERABLES Lucero amanda Result [facility] [address] [place] [address] * (ABNORMAL) Blood Gases, Venous w/ O2 Saturation (06/12/2024 3:31 AM CDT) O2 STATUS unknown 06/12/2024 3:38 AM CDT [facility] PH VENOUS 7.43 7.34 - 7.43 06/12/2024 3:38 AM CDT [facility] PCO2 (VENOUS) 28(L) 41 - 51 mmHg 06/12/2024 3:38 AM CDT [facility] PO2 VENOUS 48 30 - 50 mmHg 06/12/2024 3:38 AM CDT [facility] O2 SAT SMITA, MEASURED 75 60 - 85 % 12/2024 3:38 AM CDT [facility] BICARBONATE 18.5(L) 22.0 - 26.0 mmol/L 06/12/2024 3:38 AM CDT [facility] BASE VENOUS -3.7(L) -2.0 - 3.0 mmol/L 06/12/2024 3:38 AM CDT [facility] CARBOXYHEMOGLOBIN 1.6 0.0 - 5.0 % 06/12/2024 3:38 AM CDT [facility] METHEMOGLOBIN 0.3 0.0 - 1.5 % 06/12/2024 3:38 AM CDT [facility] SMITA Blood Gas Venipuncture / Unknown 06/12/2024 3:31 AM CDT 06/12/2024 3:31 AM CDT Narrative [facility] - 06/12/2024 3:38 AM CDT Interpretation - The usual approach to interpreting a VBG consists of using the venous measurements to estimate the corresponding arterial values, then using these estimated values for clinical decision-making exactly as if an ABG had been performed. The difference between the venous measurements and the arterial measurements depends upon the site of venous sampling and varies among laboratories. Correlation with arterial blood gases - Although arterial blood gas analysis is more accurate than venous analysis for the assessment of oxygenation, measurement of PCO2, pH, and HCO3 are similar with some minor adjustments: The central venous pH is usually 0.03 to 0.05 pH units lower than the arterial pH and the PCO2 is usually 4 to 5 mmHg higher, with little or no increase in HCO3. Mixed venous blood (ie, SvO2 drawn from a pulmonary artery catheter) gives results similar to central venous blood (ie, ScvO2 drawn from a central venous catheter). The peripheral venous pH is approximately 0.02 to 0.04 pH units lower than the arterial pH, the venous serum HCO3 concentration is approximately 1 to 2 meq/L higher, and the venous PCO2 is approximately 3 to 8 mmHg higher. There are no venous to arterial conversions for ScvO2, SvO2, or peripheral venous oxyhemoglobin saturation (PvO2). Importantly, sufficient variability between arterial and venous blood gas values may exist such that periodic correlation between arterial and venous blood gas values is always prudent. us Paxton Cannon MD CHEMISTRY ORDERABLES Lucero l Result [facility] [place] [address] * CT CHEST, ABDOMEN, PELVIS WITHOUT CONTRAST (06/12/2024 3:23 AM CDT) Anatomical Region Laterality Modality Chest, Abdomen, Pelvis N/A Computed Tomography 06/12/2024 3:38 AM CDT Impressions 06/12/2024 3:40 AM CDT IMPRESSION: No abnormality identified to account for presentation. Narrative 06/12/2024 3:40 AM CDT EXAM DESCRIPTION: CT CHEST, ABDOMEN, PELVIS WITHOUT CONTRAST REASON FOR STUDY: abdominal pain, leukocytosis. c/o generalized weakness and hyperglycemia x 1 day. HX: Smoker, Asthma, HTN, DM, IBS, Cholecystectomy, Partial hysterectomy TECHNIQUE: CT scan of the chest, abdomen, and pelvis performed without intravenous and without oral contrast using helical scanning technique. Reconstructed coronal and sagittal MPR images reviewed. All images stored on PACS. Automated exposure control was used as a dose optimization technique for this examination. COMPARISON: 05/12/2024 FINDINGS: LUNGS: Clear. Trachea and major airways are patent. HEART/MEDIASTINUM/CRUZ: Heart size normal. Coronary artery calcifications. No enlarged lymph node. Thoracic inlet unremarkable. CHEST MSK: Mild anterior marginal osteophytosis. CHEST WALL: Unremarkable. LIVER/BILIARY: Liver unremarkable. Biliary tree normal in caliber. GALLBLADDER: Absent. SPLEEN: Normal. PANCREAS: Moderate atrophy. ADRENAL GLANDS: Normal. KIDNEYS/URINARY TRACT: Right renal cyst. Ureters and bladder appear normal. GI: Esophagus, stomach, small bowel appear normal. Colon and appendix unremarkable. OTHER ABDOMINAL/PELVIS: Major vascular structures are normal in caliber. No enlarged lymph node or free fluid. MSK: Mild disc disease and facet arthropathy. Mild hip and SI joint arthrosis. BODY WALL: Unremarkable. THIS IS AN ELECTRONICALLY VERIFIED FINAL REPORT 06/12/2024 3:38 AM - Electronically signed by Joey Kemp M.D. AR: CASTILLO Report ID: [id number] Reading Location: [place] [address] Procedure Note Joey Kemp MD - 06/12/2024 EXAM DESCRIPTION: CT CHEST, ABDOMEN, PELVIS WITHOUT CONTRAST REASON FOR STUDY: abdominal pain, leukocytosis. c/o generalized weakness and hyperglycemia x 1 day. HX: Smoker, Asthma, HTN, DM, IBS, Cholecystectomy, Partial hysterectomy TECHNIQUE: CT scan of the chest, abdomen, and pelvis performed without intravenous and without oral contrast using helical scanning technique. Reconstructed coronal and sagittal MPR images reviewed. All images stored on PACS. Automated exposure control was used as a dose optimization technique for this examination. COMPARISON: 05/12/2024 FINDINGS: LUNGS: Clear. Trachea and major airways are patent. HEART/MEDIASTINUM/CRUZ: Heart size normal. Coronary artery calcifications. No enlarged lymph node. Thoracic inlet unremarkable. CHEST MSK: Mild anterior marginal osteophytosis. CHEST WALL: Unremarkable. LIVER/BILIARY: Liver unremarkable. Biliary tree normal in caliber. GALLBLADDER: Absent. SPLEEN: Normal. PANCREAS: Moderate atrophy. ADRENAL GLANDS: Normal. KIDNEYS/URINARY TRACT: Right renal cyst. Ureters and bladder appear normal. GI: Esophagus, stomach, small bowel appear normal. Colon and appendix unremarkable. OTHER ABDOMINAL/PELVIS: Major vascular structures are normal in caliber. No enlarged lymph node or free fluid. MSK: Mild disc disease and facet arthropathy. Mild hip and SI joint arthrosis. BODY WALL: Unremarkable. THIS IS AN ELECTRONICALLY VERIFIED FINAL REPORT 06/12/2024 3:38 AM - Electronically signed by Joey Kemp M.D. AR: CASTILLO Report ID: [id number] Reading Location: [id number] IMPRESSION: No abnormality identified to account for presentation. us Paxton Cannon MD IMG CT ORDERABLES Final R esult * (ABNORMAL) Glucose (06/11/2024 9:02 PM PLATE STACKER) GLUCOSE 463(HH) 70 - 99 mg/dL 06/11/2024 9:34 PM PLATE STACKER [facility] Blood Venipuncture / Unknown 06/11/2024 9:02 PM PLATE STACKER 06/11/2024 9:12 PM PLATE STACKER us None Provider CHEMISTRY ORDERABLES Final Resul t [facility] [place] [address] * XR CHEST SINGLE VIEW PORTABLE (06/11/2024 8:36 PM PLATE STACKER) Anatomical Region Laterality Modality Chest N/A Computed Radiogr aphy 06/11/2024 8:58 PM PLATE STACKER Impressions 06/11/2024 9:00 PM PLATE STACKER IMPRESSION: No acute abnormality identified. Narrative 06/11/2024 9:00 PM PLATE STACKER EXAM DESCRIPTION: XR CHEST SINGLE VIEW PORTABLE REASON FOR STUDY: c/o generalized weakness and had syncopal episode with an assisted fall. hx of asthma, HTN, DM, and current smoker. TECHNIQUE: Portable upright AP view of the chest. COMPARISON: 05/14/2024 FINDINGS: LUNGS AND PLEURA: No focal opacity, large effusion, or pneumothorax identified. HEART/MEDIASTINUM: Trachea midline. Cardiac silhouette normal in size. Mediastinal contours appear normal. BONES: Multilevel disc disease. Shoulder arthritis. CHEST WALL: Unremarkable. UPPER ABDOMEN: Unremarkable. THIS IS AN ELECTRONICALLY VERIFIED FINAL REPORT 06/11/2024 8:58 PM - Electronically signed by Joey Kemp M.D. AR: CASTILLO Report ID: [id number] Reading Location: [id number] Procedure Note Joey Kemp MD - 06/11/2024 EXAM DESCRIPTION: XR CHEST SINGLE VIEW PORTABLE REASON FOR STUDY: c/o generalized weakness and had syncopal episode with an assisted fall. hx of asthma, HTN, DM, and current smoker. TECHNIQUE: Portable upright AP view of the chest. COMPARISON: 05/14/2024 FINDINGS: LUNGS AND PLEURA: No focal opacity, large effusion, or pneumothorax identified. HEART/MEDIASTINUM: Trachea midline. Cardiac silhouette normal in size. Mediastinal contours appear normal. BONES: Multilevel disc disease. Shoulder arthritis. CHEST WALL: Unremarkable. UPPER ABDOMEN: Unremarkable. THIS IS AN ELECTRONICALLY VERIFIED FINAL REPORT 06/11/2024 8:58 PM - Electronically signed by Joey Kemp M.D. AR: CASTILLO Report ID: [id number] Reading Location: [id number] IMPRESSION: No acute abnormality identified. Paxton Cannon MD IMG DIAGNOSTIC ORDERABLES Final Result * Critical Care (06/11/2024 8:33 PM PLATE STACKER) Narrative Paxton Cannon MD - 06/11/2024 8:33 PM PLATE STACKER Paxton Cannon MD 06/12/2024 4:11 AM Critical Care Performed by: Paxton Cannon MD Authorized by: Paxton Cannon MD Critical care provider statement: Critical care time (minutes): 50 Critical care time was exclusive of: Separately billable procedures and treating other patients Critical care was necessary to treat or prevent imminent or life-threatening deterioration of the following conditions: Hyperglycemia, hypokalemia, hypertension. Critical care was time spent personally by me on the following activities: Development of treatment plan with patient or surrogate, evaluation of patient's response to treatment, examination of patient, obtaining history from patient or surrogate, interpretation of cardiac output measurements, ordering and performing treatments and interventions, ordering and review of laboratory studies, ordering and review of radiographic studies, pulse oximetry, re-evaluation of patient's condition and review of old charts I assumed direction of critical care for this patient from another provider in my specialty: no Care discussed with: admitting provider Paxton Cannon MD PROCEDURE/MINOR SURGICAL ORDERABLES Final Result * B-Type Natriuretic Peptide (BNP) (06/11/2024 8:20 PM PLATE STACKER) [facility] B TYPE NATRIURETIC PEPTIDE 72 <100 pg/mL 06/11/2024 9:15 PM PLATE STACKER [facility] Blood Venipuncture / Unknown 06/11/2024 8:20 PM PLATE STACKER 06/11/2024 8:32 PM PLATE STACKER Paxton Cannon MD CHEMISTRY ORDERABLES Lucero l Result [facility] [place] [address] * RSV,SARS-COV-2,INFLUENZA A&B BY PCR (06/11/2024 7:08 PM PLATE STACKER) [facility] FLU A Negative Negative, Error 06/11/2024 8:06 PM PLATE STACKER [facility] FLU B Negative Negative 06/11/2024 8:06 PM PLATE STACKER [facility] RESP SYNC VIRUS Negative Negative 8:06 PM PLATE STACKER [facility] SARSCOV2 NOT DETECTED (Reference Range for this test is Not Detected) 06/11/2024 8:06 PM PLATE STACKER [facility] Comment:This test was perfor med by a Reverse Presto Log Operator PCR Method. Swab NASOPHARYNGEAL WASHINGS / Unknown Non-Phlebotomy Collection / Unknown 06/11/2024 7:08 PM PLATE STACKER 06/11/2024 7:24 PM PLATE STACKER us Paxton Cannon MD MICROBIOLOGY - GENERAL OR DERABLES Final Result [facility] [place] [address] * IN-HOME CONSULT (06/06/2024 12:00 AM PLATE STACKER) 06/06/2024 us Provider Scan GENERIC SCAN ORDERS CONSULT Lucero l Result Performing Organization Address City/[facility]/ZIP Co de Phone Number SCAN * CT CHEST W/O CONTRAST (05/12/2024 12:45 PM PLATE STACKER) Anatomical Region Laterality Modality Chest N/A Computed Tomogra phy 05/12/2024 1:35 PM PLATE STACKER Impressions 05/12/2024 1:37 PM PLATE STACKER IMPRESSION: Scattered mild subsegmental atelectasis and scarring, which is most significant in the lung bases. No definite evidence of focal consolidation. Cardiomegaly with scattered subtle mild interlobular septal thickening with associated ground-glass opacities, which is most significant in the lung bases, and raises the concern for mild pulmonary edema. Narrative 05/12/2024 1:37 PM PLATE STACKER EXAM DESCRIPTION: CT CHEST W/O CONTRAST REASON FOR STUDY: c/o cough, shortness of breath, chest pain, and sore throat. PT states that sx have been ongoing since yesterday. HX of asthma, DM, HTN,. TECHNIQUE: CT scan of the chest performed without intravenous contrast using helical scanning technique. Reconstructed coronal and sagittal MPR images reviewed. All images stored on PACS. Automated exposure control was used as a dose optimization technique for this examination. COMPARISON: 05/12/2024 FINDINGS: The sensitivity for detection of solid visceral lesions is diminished without the use of intravenous contrast. LUNGS: There is no definite evidence of a pneumothorax. The central airways are grossly patent. There is scattered mild subsegmental atelectasis and scarring, which is most significant in the lung bases. There is no definite evidence of a focal consolidation or pleural effusion. There are scattered subtle mild interlobular septal thickening with associated ground-glass opacities, which is most significant in the lung bases. MEDIASTINUM/CRUZ: There is cardiomegaly. There is no definite evidence of pericardial effusion. There are atherosclerotic changes of the thoracic aorta and coronary vessels. There is no definite unenhanced CT evidence of mediastinal, hilar, or axillary lymphadenopathy. There are scattered subcentimeter mediastinal lymph nodes noted with largest measuring 0.7 cm in the paratracheal region (axial image 42). CORONARY ARTERY CALCIFICATION: Present. CHEST WALL: No masses. No subcutaneous air. HARDWARE/LINES/TUBES: None. UPPER ABDOMEN: There is a small hiatal hernia. The visualized portions of the bilateral adrenal glands are grossly unremarkable. The gallbladder is surgically absent. MUSCULOSKELETAL: There is mild osteopenia with degenerative changes of the spine. OTHER: No other significant abnormality. THIS IS AN ELECTRONICALLY VERIFIED FINAL REPORT 05/12/2024 1:35 PM - Electronically signed by Valorie Larsen D.O. PS: PS Report ID: [id number] Reading Location: [place] [address] Procedure Note Valorie Larsen DO - 05/12/2024 EXAM DESCRIPTION: CT CHEST W/O CONTRAST REASON FOR STUDY: c/o cough, shortness of breath, chest pain, and sore throat. PT states that sx have been ongoing since yesterday. HX of asthma, DM, HTN,. TECHNIQUE: CT scan of the chest performed without intravenous contrast using helical scanning technique. Reconstructed coronal and sagittal MPR images reviewed. All images stored on PACS. Automated exposure control was used as a dose optimization technique for this examination. COMPARISON: 05/12/2024 FINDINGS: The sensitivity for detection of solid visceral lesions is diminished without the use of intravenous contrast. LUNGS: There is no definite evidence of a pneumothorax. The central airways are grossly patent. There is scattered mild subsegmental atelectasis and scarring, which is most significant in the lung bases. There is no definite evidence of a focal consolidation or pleural effusion. There are scattered subtle mild interlobular septal thickening with associated ground-glass opacities, which is most significant in the lung bases. MEDIASTINUM/CRUZ: There is cardiomegaly. There is no definite evidence of pericardial effusion. There are atherosclerotic changes of the thoracic aorta and coronary vessels. There is no definite unenhanced CT evidence of mediastinal, hilar, or axillary lymphadenopathy. There are scattered subcentimeter mediastinal lymph nodes noted with largest measuring 0.7 cm in the paratracheal region (axial image 42). CORONARY ARTERY CALCIFICATION: Present. CHEST WALL: No masses. No subcutaneous air. HARDWARE/LINES/TUBES: None. UPPER ABDOMEN: There is a small hiatal hernia. The visualized portions of the bilateral adrenal glands are grossly unremarkable. The gallbladder is surgically absent. MUSCULOSKELETAL: There is mild osteopenia with degenerative changes of the spine. OTHER: No other significant abnormality. THIS IS AN ELECTRONICALLY VERIFIED FINAL REPORT 05/12/2024 1:35 PM - Electronically signed by Valorie Larsen D.O. PS: PS Report ID: [id number] Reading Location: [id number] IMPRESSION: Scattered mild subsegmental atelectasis and scarring, which is most significant in the lung bases. No definite evidence of focal consolidation. Cardiomegaly with scattered subtle mild interlobular septal thickening with associated ground-glass opacities, which is most significant in the lung bases, and raises the concern for mild pulmonary edema. Manjeet Estes MD IMG CT ORDERABLES Lucero l Result * HM DILATED EYE EXAM (09/23/2023 12:00 AM CDT) 09/23/2023 us Provider Scan PROCEDURE/MINOR SURGICAL ORDERAB LES Final Result SCAN * HEPATITIS C ANTIBODY (02/24/2023 4:07 PM PLATE STACKER) hepatitis C antibody 0.10 <1 S/CO [facility] ARCH [id number] B 02/25/2023 3:10 PM PLATE STACKER [facility] Comment: Signal/Cutoff ratio < 0.79 is Nondetected Signal/Cutoff ratio 0.80-0.99 is Grayzone Signal/Cutoff ratio > 0.99 is Detected Supplemental assays are recommended if signal/cutoff ratio is >/=1.00. Signal/cutoff ratio result >/= 5.00 is 97% predictive of positivity for recombinant immunoblot assay (RIBA) and will be reported to the [place] [facility] as required. Blood Venipuncture / Unknown 02/24/2023 4:07 PM PLATE STACKER 02/24/2023 6:05 PM PLATE STACKER Jing Baird PAC CHEMISTRY ORDERABLES Fin al Result [facility] [address] [place] [address], * Stool Occult Blood - Diagnostic (06/15/2019 5:39 PM CDT) OCCULT BLOOD DIAG, GI BLEED Negative Negative 06/15/2019 6:52 PM CDT [facility] Stool specimen (specimen) Non-Phlebotomy Collection / Unknown 06/15/2019 5:39 PM CDT 06/15/2019 6:20 PM CDT Tom Cowan PAC BODY FLUIDS & STOOLS ORDERABLES Final Result [facility] [address] [place] [address] from Last 3 Months or Most Recently Relevant to Health Maintenance Additional Health Concerns Active Problems Noted Date Diagnosed Date [facility] HYPERTENSION CONCERN (P ATIENT ON HIGH BLOOD PRESSURE MEDICATIONS) 04/10/2023 [facility] NICOTINE DEPENDENCY CONCERN 04/10/2023 [facility] TYPE 2 DIABETES CONCERN 04/10/2023 [facility] TYPE 2 DIABETES INSULIN - ANALOG PATTERN CO NCERN 04/10/2023 [facility] NICOTINE DEPENDENCY CONCERN 04/10/2023 Insurance MEDICARE C [employer] MEDICARE C [employer] Advance Directives * Full Code (Latest Code Status on File) Date Activated Date Inactivated Comments 07/13/2024 9:53 PM * Full Code Date Activated Date Inactivated Comments 06/12/2024 9:25 AM 07/13/2024 9:53 PM CPR-Full Treat ment: FULL ARREST: Attempt Resuscitation/CPR wit intubation and mechanical ventilation. PRE-ARREST: Use entire range of life support measures to stabilize the patient. * Full Code Date Activated Date Inactivated Comments 05/12/2024 4:29 PM 06/12/2024 9:25 AM CPR-Full Treat ment: FULL ARREST: Attempt Resuscitation/CPR wit intubation and mechanical ventilation. PRE-ARREST: Use entire range of life support measures to stabilize the patient. * Full Code Date Activated Date Inactivated Comments 12/04/2023 11:47 AM 01/08/2024 12:12 PM * Full Code Date Activated Date Inactivated Comments 04/27/2023 8:16 PM 04/28/2023 8:35 PM CPR-Full Jose atment: FULL ARREST: Attempt Resuscitation/CPR wit intubation and mechanical ventilation. PRE-ARREST: Use entire range of life support measures to stabilize the patient. Care Teams Hazardous Substances Engineer Relationship Specialty Start Date End Date Kvng Mendoza MD [address] [phone] Consulting Physician Endocrinology 10/10/21
--- OUTSIDE RECORDS SUMMARY | 2024-08-24 15:46 | XMS_ITS | Encounter Summary ---
Author Organization [facility] Address [address] [place] [address] Phone Care Team Providers Care Fire Assistant Name Role Phone Jing Baird Primary Care Provider + Kvng Mendoza MD Unavailable Reason for Visit * Reason Comments Medication Refill Encounter Details Date Type Department Care Team (Late st Contact Info) Description 07/25/2024 Refill [facility] - Family Medicine [facility] [address] [place] [address] Jing Baird PAC [address] [place] [address] Medication Refill Social History Tobacco Use Types Packs/Day Years Used Date Smoking Tobacco: Every Day Cigarettes Smokeless Tobacco: Never Alcohol Use Standard Drinks/Week Comments Not Currently 0 (1 standard drink = 0.6 oz pur e alcohol) [facility] Utilities Answer Date Recorded In the past 12 months has [employer], gas, oil, or water [employer] threatened to shut off services in your home? No 06/12/2024 Social Connection and Isolation Panel [NHANES] A nswer Date Recorded In a typical week, how many times do you talk on the phone with family, friends, or neighbors? Patient declined 05/12/2024 How often do you get togethe r with friends or relatives? Patient declined 05/12/2024 How often do you attend mosque or caodaism serv ices? Patient declined 05/12/2024 Do you belong to any clubs o r organizations such as mosque groups, unions, fraternal or athletic groups, or [...] 10/0 12/2023 [facility] - Occupational [...] place to sleep or slept in a longterm (including now)? No 04/27/2023 Housing Stability Vital Sign Answer Deven e Recorded In the last 12 months, was t here a time when you were not able to pay the mortgage or rent on time? No 06/12/2024 In the past 12 months, how m any times have you moved where you were living? 0 06/12/2024 At any time in the past 12 m [facility], were you homeless or living in a longterm (including now)? No 06/12/2024 Education Answer Date [...] Telephone Encounter - Michelle Liao RN - 07/26/2024 8:58 AM CDT Images from the original note were not included. Name from pharmacy: GABAPENTIN 300 MG CAPSULE Will file in chart as: gabapentin (NEURONTIN) 300 MG Capsule The original prescription was discontinued on 08/19/2023 by Jing Baird, PAC documented in this encounter Plan of Treatment Not on file documented as of this encounter Goals Goal Patient Goal Type Associated Problems Recent Progress Patient-Stated? Author Patient to report a decrease in intensity and frequency of anxious and depressive symptoms Behavioral Health No Mini Larios, WOOD DRILLING MACHINE OPERATOR Note: 1. Patient to learn and utilize three coping skills. 2. Patient to practice self care. 3. Patient to identify negative thoughts and actively reframe. I would like to feel better then I do today. Behavioral Health Yes Mini Larios, WOOD DRILLING MACHINE OPERATOR Help patient manage hypertension Care Plan [facility] HYPERTENSION CONCERN (PATIENT ON HIGH BLOOD PRESSURE MEDICATIONS) No Camelia White, SPONGE PRESS OPERATOR, HOUSE DIRECTOR Help patient manage nicotine dependency Care Plan [facility] NICOTINE DEPENDENCY CONCERN No Camelia White, SPONGE PRESS OPERATOR, HOUSE DIRECTOR Help patients manage type 2 diabetes Care Plan [facility] TYPE 2 DIABETES CONCERN No Camelia White, SPONGE PRESS OPERATOR, HOUSE DIRECTOR Help patient manage blood glucose Care Plan [facility] TYPE 2 DIABETES INSULIN - ANALOG PATTERN CONCERN No Camelia White, SPONGE PRESS OPERATOR, HOUSE DIRECTOR Help patient manage nicotine dependency Care Plan [facility] NICOTINE DEPENDENCY CONCERN No Camelia White, SPONGE PRESS OPERATOR, HOUSE DIRECTOR documented as of this encounter Visit Diagnoses Not on filedocumented in this encounter Additional Health Concerns Active Problems Noted Date Diagnosed Date [facility] HYPERTENSION CONCERN (P ATIENT ON HIGH BLOOD PRESSURE MEDICATIONS) 04/10/2023 [facility] NICOTINE DEPENDENCY CONCERN 04/10/2023 [facility] TYPE 2 DIABETES CONCERN 04/10/2023 [facility] TYPE 2 DIABETES INSULIN - ANALOG PATTERN CO NCERN 04/10/2023 [facility] NICOTINE DEPENDENCY CONCERN 04/10/2023 Assessment Noted Time PHQ-9 Depression Total Score: 0 01/13/20 24 3:15 PM CDT documented as of this encounter Care Teams Fire Assistant Relationship Specialty Start Date End Date Jing Baird PAC [address] [place] [address] PCP - General Physician Size Painter 12/29/18 07/31/24 Kvng Mendoza MD [address] [phone] Consulting Physician Endocrinology 10/10/21 documented as of this encounter
[2024-08-24 16:25] VITALS: BP 133/69; PULSE 74; RESP 16; TEMP 36.9; O2SAT 100
--- NOTE | 2024-08-24 18:10 | ED_ITS ---
HPI - General Adult General Chief complaint: Recheck/Abnormal Lab/Rx <Cayla Chen PA-C - Last Filed: 08/24/24 18:22> Stated complaint: FLUCTUATING BP <Cayla Chen PA-C - Last Filed: 08/24/24 18:22> Time Seen by Provider: 08/24/24 18:10 <HAZEL Oconnor Last Filed: 08/24/24 18:22> Focused HPI: Patient is a 64 y/o female who presents to the ED with multiple complaints. Patient is currently residing at [facility] for rehab for past 1 week s/p RLE orthopedic surgery at [facility] (patient describes periprosthetic fx with hardware replacement). Patient's primary reason for being here is concerns over her BP. States over the past 3 days, states BP has been fluctuating, has been as low as 50/60s systolic. States she feels very nauseous, dizzy/lightheaded whenever her BP is low. She had previously been on amlodipine and atenolol but the facility stopped these medications yesterday. Patient is not on any anticoagulation. States she has been eating and drinking normally. Additional concerns: Reports chest tightness, intermittent SOB, diarrhea. Reports lightening sensation in her L sided jaw and eye for the past 1 week, feels as though she is chewing on a battery. Reports L sided GROSS and eye pain. 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 Reports growth in L axillary region that has been there for quite awhile. States it fluctuates in size, but denies drainage. Denies fevers. GENERAL: Chronically ill and somewhat pale-appearing, well-nourished, and in no acute distress. HEAD: Normocephalic, atraumatic. CHEST: Clear to auscultation. ?No respiratory distress. HEART: Regular rate and rhythm.? SKIN: Small approx pea sized cystic structure in left axillary region, minimally tender, no erythema/warmth/drainage. NEURO: ?Alert and oriented x3. Patient screened in triage and initial orders placed.? ?Additional care and disposition to be based upon?diagnostic testing and treatment. <Cayla Chen PA-C - Last Filed: 08/24/24 18:22> Source: patient <HAZEL Oconnor Last Filed: 08/24/24 18:22> Mode of arrival: ambulatory <HAZEL Oconnor Last Filed: 08/24/24 18:22> Limitations: no limitations <HAZEL Oconnor Last Filed: 08/24/24 18:22> Related Data Allergies/adverse reactions: Allergies Allergy/AdvReac Type Severity Reaction Status Date / Time Sulfa (Sulfonamide Allergy Severe Anaphylaxis Verified 08/24/24 15:44 Antibiotics) Penicillins Allergy Mild Rash Verified 08/24/24 15:44 ciprofloxacin Allergy Anaphylaxis Verified 08/24/24 15:46 metformin AdvReac Abdominal Verified 08/24/24 15:44 Pain JALAPENO Allergy Unknown Anaphylaxis Uncoded 08/24/24 15:44 <HAZEL Oconnor Last Filed: 08/24/24 18:22> Review of Systems 2 Review of Systems: All systems reviewed & are unremarkable except as noted in HPI and below <Jose Carlos Stephen MD - Last Filed: 08/25/24 08:01> Exam 2 Narrative: APPEARANCE: Well appearing, no pain, no distress, well-nourished. HEAD: normocephalic, atraumatic. EYES: PERRLA/EOMI, conjunctivae clear. NOSE: Normal no drainage EARS:TMS clear with good light reflex. THROAT: Pharynx clear, no exudate. NECK: Supple. No adenopathy, no masses. RESPIRATORY: Airway patent, respirations nonlabored. Clear to auscultation bilaterally, no rales, rhonchi, wheezing. CARDIOVASCULAR: Regular rate and rhythm without murmurs rubs or gallops. ABDOMINAL: Soft, nontender, nondistended, normal bowel sounds MUSCULOSKELETAL: Moves all extremities. Strength/ROM intact, No edema, No calf tenderness. NEURO: Alert. Cranial nerves II through XII intact. Good gait. Good coordination SKIN: Warm, dry. Normal Color <Jose Carlos Stephen MD - Last Filed: 08/25/24 08:01> Course Vital Signs Vital signs: Vital Signs Temperature 98.4 F 08/24/24 16:25 Pulse Rate 74 08/24/24 16:25 Respiratory Rate 16 08/24/24 16:25 Blood Pressure 133/69 08/24/24 16:25 Pulse Oximetry 100 08/24/24 16:25 Oxygen Delivery Room Air 08/24/24 16:25 Temperature 98.4 F 08/24/24 16:25 Pulse Rate 75 08/24/24 23:04 Respiratory Rate 14 08/24/24 23:04 Blood Pressure 171/84 H 08/24/24 23:04 Pulse Oximetry 99 08/24/24 23:04 Oxygen Delivery Room Air 08/24/24 16:25 <Cayla Chen PA-C - Last Filed: 08/24/24 18:22> Vital Signs Temperature 98.4 F 08/24/24 16:25 Pulse Rate 74 08/24/24 16:25 Respiratory Rate 16 08/24/24 16:25 Blood Pressure 133/69 08/24/24 16:25 Pulse Oximetry 100 08/24/24 16:25 Oxygen Delivery Room Air 08/24/24 16:25 Temperature 98.4 F 08/24/24 16:25 Pulse Rate 75 08/24/24 23:04 Respiratory Rate 14 08/24/24 23:04 Blood Pressure 171/84 H 08/24/24 23:04 Pulse Oximetry 99 08/24/24 23:04 Oxygen Delivery Room Air 08/24/24 16:25 <Jose Carlos Stephen MD - Last Filed: 08/25/24 08:01> Medical Decision Making MDM Narrative Medical decision making narrative: MSE by STACIE in triage. <Cayla Chen PA-C - Last Filed: 08/24/24 18:22> MSE by STACIE in triage. 64-year-old female presents emergency department for evaluation for multiple complaints. Patient is currently afebrile but does have a leukocytosis of 10.2 and hemoglobin 8.9 which is similar to her previous baseline. Patient did have recent surgery on her right lower extremity approximately 1 week ago. Patient denies any active bleeding. Patient did have an elevated D-dimer of 3.48 but did have a negative CTA showing no evidence of pulmonary embolism. Patient's CMP is similar to her baseline with no acute abnormalities. Patient did have negative serial troponins and negative serial EKGs. Head CT was negative for acute intracranial abnormality and chest x-ray shows no acute cardiopulmonary abnormality. Patient had been complaining of issues with hypotension but patient had no issues with hypotension the emergency department was actually hypertensive during her evaluation here. Patient was updated results of workup and was discharged back to her rehab facility. <Jose Carlos Stephen MD - Last Filed: 08/25/24 08:01> Differential Diagnosis Differential Diagnosis: COVID, RSV, influenza, pulmonary embolism, pneumonia <Jose Carlos Stephen MD - Last Filed: 08/25/24 08:01> Vital Signs Vital Signs: Vital Signs Temperature 98.4 F 08/24/24 16:25 Pulse Rate 74 08/24/24 16:25 Respiratory Rate 16 08/24/24 16:25 Blood Pressure 133/69 08/24/24 16:25 Pulse Oximetry 100 08/24/24 16:25 Oxygen Delivery Room Air 08/24/24 16:25 Temperature 98.4 F 08/24/24 16:25 Pulse Rate 75 08/24/24 23:04 Respiratory Rate 14 08/24/24 23:04 Blood Pressure 171/84 H 08/24/24 23:04 Pulse Oximetry 99 08/24/24 23:04 Oxygen Delivery Room Air 08/24/24 16:25 <Cayla Chen PA-C - Last Filed: 08/24/24 18:22> Vital Signs Temperature 98.4 F 08/24/24 16:25 Pulse Rate 74 08/24/24 16:25 Respiratory Rate 16 08/24/24 16:25 Blood Pressure 133/69 08/24/24 16:25 Pulse Oximetry 100 08/24/24 16:25 Oxygen Delivery Room Air 08/24/24 16:25 Temperature 98.4 F 08/24/24 16:25 Pulse Rate 75 08/24/24 23:04 Respiratory Rate 14 08/24/24 23:04 Blood Pressure 171/84 H 08/24/24 23:04 Pulse Oximetry 99 08/24/24 23:04 Oxygen Delivery Room Air 08/24/24 16:25 <Jose Carlos Stephen MD - Last Filed: 08/25/24 08:01> Lab Data Lab results reviewed: Yes I reviewed the patient's lab results. <Jose Carlos Stephen MD - Last Filed: 08/25/24 08:01> Result diagrams: 05/21/25 18:18 08/24/24 18:18 <Cayla Chen PA-C - Last Filed: 08/24/24 18:22> Labs: Lab Results 08/24/24 08/24/24 08/24/24 Range/Units 18:17 18:18 18:18 WBC 10.2 H (4.5-10.0) K/mm3 RBC 3.07 L (4.2-5.4) M/mm3 Hgb 8.9 L (12.0-15.0) g/dL Hct 29.8 L (37.0-47.0) % MCV 97.1 (80-100) fl MCH 29.0 (26-34) pg MCHC 29.9 L (32-36) g/dl RDW 14.4 (11.5-14.5) % Plt Count 349 (150-375) k/mm3 MPV 10.7 H (7.4-10.4) fl Immature Gran % (Auto) 0.8 H (0-0.5) % Neut % (Auto) 50.8 (45.5-73.1) % Lymph % (Auto) 33.3 (18.3-44.2) % Hodgeman % (Auto) 9.2 H (2.6-8.5) % Eos % (Auto) 5.3 H (0-4.4) % Baso % (Auto) 0.6 (0.2-1.2) % Lymph # (Auto) 3.39 H (0.9-3.2) K/mm3 Hodgeman # (Auto) 0.9 H (0.1-0.6) K/mm3 Eos # (Auto) 0.5 H (0-0.3) K/mm3 Baso # (Auto) 0.1 (0.0-0.1) K/mm3 Abs Immat Gran (auto) 0.08 H (0.00-0.031) K/mm3 Absolute Neuts (auto) 5.2 (1.3-6.7) K/mm3 Absolute Nucleated RBC 0.000 (0.0-0.012) K/mm3 Band Neutrophils % 0 (0-6) % Nucleated RBC % 0.0 (0.0-0.2) % Platelet Estimate Adequate (Adequate) Clumped Platelets Present Hypochromasia 1+ Schistocytes None seen PT 12.7 (11.1-14.7) Seconds INR 0.9 APTT 28.8 (22.3-36.8) Seconds D-Dimer 3.48 H (<0.48) ug/mL Sodium Cancelled 141 Potassium Cancelled Chloride Carbon Dioxide Anion Gap BUN Creatinine Estim Creat Clear Calc Estimated GFR Glucose Calcium Magnesium (1.6-2.3) mg/dL Total Bilirubin AST ALT Alkaline Phosphatase Troponin I (0.000-0.034) ng/mL Total Protein Albumin 08/24/24 08/24/24 08/24/24 Range/Units 18:18 18:18 18:18 WBC (4.5-10.0) K/mm3 RBC (4.2-5.4) M/mm3 Hgb (12.0-15.0) g/dL Hct (37.0-47.0) % MCV (80-100) fl MCH (26-34) pg MCHC (32-36) g/dl RDW (11.5-14.5) % Plt Count (150-375) k/mm3 MPV (7.4-10.4) fl Immature Gran % (Auto) (0-0.5) % Neut % (Auto) (45.5-73.1) % Lymph % (Auto) (18.3-44.2) % Hodgeman % (Auto) (2.6-8.5) % Eos % (Auto) (0-4.4) % Baso % (Auto) (0.2-1.2) % Lymph # (Auto) (0.9-3.2) K/mm3 Hodgeman # (Auto) (0.1-0.6) K/mm3 Eos # (Auto) (0-0.3) K/mm3 Baso # (Auto) (0.0-0.1) K/mm3 Abs Immat Gran (auto) (0.00-0.031) K/mm3 Absolute Neuts (auto) (1.3-6.7) K/mm3 Absolute Nucleated RBC (0.0-0.012) K/mm3 Band Neutrophils % (0-6) % Nucleated RBC % (0.0-0.2) % Platelet Estimate (Adequate) Clumped Platelets Hypochromasia Schistocytes PT (11.1-14.7) Seconds INR APTT (22.3-36.8) Seconds D-Dimer (<0.48) ug/mL Sodium Potassium 3.4 Chloride Cancelled 103 Carbon Dioxide Cancelled 27 Anion Gap Cancelled BUN Creatinine Estim Creat Clear Calc Estimated GFR Glucose Calcium Magnesium (1.6-2.3) mg/dL Total Bilirubin AST ALT Alkaline Phosphatase Troponin I (0.000-0.034) ng/mL Total Protein Albumin 08/24/24 08/24/24 08/24/24 Range/Units 18:18 18:18 18:18 WBC (4.5-10.0) K/mm3 RBC (4.2-5.4) M/mm3 Hgb (12.0-15.0) g/dL Hct (37.0-47.0) % MCV (80-100) fl MCH (26-34) pg MCHC (32-36) g/dl RDW (11.5-14.5) % Plt Count (150-375) k/mm3 MPV (7.4-10.4) fl Immature Gran % (Auto) (0-0.5) % Neut % (Auto) (45.5-73.1) % Lymph % (Auto) (18.3-44.2) % Hodgeman % (Auto) (2.6-8.5) % Eos % (Auto) (0-4.4) % Baso % (Auto) (0.2-1.2) % Lymph # (Auto) (0.9-3.2) K/mm3 Hodgeman # (Auto) (0.1-0.6) K/mm3 Eos # (Auto) (0-0.3) K/mm3 Baso # (Auto) (0.0-0.1) K/mm3 Abs Immat Gran (auto) (0.00-0.031) K/mm3 Absolute Neuts (auto) (1.3-6.7) K/mm3 Absolute Nucleated RBC (0.0-0.012) K/mm3 Band Neutrophils % (0-6) % Nucleated RBC % (0.0-0.2) % Platelet Estimate (Adequate) Clumped Platelets Hypochromasia Schistocytes PT (11.1-14.7) Seconds INR APTT (22.3-36.8) Seconds D-Dimer (<0.48) ug/mL Sodium Potassium Chloride Carbon Dioxide Anion Gap 11 BUN Cancelled 19 H Creatinine Cancelled 0.90 Estim Creat Clear Calc Cancelled Estimated GFR Glucose Calcium Magnesium (1.6-2.3) mg/dL Total Bilirubin AST ALT Alkaline Phosphatase Troponin I (0.000-0.034) ng/mL Total Protein Albumin 08/24/24 08/24/24 08/24/24 Range/Units 18:18 18:18 18:18 WBC (4.5-10.0) K/mm3 RBC (4.2-5.4) M/mm3 Hgb (12.0-15.0) g/dL Hct (37.0-47.0) % MCV (80-100) fl MCH (26-34) pg MCHC (32-36) g/dl RDW (11.5-14.5) % Plt Count (150-375) k/mm3 MPV (7.4-10.4) fl Immature Gran % (Auto) (0-0.5) % Neut % (Auto) (45.5-73.1) % Lymph % (Auto) (18.3-44.2) % Hodgeman % (Auto) (2.6-8.5) % Eos % (Auto) (0-4.4) % Baso % (Auto) (0.2-1.2) % Lymph # (Auto) (0.9-3.2) K/mm3 Hodgeman # (Auto) (0.1-0.6) K/mm3 Eos # (Auto) (0-0.3) K/mm3 Baso # (Auto) (0.0-0.1) K/mm3 Abs Immat Gran (auto) (0.00-0.031) K/mm3 Absolute Neuts (auto) (1.3-6.7) K/mm3 Absolute Nucleated RBC (0.0-0.012) K/mm3 Band Neutrophils % (0-6) % Nucleated RBC % (0.0-0.2) % Platelet Estimate (Adequate) Clumped Platelets Hypochromasia Schistocytes PT (11.1-14.7) Seconds INR APTT (22.3-36.8) Seconds D-Dimer (<0.48) ug/mL Sodium Potassium Chloride Carbon Dioxide Anion Gap BUN Creatinine Estim Creat Clear Calc 56 Estimated GFR Cancelled > 60 Glucose Cancelled 138 H Calcium Cancelled Magnesium (1.6-2.3) mg/dL Total Bilirubin AST ALT Alkaline Phosphatase Troponin I (0.000-0.034) ng/mL Total Protein Albumin 08/24/24 08/24/24 08/24/24 Range/Units 18:18 18:18 18:18 WBC (4.5-10.0) K/mm3 RBC (4.2-5.4) M/mm3 Hgb (12.0-15.0) g/dL Hct (37.0-47.0) % MCV (80-100) fl MCH (26-34) pg MCHC (32-36) g/dl RDW (11.5-14.5) % Plt Count (150-375) k/mm3 MPV (7.4-10.4) fl Immature Gran % (Auto) (0-0.5) % Neut % (Auto) (45.5-73.1) % Lymph % (Auto) (18.3-44.2) % Hodgeman % (Auto) (2.6-8.5) % Eos % (Auto) (0-4.4) % Baso % (Auto) (0.2-1.2) % Lymph # (Auto) (0.9-3.2) K/mm3 Hodgeman # (Auto) (0.1-0.6) K/mm3 Eos # (Auto) (0-0.3) K/mm3 Baso # (Auto) (0.0-0.1) K/mm3 Abs Immat Gran (auto) (0.00-0.031) K/mm3 Absolute Neuts (auto) (1.3-6.7) K/mm3 Absolute Nucleated RBC (0.0-0.012) K/mm3 Band Neutrophils % (0-6) % Nucleated RBC % (0.0-0.2) % Platelet Estimate (Adequate) Clumped Platelets Hypochromasia Schistocytes PT (11.1-14.7) Seconds INR APTT (22.3-36.8) Seconds D-Dimer (<0.48) ug/mL Sodium Potassium Chloride Carbon Dioxide Anion Gap BUN Creatinine Estim Creat Clear Calc Estimated GFR Glucose Calcium 8.6 Magnesium 1.8 (1.6-2.3) mg/dL Total Bilirubin Cancelled 0.2 AST Cancelled 36 ALT Cancelled Alkaline Phosphatase Troponin I (0.000-0.034) ng/mL Total Protein Albumin 08/24/24 08/24/24 08/24/24 Range/Units 18:18 18:18 18:18 WBC (4.5-10.0) K/mm3 RBC (4.2-5.4) M/mm3 Hgb (12.0-15.0) g/dL Hct (37.0-47.0) % MCV (80-100) fl MCH (26-34) pg MCHC (32-36) g/dl RDW (11.5-14.5) % Plt Count (150-375) k/mm3 MPV (7.4-10.4) fl Immature Gran % (Auto) (0-0.5) % Neut % (Auto) (45.5-73.1) % Lymph % (Auto) (18.3-44.2) % Hodgeman % (Auto) (2.6-8.5) % Eos % (Auto) (0-4.4) % Baso % (Auto) (0.2-1.2) % Lymph # (Auto) (0.9-3.2) K/mm3 Hodgeman # (Auto) (0.1-0.6) K/mm3 Eos # (Auto) (0-0.3) K/mm3 Baso # (Auto) (0.0-0.1) K/mm3 Abs Immat Gran (auto) (0.00-0.031) K/mm3 Absolute Neuts (auto) (1.3-6.7) K/mm3 Absolute Nucleated RBC (0.0-0.012) K/mm3 Band Neutrophils % (0-6) % Nucleated RBC % (0.0-0.2) % Platelet Estimate (Adequate) Clumped Platelets Hypochromasia Schistocytes PT (11.1-14.7) Seconds INR APTT (22.3-36.8) Seconds D-Dimer (<0.48) ug/mL Sodium Potassium Chloride Carbon Dioxide Anion Gap BUN Creatinine Estim Creat Clear Calc Estimated GFR Glucose Calcium Magnesium (1.6-2.3) mg/dL Total Bilirubin AST ALT 20 Alkaline Phosphatase Cancelled 107 Troponin I < 0.012 (0.000-0.034) ng/mL Total Protein Cancelled 7.0 Albumin Cancelled 08/24/24 08/24/24 Range/Units 18:18 21:55 WBC (4.5-10.0) K/mm3 RBC (4.2-5.4) M/mm3 Hgb (12.0-15.0) g/dL Hct (37.0-47.0) % MCV (80-100) fl MCH (26-34) pg MCHC (32-36) g/dl RDW (11.5-14.5) % Plt Count (150-375) k/mm3 MPV (7.4-10.4) fl Immature Gran % (Auto) (0-0.5) % Neut % (Auto) (45.5-73.1) % Lymph % (Auto) (18.3-44.2) % Hodgeman % (Auto) (2.6-8.5) % Eos % (Auto) (0-4.4) % Baso % (Auto) (0.2-1.2) % Lymph # (Auto) (0.9-3.2) K/mm3 Hodgeman # (Auto) (0.1-0.6) K/mm3 Eos # (Auto) (0-0.3) K/mm3 Baso # (Auto) (0.0-0.1) K/mm3 Abs Immat Gran (auto) (0.00-0.031) K/mm3 Absolute Neuts (auto) (1.3-6.7) K/mm3 Absolute Nucleated RBC (0.0-0.012) K/mm3 Band Neutrophils % (0-6) % Nucleated RBC % (0.0-0.2) % Platelet Estimate (Adequate) Clumped Platelets Hypochromasia Schistocytes PT (11.1-14.7) Seconds INR APTT (22.3-36.8) Seconds D-Dimer (<0.48) ug/mL Sodium Potassium Chloride Carbon Dioxide Anion Gap BUN Creatinine Estim Creat Clear Calc Estimated GFR Glucose Calcium Magnesium (1.6-2.3) mg/dL Total Bilirubin AST ALT Alkaline Phosphatase Troponin I < 0.012 (0.000-0.034) ng/mL Total Protein Albumin 3.9 <Cayla Chen PA-C - Last Filed: 08/24/24 18:22> Lab Results 08/24/24 08/24/24 08/24/24 Range/Units 18:17 18:18 18:18 WBC 10.2 H (4.5-10.0) K/mm3 RBC 3.07 L (4.2-5.4) M/mm3 Hgb 8.9 L (12.0-15.0) g/dL Hct 29.8 L (37.0-47.0) % MCV 97.1 (80-100) fl MCH 29.0 (26-34) pg MCHC 29.9 L (32-36) g/dl RDW 14.4 (11.5-14.5) % Plt Count 349 (150-375) k/mm3 MPV 10.7 H (7.4-10.4) fl Immature Gran % (Auto) 0.8 H (0-0.5) % Neut % (Auto) 50.8 (45.5-73.1) % Lymph % (Auto) 33.3 (18.3-44.2) % Hodgeman % (Auto) 9.2 H (2.6-8.5) % Eos % (Auto) 5.3 H (0-4.4) % Baso % (Auto) 0.6 (0.2-1.2) % Lymph # (Auto) 3.39 H (0.9-3.2) K/mm3 Hodgeman # (Auto) 0.9 H (0.1-0.6) K/mm3 Eos # (Auto) 0.5 H (0-0.3) K/mm3 Baso # (Auto) 0.1 (0.0-0.1) K/mm3 Abs Immat Gran (auto) 0.08 H (0.00-0.031) K/mm3 Absolute Neuts (auto) 5.2 (1.3-6.7) K/mm3 Absolute Nucleated RBC 0.000 (0.0-0.012) K/mm3 Band Neutrophils % 0 (0-6) % Nucleated RBC % 0.0 (0.0-0.2) % Platelet Estimate Adequate (Adequate) Clumped Platelets Present Hypochromasia 1+ Schistocytes None seen PT 12.7 (11.1-14.7) Seconds INR 0.9 APTT 28.8 (22.3-36.8) Seconds D-Dimer 3.48 H (<0.48) ug/mL Sodium Cancelled 141 Potassium Cancelled Chloride Carbon Dioxide Anion Gap BUN Creatinine Estim Creat Clear Calc Estimated GFR Glucose Calcium Magnesium (1.6-2.3) mg/dL Total Bilirubin AST ALT Alkaline Phosphatase Troponin I (0.000-0.034) ng/mL Total Protein Albumin 08/24/24 08/24/24 08/24/24 Range/Units 18:18 18:18 18:18 WBC (4.5-10.0) K/mm3 RBC (4.2-5.4) M/mm3 Hgb (12.0-15.0) g/dL Hct (37.0-47.0) % MCV (80-100) fl MCH (26-34) pg MCHC (32-36) g/dl RDW (11.5-14.5) % Plt Count (150-375) k/mm3 MPV (7.4-10.4) fl Immature Gran % (Auto) (0-0.5) % Neut % (Auto) (45.5-73.1) % Lymph % (Auto) (18.3-44.2) % Hodgeman % (Auto) (2.6-8.5) % Eos % (Auto) (0-4.4) % Baso % (Auto) (0.2-1.2) % Lymph # (Auto) (0.9-3.2) K/mm3 Hodgeman # (Auto) (0.1-0.6) K/mm3 Eos # (Auto) (0-0.3) K/mm3 Baso # (Auto) (0.0-0.1) K/mm3 Abs Immat Gran (auto) (0.00-0.031) K/mm3 Absolute Neuts (auto) (1.3-6.7) K/mm3 Absolute Nucleated RBC (0.0-0.012) K/mm3 Band Neutrophils % (0-6) % Nucleated RBC % (0.0-0.2) % Platelet Estimate (Adequate) Clumped Platelets Hypochromasia Schistocytes PT (11.1-14.7) Seconds INR APTT (22.3-36.8) Seconds D-Dimer (<0.48) ug/mL Sodium Potassium 3.4 Chloride Cancelled 103 Carbon Dioxide Cancelled 27 Anion Gap Cancelled BUN Creatinine Estim Creat Clear Calc Estimated GFR Glucose Calcium Magnesium (1.6-2.3) mg/dL Total Bilirubin AST ALT Alkaline Phosphatase Troponin I (0.000-0.034) ng/mL Total Protein Albumin 08/24/24 08/24/24 08/24/24 Range/Units 18:18 18:18 18:18 WBC (4.5-10.0) K/mm3 RBC (4.2-5.4) M/mm3 Hgb (12.0-15.0) g/dL Hct (37.0-47.0) % MCV (80-100) fl MCH (26-34) pg MCHC (32-36) g/dl RDW (11.5-14.5) % Plt Count (150-375) k/mm3 MPV (7.4-10.4) fl Immature Gran % (Auto) (0-0.5) % Neut % (Auto) (45.5-73.1) % Lymph % (Auto) (18.3-44.2) % Hodgeman % (Auto) (2.6-8.5) % Eos % (Auto) (0-4.4) % Baso % (Auto) (0.2-1.2) % Lymph # (Auto) (0.9-3.2) K/mm3 Hodgeman # (Auto) (0.1-0.6) K/mm3 Eos # (Auto) (0-0.3) K/mm3 Baso # (Auto) (0.0-0.1) K/mm3 Abs Immat Gran (auto) (0.00-0.031) K/mm3 Absolute Neuts (auto) (1.3-6.7) K/mm3 Absolute Nucleated RBC (0.0-0.012) K/mm3 Band Neutrophils % (0-6) % Nucleated RBC % (0.0-0.2) % Platelet Estimate (Adequate) Clumped Platelets Hypochromasia Schistocytes PT (11.1-14.7) Seconds INR APTT (22.3-36.8) Seconds D-Dimer (<0.48) ug/mL Sodium Potassium Chloride Carbon Dioxide Anion Gap 11 BUN Cancelled 19 H Creatinine Cancelled 0.90 Estim Creat Clear Calc Cancelled Estimated GFR Glucose Calcium Magnesium (1.6-2.3) mg/dL Total Bilirubin AST ALT Alkaline Phosphatase Troponin I (0.000-0.034) ng/mL Total Protein Albumin 08/24/24 08/24/24 08/24/24 Range/Units 18:18 18:18 18:18 WBC (4.5-10.0) K/mm3 RBC (4.2-5.4) M/mm3 Hgb (12.0-15.0) g/dL Hct (37.0-47.0) % MCV (80-100) fl MCH (26-34) pg MCHC (32-36) g/dl RDW (11.5-14.5) % Plt Count (150-375) k/mm3 MPV (7.4-10.4) fl Immature Gran % (Auto) (0-0.5) % Neut % (Auto) (45.5-73.1) % Lymph % (Auto) (18.3-44.2) % Hodgeman % (Auto) (2.6-8.5) % Eos % (Auto) (0-4.4) % Baso % (Auto) (0.2-1.2) % Lymph # (Auto) (0.9-3.2) K/mm3 Hodgeman # (Auto) (0.1-0.6) K/mm3 Eos # (Auto) (0-0.3) K/mm3 Baso # (Auto) (0.0-0.1) K/mm3 Abs Immat Gran (auto) (0.00-0.031) K/mm3 Absolute Neuts (auto) (1.3-6.7) K/mm3 Absolute Nucleated RBC (0.0-0.012) K/mm3 Band Neutrophils % (0-6) % Nucleated RBC % (0.0-0.2) % Platelet Estimate (Adequate) Clumped Platelets Hypochromasia Schistocytes PT (11.1-14.7) Seconds INR APTT (22.3-36.8) Seconds D-Dimer (<0.48) ug/mL Sodium Potassium Chloride Carbon Dioxide Anion Gap BUN Creatinine Estim Creat Clear Calc 56 Estimated GFR Cancelled > 60 Glucose Cancelled 138 H Calcium Cancelled Magnesium (1.6-2.3) mg/dL Total Bilirubin AST ALT Alkaline Phosphatase Troponin I (0.000-0.034) ng/mL Total Protein Albumin 08/24/24 08/24/24 08/24/24 Range/Units 18:18 18:18 18:18 WBC (4.5-10.0) K/mm3 RBC (4.2-5.4) M/mm3 Hgb (12.0-15.0) g/dL Hct (37.0-47.0) % MCV (80-100) fl MCH (26-34) pg MCHC (32-36) g/dl RDW (11.5-14.5) % Plt Count (150-375) k/mm3 MPV (7.4-10.4) fl Immature Gran % (Auto) (0-0.5) % Neut % (Auto) (45.5-73.1) % Lymph % (Auto) (18.3-44.2) % Hodgeman % (Auto) (2.6-8.5) % Eos % (Auto) (0-4.4) % Baso % (Auto) (0.2-1.2) % Lymph # (Auto) (0.9-3.2) K/mm3 Hodgeman # (Auto) (0.1-0.6) K/mm3 Eos # (Auto) (0-0.3) K/mm3 Baso # (Auto) (0.0-0.1) K/mm3 Abs Immat Gran (auto) (0.00-0.031) K/mm3 Absolute Neuts (auto) (1.3-6.7) K/mm3 Absolute Nucleated RBC (0.0-0.012) K/mm3 Band Neutrophils % (0-6) % Nucleated RBC % (0.0-0.2) % Platelet Estimate (Adequate) Clumped Platelets Hypochromasia Schistocytes PT (11.1-14.7) Seconds INR APTT (22.3-36.8) Seconds D-Dimer (<0.48) ug/mL Sodium Potassium Chloride Carbon Dioxide Anion Gap BUN Creatinine Estim Creat Clear Calc Estimated GFR Glucose Calcium 8.6 Magnesium 1.8 (1.6-2.3) mg/dL Total Bilirubin Cancelled 0.2 AST Cancelled 36 ALT Cancelled Alkaline Phosphatase Troponin I (0.000-0.034) ng/mL Total Protein Albumin 08/24/24 08/24/24 08/24/24 Range/Units 18:18 18:18 18:18 WBC (4.5-10.0) K/mm3 RBC (4.2-5.4) M/mm3 Hgb (12.0-15.0) g/dL Hct (37.0-47.0) % MCV (80-100) fl MCH (26-34) pg MCHC (32-36) g/dl RDW (11.5-14.5) % Plt Count (150-375) k/mm3 MPV (7.4-10.4) fl Immature Gran % (Auto) (0-0.5) % Neut % (Auto) (45.5-73.1) % Lymph % (Auto) (18.3-44.2) % Hodgeman % (Auto) (2.6-8.5) % Eos % (Auto) (0-4.4) % Baso % (Auto) (0.2-1.2) % Lymph # (Auto) (0.9-3.2) K/mm3 Hodgeman # (Auto) (0.1-0.6) K/mm3 Eos # (Auto) (0-0.3) K/mm3 Baso # (Auto) (0.0-0.1) K/mm3 Abs Immat Gran (auto) (0.00-0.031) K/mm3 Absolute Neuts (auto) (1.3-6.7) K/mm3 Absolute Nucleated RBC (0.0-0.012) K/mm3 Band Neutrophils % (0-6) % Nucleated RBC % (0.0-0.2) % Platelet Estimate (Adequate) Clumped Platelets Hypochromasia Schistocytes PT (11.1-14.7) Seconds INR APTT (22.3-36.8) Seconds D-Dimer (<0.48) ug/mL Sodium Potassium Chloride Carbon Dioxide Anion Gap BUN Creatinine Estim Creat Clear Calc Estimated GFR Glucose Calcium Magnesium (1.6-2.3) mg/dL Total Bilirubin AST ALT 20 Alkaline Phosphatase Cancelled 107 Troponin I < 0.012 (0.000-0.034) ng/mL Total Protein Cancelled 7.0 Albumin Cancelled 08/24/24 08/24/24 Range/Units 18:18 21:55 WBC (4.5-10.0) K/mm3 RBC (4.2-5.4) M/mm3 Hgb (12.0-15.0) g/dL Hct (37.0-47.0) % MCV (80-100) fl MCH (26-34) pg MCHC (32-36) g/dl RDW (11.5-14.5) % Plt Count (150-375) k/mm3 MPV (7.4-10.4) fl Immature Gran % (Auto) (0-0.5) % Neut % (Auto) (45.5-73.1) % Lymph % (Auto) (18.3-44.2) % [place]geman % (Auto) (2.6-8.5) % Eos % (Auto) (0-4.4) % Baso % (Auto) (0.2-1.2) % Lymph # (Auto) (0.9-3.2) K/mm3 [place]eman # (Auto) (0.1-0.6) K/mm3 Eos # (Auto) (0-0.3) K/mm3 Baso # (Auto) (0.0-0.1) K/mm3 Abs Immat Gran (auto) (0.00-0.031) K/mm3 Absolute Neuts (auto) (1.3-6.7) K/mm3 Absolute Nucleated RBC (0.0-0.012) K/mm3 Band Neutrophils % (0-6) % Nucleated RBC % (0.0-0.2) % Platelet Estimate (Adequate) Clumped Platelets Hypochromasia Schistocytes PT (11.1-14.7) Seconds INR APTT (22.3-36.8) Seconds D-Dimer (<0.48) ug/mL Sodium Potassium Chloride Carbon Dioxide Anion Gap BUN Creatinine Estim Creat Clear Calc Estimated GFR Glucose Calcium Magnesium (1.6-2.3) mg/dL Total Bilirubin AST ALT Alkaline Phosphatase Troponin I < 0.012 (0.000-0.034) ng/mL Total Protein Albumin 3.9 <Jose Carlos Stephen MD - Last Filed: 08/25/24 08:01> Imaging Data Radiologist's impression: Impressions Chest X-Ray 08/24/24 18:52 IMPRESSION: No focal infiltrate or effusion. Head CT 08/24/24 19:12 Impression: No acute intracranial hemorrhage or suspicious mass effect. 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 Chest CTA 08/24/24 20:34 IMPRESSION: No pulmonary embolus. No thoracic aortic dissection. The lungs are clear. <Jose Carlos Stephen MD - Last Filed: 08/25/24 08:01> Discharge Plan Discharge Clinical Impression: Chest pain, Acute hypotension <Cayla Chen PA-C - Last Filed: 08/24/24 18:22> Patient Disposition: NH Detention/Asst Living <Cayla Chen PA-C - Last Filed: 08/24/24 18:22> Condition: Stable <Cayla Chen PA-C - Last Filed: 08/24/24 18:22> Instructions: Antibiotic Form <Cayla Chen PA-C - Last Filed: 08/24/24 18:22> Additional Instructions: Closely monitor your blood pressure. Drink plenty of fluids. Have close follow-up with your primary care physician. If you have any worsening symptoms then please call or return to the emergency department. <Cayla Chen PA-C - Last Filed: 08/24/24 18:22> Patient Language: Prydeinig <Cayla Chen PA-C - Last Filed: 08/24/24 18:22> Follow-up/Referrals: UNKNOWN,DOCTOR [Primary Care Provider] - <Cayla Chen PA-C - Last Filed: 08/24/24 18:22> Quality HEART score for chest pain patients History: slightly suspicious <Jose Carlos Stephen MD - Last Filed: 08/25/24 08:01> ECG: normal <Jose Carlos Stephen MD - Last Filed: 08/25/24 08:01> Age: > or = to 65 years <Jose Carlos Stephen MD - Last Filed: 08/25/24 08:01> Risk factors: 1 or 2 risk factors <Jose Carlos Stephen MD - Last Filed: 08/25/24 08:01> Troponin: < or = to 1x normal limit <Jose Carlos Stephen MD - Last Filed: 08/25/24 08:01> Heart score: 3 <Jose Carlos Stephen MD - Last Filed: 08/25/24 08:01>
--- NOTE | 2024-08-24 18:14 | ECG_ITS ---
Test Date: 2024-08-24 18:18:39 Measurements Intervals [place] Rate: 72 P: 7 SC: 128 QRS: 10 QRSD: 81 T: 36 QT: 388 QTc: 425 Interpretive Statements SINUS RHYTHM No previous ECG available for comparison Electronically Signed On 08-25-2024 13:56:27 CDT by Reginald Maldonado M.D.
[2024-08-24 18:25] LABS: Basophils Absolute Auto 0.1 K/mm3 (0.0-0.1); Basophils Percent Auto 0.6 % (0.2-1.2); Eosinophils Absolute Auto 0.5 K/mm3 (0-0.3); Eosinophils Percent Auto 5.3 % (0-4.4); Hematocrit 29.8 % (37.0-47.0); Hemoglobin 8.9 g/dL (12.0-15.0); Immature Granulocyte Absolute 0.08 K/mm3 (0.00-0.031); Immature Granulocyte Percent A 0.8 % (0-0.5); Lymphocytes Absolute Auto 3.39 K/mm3 (0.9-3.2); Lymphocytes Percent Auto 33.3 % (18.3-44.2); Mean Corpuscular HGB Conc 29.9 g/dl (32-36); Mean Corpuscular Volume 97.1 fl (80-100); Mean Platelet Volume 10.7 fl (7.4-10.4); Monocytes Absolute Auto 0.9 K/mm3 (0.1-0.6); Monocytes Percent Auto 9.2 % (2.6-8.5); Neutrophils Absolute Auto 5.2 K/mm3 (1.3-6.7); Neutrophils Percent Auto 50.8 % (45.5-73.1); Platelet Count Result 349 k/mm3 (150-375); Red Blood Count 3.07 M/mm3 (4.2-5.4); Red Cell Distribution Width 14.4 % (11.5-14.5); White Blood Count 10.2 K/mm3 (4.5-10.0)
[2024-08-24 18:36] LABS: Alanine Aminotransferase 20 U/L (6-35); Albumin Level 3.9 g/dL (3.5-5.1); Alkaline Phosphatase 107 U/L (38-126); Anion Gap 11 mmol/L (4-12); Aspartate Amino Transferase 36 U/L (14-36); Bilirubin,Total 0.2 mg/dL (0.2-1.3); Blood Urea Nitrogen 19 mg/dL (7-17); Calcium 8.6 mg/dL (8.4-10.2); Carbon Dioxide 27 mmol/L (22-30); Chloride 103 mmol/L (98-107); Estimated CRCL calculation 56 ml/min; Estimated Glomerular Filt Rate > 60; Glucose 138 mg/dL (65-110); Magnesium 1.8 mg/dL (1.6-2.3); Potassium 3.4 mmol/L (3.4-5.0); Sodium 141 mmol/L (137-145)
[2024-08-24 18:45] LABS: INR 0.9; Prothrombin Time 12.7 Seconds (11.1-14.7)
[2024-08-24 18:46] LABS: Partial Thromboplastin Time 28.8 Seconds (22.3-36.8)
[2024-08-24 18:48] LABS: Troponin I < 0.012 ng/mL (0.000-0.034)
[2024-08-24 18:54] LABS: D Dimer 3.48 ug/mL (<0.48)
[2024-08-24 19:11] LABS: Platelet Clumps Present; Platelet Estimate Adequate (Adequate); Schistocytes None Seen
[2024-08-24 19:12] LABS: Band Neutrophils Percent 0 % (0-6); Hypochromasia 1+
[2024-08-24 19:31] VITALS: RESP 18; O2SAT 98
[2024-08-24 19:35] VITALS: BP 149/98; PULSE 73; RESP 19; O2SAT 100
[2024-08-24] MEDS: LACTATED RINGERS 1,000 ML 999 ML IV CONT (20:08)
[2024-08-24 21:28] VITALS: BP 152/106; PULSE 78; RESP 17; O2SAT 100
[2024-08-24 22:23] LABS: Troponin I < 0.012 ng/mL (0.000-0.034)
--- NOTE | 2024-08-24 23:03 | PC.NURSE ---
Rn spoke with Jacqueline from [facility] and gave report and discharge instructions at this time. States having no further wuestions at this time.
[2024-08-24 23:04] VITALS: BP 171/84; PULSE 75; RESP 14; O2SAT 99
== END 2024-08-24 23:06 ==
PROVIDERS: Physician Assistant; Emergency Provider Emergency Medicine
DX: I95.9 Hypotension, unspecified (principal); R07.9 Chest pain, unspecified
CPT/HCPCS: 36415; 70450; 71046; 71275; 80053; 83735; 84484; 85025; 85380; 85610; 85730; 93005; 96360; 99284; J7120; Q9967